=== PATIENT | male | born 1930 | race Caucasian/White ===

== ENCOUNTER 2017-01-23 16:15 | Inpatient (IN) | payer MEDICARE, BC ==
[~2017-01-23] VITALS: Ht 182.9 cm; Wt 77.6 kg
[~2017-01-23 16:15] MED LIST: ASPI81TA3 PO; CARV3.1260 PO; FINA5TAB4 PO; FURO40TA4 PO; LISI10TA2 PO; METF1000 PO; OXYB5TAB7 PO; POTA10TA37 PO; POTA20TA96 PO; SMV40T PO
[2017-01-23] MEDS ORDERED: SODIUM CHLORIDE 0.9% 1L BAG IV* STA (16:26)
[2017-01-23 17:03] LABS: ADD SCAN DIFF NO
[2017-01-23 17:06] LABS: BASOPHILS % 0.2 % (0.0-2.0); HEMATOCRIT 41.4 % (42.0-52.0); HEMOGLOBIN 12.9 g/dl (14.0-18.0); LYMPHOCYTES # 0.8 10^3/ul (0.8-2.9); LYMPHOCYTES % 15.3 % (15.0-51.0); MEAN CORPUSCULAR HEMOGLOBIN 28.8 pg (29.0-33.0); MEAN CORPUSCULAR HGB CONC 31.2 g/dl (32.0-37.0); MEAN CORPUSCULAR VOLUME 92.4 fl (82.0-101.0); MEAN PLATELET VOLUME 11.3 fl (7.4-10.4); MONOCYTE # 0.4 10^3/ul (0.3-0.9); MONOCYTES % 8.5 % (0.0-11.0); NEUTROPHIL # 3.8 10^3/ul (1.6-7.5); NEUTROPHILS % 75.6 % (39.0-77.0); PLATELET COUNT 138 10^3/UL (140-415); RED BLOOD COUNT 4.48 10^6/ul (4.70-6.10); RED CELL DISTRIBUTION WIDTH 14.6 % (11.5-14.5)
[2017-01-23 17:16] LABS: POTASSIUM 3.9 mmol/L (3.5-5.1)
[2017-01-23 17:18] LABS: ALBUMIN/GLOBULIN RATIO 0.9; BILIRUBIN,INDIRECT 0.3 mg/dl (0-1.1); BILIRUBIN,TOTAL 0.3 mg/dl (0.2-1.3); CREATININE 1.34 mg/dl (0.61-1.24); TOTAL PROTEIN 8.4 g/dl (6.1-8.1)
[2017-01-23 17:19] LABS: CALCIUM 9.1 mg/dl (8.4-10.2)
[2017-01-23 17:20] LABS: INR 1.12; PROTIME 14.4 Sec (12.2-14.2); PT RATIO 1.1
[2017-01-23 17:21] LABS: PARTIAL THROMBOPLASTIN TIME 32.2 Sec (25.0-35.0)
[2017-01-23 17:30] LABS: TROPONIN-I 0.109 ng/ml (0.00-0.12)
--- NOTE | 2017-01-23 17:32 | RADRPT ---
PROCEDURE: XR Chest. CLINICAL INDICATION: Shortness of breath. Sepsis. TECHNIQUE: Single frontal view. COMPARISON: 07/16/2016. FINDINGS: There is mild left basilar atelectasis. The lungs are otherwise clear. The heart is mildly enlarged. There is an automatic internal cardiac defibrillator. Calcification is present in the aorta consistent with atherosclerosis. There is no pleural effusion. There is no pneumothorax. IMPRESSION: 1. Mild left basilar atelectasis. 2. Mild cardiomegaly. 3. AICD. 4. Atherosclerosis. 5. Otherwise unremarkable chest radiograph. RPTAT: QQ .Epifanio Aragon MD, MD Date Time Electronically viewed and signed by .Epifanio Aragon MD, on 01/23/2017 17:32 .R/
--- NOTE | 2017-01-23 17:57 | RADRPT ---
PROCEDURE: CT Brain without. CLINICAL INDICATION: Altered mental status. TECHNIQUE: A CT of the brain was performed on multidetector high-resolution CT scanner utilizing a xial sections from the skull base through the vertex without contrast. The scan was reviewed in sof t tissue brain and high frequency resolution bone algorithm windows. Images were reviewed on a high -resolution PACS workstation. One or more the following does reduction techniques were utilized: Aut omated exposure control, adjustment of the mA/ or kV according to patient's size, or use of iterativ e reconstruction technique. The exam CTDI = 44.83 mGy and the DLP = the 720.23 mGy-cm. COMPARISON: Brain CT 07/14/2016. FINDINGS: The ventricles and sulci are mildly prominent indicative of volume loss. There is no intracranial he morrhage, mass effect or midline shift. No abnormal intra-axial or extra-axial fluid collections ar e seen. The mello/white matter differentiation is preserved. There are mild scattered foci of hypoattenuation in the white matter, which are nonspecific in etiol ogy but likely reflect chronic small vessel ischemic changes. There are mild intracranial vascular calcifications consistent with atherosclerosis. Chronic left nasal bone fracture deformity is noted. The visualized paranasal sinuses are essentially clear. IMPRESSION: 1. No acute intracranial hemorrhage, transcortical infarction or mass effect. 2. Mild intracranial atherosclerosis and chronic small vessel ischemic changes. 3. Mild generalized cerebral volume loss. RPTAT: HH .Maria T cShmidt MD, MD Date Time Electronically viewed and signed by .Maria T Schmidt MD, MD on 01/23/2017 17:56 .N/
[2017-01-23] MEDS ORDERED: DILTIAZEM 25 MG INJ IV ONE (18:00)
[2017-01-23 19:19] LABS: ADD UMIC YES; URINE BILIRUBIN (Dip) NEGATIVE (NEGATIVE); URINE BLOOD (Dip) 1+ (NEGATIVE); URINE COLOR LT. YELLOW (YELLOW); URINE GLUCOSE (Dip) NEGATIVE (NEGATIVE); URINE KETONES (Dip) 3+ (NEGATIVE); URINE LEUKOCYTE ESTERASE (Dip) NEGATIVE (NEGATIVE); URINE NITRITE (Dip) NEGATIVE (NEGATIVE); URINE TOTAL PROTEIN (Dip) 1+ (NEGATIVE); URINE UROBILINOGEN (Dip) 0.2 E.U./dL (0.1-1.0)
[2017-01-23 19:37] LABS: BACTERIA,URINE FEW
--- NOTE | 2017-01-23 19:54 | ERA ---
ER Documentation Chief Complaint Date/Time DATE: 01/23/17 TIME: 19:49 Chief Complaint BROUGHT IN VIA EMS DUE TO INCREASED ALOC FROM HOME HPI History is unobtainable from patient secondary to his cognitive deficits. This is an 86-year-old male who presents to the emergency room after being brought in by ambulance to a decrease in his cognitive status over the past 24 hours. This patient does have a baseline dementia however he has been more altered than normal since last night at 8 PM. This patient has not been able to ambulate from his chair like he normally does and has been more weak than normal according to EMS and family. ROS All systems reviewed and are negative except as per history of present illness. Medications Home Meds Reported Medications Lisinopril* (Lisinopril*) 10 Mg Tablet, 10 MG PO DAILY, #30 TAB 07/14/16 Furosemide* (Furosemide*) 40 Mg Tablet, 40 MG PO DAILY, TAB 07/14/16 Potassium Chloride* (K-Dur*) 10 Meq Tab.prt.sr, 10 MEQ PO MONWEDFRI, TAB 07/14/16 Potassium Chloride* (Potassium Chloride*) 20 Meq Tablet.er, 20 MEQ PO DAILY, TAB.SA 07/14/16 Oxybutynin Chloride* (Ditropan*) 5 Mg Tablet, 5 MG PO DAILY 04/03/13 Carvedilol* (Carvedilol*) 3.125 Mg Tablet, 3.125 MG PO DAILY 02/05/13 Finasteride* (Finasteride*) 5 Mg Tablet, 5 MG PO DAILY 01/15/13 Aspirin* (Aspirin* Chew) 81 Mg Tab.chew, 81 MG PO DAILY 01/15/13 Simvastatin (Simvastatin) 40 Mg Tablet, 40 MG PO QHS 12/20/12 Metformin Hcl* (Metformin Hcl*) 1,000 Mg Tablet, 1000 MG PO BID 12/20/12 Allergies Allergies: Coded Allergies: cefazolin sodium (Verified Allergy, Mild, RASH, 01/03/15) PMhx/Soc History of Surgery: Yes (CABG, B THR) Anesthesia Reaction: No Hx Neurological Disorder: Yes (dementia) Hx Respiratory Disorders: No Hx Cardiac Disorders: Yes (HTN, Pacemaker) Hx Psychiatric Problems: No Hx Miscellaneous Medical Probl: No Hx Alcohol Use: No Hx Substance Use: No Hx Tobacco Use: No Smoking Status: Never smoker Physical Exam Vitals Vital Signs Date Time Temp Pulse Resp B/P Pulse Ox O2 Delivery O2 Flow Rate FiO2 01/23/17 18:16 106 24 145/93 97 Nasal Cannula 2.0 01/23/17 17:09 Nasal Cannula 2 01/23/17 16:19 98.4 102 18 142/81 98 Physical Exam INITIAL VITAL SIGNS: Reviewed by me GENERAL: The patient is frail-appearing elderly gentleman, no acute distress HEENT: Dry mucous membranes pupils equal, round, and reactive to light. EOMI. There is no scleral icterus. NECK: C-spine is soft and supple, there is no meningismus. There is no cervical lymphadenopathy. LUNGS: Clear to auscultation bilaterally. There are no rales, wheezes or rhonchi. HEART: Irregularly irregular rhythm no murmurs, clicks, rubs or gallops. ABDOMEN: Soft, non-tender, non-distended. There are bowel sounds in all four quadrants. No rebound or guarding. EXTREMITIES: There is no peripheral cyanosis or edema. No focal swelling or erythema. NEUROLOGICAL: The patient moves all four extremities with 5/5 strength. Cranial nerves II - XII are intact. Normal gait. Alert and oriented SKIN: There is no apparent rash or petechiae. HEME/LYMPHATIC: There is no evidence of excessive bruising or lymphedema. PSYCHIATRIC: The patient does not appear anxious or depressed. Result Diagram: 01/23/17 1650 01/23/17 1650 Results 24 hrs Laboratory Tests Test 01/23/17 16:50 01/23/17 19:06 White Blood Count 5.010^3/ul Red Blood Count 4.4810^6/ul Hemoglobin 12.9g/dl Hematocrit 41.4% Mean Corpuscular Volume 92.4fl Mean Corpuscular Hemoglobin 28.8pg Mean Corpuscular Hemoglobin Concent 31.2g/dl Red Cell Distribution Width 14.6% Platelet Count 81913^3/UL Mean Platelet Volume 11.3fl Neutrophils % 75.6% Lymphocytes % 15.3% Monocytes % 8.5% Eosinophils % 0.0% Basophils % 0.2% Nucleated Red Blood Cells % 0.0/100WBC Neutrophils # 3.810^3/ul Lymphocytes # 0.810^3/ul Monocytes # 0.410^3/ul Eosinophils # 0.010^3/ul Basophils # 0.010^3/ul Nucleated Red Blood Cells # 0.010^3/ul Prothrombin Time 14.4Sec Prothrombin Time Ratio 1.1 INR International Normalized Ratio 1.12 Activated Partial Thromboplast Time 32.2Sec Sodium Level 143mmol/L Potassium Level 3.9mmol/L Chloride Level 100mmol/L Carbon Dioxide Level 25mmol/L Anion Gap 22 Blood Urea Nitrogen 30mg/dl Creatinine 1.34mg/dl Glucose Level 185mg/dl Lactic Acid Level 1.6mmol/L Calcium Level 9.1mg/dl Total Bilirubin 0.3mg/dl Direct Bilirubin 0.00mg/dl Indirect Bilirubin 0.3mg/dl Aspartate Amino Transf (AST/SGOT) 17IU/L Alanine Aminotransferase (ALT/SGPT) 22IU/L Alkaline Phosphatase 61IU/L Creatine Kinase 41IU/L Troponin I 0.109ng/ml Total Protein 8.4g/dl Albumin 4.0g/dl Globulin 4.40g/dl Albumin/Globulin Ratio 0.90 Urine Color LT. YELLOW Urine Clarity CLEAR Urine pH 5.0 Urine Specific [place] >=1.030 Urine Ketones 3+ Urine Nitrite NEGATIVE Urine Bilirubin NEGATIVE Urine Urobilinogen 0.2 E.U./dL Urine Leukocyte Esterase NEGATIVE Urine Microscopic RBC 10-25/HPF Urine Microscopic WBC 0-2/HPF Urine Epithelial Cells OCCASIONAL Urine Amorphous Urates FEW Urine Bacteria FEW Urine Granular Casts FEW Urine Hemoglobin 1+ Urine Glucose NEGATIVE% Urine Total Protein 1+ Current Medications Medications (Trade) Dose Ordered Sig/Do Route PRN Reason Start Time Stop Time Status Last Admin Dose Admin Sodium Chloride (NS) 2,250 ml BOLUS OVER 2 HOURS STAT IV* 01/23/17 16:26 01/23/17 16:28 DC 01/23/17 16:56 Diltiazem HCl (Cardizem Iv) 5 mg ONCE ONCE IV 01/23/17 18:00 01/23/17 18:05 DC 01/23/17 19:00 Procedures/MDM EKG: Rate/Rhythm: Atrial fibrillation with rapid ventricular response QRS, ST, T-waves: [No changes consistent w/ acute ischemia] Impression: Atrial fibrillation with rapid ventricular response Chest X-ray 1V Interpreted by me: Soft Tissue: AICD in place Bones: No acute abnormalities Mediastinum/Cardiac Silhouette/Lungs: [No acute abnormalities] CT brain without: 1. No acute intracranial hemorrhage, transcortical infarction or mass effect. 2. Mild intracranial atherosclerosis and chronic small vessel ischemic changes. 3. Mild generalized cerebral volume loss. This 86-year-old male presents to the emergency room for evaluation of generalized weakness and altered mental status more than his baseline. The patient was unable to give a detailed history secondary to his clinical condition. When I evaluated him he was in atrial fibrillation with rapid ventricular response. The patient had a heart rate of 114 bpm. Lab work was obtained including blood cultures and urine cultures. The patient was found to have 3+ ketones in his urine. He does appear to be dehydrated on my examination. Troponin is at the upper limit of normal, given his age and weakness this patient will be admitted on the telemetry floor for A. fib with RVR, dehydration, and altered mental status. No leukocytosis or fever to indicate acute infection at this time. CT of the brain is normal at this time. This patient is not a TPA candidate as she was last seen normal on January 22 at 8 PM. This patient will be admitted to Dr. Munson Cardiac Critical Care: Excluding all billable procedures Time: 33 minutes Treatments/Evaluations: Close monitoring for dangerous arrhythmia and cardiovascular collapse, while treating with advance cardiac medications and techniques. Departure Diagnosis: Primary Impression: Atrial fibrillation with RVR Additional Impressions: Acute prerenal azotemia Normocytic anemia Mild dehydration Condition: Stable DANETTE GARCÍA DO Jan 23, 2017 19:54
[2017-01-23] MEDS ORDERED: SOD CHLORIDE 0.9% 1,000 ML IV SCH (20:02)
[2017-01-23] MEDS ORDERED: ACETAMINOPHEN 325 MG TAB PO PRN (20:30)
[2017-01-23] MEDS ORDERED: ONDANSETRON 4 MG INJ IV PRN (20:30)
[2017-01-24] VITALS (39 sets, daily range): BP systolic 83–129; BP diastolic 54–110; PULSE 74–115; RESP 20–29; TEMP 98.4; Ht 182.9 cm; Wt 77.6 kg
[2017-01-24] MEDS ORDERED: ACETAMINOPHEN 325 MG TAB PO PRN (11:00)
[2017-01-24] MEDS ORDERED: HYDROCODONE/APAP (10/325) TAB PO PRN (11:00)
[2017-01-24] MEDS ORDERED: MAGNESIUM HYDROXIDE 30ML CUP PO PRN (11:00)
[2017-01-24] MEDS ORDERED: ZOLPIDEM 5 MG TAB PO PRN (11:00)
[2017-01-24] MEDS ORDERED: ALBUTEROL 0.083% (NEB) 2.5 MG/3 ML AMP HHN PRN (11:00)
[2017-01-24 11:33] LABS: AADO2 Arterial 176.6 mmHg (7.0-24.0); Allen Test ACCEPTAB; Arterial Base Excess -11.1 mmol/L (-3.0-3); Arterial COHb 0.3 % (0.0-3.0); Arterial Fraction of Oxyhgb 76.4 % (93.0-99.0); Arterial HCO3 16.8 mmol/L (22.0-26.0); Arterial MetHb 0.4 % (0.0-1.5); Arterial Total Hemglobin 14.5 g/dl (12.0-18.0); MODE NASAL CANNULA
[2017-01-24] MEDS ORDERED: GLUCOSE GEL 15 GRAM TUBE PO PRN ×4 (12:00→17:00)
[2017-01-24] MEDS ORDERED: GLUCOSE GEL 15 GRAM TUBE BUCCAL PRN ×2 (12:00→17:00)
[2017-01-24] MEDS ORDERED: INSULIN ASPART [NOVOLOG] 3 ML PEN SC SCH (12:00)
[2017-01-24] MEDS ORDERED: DEXTROSE 50% 50 ML SYRINGE IV PRN ×4 (12:00→17:00)
[2017-01-24] MEDS ORDERED: GLUCAGON 1 MG INJ IM PRN ×2 (12:00→17:00)
[2017-01-24] MEDS ORDERED: FUROSEMIDE 40 MG INJ IV ONE (12:00)
[2017-01-24] MEDS ORDERED: NORepinephrine 8MG/250 ML (PMX 250 ML ONE (12:45)
--- NOTE | 2017-01-24 12:45 | EN ---
Date/Time of Note Date/Time of Note DATE: 01/24/17 TIME: 12:43 ER Progress Note This is an 86-year-old male who was admitted for A. fib RVR with dehydration to telemetry. Apparently this morning he has had a decrease in mental status and his ABG looks ominous with pH of 7.1 PO2 of 55 with a metabolic acidosis. Patient was then transferred to the ICU and patient's primary care physician opted to intubate him due to his decreasing mental status and need for more respiratory support Endotracheal Intubation by me: Pre assessment performed. See preceding note for details. Pre-oxygenation performed with 100% oxygen RSI: Performed w/o complication or hypoxic events. Medications as ordered. Blade: Mac 4 ET Tube: 7.5 cm Depth: 24] cm at the lip Intubation confirmed by colorimetric CO2, equal breath sounds, quiet over the stomach. TAI RITTER DO Jan 24, 2017 12:45
[2017-01-24] MEDS: NORepinephrine 8MG/250 ML (PMX 250 ML IV SCH (12:55)
[2017-01-24] MEDS ORDERED: ALBUTEROL 0.083% (NEB) 2.5 MG/3 ML AMP HHN SCH (13:00)
--- NOTE | 2017-01-24 13:16 | RADRPT ---
PROCEDURE: XR Chest. CLINICAL INDICATION: Check endotracheal tube position. TECHNIQUE: Single frontal view. COMPARISON: 01/23/2017. 1705 hours. FINDINGS: The endotracheal tube has been inserted in satisfactory position with the tip below the level of the clavicle heads and 6 cm above the martin. There is air space disease in the right mid and lower lung zones and in the left lower lung zone con sistent with pulmonary edema or bilateral multifocal pneumonia. The heart size is normal. There is calcification in the aorta consistent with atherosclerosis. The re is an automatic internal cardiac defibrillator. There is no pleural effusion. There is no pneumothorax. There are severe degenerative changes of the right glenohumeral joint with joint space narrowing, osteophytes, subarticular sclerosis, and deformity. IMPRESSION: 1. Endotracheal tube in satisfactory position. 2. Worse appearance of the lungs. 3. No other change from 01/23/2017. RPTAT: QQ .Epifanio Aragon MD, MD Date Time Electronically viewed and signed by .Epifanio Aragon MD, MD on 01/24/2017 13:16 .R/
[2017-01-24 13:48] LABS: AADO2 Arterial 586.6 mmHg (7.0-24.0); Allen Test ACCEPTAB; Arterial Base Excess -6.2 mmol/L (-3.0-3); Arterial COHb 0.3 % (0.0-3.0); Arterial Fraction of Oxyhgb 96.2 % (93.0-99.0); Arterial HCO3 18.3 mmol/L (22.0-26.0); Arterial MetHb 0.4 % (0.0-1.5); Arterial Total Hemglobin 13.2 g/dl (12.0-18.0); MODE VENT - AC
[2017-01-24] MEDS: PROPOFOL 100 ML IV SCH ×2 (15:20→22:22)
[2017-01-24] MEDS ORDERED: FUROSEMIDE 20 MG INJ IV ONE (16:30)
[2017-01-24] MEDS: ALBUTEROL 18 GM INHALER INH SCH ×2 (17:07→20:48)
--- NOTE | 2017-01-24 17:09 | CONS ---
DATE OF ADMISSION: 01/23/2017 DATE OF CONSULTATION: 01/24/2017 TYPE OF CONSULTATION: Pulmonary. REASON FOR CONSULTATION: Shortness of breath. Thank you, Dr. Munson, for this consultation. HISTORY OF PRESENT ILLNESS: This is an 86-year-old gentleman admitted for increasing shortness of b reath, orthopnea, PND yesterday with altered mental status, transferred to telemetry floor this afte rnoon had increasing shortness of breath and respiratory distress requiring transfer to intensive ca re unit with emergent intubation and mechanical ventilation. Few further details are available. At this point, the patient is intubated on mechanical ventilation, appears comfortable at rest. Eyes are open, blood pressure has improved. PAST MEDICAL HISTORY: Hypertension, atrial fibrillation. MEDICATIONS: Per chart. ALLERGIES: CEFAZOLIN. SOCIAL HISTORY: Tobacco history and alcohol history unknown. FAMILY HISTORY: Noncontributory. SYSTEMS REVIEW: A 12-point review of systems unable to perform. PHYSICAL EXAMINATION: GENERAL: Elderly-appearing gentleman, appears comfortable at rest, intubated on mechanical ventilat ion, no acute distress. VITAL SIGNS: Currently afebrile, pulse is 100, blood pressure 129/80, O2 saturation 96%, FIO2 of 10 0%. NECK: Supple. No JVD or lymphadenopathy. CARDIAC: S1, S2, no added sounds or murmurs. CHEST: Diminished air entry bilaterally. ABDOMEN: Soft, nontender. No guarding, no rebound. EXTREMITIES: No cyanosis, clubbing, edema. NEUROLOGIC: Generalized weakness. DIAGNOSTIC DATA: Chest x-ray shows worsening bilateral interstitial edema. LABORATORY DATA: White count 5.0, hemoglobin 12.9, platelets of 138, BUN 30, creatinine 1.34. Init ial troponin was 0.19. Arterial blood gas pH 7.36, pCO2 of 33, PaO2 of 93 on mechanical ventilation . EKG shows no acute ischemic changes. IMPRESSION AND PLAN: Hypoxemic respiratory failure, likely secondary to combination of: 1. Possible aspiration pneumonia. 2. Pulmonary edema. 3. Possible underlying cardiac dysfunction. The patient will require: 1. Echocardiogram. 2. Broad-spectrum antibiotics. 3. Mechanical ventilation. 4. Consider cardiology consultation. 5. DVT and GI prophylaxis. Dictated By: DAVE VILLANUEVA/SHELLY Conf#: [id number] DID#: [id number]
[2017-01-24] MEDS: SOD CHLORIDE 0.45% 1,000 ML IV SCH (17:14)
[2017-01-24] MEDS: LEVOFLOXACIN 500MG/D5W (PMX) 100 ML IVPB SCH (17:15)
[2017-01-24] MEDS: ENOXAPARIN 40 MG/0.4 ML SYG SC SCH (17:24)
[2017-01-24] MEDS: INSULIN ASPART [NOVOLOG] 3 ML PEN SC SCH ×2 (17:27→21:02)
[2017-01-24] MEDS ORDERED: SOD CHLORIDE 0.9% 250 ML IV ONE ×2 (19:30→23:30)
[2017-01-24] MEDS: FENTAnyl (DRIP) 1000 mcg/100mL 100 ML IV SCH (22:55)
[2017-01-25] VITALS (78 sets, daily range): BP systolic 75–125; BP diastolic 49–98; PULSE 83–105; RESP 18–30
[2017-01-25] MEDS: ALBUTEROL 18 GM INHALER INH SCH ×5 (00:22→21:14)
[2017-01-25] MEDS: SOD CHLORIDE 0.45% 1,000 ML IV SCH ×3 (01:53→16:59)
[2017-01-25] MEDS: INSULIN ASPART [NOVOLOG] 3 ML PEN SC SCH ×6 (01:53→21:00)
[2017-01-25] MEDS: ACCU-CHEK XX SCH (01:57)
--- NOTE | 2017-01-25 04:26 | HP ---
DATE OF ADMISSION: 01/23/2017 CHIEF COMPLAINT: Increasing weakness, dyspnea, orthopnea, and increasing disorientation and dementi a. HISTORY OF PRESENT ILLNESS: This patient has been demented for some time. The patient's was h ospitalized about 1 week ago. The patient appeared to deteriorate after that. He became very weak. He could not walk. He stopped eating. He was brought to the hospital. His admitting blood press ure was 83/54, and the patient was not putting out urine. He was first transferred from the emergen cy room to a telemetry unit; however, because of his hypotension and increasing dyspnea and orthopne a, he was transferred to the intensive care unit of this hospital where he was given a bolus of sali ne. His blood pressure improved to 124/83, but he is still not putting out significant urine. For review of systems, etc., please see previous chart #[id number] dated 07/14/2016. FAMILY HISTORY: Noncontributory. MEDICATIONS: The patient takes the following medications 1. Finasteride 5 mg daily. 2. Carvedilol 3.125 mg daily. 3. Aspirin 81 mg daily. 4. Lasix 20 mg daily. 5. Metformin 1000 mg twice a day. 6. Zocor 40 mg daily. 7. Aricept 5 mg daily. 8. Potassium chloride 10 mEq daily. 9. Lisinopril 5 mg daily. 10. Oxybutynin 5 mg daily. ALLERGIES: HE HAS NO KNOWN DRUG ALLERGIES. PHYSICAL EXAMINATION: GENERAL: The patient is a well-developed white male who appears acutely and chronically ill. VITAL SIGNS: Blood pressure 124/83, pulse 115 per minute, respiratory rate 33 per minute. The meghan ent is intubated. SKIN: No evidence of dermatitis. BREASTS: No masses. NECK: Supple. Thyroid is not palpable. HEENT: Head is symmetrical with no evidence of injury or deformity. EYES: The patient keeps his eyes closed. He is intubated and is not responsive. He has been given fentanyl intravenously because of extreme agitation. HEART: PMI left fifth interspace, left midclavicular line. A median sternotomy scar is present fro m previous heart surgery. The patient has a grade I/ pulmonic systolic murmur heard just to the l eft of the sternum. A2 is greater than P2. No distention of jugular veins. There is 1+ pretibial edema, 1+ dorsal pedal edema. Hepatojugular reflux is not present. CHEST: There are rales present bilaterally, no wheezes. ABDOMEN: Liver, kidneys, and spleen are not palpable. Bowel sounds are normal. There are no intra abdominal bruits or masses. No hernias are evident. GENITOURINARY: Normal external male genitalia. RECTAL: Deferred because of the patient's unknown cardiac status. MUSCULOSKELETAL: No evidence of deformity or injury of the musculoskeletal system. Evidence of amira ateral total hip replacement. NEUROLOGIC: DTRs are normal and equal bilaterally; however, the patient is intubated and cannot res pond. Plantars are flexor. PERIPHERAL VASCULAR: No carotid or subclavian artery bruits. Femoral and dorsal pedal pulses are n ormal and equal bilaterally. 1+ pretibial and dorsal pedal edema bilaterally. IMPRESSION: 1. Arteriosclerotic cardiovascular disease. 2. Congestive heart failure. 3. Diabetes mellitus 4. Hypotension. 5. History of angina pectoris. 6. Arteriosclerotic cardiovascular disease. 7. History of diverticulitis. 8. History of diverticulosis. 9. Moderate aortic stenosis. 10. Hypertension. 11. Hyperlipidemia. 12. Osteoarthritis. 13. Bilateral total hip replacement. 14. Peripheral vascular disease. 15. Early dementia. 16. Rule out pulmonary embolism. 17. Rule out aspiration pneumonia. Dictated By: ONIEL BYNUM/SHELLY Conf#: [id number] DID#: [id number]
[2017-01-25] MEDS: PANTOPRAZOLE 40 MG INJ IV SCH (05:35)
[2017-01-25 05:55] LABS: ADD SCAN DIFF NO
[2017-01-25 06:03] LABS: ABNORMAL IP MESSAGE 1; BASOPHILS % 0.2 % (0.0-2.0); HEMATOCRIT 36.4 % (42.0-52.0); HEMOGLOBIN 11.6 g/dl (14.0-18.0); LYMPHOCYTES # 0.7 10^3/ul (0.8-2.9); LYMPHOCYTES % 7.3 % (15.0-51.0); MEAN CORPUSCULAR HEMOGLOBIN 29.2 pg (29.0-33.0); MEAN CORPUSCULAR HGB CONC 31.9 g/dl (32.0-37.0); MEAN CORPUSCULAR VOLUME 91.7 fl (82.0-101.0); MEAN PLATELET VOLUME 11.9 fl (7.4-10.4); MONOCYTE # 0.3 10^3/ul (0.3-0.9); MONOCYTES % 2.5 % (0.0-11.0); NEUTROPHIL # 8.8 10^3/ul (1.6-7.5); NEUTROPHILS % 89.2 % (39.0-77.0); PLATELET COUNT 145 10^3/UL (140-415); RED BLOOD COUNT 3.97 10^6/ul (4.70-6.10); RED CELL DISTRIBUTION WIDTH 14.4 % (11.5-14.5); WHITE BLOOD COUNT 9.9 10^3/ul (4.8-10.8)
--- NOTE | 2017-01-25 06:45 | PQ ---
Date/Time of Note Date/Time of Note DATE: 01/25/17 TIME: 06:26 Physician Query Documentation Clarification Dear Dr. Munson, A review of the medical record found a need for documentation clarification. admitting blood pressure was 83/54, and the patient was not putting out urine. He was first transferred from the emergency room to a telemetry unit; however, because of his hypotension and increasing dyspnea and orthopnea, he was transferred to the intensive care unit of this hospital where he was given a bolus of saline. His blood pressure improved to 124/83, but he is still not putting out significant urine. Tx: Norepinephrine IV / IVF Please clarify a diagnosis being treated. To facilitate accurate and complete coding, please ilya ( x ) the suspected diagnosis that apply: ( ) Shock [ ] Hypovolemic [ ] Cardiogenic Shock ( ) Hypotension without shock ( ) Unable to determine ( ) Others Please provide your response by clicking edit document, making your choice ( x ), click ok/save and finally click sign. You may also document your response on your progress notes. Thank you for your time. Brennan Odom RN, BSN, CCS, CCDS Clinical [employer] Health Information Management, [employer] and Coding Services [phone] Room # 1525 - [address]~ [id number] BRENNAN ODOM Jan 25, 2017 06:45
[2017-01-25 07:15] LABS: ALBUMIN 2.8 g/dl (3.3-4.9); ALBUMIN/GLOBULIN RATIO 0.77; BILIRUBIN,INDIRECT 0.2 mg/dl (0-1.1); BILIRUBIN,TOTAL 0.2 mg/dl (0.2-1.3); CALCIUM 7.6 mg/dl (8.4-10.2); CHOL/HDL RATIO 2.5 RATIO; CREATININE 2.47 mg/dl (0.61-1.24); POTASSIUM 4.5 mmol/L (3.5-5.1); TOTAL PROTEIN 6.4 g/dl (6.1-8.1)
[2017-01-25 07:45] LABS: THYROID STIMULATING HORMONE 0.717 MIU/L (0.465-4.680)
[2017-01-25] MEDS: NORepinephrine 8MG/250 ML (PMX 250 ML IV SCH ×2 (08:34→13:30)
--- NOTE | 2017-01-25 08:47 | RADRPT ---
PROCEDURE: XR Chest. CLINICAL INDICATION: Shortness of breath. TECHNIQUE: Single frontal view. COMPARISON: 01/24/2017. FINDINGS: The endotracheal tube remains in satisfactory position. Patchy bilateral pulmonary air space diseas e is unchanged. The heart size is normal. There is calcification in the aorta consistent with atherosclerosis. Ther e is an automatic internal cardiac defibrillator. There is no pleural effusion or pneumothorax. There are severe degenerative changes of the right glenohumeral joint. IMPRESSION: 1. No change from 01/24/2017. RPTAT: QQ .Epifanio Aragon MD, MD Date Time Electronically viewed and signed by .Epifanio Aragon MD, MD on 01/25/2017 08:47 .R/
[2017-01-25 09:04] LABS: AADO2 Arterial 160.4 mmHg (7.0-24.0); Allen Test ACCEPTAB; Arterial Base Excess -3.2 mmol/L (-3.0-3); Arterial COHb 0.3 % (0.0-3.0); Arterial Fraction of Oxyhgb 95.6 % (93.0-99.0); Arterial HCO3 21.3 mmol/L (22.0-26.0); Arterial MetHb 0.4 % (0.0-1.5); Arterial Total Hemglobin 11.7 g/dl (12.0-18.0); MODE VENT - AC
--- NOTE | 2017-01-25 09:05 | RADRPT ---
Vent Rate: 123 bpm RR Interval: 0 msec [place] Interval: 0 msec QRS Duration: 114 msec QT Interval: 352 msec QTC Interval: 503 msec P-R-T [place]: 0 - -75 - 86 degrees Accelerated Junctional rhythm Left anterior fascicular block Abnormal ECG Electronically Signed By: [place] [id number]
[2017-01-25] MEDS: ENOXAPARIN 40 MG/0.4 ML SYG SC SCH (09:45)
--- NOTE | 2017-01-25 10:21 | CONS ---
Date/Time of Note Date/Time of Note DATE: 01/25/17 TIME: 10:13 Assessment/Plan Assessment/Plan Additional Assessment/Plan Ventilator settings; AC of 20, tidal volume 500, PEEP of 5, 30% FiO2. Patient is on Levophed at 5 mics per minute. He is off propofol. Assessment recommendations; 1. Patient admitted with respiratory failure due to pneumonia 2. Altered mental status with interval improvement 3. Dehydration. 4. Be history of hypertension and paroxysmal atrial fibrillation. Continue to hold sedation. Add Azactam 1 g every 12 hours. Patient currently is not able to be weaned off ventilator due to tachypnea as he was tried on CPAP mode at bedside. We will give another trial in 24 hours. Consultation Date/Type/Reason Admit Date/Time Jan 23, 2017 at 20:03 Initial Consult Date Type of Consultation: Pulmonary/critical care 24 HR Interval Summary Free Text/Dictation Patient condition remains critical, still requiring full ventilator support. Patient has been taken off sedation short while ago he still under the sedation effect. Patient has remained hemodynamically stable. Exam; elderly male, orally intubated, currently sedated. No distress noted. Exam/Review of Systems Vital Signs Vitals Vital Signs Date Time Temp Pulse Resp B/P Pulse Ox O2 Delivery O2 Flow Rate FiO2 01/25/17 09:18 100 21 98 40 01/25/17 09:00 107/78 Mechanical Ventilator 01/25/17 08:00 97.4 01/24/17 07:45 4.0 Intake and Output 01/24/17 01/24/17 01/25/17 15:00 23:00 07:00 Intake Total 3 ml 294.291 ml 1187.6 ml Output Total 120 ml 25 ml Balance 3 ml 174.291 ml 1162.6 ml Exam HEENT exam is; neck, no JVD. No lymphadenopathy. Midline trachea. No thyromegaly. Orally intubated. Bilateral intraocular lens implants. Chest examination NC: Diminished but clear vessel. S1-S2 audible, no murmurs. Regular rhythm. Abdomen exam is; soft, non-distended. No organomegaly. Bowel sounds audible. Extremity exam is; no peripheral edema. 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 Results Result Diagram: 01/25/17 0530 01/25/17 0530 Results 24 hrs Laboratory Tests Test 01/24/17 10:31 01/24/17 11:43 01/24/17 13:08 01/24/17 17:25 Blood Gas Specimen Source Blood arterial Blood arterial Arterial Blood Date Drawn 01/24/2017 11:24:25 AM 01/24/2017 1:30:27 PM Arterial Blood pH (Temp corrected) 7.192 *L 7.360 Arterial Blood pCO2 (Temp correct) 44.7 33.1 L Arterial Blood pO2 (Temp corrected) 50.0 *L 93.3 H Arterial Blood HCO3 16.8 L 18.3 L Arterial Blood Base Excess -11.1 L -6.2 L Arterial Blood Oxygen Saturation 76.9 L 96.9 Zacarias Test ACCEPTAB ACCEPTAB Arterial Blood Gas Puncture Site Right Radial Right Radial Arterial Blood Carboxyhemoglobin 0.3 0.3 Arterial Blood Methemoglobin 0.4 0.4 Blood Gas A-a O2 Differential 176.6 H 586.6 H Oxyhemoglobin Percent 76.4 L 96.2 Total Hemoglobin 14.5 13.2 Blood Gas Temperature 37.0 37.0 Blood Gas Modality NASAL CANNULA VENT - AC FiO2 39.0 100.0 Blood Gas Critical Value Read Back Kristian ARMABULA Blood Gas Notified Whom Debby TORRES Blood Gas Notified Time 01/24/2017 11:33:22 AM 01/24/2017 1:48:29 PM Bedside Glucose 192 254 H Blood Gas Respiration Rate 20.0 Blood Gas Actual Respiration Rate 24 Blood Gas Tidal Volume 500.0 Blood Gas Low PEEP Setting 5.0 Test 01/24/17 20:48 01/25/17 01:42 01/25/17 05:30 01/25/17 05:36 Bedside Glucose 201 191 204 White Blood Count 9.9 # Red Blood Count 3.97 L Hemoglobin 11.6 L Hematocrit 36.4 L Mean Corpuscular Volume 91.7 Mean Corpuscular Hemoglobin 29.2 Mean Corpuscular Hemoglobin Concent 31.9 L Red Cell Distribution Width 14.4 Platelet Count 145 Mean Platelet Volume 11.9 H Neutrophils % 89.2 H Lymphocytes % 7.3 L Monocytes % 2.5 Eosinophils % 0.0 Basophils % 0.2 Nucleated Red Blood Cells % 0.0 Neutrophils # 8.8 H Lymphocytes # 0.7 L Monocytes # 0.3 Eosinophils # 0.0 Basophils # 0.0 Nucleated Red Blood Cells # 0.0 Sodium Level 140 Potassium Level 4.5 Chloride Level 109 Carbon Dioxide Level 22 Anion Gap 14 # Blood Urea Nitrogen 44 #H Creatinine 2.47 #H Glucose Level 197 Hemoglobin A1c 7.1 H Lactic Acid Level 2.1 Calcium Level 7.6 L Total Bilirubin 0.2 Direct Bilirubin 0.00 Indirect Bilirubin 0.2 Aspartate Amino Transf (AST/SGOT) 743 #H Alanine Aminotransferase (ALT/SGPT) 644 H Alkaline Phosphatase 58 Total Protein 6.4 # Albumin 2.8 #L Globulin 3.60 H Albumin/Globulin Ratio 0.77 Triglycerides Level 76 Cholesterol Level 90 L LDL Cholesterol, Calculated 40 HDL Cholesterol 35 Cholesterol/HDL Ratio 2.5 Thyroid Stimulating Hormone (TSH) 0.717 Test 01/25/17 07:00 01/25/17 09:44 Blood Gas Specimen Source Blood arterial Arterial Blood Date Drawn 01/25/2017 7:56:51 AM Arterial Blood pH (Temp corrected) 7.389 Arterial Blood pCO2 (Temp correct) 36.0 Arterial Blood pO2 (Temp corrected) 83.4 Arterial Blood HCO3 21.3 L Arterial Blood Base Excess -3.2 L Arterial Blood Oxygen Saturation 96.3 Zacarias Test ACCEPTAB Arterial Blood Gas Puncture Site Right Radial Arterial Blood Carboxyhemoglobin 0.3 Arterial Blood Methemoglobin 0.4 Blood Gas A-a O2 Differential 160.4 H Oxyhemoglobin Percent 95.6 Total Hemoglobin 11.7 L Blood Gas Temperature 37.0 Blood Gas Respiration Rate 20.0 Blood Gas Actual Respiration Rate 20 Blood Gas Modality VENT - AC FiO2 40.0 Blood Gas Tidal Volume 500.0 Blood Gas Low PEEP Setting 5.0 Blood Gas Notified Whom JLD Blood Gas Notified Time 01/25/2017 8:21:33 AM Bedside Glucose 129 Medications Medications Current Medications Acetaminophen (Tylenol Tab) 650 mg Q4H PRN PO PAIN AND OR ELEVATED TEMP; Start 01/24/17 at 11:00 Acetaminophen/ Hydrocodone Bitart ([place] (10/325)) 1 tab Q4H PRN PO PAIN; Start 01/24/17 at 11:00 Zolpidem Tartrate (Ambien) 10 mg HS PRN PO INSOMNIA; Start 01/24/17 at 11:00 Magnesium Hydroxide (Milk Of Mag) 30 ml DAILY PRN PO CONSTIPATION; Start at 11:00 Albuterol (Proventil 0.083% (Neb)) 1.25 mg Q4 PRN HHN SLEEP; Start 01/24/17 at 11:00 Diagnostic Test (Pha) (Accu-Chek) 1 ea 02 XX Last administered on 01/25/17 01: 57; Admin Dose 1 EA; Start 01/25/17 at 02:00 Miscellaneous Information 1 ea NOTE XX ; Start 01/24/17 at 12:00 Glucose (Glutose) 15 gm Q15M PRN PO DECREASED GLUCOSE; Start 01/24/17 at 12:00 Glucose (Glutose) 22.5 gm Q15M PRN PO DECREASED GLUCOSE; Start 01/24/17 at 12: 00 Dextrose (D50w Syringe) 25 ml Q15M PRN IV DECREASED GLUCOSE; Start 01/24/17 at 12:00 Dextrose (D50w Syringe) 50 ml Q15M PRN IV DECREASED GLUCOSE; Start 01/24/17 at 12:00 Glucagon (Glucagen) 1 mg Q15M PRN IM DECREASED GLUCOSE; Start 01/24/17 at 12:00 Glucose 15 gm 15 gm Q15M PRN BUCCAL DECREASED GLUCOSE; Start 01/24/17 at 12:00 Propofol 100 ml @ 2.328 mls/ hr Q12H IV Last administered on 01/24/17 22:22; Admin Dose 23.28 MLS/HR; Start 01/24/17 at 13:00 Norepinephrine 250 ml @ 1.875 mls/ hr TITRATE IV Last administered on 08:34; Admin Dose 9.369 MLS/HR; Start 01/24/17 at 13:00 Levofloxacin/ Dextrose (Levaquin 500mg/ D5W 100 ml (Pmx)) 100 ml @ 100 mls/hr Q24H IVPB Last administered on 01/24/17 17:15; Admin Dose 100 MLS/HR; Start at 16:30 Pantoprazole (Protonix Iv) 40 mg DAILY@06 IV Last administered on 01/25/17 05: 35; Admin Dose 40 MG; Start 01/25/17 at 06:00 Enoxaparin Sodium (Lovenox) 40 mg DAILY SC Last administered on 01/25/17 09:45 ; Admin Dose 40 MG; Start 01/24/17 at 16:30 Insulin Aspart NOVOLOG *MILD* ALGORI... Q4 SC Last administered on 01/25/17 05 :43; Admin Dose 2 UNIT; Start 01/24/17 at 17:00 Sodium Chloride (1/2 NS) 1,000 ml @ 125 mls/hr Q8H IV Last administered on 06:03; Admin Dose 125 MLS/HR; Start 01/24/17 at 16:30 Miscellaneous Information 1 ea NOTE XX ; Start 01/24/17 at 17:00 Glucose (Glutose) 15 gm Q15M PRN PO DECREASED GLUCOSE; Start 01/24/17 at 17:00 Glucose (Glutose) 22.5 gm Q15M PRN PO DECREASED GLUCOSE; Start 01/24/17 at 17: 00 Dextrose (D50w Syringe) 25 ml Q15M PRN IV DECREASED GLUCOSE; Start 01/24/17 at 17:00 Dextrose (D50w Syringe) 50 ml Q15M PRN IV DECREASED GLUCOSE; Start 01/24/17 at 17:00 Glucagon (Glucagen) 1 mg Q15M PRN IM DECREASED GLUCOSE; Start 01/24/17 at 17:00 Glucose 15 gm 15 gm Q15M PRN BUCCAL DECREASED GLUCOSE; Start 01/24/17 at 17:00 Fentanyl (Sublimaze) 100 ml @ 2.5 mls/hr TITRATE IV Last administered on 22:55; Admin Dose 1 MLS/HR; Start 01/24/17 at 23:00 Lorazepam (Ativan) 2 mg Q2 PRN IM ANXIETY; Start 01/24/17 at 23:00 ULISES MCKAY Jan 25, 2017 10:21
[2017-01-25] MEDS ORDERED: FUROSEMIDE 40 MG INJ IV SCH (10:30)
[2017-01-25] MEDS ORDERED: AZTREONAM 1 GM/NS (PMX) 50 ML IVPB SCH (11:30)
[2017-01-25] MEDS: FENTAnyl (DRIP) 1000 mcg/100mL 100 ML IV SCH (12:12)
--- NOTE | 2017-01-25 12:17 | RADRPT ---
Echocardiogram Report Patient Name: ALLYSSA JAUREGUI Gender: Male Date: 1930 Study Date: 25-Jan-2017 [employer] Prescription Clerk: Kristian Craft RDCS Location: 120 Ref. Physician: DAVE TO Quality: Good Procedures: Transthoracic echocardiogram with complete 2D, M-Mode, and doppler examination. Indications: Congestive Heart Failure. 2D/M Mode Doppler Measurement Value Normal Ranges Measurement Value Normal Ranges LVIDd 2D 5.5 3.5 - 5.6 cm FROILNA Vmax 1.1 cm2 LVIDs 2D 4.2 2.1 - 4.1 cm FROILAN VTI 1.0 cm2 FS 2D 22.6 % AV Mean Nolan 1.5 m/sec LVPWd 2D 0.9 0.6 - 1.1 cm AV Mean PG 11.0 mmHg IVSd 2D 0.9 0.6 - 1.1 cm AV Peak Nolan 2.4 m/sec IVS/LVPW 2D 1.0 AV Peak PG 22.0 mmHg AoR Diam 2D 3.0 2.0 - 3.7 cm AV VTI 40.0 cm LA/Ao 2D 1 0 - 1 LVOT Mean Nolan 0.5 m/sec LA Dimen 2D 4.4 2.3 - 4.0 cm LVOT Mean PG 1.0 mmHg LVOT Diam 2.2 cm LVOT Peak Nolan 0.7 m/sec LVOT Area 3.8 cm2 LVOT Peak PG 2.0 mmHg LVOT VTI 11.0 cm MV E Peak Nolan 0.8 m/sec MV A Peak Nolan 0.5 m/sec MV E/A 1.4 MV Decel Time 88 msec MV E/A 1.4 TR Peak Nolan 2.9 m/sec TR Peak PG 33.0 mmHg RVSP 48.0 mmHg Findings Left Ventricle: Normal left ventricular cavity size. Normal left ventricular wall thickness. Severe global left ventricular systolic dysfunction. Ejection fraction is visually estimated at 2025 %. Abnormal Diastolic Function. These segments of the LV are hypokinetic mid anterior segment, anterior apex segment, Lateral mid segment, Lateral apex, inferior base segment, inferior mid segment, inferior apex segment and mid septum segment. Right Ventricle: Normal right ventricular size. Normal right ventricular systolic function. Pacemaker right heart. Left Atrium: The left atrium is normal in size. Right Atrium: There is mild enlargement of right atrium. Mitral Valve: Mild mitral leaflet calcification. Moderate mitral annular calcification. Mild mitral valve regurgitation. Aortic Valve: Mild to moderate aortic stenosis. Aortic valve Max velocity 2.37 m/sec. Max PG 22.00 mmHg. Mean PG 11.00 mmHg. Aortic valve area 1.05 cm2. Aortic cusps appear severely calcified. Trileaflet aortic valve. Tricuspid Valve: Normal appearance of the tricuspid valve. Right ventricular systolic pressure is consistent with moderate pulmonary hypertension. Estimated peak PA systolic pressure 48 mmHg. There is moderate tricuspid regurgitation. Pulmonic Valve: Normal pulmonic valve appearance. There is mild pulmonic regurgitation. Pericardium: Normal pericardium with no significant pericardial effusion. Aorta: Normal aortic root. IVC: Dilated inferior vena cava without respiratory collapse, however, patient on ventilator. Conclusions Normal left ventricular cavity size. Normal left ventricular wall thickness. Severe global left ventricular systolic dysfunction. Ejection fraction is visually estimated at 20-25 %. Abnormal Diastolic Function. These segments of the LV are hypokinetic mid anterior segment, anterior apex segment, Lateral mid segment, Lateral apex, inferior base segment, inferior mid segment, inferior apex segment and mid septum segment. Normal right ventricular size. Normal right ventricular systolic function. Pacemaker right heart. Mild to moderate aortic stenosis. Aortic valve Max velocity 2.37 m/sec. Max PG 22.00 mmHg. Mean PG 11.00 mmHg. Aortic valve area 1.05 cm2. Aortic cusps appear severely calcified. Trileaflet aortic valve. Mild mitral leaflet calcification. Moderate mitral annular calcification. Mild mitral valve regurgitation. Normal appearance of the tricuspid valve. Right ventricular systolic pressure is consistent with moderate pulmonary hypertension. Estimated peak PA systolic pressure 48 mmHg. There is moderate tricuspid regurgitation. Normal pericardium with no significant pericardial effusion. Dilated inferior vena cava without respiratory collapse, however, patient on ventilator. Electronically Signed By: [place] 25-Jan-2017 12:15:56 -0700 Patient Name: ALLYSSA JAUREGUI Study Date: 25-Jan-2017 [id number]
[2017-01-25] MEDS: PROPOFOL 100 ML IV SCH (13:00)
[2017-01-25] MEDS ORDERED: SOD CHLORIDE 0.9% 500 ML IV ONE (13:30)
--- NOTE | 2017-01-25 13:54 | RADRPT ---
PROCEDURE: Retroperitoneal US. CLINICAL INDICATION: Acute renal failure TECHNIQUE: Multiple sonographic images of the retroperitoneum were obtained. The images were revi ewed on a PACS workstation. COMPARISON: Renal ultrasound from 04/27/2016 FINDINGS: The right kidney measures 13.1 cm. The left kidney measures 10.5 cm. The renal parenchymal echotexture is increased bilaterally. There is fullness of the right renal collecting system without nirmal hydronephrosis which is not sig nificantly changed compared to the prior ultrasound study from April 2016. There is no left hydronep hrosis. There is no focal renal mass or calcification seen. There is a 1.4 cm simple cyst in the lower pole of the left kidney. There is a 3.7 cm simple cyst in the midpole of the right kidney. There is a 5.5 cm simple cyst in the upper pole of the right kidney. The bladder is collapsed around a Langley catheter balloon which limits evaluation. IMPRESSION: Stable fullness of the right renal collecting system without nirmal hydronephrosis. There is no left hydronephrosis. Increased renal parenchymal echogenicity suggestive of medical renal disease. Simple bilateral renal cysts measuring up to 1.4 cm on the left and 5.5 cm on the right. RPTAT: EE Physician Lawrence Date Time Electronically viewed and signed by Physician Lawrence on 01/25/2017 13:54 SHAMIKA
--- NOTE | 2017-01-25 14:12 | CONS ---
DATE OF ADMISSION: 01/23/2017 DATE OF CONSULTATION: Thank you, Dr. Munson, for asking me to participate in medical management of this patient. REASON FOR CONSULTATION: Acute renal failure. HISTORY OF PRESENT ILLNESS: This 86-year-old man who has been seen by me previously was brought in to the hospital from home by paramedics. He went to the emergency room and was seen by the ER physician. The patient does have a history of dementia and was unable to give any history when brought in. Apparently, he had a decrease in cognitive status over the last 24 hours. Apparently, the patient's has been in the hospital and it is not clear who was caring for the patient. He is under the care of Dr. Cristopher Munson. The patient was thought to be dehydrated on admission. He was given a bolus of saline and his blood pressure increased from 83/54 to 124/83. His urine output has been low. The patient's serum creatinine went from admission 1.34 to 2.47 today with a low urine output. The patient is intubated on a ventilator. He does follow simple commands. CURRENT MEDICATIONS: As follows: 1. Finasteride 5 mg a day. 2. Carvedilol 3.125 mg a day. 3. Aspirin 81 mg a day. 4. Lasix 20 mg a day. 5. Metformin 1000 mg twice a day. 6. Zocor 40 mg a day. 7. Aricept 5 mg a day. 8. Potassium chloride 10 mEq daily. 9. Lisinopril 5 mg a day. 10. Oxybutynin 5 mg a day. ALLERGIES: THE PATIENT HAS NO KNOWN DRUG ALLERGIES. I did see the patient last in April of 2015 and at that time, I felt the patient had diabetic nephropathy with a significant amount of protein in his urine, 990 mg of protein per gram of creatinine. His serum creatinine at that time was 1. PAST MEDICAL HISTORY: Remarkable for hypertension, diabetes mellitus, dementia , atherosclerotic heart disease, chronic kidney disease. SURGICAL HISTORY: CABG x5 in 2006, right hip replacement x3, bilateral inguinal herniorrhaphy, fractured ankle, GI bleeding, diverticular disease. FAMILY HISTORY: Father of pneumonia. Mother of cancer. SOCIAL HISTORY: The patient does not smoke. He was a former smoker. PHYSICAL EXAMINATION: GENERAL: At this time reveals an ill-appearing man who is intubated on the ventilator. He does respond to verbal stimuli and follows simple commands. VITAL SIGNS: Pulse of 103, respirations 20, blood pressure 93/70, pulse oximeter 98%, FIO2 of 35. MEDICATION: The patient is on: 1. A pressor medication. 2. Fentanyl. 3. Lorazepam. 4. Insulin. 5. Albuterol. 6. Levofloxacin. 7. Enoxaparin IV of 125 an hour. 8. Propofol. 9. Norepinephrine for blood pressure support. NEUROLOGIC: The patient is awake, follows simple commands. He is intubated. HEAD: EYES: Extraocular muscles intact. Nose is normal. Mouth with an endotracheal tube. NECK: Supple, no neck vein distention. LUNGS: Clear to auscultation. HEART: Regular rhythm. No murmurs, gallops or rubs. ABDOMEN: Soft, nontender. EXTREMITIES: No peripheral edema. His chest x-ray does show a diffuse infiltrate on the right lung. His left lung looks virtually clear without evidence of pulmonary vascular congestion. LABORATORY DATA: Today sodium 140, potassium 4.5, chloride 109, CO2 22, BUN 44 , creatinine 2.47, calcium 7.6, elevated liver enzymes. Hemoglobin 11.6, hematocrit 36.4, white blood count 9900. Blood gas pH 7.389, pCO2 of 36, pO2 is 83.4, the O2 sat is 96.3%. IMPRESSION: This patient presents now with hypotension, rising serum creatinine and low urine output. Apparently, his went in the hospital and he may have been alone at home. It is not clear how much he was eating or drinking. I suspect that this patient is dehydrated. He was seen by me in the office 2 years ago . I diagnosed that he had diabetic nephropathy . His renal function was normal then but he had proteinuria . PLAN: I am going to give him a bolus of 500 mL of normal saline and see how his blood pressure responds. I will also check urine sodium, urine creatinine, a renal ultrasound. I will continue to follow the patient along with you. I will order labs for tomorrow. Dictated By: ANNA BUSTILLO MD, ND/SHELLY Conf#: [id number] DID#: [id number] MINDY
--- NOTE | 2017-01-25 14:36 | CONS ---
Date/Time of Note Date/Time of Note DATE: 01/25/17 TIME: 14:19 Assessment/Plan Assessment/Plan Chief Complaint/Hosp Course Impression: - advanced dementia with worsening mental status - ? related to infection - respiratory failure- requiring intubation, ? related to pneumonia. - severe ICM with LVEF 20-25%- possibly worse given on norepi vasopressor - multi vessel CAD- no e/o ischemia on ekg. chronic lv dysfunction on echo. - irregular rhythm- MAT vs AF. cont tele monitoring, rates stable. - NSVT s/p ICD placement nl fxn last checked 01/2017 - mild to moderate - h/o HTN - h/o DM2 - PANCHO Recommendations - trend troponin - check bnp - trend cr - cont hd support, wean pressors as tolerated - ok to use fluids to support bp, however would limit bolus rates and use judiciously to avoid fluid overload - holding bp meds given hypotension, restart when stable - ok to asa/statin when tolerating po Problems: Consultation Date/Type/Reason Admit Date/Time Jan 23, 2017 at 20:03 Date of Consultation: Jan 25, 2017 Type of Consultation: Cardiology Reason for Consultation Respiratory Failure Referring Provider: ONIEL MORROW MD Hx of Present Illness Mr. Winn is a 86 y.o. [place] man with known CAD s/p CABG, ICM with severe LV systolic dysfunction s/p ICD placement. Pt currently intubated/sedated, history obtained via chart, d/w nursing,other providers. Pt with h/o of dementia, presented with worsening mental status x 1 week. The patient was hypotensive with low UOP and worsening renal function, he was given IVF however developed respiratory failure requiring intubation. Pt on levophed low dose sharla-intubation now being weaned. he remains with sbp 90s, tele reviewed shows irregular rhythm, possibly MAT vs. AF with HR 90s-100s. Subjective hx not possible: pt non-verbal, pt critical status Past Medical History 1. CAD s/p CABG 2006 [facility]- LAD, SVG-OM-Diag, SVG-RCA-LCx 2. ICM with severe chronic systolic HF 3. s/p ICD placement. 4. Diabetes. 5 Hypertension. 6 Hyperlipidemia. 7. Peripheral vascular disease. 8 Aortic stenosis- moderate 9. Lower gastrointestinal bleed secondary to diverticulosis and diverticulitis. Past Surgical History CABG Family History Significant Family History: other (+ [place] brother 42 y.o.) Social History Alcohol Use: none Smoking Status: Former smoker Drug Use: none Exam/Review of Systems Vital Signs Vitals Vital Signs Date Time Temp Pulse Resp B/P Pulse Ox O2 Delivery O2 Flow Rate FiO2 01/25/17 13:00 105 24 98 35 01/25/17 11:15 93/70 Mechanical Ventilator 01/25/17 08:00 97.4 01/24/17 07:45 4.0 Intake and Output 01/24/17 01/24/17 01/25/17 15:00 23:00 07:00 Intake Total 3 ml 294.291 ml 1312.6 ml Output Total 120 ml 25 ml Balance 3 ml 174.291 ml 1287.6 ml Exam Constitutional: non-verbal, other (INTUBATED/SEDATED) Psych: other (UNABLE TO ASSESS) Head: atraumatic, normocephalic Eyes: nl conjunctiva, nl lids ENMT: mucosa pink and moist Neck: non-tender, supple, No jvd Respiratory: clear to auscultation (anterior perea) Cardiovascular: other (irregular, nl rate. nl s1s2, ii/vi systolic LLSB) Gastrointestinal: non-tender, soft Musculoskeletal: No swelling Extremities: normal pulses Neurological: other, unresponsive Skin: nl turgor Results Result Diagram: 01/25/17 0530 01/25/17 0530 Results 24 hrs Laboratory Tests Test 01/24/17 17:25 01/24/17 20:48 01/25/17 01:42 01/25/17 05:30 Bedside Glucose 254 H 201 191 White Blood Count 9.9 # Red Blood Count 3.97 L Hemoglobin 11.6 L Hematocrit 36.4 L Mean Corpuscular Volume 91.7 Mean Corpuscular Hemoglobin 29.2 Mean Corpuscular Hemoglobin Concent 31.9 L Red Cell Distribution Width 14.4 Platelet Count 145 Mean Platelet Volume 11.9 H Neutrophils % 89.2 H Lymphocytes % 7.3 L Monocytes % 2.5 Eosinophils % 0.0 Basophils % 0.2 Nucleated Red Blood Cells % 0.0 Neutrophils # 8.8 H Lymphocytes # 0.7 L Monocytes # 0.3 Eosinophils # 0.0 Basophils # 0.0 Nucleated Red Blood Cells # 0.0 Sodium Level 140 Potassium Level 4.5 Chloride Level 109 Carbon Dioxide Level 22 Anion Gap 14 # Blood Urea Nitrogen 44 #H Creatinine 2.47 #H Glucose Level 197 Hemoglobin A1c 7.1 H Lactic Acid Level 2.1 Calcium Level 7.6 L Total Bilirubin 0.2 Direct Bilirubin 0.00 Indirect Bilirubin 0.2 Aspartate Amino Transf (AST/SGOT) 743 #H Alanine Aminotransferase (ALT/SGPT) 644 H Alkaline Phosphatase 58 Total Protein 6.4 # Albumin 2.8 #L Globulin 3.60 H Albumin/Globulin Ratio 0.77 Triglycerides Level 76 Cholesterol Level 90 L LDL Cholesterol, Calculated 40 HDL Cholesterol 35 Cholesterol/HDL Ratio 2.5 Thyroid Stimulating Hormone (TSH) 0.717 Test 01/25/17 05:36 01/25/17 07:00 01/25/17 09:44 01/25/17 13:30 Bedside Glucose 204 129 135 Blood Gas Specimen Source Blood arterial Arterial Blood Date Drawn 01/25/2017 7:56:51 AM Arterial Blood pH (Temp corrected) 7.389 Arterial Blood pCO2 (Temp correct) 36.0 Arterial Blood pO2 (Temp corrected) 83.4 Arterial Blood HCO3 21.3 L Arterial Blood Base Excess -3.2 L Arterial Blood Oxygen Saturation 96.3 Zacarias Test ACCEPTAB Arterial Blood Gas Puncture Site Right Radial Arterial Blood Carboxyhemoglobin 0.3 Arterial Blood Methemoglobin 0.4 Blood Gas A-a O2 Differential 160.4 H Oxyhemoglobin Percent 95.6 Total Hemoglobin 11.7 L Blood Gas Temperature 37.0 Blood Gas Respiration Rate 20.0 Blood Gas Actual Respiration Rate 20 Blood Gas Modality VENT - AC FiO2 40.0 Blood Gas Tidal Volume 500.0 Blood Gas Low PEEP Setting 5.0 Blood Gas Notified Whom JLD Blood Gas Notified Time 01/25/2017 8:21:33 AM Medications Medications Current Medications Acetaminophen (Tylenol Tab) 650 mg Q4H PRN PO PAIN AND OR ELEVATED TEMP; Start 01/24/17 at 11:00 Acetaminophen/ Hydrocodone Bitart ([place] (10/325)) 1 tab Q4H PRN PO PAIN; Start 01/24/17 at 11:00 Zolpidem Tartrate (Ambien) 10 mg HS PRN PO INSOMNIA; Start 01/24/17 at 11:00 Magnesium Hydroxide (Milk Of Mag) 30 ml DAILY PRN PO CONSTIPATION; Start at 11:00 Albuterol (Proventil 0.083% (Neb)) 1.25 mg Q4 PRN HHN SLEEP; Start 01/24/17 at 11:00 Diagnostic Test (Pha) (Accu-Chek) 1 ea 02 XX Last administered on 01/25/17 01: 57; Admin Dose 1 EA; Start 01/25/17 at 02:00 Miscellaneous Information 1 ea NOTE XX ; Start 01/24/17 at 12:00 Glucose (Glutose) 15 gm Q15M PRN PO DECREASED GLUCOSE; Start 01/24/17 at 12:00 Glucose (Glutose) 22.5 gm Q15M PRN PO DECREASED GLUCOSE; Start 01/24/17 at 12: 00 Dextrose (D50w Syringe) 25 ml Q15M PRN IV DECREASED GLUCOSE; Start 01/24/17 at 12:00 Dextrose (D50w Syringe) 50 ml Q15M PRN IV DECREASED GLUCOSE; Start 01/24/17 at 12:00 Glucagon (Glucagen) 1 mg Q15M PRN IM DECREASED GLUCOSE; Start 01/24/17 at 12:00 Glucose 15 gm 15 gm Q15M PRN BUCCAL DECREASED GLUCOSE; Start 01/24/17 at 12:00 Propofol 100 ml @ 2.328 mls/ hr Q12H IV Last administered on 01/24/17 22:22; Admin Dose 23.28 MLS/HR; Start 01/24/17 at 13:00 Norepinephrine 250 ml @ 1.875 mls/ hr TITRATE IV Last administered on 13:30; Admin Dose 1.869 MLS/HR; Start 01/24/17 at 13:00 Levofloxacin/ Dextrose (Levaquin 500mg/ D5W 100 ml (Pmx)) 100 ml @ 100 mls/hr Q24H IVPB Last administered on 01/24/17 17:15; Admin Dose 100 MLS/HR; Start at 16:30 Pantoprazole (Protonix Iv) 40 mg DAILY@06 IV Last administered on 01/25/17 05: 35; Admin Dose 40 MG; Start 01/25/17 at 06:00 Enoxaparin Sodium (Lovenox) 40 mg DAILY SC Last administered on 01/25/17 09:45 ; Admin Dose 40 MG; Start 01/24/17 at 16:30 Insulin Aspart NOVOLOG *MILD* ALGORI... Q4 SC Last administered on 01/25/17 05 :43; Admin Dose 2 UNIT; Start 01/24/17 at 17:00 Sodium Chloride (1/2 NS) 1,000 ml @ 125 mls/hr Q8H IV Last administered on 06:03; Admin Dose 125 MLS/HR; Start 01/24/17 at 16:30 Miscellaneous Information 1 ea NOTE XX ; Start 01/24/17 at 17:00 Glucose (Glutose) 15 gm Q15M PRN PO DECREASED GLUCOSE; Start 01/24/17 at 17:00 Glucose (Glutose) 22.5 gm Q15M PRN PO DECREASED GLUCOSE; Start 01/24/17 at 17: 00 Dextrose (D50w Syringe) 25 ml Q15M PRN IV DECREASED GLUCOSE; Start 01/24/17 at 17:00 Dextrose (D50w Syringe) 50 ml Q15M PRN IV DECREASED GLUCOSE; Start 01/24/17 at 17:00 Glucagon (Glucagen) 1 mg Q15M PRN IM DECREASED GLUCOSE; Start 01/24/17 at 17:00 Glucose 15 gm 15 gm Q15M PRN BUCCAL DECREASED GLUCOSE; Start 01/24/17 at 17:00 Fentanyl (Sublimaze) 100 ml @ 2.5 mls/hr TITRATE IV Last administered on 12:12; Admin Dose 2.5 MLS/HR; Start 01/24/17 at 23:00 Lorazepam 2 mg 2 mg Q2 PRN IM ANXIETY; Start 01/24/17 at 23:00 Aztreonam (Azactam 1gm/NS (Pmx)) 50 ml @ 100 mls/hr Q12 IVPB Last administered on 01/25/17 13:20; Admin Dose 100 MLS/HR; Start 01/25/17 at 11:30 Furosemide 40 mg 40 mg DAILY IV ; Start 01/25/17 at 10:30 Sodium Chloride (NS) 500 ml @ 500 mls/hr Q1H ONCE IV Last administered on 01/25 13:20; Admin Dose 500 MLS/HR; Start 01/25/17 at 13:30; Stop 01/25/17 at 14 :29 Procedures Procedures CXR images reviewed: patchy infiltrates CT head report reviewed- no acute abnl JASPREET,LANE K. Jan 25, 2017 14:30
[2017-01-25 16:35] LABS: ADD UMIC YES; URINE BILIRUBIN (Dip) 1+ (NEGATIVE); URINE BLOOD (Dip) 3+ (NEGATIVE); URINE COLOR LT. YELLOW (YELLOW); URINE GLUCOSE (Dip) NEGATIVE (NEGATIVE); URINE KETONES (Dip) NEGATIVE (NEGATIVE); URINE LEUKOCYTE ESTERASE (Dip) NEGATIVE (NEGATIVE); URINE NITRITE (Dip) NEGATIVE (NEGATIVE); URINE TOTAL PROTEIN (Dip) 1+ (NEGATIVE); URINE UROBILINOGEN (Dip) 0.2 E.U./dL (0.1-1.0)
[2017-01-25 16:48] LABS: BACTERIA,URINE MANY; ICTOTEST NEGATIVE (NEGATIVE); SQUAMOUS EPITHELIAL CELL,UR RARE
[2017-01-25] MEDS: LEVOFLOXACIN 500MG/D5W (PMX) 100 ML IVPB SCH (16:55)
[2017-01-25 16:58] LABS: PROTEIN/CREAT RATIO 0.55 RATIO
[2017-01-25] MEDS ORDERED: HEPARIN 1000 UNITS/ML 10 ML INJ IV PRN (17:00)
[2017-01-25] MEDS ORDERED: HEPARIN 1000 UNITS/ML 10 ML INJ IV ONE (17:00)
[2017-01-25] MEDS: LORAZEPAM 2 MG INJ IM PRN (17:15)
[2017-01-25 17:28] LABS: INR 1.71; PROTIME 20.2 Sec (12.2-14.2); PT RATIO 1.6
[2017-01-25 17:29] LABS: PARTIAL THROMBOPLASTIN TIME 46.1 Sec (25.0-35.0)
[2017-01-25] MEDS: HEPARIN 25000 UNITS/250 ML 250 ML IV SCH (18:04)
--- NOTE | 2017-01-25 19:14 | RADRPT ---
PROCEDURE: Portable chest x-ray. CLINICAL INDICATION: Nasogastric tube placement. TECHNIQUE: Portable AP view of the chest. COMPARISON: 07/16/2016. FINDINGS: An endotracheal tube terminates approximately 3.5 cm above the martin. A nasogastric tube terminates in the stomach. There is mildly increased interstitial edema. There is minimal bibasilar atelectasi s. The patient is status post median sternotomy. The cardiac silhouette is not enlarged. There is a left chest cardiac AICD. No pleural effusion is seen. There is no pneumothorax. IMPRESSION: 1. Endotracheal tube tip approximately 3.5 cm above the martin. 2. Nasogastric tube tip in the stomach. 3. Mildly increased interstitial edema. 4. Aortic atherosclerosis. 5. Cardiac AICD. RPTAT: HTAR .Gerber Joseph MD, Date Time Electronically viewed and signed by .Gerber Joseph MD, on 01/25/2017 19:14 .R/
[2017-01-25 20:34] LABS: POTASSIUM 4.1 mmol/L (3.5-5.1)
[2017-01-25 20:37] LABS: CREATININE 2.77 mg/dl (0.61-1.24)
[2017-01-25 20:38] LABS: CALCIUM 7.5 mg/dl (8.4-10.2)
[2017-01-25] MEDS: ASPIRIN 325 MG TAB NGT SCH (21:52)
[2017-01-25] MEDS: AZTREONAM 0.5 GM in SOD CHLORIDE 0.9% 50 ML IV SCH (21:53)
[2017-01-25] MEDS ORDERED: SOD CHLORIDE 0.9% 250 ML IV ONE (23:30)
[2017-01-26] VITALS (76 sets, daily range): BP systolic 89–126; BP diastolic 59–92; PULSE 86–112; RESP 16–31
[2017-01-26] MEDS: SOD CHLORIDE 0.45% 1,000 ML IV SCH ×6 (00:10→23:23)
[2017-01-26] MEDS: PROPOFOL 100 ML IV SCH ×3 (01:00→23:42)
[2017-01-26] MEDS: INSULIN ASPART [NOVOLOG] 3 ML PEN SC SCH ×6 (01:00→21:00)
[2017-01-26] MEDS: ACCU-CHEK XX SCH (01:30)
[2017-01-26] MEDS: ALBUTEROL 18 GM INHALER INH SCH ×6 (02:14→21:38)
--- NOTE | 2017-01-26 03:03 | PN ---
DATE: 01/25/2017 SUBJECTIVE: The patient is intubated. He is on fentanyl. He is not responsive. His urinary output for the past several hours has been 370 mL. He was given another bolus of 250 mL of saline, and his IV rate has been increased to 200 per hour. OBJECTIVE: His temperature is 98. Blood pressure ranges from 81/64 to 125/98. Blood pressure main tained with Levophed. Pulse ranges between 83 at 106. LABORATORY DATA: Hemoglobin is 11.6, white blood cell count is 9.9 thousand, hematocrit is 36.4%, p latelet count is normal. ABGs today: pH 7.389, pCO2 36, pO2 83.4, FIO2 40. INR is 1.71. Electroly kali: Sodium 138, potassium 4.1, chloride 107, carbon dioxide 22, BUN 54, creatinine 2.77, glucose 1 25, calcium 7.5. MRSA screen is negative. Urine culture: No growth after 24 hours x2. Blood cult ure: No growth after 2 days x2. The patient was seen in nephrology consultation by Dr. Lindo and cardiology consultation by Dr. Pope. Dictated By: ONIEL BYNUM/SHELLY Conf#: [id number] DID#: [id number]
[2017-01-26] MEDS: PANTOPRAZOLE 40 MG INJ IV SCH (05:24)
[2017-01-26] MEDS: ASPIRIN 325 MG TAB NGT SCH (09:16)
[2017-01-26] MEDS: AZTREONAM 0.5 GM in SOD CHLORIDE 0.9% 50 ML IV SCH ×2 (09:21→21:06)
--- NOTE | 2017-01-26 09:38 | CONS ---
Date/Time of Note Date/Time of Note DATE: 01/26/17 TIME: 09:30 Assessment/Plan Assessment/Plan Chief Complaint/Hosp Course 1. This patient is in the ICU intubated on a ventilator. He is awake and responsive. 2. He has acute renal failure , which could be due to a combination of prerenal azotemia due to volume depletion and possibly some ATN. He is getting IV fluids. His urine output has improved today and his blood pressure is better. I am going to continue the IV fluids. Monitor his O2 sat. If his O2 sat decreases or he requires more oxygen than I may need to decrease his IV fluids and give him diuretics. He is no longer oliguric. I am awaiting labs for today. 3. Diabetes mellitus 4. Dementia 5. Respiratory failure on ventilator. 6. He has chronic kidney disease 7. He has hypertension. Problems: Consultation Date/Type/Reason Admit Date/Time Jan 23, 2017 at 20:03 Initial Consult Date 01/25/17 Type of Consultation: Cardiology Referring Provider: ONIEL MORROW MD 24 HR Interval Summary Free Text/Dictation He is awake and responds , intubated on a ventilator . Subjective hx not possible: pt non-verbal Exam/Review of Systems Vital Signs Vitals Vital Signs Date Time Temp Pulse Resp B/P Pulse Ox O2 Delivery O2 Flow Rate FiO2 01/26/17 09:00 90 23 97/72 99 Mechanical Ventilator 01/26/17 08:00 98.4 01/26/17 07:43 30 01/24/17 07:45 4.0 Intake and Output 01/25/17 01/25/17 01/26/17 15:00 23:00 07:00 Intake Total 721.056 ml 288.0 ml 1064.5 ml Output Total 165 ml 155 ml 280 ml Balance 556.056 ml 133.0 ml 784.5 ml Exam Constitutional: alert Respiratory: clear to auscultation, normal air movement Cardiovascular: regular rate and rhythm Gastrointestinal: non-tender, soft Extremities: edema Results Result Diagram: 01/25/1752901/25/172014 Results 24 hrs Laboratory Tests Test 01/25/17 09:44 01/25/17 13:30 01/25/17 14:40 01/25/17 15:10 Bedside Glucose 129 135 Urine Color LT. YELLOW Urine Clarity SLIGHTLY CLOUDY Urine pH 5.5 Urine Specific [place] 1.025 Urine Ketones NEGATIVE Urine Nitrite NEGATIVE Urine Bilirubin 1+ H Urine Ictotest NEGATIVE Urine Urobilinogen 0.2 E.U./dL Urine Leukocyte Esterase NEGATIVE Urine Microscopic RBC 2-5 Urine Microscopic WBC 0-2 Urine Squamous Epithelial Cells RARE Urine Bacteria MANY Urine Coarse Granular Casts RARE Urine Hemoglobin 3+ H Urine Random Creatinine 120.90 Urine Random Sodium 54 Urine Protein/Creatinine Ratio 0.55 Urine Glucose NEGATIVE Urine Total Protein 67.0 H Troponin I 10.700 *H Test 01/25/17 17:03 01/25/17 17:10 01/25/17 20:15 01/26/17 00:25 Bedside Glucose 100 Prothrombin Time 20.2 #H Prothrombin Time Ratio 1.6 INR International Normalized Ratio 1.71 Activated Partial Thromboplast Time 46.1 H 84.9 *H Sodium Level 138 Potassium Level 4.1 Chloride Level 107 Carbon Dioxide Level 22 Anion Gap 13 Blood Urea Nitrogen 54 H Creatinine 2.77 H Glucose Level 125 # Calcium Level 7.5 L Magnesium Level 1.7 Test 01/26/17 01:27 01/26/17 05:23 01/26/17 09:14 Bedside Glucose 123 118 115 Medications Medications Current Medications Acetaminophen (Tylenol Tab) 650 mg Q4H PRN PO PAIN AND OR ELEVATED TEMP; Start 01/24/17 at 11:00 Acetaminophen/ Hydrocodone Bitart ([place] (10/325)) 1 tab Q4H PRN PO PAIN; Start 01/24/17 at 11:00 Zolpidem Tartrate (Ambien) 10 mg HS PRN PO INSOMNIA; Start 01/24/17 at 11:00 Magnesium Hydroxide (Milk Of Mag) 30 ml DAILY PRN PO CONSTIPATION; Start at 11:00 Albuterol (Proventil 0.083% (Neb)) 1.25 mg Q4 PRN HHN SLEEP; Start 01/24/17 at 11:00 Diagnostic Test (Pha) (Accu-Chek) 1 ea 02 XX Last administered on 01/26/17t 01: 30; Admin Dose 1 EA; Start 01/25/17 at 02:00 Miscellaneous Information 1 ea NOTE XX ; Start 01/24/17 at 12:00 Glucose (Glutose) 15 gm Q15M PRN PO DECREASED GLUCOSE; Start 01/24/17 at 12:00 Glucose (Glutose) 22.5 gm Q15M PRN PO DECREASED GLUCOSE; Start 01/24/17 at 12: 00 Dextrose (D50w Syringe) 25 ml Q15M PRN IV DECREASED GLUCOSE; Start 01/24/17 at 12:00 Dextrose (D50w Syringe) 50 ml Q15M PRN IV DECREASED GLUCOSE; Start 01/24/17 at 12:00 Glucagon (Glucagen) 1 mg Q15M PRN IM DECREASED GLUCOSE; Start 01/24/17 at 12:00 Glucose 15 gm 15 gm Q15M PRN BUCCAL DECREASED GLUCOSE; Start 01/24/17 at 12:00 Propofol (Diprivan) 100 ml @ 2.328 mls/ hr Q12H IV Last administered on 22:22; Admin Dose 23.28 MLS/HR; Start 01/24/17 at 13:00 Pantoprazole (Protonix Iv) 40 mg DAILY@06 IV Last administered on 01/26/17 05: 24; Admin Dose 40 MG; Start 01/25/17 at 06:00 Insulin Aspart (Novolog Insulin Pen) NOVOLOG *MILD* ALGORI... Q4 SC Last administered on 01/25/17 05:43; Admin Dose 2 UNIT; Start 01/24/17 at 17:00 Miscellaneous Information 1 ea NOTE XX ; Start 01/24/17 at 17:00 Glucose (Glutose) 15 gm Q15M PRN PO DECREASED GLUCOSE; Start 01/24/17 at 17:00 Glucose (Glutose) 22.5 gm Q15M PRN PO DECREASED GLUCOSE; Start 01/24/17 at 17: 00 Dextrose (D50w Syringe) 25 ml Q15M PRN IV DECREASED GLUCOSE; Start 01/24/17 at 17:00 Dextrose (D50w Syringe) 50 ml Q15M PRN IV DECREASED GLUCOSE; Start 01/24/17 at 17:00 Glucagon (Glucagen) 1 mg Q15M PRN IM DECREASED GLUCOSE; Start 01/24/17 at 17:00 Glucose 15 gm 15 gm Q15M PRN BUCCAL DECREASED GLUCOSE; Start 01/24/17 at 17:00 Fentanyl (Sublimaze) 100 ml @ 2.5 mls/hr TITRATE IV Last administered on 12:12; Admin Dose 2.5 MLS/HR; Start 01/24/17 at 23:00 Lorazepam (Ativan) 2 mg Q2 PRN IM ANXIETY Last administered on 01/25/17 17:15 ; Admin Dose 2 MG; Start 01/24/17 at 23:00 Aspirin 325 mg 325 mg DAILY NGT Last administered on 01/25/17 21:52; Admin Dose 325 MG; Start 01/25/17 at 17:00 Norepinephrine 16 mg/Dextrose 500 ml @ 1.87 mls/hr TITRATE IV ; Start 01/25/17 at 17:30 Aztreonam 0.5 gm/ Sodium Chloride 50 ml @ 100 mls/hr Q12 IV Last administered on 01/25/17 21:53; Admin Dose 100 MLS/HR; Start 01/25/17 at 21:00 Levofloxacin/ Dextrose 50 ml @ 50 mls/hr Q24H IVPB ; Start 01/26/17 at 16:00 Sodium Chloride (1/2 NS) 1,000 ml @ 200 mls/hr Q5H IV Last administered on 05:25; Admin Dose 200 MLS/HR; Start 01/25/17 at 23:30 ANNA BUSTILLO MD Jan 26, 2017 09:38
--- NOTE | 2017-01-26 10:19 | CONS ---
Date/Time of Note Date/Time of Note DATE: 01/26/17 TIME: 10:15 Assessment/Plan Assessment/Plan Additional Assessment/Plan Ventilator settings; AC of 20, tidal volume 500, PEEP of 5, 30% FiO2. Patient is on fentanyl at 20 mics per hour no which is currently on hold as well as Levophed at 5 mics per per minute. Assessment recommendations; 1. Patient admitted with pneumonia involving the right lung. 2. Intravascular volume depletion with prerenal azotemia. 3. History of hypertension, atrial fibrillation. Continue current medications. For sedation. Once the patient is off sedation he will be evaluated for possible weaning from ventilator. Meanwhile continue IV hydration. Consultation Date/Type/Reason Admit Date/Time Jan 23, 2017 at 20:03 Type of Consultation: Pulmonary/critical care Referring Provider: ONIEL MORROW MD 24 HR Interval Summary Free Text/Dictation Patient condition is critical. Still requiring full ventilator support. Patient was given a sedation vacation yesterday however he became tachypneic and had to be re-sedated. Also requiring Levophed at low-dose for blood pressure maintenance. General exam; elderly male, orally intubated, sedated, currently in no distress. Exam/Review of Systems Vital Signs Vitals Vital Signs Date Time Temp Pulse Resp B/P Pulse Ox O2 Delivery O2 Flow Rate FiO2 01/26/17 09:25 95 24 99 30 01/26/17 09:00 97/72 Mechanical Ventilator 01/26/17 08:00 98.4 01/24/17 07:45 4.0 Intake and Output 01/25/17 01/25/17 01/26/17 15:00 23:00 07:00 Intake Total 721.056 ml 288.0 ml 1064.5 ml Output Total 165 ml 155 ml 280 ml Balance 556.056 ml 133.0 ml 784.5 ml Exam HEENT examination; supple neck, patient bilateral surgical pupils. Multiple carious teeth are present. Orally intubated. No neck masses. No thyromegaly. Chest examination; deferred clear vessel. S1-S2 audible, no murmurs. Irregular rhythm. Abdomen examination; soft, nondistended. No organomegaly. Bowel sounds audible. Extremity exam is; no peripheral edema. ATM TECHNICIAN examination; patient is sedated. Results Result Diagram: 01/25/1752901/25/172014 Results 24 hrs Laboratory Tests Test 01/25/17 13:30 01/25/17 14:40 01/25/17 15:10 01/25/17 17:03 Bedside Glucose 135 100 Urine Color LT. YELLOW Urine Clarity SLIGHTLY CLOUDY Urine pH 5.5 Urine Specific [place] 1.025 Urine Ketones NEGATIVE Urine Nitrite NEGATIVE Urine Bilirubin 1+ H Urine Ictotest NEGATIVE Urine Urobilinogen 0.2 E.U./dL Urine Leukocyte Esterase NEGATIVE Urine Microscopic RBC 2-5 Urine Microscopic WBC 0-2 Urine Squamous Epithelial Cells RARE Urine Bacteria MANY Urine Coarse Granular Casts RARE Urine Hemoglobin 3+ H Urine Random Creatinine 120.90 Urine Random Sodium 54 Urine Protein/Creatinine Ratio 0.55 Urine Glucose NEGATIVE Urine Total Protein 67.0 H Troponin I 10.700 *H Test 01/25/17 17:10 01/25/17 20:15 01/26/17 00:25 01/26/17 01:27 Prothrombin Time 20.2 #H Prothrombin Time Ratio 1.6 INR International Normalized Ratio 1.71 Activated Partial Thromboplast Time 46.1 H 84.9 *H Sodium Level 138 Potassium Level 4.1 Chloride Level 107 Carbon Dioxide Level 22 Anion Gap 13 Blood Urea Nitrogen 54 H Creatinine 2.77 H Glucose Level 125 # Calcium Level 7.5 L Magnesium Level 1.7 Bedside Glucose 123 Test 01/26/17 05:23 01/26/17 09:14 Bedside Glucose 118 115 Medications Medications Current Medications Acetaminophen (Tylenol Tab) 650 mg Q4H PRN PO PAIN AND OR ELEVATED TEMP; Start 01/24/17 at 11:00 Acetaminophen/ Hydrocodone Bitart ([place] (10/325)) 1 tab Q4H PRN PO PAIN; Start 01/24/17 at 11:00 Zolpidem Tartrate (Ambien) 10 mg HS PRN PO INSOMNIA; Start 01/24/17 at 11:00 Magnesium Hydroxide (Milk Of Mag) 30 ml DAILY PRN PO CONSTIPATION; Start at 11:00 Albuterol (Proventil 0.083% (Neb)) 1.25 mg Q4 PRN HHN SLEEP; Start 01/24/17 at 11:00 Diagnostic Test (Pha) (Accu-Chek) 1 ea 02 XX Last administered on 01/26/17t 01: 30; Admin Dose 1 EA; Start 01/25/17 at 02:00 Miscellaneous Information 1 ea NOTE XX ; Start 01/24/17 at 12:00 Glucose (Glutose) 15 gm Q15M PRN PO DECREASED GLUCOSE; Start 01/24/17 at 12:00 Glucose (Glutose) 22.5 gm Q15M PRN PO DECREASED GLUCOSE; Start 01/24/17 at 12: 00 Dextrose (D50w Syringe) 25 ml Q15M PRN IV DECREASED GLUCOSE; Start 01/24/17 at 12:00 Dextrose (D50w Syringe) 50 ml Q15M PRN IV DECREASED GLUCOSE; Start 01/24/17 at 12:00 Glucagon (Glucagen) 1 mg Q15M PRN IM DECREASED GLUCOSE; Start 01/24/17 at 12:00 Glucose 15 gm 15 gm Q15M PRN BUCCAL DECREASED GLUCOSE; Start 01/24/17 at 12:00 Propofol (Diprivan) 100 ml @ 2.328 mls/ hr Q12H IV Last administered on 22:22; Admin Dose 23.28 MLS/HR; Start 01/24/17 at 13:00 Pantoprazole (Protonix Iv) 40 mg DAILY@06 IV Last administered on 01/26/17 05: 24; Admin Dose 40 MG; Start 01/25/17 at 06:00 Insulin Aspart (Novolog Insulin Pen) NOVOLOG *MILD* ALGORI... Q4 SC Last administered on 01/25/17 05:43; Admin Dose 2 UNIT; Start 01/24/17 at 17:00 Miscellaneous Information 1 ea NOTE XX ; Start 01/24/17 at 17:00 Glucose (Glutose) 15 gm Q15M PRN PO DECREASED GLUCOSE; Start 01/24/17 at 17:00 Glucose (Glutose) 22.5 gm Q15M PRN PO DECREASED GLUCOSE; Start 01/24/17 at 17: 00 Dextrose (D50w Syringe) 25 ml Q15M PRN IV DECREASED GLUCOSE; Start 01/24/17 at 17:00 Dextrose (D50w Syringe) 50 ml Q15M PRN IV DECREASED GLUCOSE; Start 01/24/17 at 17:00 Glucagon (Glucagen) 1 mg Q15M PRN IM DECREASED GLUCOSE; Start 01/24/17 at 17:00 Glucose 15 gm 15 gm Q15M PRN BUCCAL DECREASED GLUCOSE; Start 01/24/17 at 17:00 Fentanyl (Sublimaze) 100 ml @ 2.5 mls/hr TITRATE IV Last administered on 12:12; Admin Dose 2.5 MLS/HR; Start 01/24/17 at 23:00 Lorazepam (Ativan) 2 mg Q2 PRN IM ANXIETY Last administered on 01/25/17 17:15 ; Admin Dose 2 MG; Start 01/24/17 at 23:00 Aspirin 325 mg 325 mg DAILY NGT Last administered on 01/26/17 09:16; Admin Dose 325 MG; Start 01/25/17 at 17:00 Norepinephrine 16 mg/Dextrose 500 ml @ 1.87 mls/hr TITRATE IV Last administered on 01/26/17 09:18; Admin Dose 9.37 MLS/HR; Start 01/25/17 at 17:30 Aztreonam 0.5 gm/ Sodium Chloride 50 ml @ 100 mls/hr Q12 IV Last administered on 01/26/17 09:21; Admin Dose 100 MLS/HR; Start 01/25/17 at 21:00 Levofloxacin/ Dextrose 50 ml @ 50 mls/hr Q24H IVPB ; Start 01/26/17 at 16:00 Sodium Chloride (1/2 NS) 1,000 ml @ 200 mls/hr Q5H IV Last administered on 05:25; Admin Dose 200 MLS/HR; Start 01/25/17 at 23:30 ULISES MCKAY Jan 26, 2017 10:18
[2017-01-26 11:11] LABS: ADD SCAN DIFF NO
[2017-01-26 11:31] LABS: ALBUMIN 2.5 g/dl (3.3-4.9)
[2017-01-26 11:32] LABS: POTASSIUM 4.2 mmol/L (3.5-5.1)
[2017-01-26 11:34] LABS: ALBUMIN/GLOBULIN RATIO 0.69; BILIRUBIN,INDIRECT 0.2 mg/dl (0-1.1); BILIRUBIN,TOTAL 0.2 mg/dl (0.2-1.3); CREATININE 2.83 mg/dl (0.61-1.24); TOTAL PROTEIN 6.1 g/dl (6.1-8.1)
[2017-01-26 11:35] LABS: CALCIUM 7.5 mg/dl (8.4-10.2); MAGNESIUM 1.7 mg/dl (1.7-2.5); PHOSPHORUS 4.4 mg/dl (2.5-4.9)
[2017-01-26] MEDS ORDERED: MAGNESIUM SULFATE 2 GM/50 ML 50 ML IVPB ONE (12:00)
--- NOTE | 2017-01-26 13:46 | CONS ---
Date/Time of Note Date/Time of Note DATE: 01/26/17 TIME: 13:42 Assessment/Plan Assessment/Plan Additional Assessment/Plan Complex 86 yom w/ multiple medical issues including dementia, CABG, ICM EF 20-25 %, s/p ICD, htn, DM and other issues who presented with respiratory failure and hypotension. Found to have right lung PNA. Also has + troponin, which clinically seems more consistent with demand ischemia (his CKD may cause the levels to be higher than they would be with normal renal function). Would continue tx of his PNA and sepsis, as you are. Wean pressors as tolerated. ( Pt is not a poor candidate for invasive cardiac therapies - high risk of complications.) Continue aspirin. Can continue heparin gtt for today, but troponins have peaked. Pt had brief NSVT. If has longer episodes, can consider amiodarone. Wean levophed as tolerate. Defer vent weaning to pulmonary. Consultation Date/Type/Reason Admit Date/Time Jan 23, 2017 at 20:03 Initial Consult Date 01/25/17 Type of Consultation: Cardiology Reason for Consultation afib, + trop Referring Provider: ONIEL MORROW MD 24 HR Interval Summary Free Text/Dictation Intubated and sedated. Still requiring levophed, but dose is being tapered. Telemetry - had 6 beat NSVT Exam/Review of Systems Vital Signs Vitals Vital Signs Date Time Temp Pulse Resp B/P Pulse Ox O2 Delivery O2 Flow Rate FiO2 01/26/17 13:04 92 25 98 30 01/26/17 12:45 110/75 01/26/17 12:00 99.1 Mechanical Ventilator 01/24/17 07:45 4.0 Intake and Output 01/25/17 01/25/17 01/26/17 15:00 23:00 07:00 Intake Total 721.056 ml 288.0 ml 1064.5 ml Output Total 165 ml 155 ml 280 ml Balance 556.056 ml 133.0 ml 784.5 ml Exam Constitutional: other (intubated and sedated) Head: atraumatic, normocephalic ENMT: intubated Neck: No jvd Respiratory: other (mostly clear anteriorly, decreased at bases) Cardiovascular: irregular rhythm, No systolic murmur Extremities: other (trace edema) Neurological: other (intubated and sedated) Results Result Diagram: 01/25/17 0530 01/26/17 1020 Results 24 hrs Laboratory Tests Test 01/25/17 14:40 01/25/17 15:10 01/25/17 17:03 01/25/17 17:10 Urine Color LT. YELLOW Urine Clarity SLIGHTLY CLOUDY Urine pH 5.5 Urine Specific [place] 1.025 Urine Ketones NEGATIVE Urine Nitrite NEGATIVE Urine Bilirubin 1+ H Urine Ictotest NEGATIVE Urine Urobilinogen 0.2 E.U./dL Urine Leukocyte Esterase NEGATIVE Urine Microscopic RBC 2-5 Urine Microscopic WBC 0-2 Urine Squamous Epithelial Cells RARE Urine Bacteria MANY Urine Coarse Granular Casts RARE Urine Hemoglobin 3+ H Urine Random Creatinine 120.90 Urine Random Sodium 54 Urine Protein/Creatinine Ratio 0.55 Urine Glucose NEGATIVE Urine Total Protein 67.0 H Troponin I 10.700 *H Bedside Glucose 100 Prothrombin Time 20.2 #H Prothrombin Time Ratio 1.6 INR International Normalized Ratio 1.71 Activated Partial Thromboplast Time 46.1 H Test 01/25/17 20:15 01/26/17 00:25 01/26/17 01:27 01/26/17 05:23 Sodium Level 138 Potassium Level 4.1 Chloride Level 107 Carbon Dioxide Level 22 Anion Gap 13 Blood Urea Nitrogen 54 H Creatinine 2.77 H Glucose Level 125 # Calcium Level 7.5 L Magnesium Level 1.7 Activated Partial Thromboplast Time 84.9 *H Bedside Glucose 123 118 Test 01/26/17 09:14 01/26/17 10:20 01/26/17 12:43 Bedside Glucose 115 119 Activated Partial Thromboplast Time 58.6 H Sodium Level 136 Potassium Level 4.2 Chloride Level 105 Carbon Dioxide Level 18 L Anion Gap 17 H Blood Urea Nitrogen 56 H Creatinine 2.83 H Glucose Level 122 Calcium Level 7.5 L Phosphorus Level 4.4 Magnesium Level 1.7 Total Bilirubin 0.2 Direct Bilirubin 0.00 Indirect Bilirubin 0.2 Aspartate Amino Transf (AST/SGOT) 344 #H Alanine Aminotransferase (ALT/SGPT) 573 H Alkaline Phosphatase 72 Troponin I 6.370 *H B-Type Natriuretic Peptide 55258 H Total Protein 6.1 Albumin 2.5 L Globulin 3.60 H Albumin/Globulin Ratio 0.69 Medications Medications Current Medications Acetaminophen (Tylenol Tab) 650 mg Q4H PRN PO PAIN AND OR ELEVATED TEMP; Start 01/24/17 at 11:00 Acetaminophen/ Hydrocodone Bitart ([place] ()) 1 tab Q4H PRN PO PAIN; Start 01/24/17 at 11:00 Zolpidem Tartrate (Ambien) 10 mg HS PRN PO INSOMNIA; Start 01/24/17 at 11:00 Magnesium Hydroxide (Milk Of Mag) 30 ml DAILY PRN PO CONSTIPATION; Start at 11:00 Albuterol (Proventil 0.083% (Neb)) 1.25 mg Q4 PRN HHN SLEEP; Start 01/24/17 at 11:00 Diagnostic Test (Pha) (Accu-Chek) 1 ea 02 XX Last administered on 01/26/17 01: 30; Admin Dose 1 EA; Start 01/25/17 at 02:00 Miscellaneous Information 1 ea NOTE XX ; Start 01/24/17 at 12:00 Glucose (Glutose) 15 gm Q15M PRN PO DECREASED GLUCOSE; Start 01/24/17 at 12:00 Glucose (Glutose) 22.5 gm Q15M PRN PO DECREASED GLUCOSE; Start 01/24/17 at 12: 00 Dextrose (D50w Syringe) 25 ml Q15M PRN IV DECREASED GLUCOSE; Start 01/24/17 at 12:00 Dextrose (D50w Syringe) 50 ml Q15M PRN IV DECREASED GLUCOSE; Start 01/24/17 at 12:00 Glucagon (Glucagen) 1 mg Q15M PRN IM DECREASED GLUCOSE; Start 01/24/17 at 12:00 Glucose 15 gm 15 gm Q15M PRN BUCCAL DECREASED GLUCOSE; Start 01/24/17 at 12:00 Propofol (Diprivan) 100 ml @ 2.328 mls/ hr Q12H IV Last administered on 22:22; Admin Dose 23.28 MLS/HR; Start 01/24/17 at 13:00 Pantoprazole (Protonix Iv) 40 mg DAILY@06 IV Last administered on 01/26/17 05: 24; Admin Dose 40 MG; Start 01/25/17 at 06:00 Insulin Aspart (Novolog Insulin Pen) NOVOLOG *MILD* ALGORI... Q4 SC Last administered on 01/25/17 05:43; Admin Dose 2 UNIT; Start 01/24/17 at 17:00 Miscellaneous Information 1 ea NOTE XX ; Start 01/24/17 at 17:00 Glucose (Glutose) 15 gm Q15M PRN PO DECREASED GLUCOSE; Start 01/24/17 at 17:00 Glucose (Glutose) 22.5 gm Q15M PRN PO DECREASED GLUCOSE; Start 01/24/17 at 17: 00 Dextrose (D50w Syringe) 25 ml Q15M PRN IV DECREASED GLUCOSE; Start 01/24/17 at 17:00 Dextrose (D50w Syringe) 50 ml Q15M PRN IV DECREASED GLUCOSE; Start 01/24/17 at 17:00 Glucagon (Glucagen) 1 mg Q15M PRN IM DECREASED GLUCOSE; Start 01/24/17 at 17:00 Glucose 15 gm 15 gm Q15M PRN BUCCAL DECREASED GLUCOSE; Start 01/24/17 at 17:00 Fentanyl (Sublimaze) 100 ml @ 2.5 mls/hr TITRATE IV Last administered on 12:12; Admin Dose 2.5 MLS/HR; Start 01/24/17 at 23:00 Lorazepam (Ativan) 2 mg Q2 PRN IM ANXIETY Last administered on 01/25/17 17:15 ; Admin Dose 2 MG; Start 01/24/17 at 23:00 Aspirin 325 mg 325 mg DAILY NGT Last administered on 01/26/17 09:16; Admin Dose 325 MG; Start 01/25/17 at 17:00 Norepinephrine 16 mg/Dextrose 500 ml @ 1.87 mls/hr TITRATE IV Last administered on 01/26/17 09:18; Admin Dose 9.37 MLS/HR; Start 01/25/17 at 17:30 Aztreonam 0.5 gm/ Sodium Chloride 50 ml @ 100 mls/hr Q12 IV Last administered on 01/26/17 09:21; Admin Dose 100 MLS/HR; Start 01/25/17 at 21:00 Levofloxacin/ Dextrose 50 ml @ 50 mls/hr Q24H IVPB ; Start 01/26/17 at 16:00 Sodium Chloride 1,000 ml @ 200 mls/hr Q5H IV Last administered on 01/26/17 11 :04; Admin Dose 200 MLS/HR; Start 01/25/17 at 23:30 Magnesium Sulfate (Magnesium Sulfate 2 Gm/50 ml) 50 ml @ 25 mls/hr ONCE ONCE IVPB Last administered on 01/26/17t 12:27; Admin Dose 25 MLS/HR; Start at 12:00; Stop 01/26/17 at 13:59 ACE MARIA Jan 26, 2017 13:46
[2017-01-26 14:06] LABS: HEMATOCRIT 37.7 % (42.0-52.0); HEMOGLOBIN 12.1 g/dl (14.0-18.0); MEAN CORPUSCULAR HGB CONC 32.1 g/dl (32.0-37.0); MEAN CORPUSCULAR VOLUME 90.4 fl (82.0-101.0); MEAN PLATELET VOLUME 12.3 fl (7.4-10.4); PLATELET COUNT 156 10^3/UL (140-440); RED BLOOD COUNT 4.17 10^6/ul (4.70-6.10); RED CELL DISTRIBUTION WIDTH 49.1 % (11.5-14.5); WHITE BLOOD COUNT 12.7 10^3/ul (4.8-10.8)
[2017-01-26 16:13] LABS: MONOCYTE # 0.3 10^3/ul (0.3-0.9); NEUTROPHIL # 9.9 10^3/ul (1.6-7.5)
[2017-01-26 16:15] LABS: PLATELET ESTIMATE PLT APPEAR ADEQUATE
[2017-01-26] MEDS: LEVOFLOXACIN 250MG/D5W (PMX) 50 ML IVPB SCH (16:21)
[2017-01-26 16:26] LABS: MICROALBUMIN 60.4 mg/dL
[2017-01-26] MEDS: FENTAnyl (DRIP) 1000 mcg/100mL 100 ML IV SCH (17:50)
[2017-01-26] MEDS: HEPARIN 25000 UNITS/250 ML 250 ML IV SCH (23:23)
[2017-01-27] VITALS (34 sets, daily range): BP systolic 91–123; BP diastolic 60–91; PULSE 86–102; RESP 20–26
[2017-01-27] MEDS: INSULIN ASPART [NOVOLOG] 3 ML PEN SC SCH ×6 (01:00→21:00)
[2017-01-27] MEDS: ALBUTEROL 18 GM INHALER INH SCH ×6 (01:06→21:21)
[2017-01-27] MEDS: ACCU-CHEK XX SCH (01:11)
--- NOTE | 2017-01-27 03:25 | PN ---
DATE: 01/26/2017 The patient is intubated but he is awake and follows simple commands. Blood pressure still being ma intained with 5 mcg per minute and is being sedated with fentanyl 20 mcg per hour. The patient had an episode of nonsustained ventricular tachycardia. If he develops ventricular tach ycardic, he may have to be put on amiodarone. The patient was seen by his paper reclaiming machine operator, Dr. Farhad torres, and it was decided to try to continue giving him fluids in order to produce urinary output. Hi s urinary output has improved; however, the danger of over hydrating this patient with heart disease must be appreciated. The patient was also seen by his psychological science professor, who felt that if he should hav e any more episodes of ventricular tachycardia, he might have to put on amiodarone. He is in atrial fibrillation and he is being treated with aspirin 81 mg daily. His wire preparation worker also saw him and he felt that he still must maintain intubation that he is not ready to be extubated yet. PHYSICAL EXAMINATION: HEART: Irregular irregularity. CHEST: Clear to A and P. ABDOMEN: Liver, kidneys, spleen are not palpable. Bowel sounds are normal. No intraabdominal mass es or bruits. EXTREMITIES: 1+ pretibial, dorsal pedal ankle edema. VITAL SIGNS: Temperature 99.1, blood pressure varies from 89/76 to 126/78, pulse varies from 87 to 102, respiratory rate is 29. LABORATORY DATA: White blood cell count is 12,700, hemoglobin is 12.1, hematocrit is 37.7%, platele t count is normal. PTT is 59.7, glucose is 119. Electrolytes: Sodium 136, potassium 4.2, chloride 105, carbon dioxide 18, BUN 56, creatinine 2.83, calcium 7.5, phosphorus 4.4, AST 344, ALT 573, alb umin 2.5, globulin 3.6. The possibility of multiple myeloma should be entertained and patient will have a serum protein electrophoresis. Urine total protein is high at 67. INTAKE AND OUTPUT: Intake is 2203, output is 570. Sputum culture reveals Staphylococcus aureus. Chest x-ray shows mildly increased interstitial edema and aortic atherosclerosis. Dictated By: ONIEL BYNUM/SHELLY Conf#: [id number] DID#: [id number]
[2017-01-27] MEDS: SOD CHLORIDE 0.45% 1,000 ML IV SCH (04:50)
[2017-01-27] MEDS: PANTOPRAZOLE 40 MG INJ IV SCH (05:53)
[2017-01-27 06:06] LABS: ADD SCAN DIFF NO
[2017-01-27 06:56] LABS: CALCIUM 7.6 mg/dl (8.4-10.2); CREATININE 2.59 mg/dl (0.61-1.24); POTASSIUM 4.4 mmol/L (3.5-5.1)
--- NOTE | 2017-01-27 08:58 | CONS ---
Date/Time of Note Date/Time of Note DATE: 01/27/17 TIME: 08:52 Assessment/Plan Assessment/Plan Chief Complaint/Hosp Course 1. This patient is in the ICU intubated on a ventilator. He is awake and responsive. 2. He has acute renal failure superimposed on CKD , due to diabetic nephropathy , which could be due to a combination of prerenal azotemia due to volume depletion and ATN. He is getting IV fluids. His urine output has improved today and his blood pressure is better. I am going to decrease the IV fluids. Monitor his O2 sat. I will check a CXR today and if congested will start diuretics . 3. Diabetes mellitus 4. Dementia 5. Respiratory failure on ventilator. 6. He has chronic kidney disease 7. He has hypertension. Problems: Consultation Date/Type/Reason Admit Date/Time Jan 23, 2017 at 20:03 Initial Consult Date 01/25/17 Type of Consultation: renal Referring Provider: ONIEL MORROW MD 24 HR Interval Summary Free Text/Dictation He is in the ICU , intubated on a ventilator .He is awake and responsive . Subjective hx not possible: pt non-verbal Exam/Review of Systems Vital Signs Vitals Vital Signs Date Time Temp Pulse Resp B/P Pulse Ox O2 Delivery O2 Flow Rate FiO2 01/27/17 08:16 91 24 99 30 01/27/17 06:00 106/66 Mechanical Ventilator 01/27/17 04:00 99.5 01/24/17 07:45 4.0 Intake and Output 01/26/17 01/26/17 01/27/17 15:00 23:00 07:00 Intake Total 1810.97 ml 1133.06 ml 1198.5 ml Output Total 365 ml 315 ml 505 ml Balance 1445.97 ml 818.06 ml 693.5 ml Exam Constitutional: alert, non-verbal Respiratory: crackles/rales, diminished breath sounds Cardiovascular: regular rate and rhythm Gastrointestinal: soft Extremities: edema Results Result Diagram: 01/26/17 1020 01/27/17 0520 Results 24 hrs Laboratory Tests Test 01/26/17 09:14 01/26/17 10:20 01/26/17 12:43 01/26/17 13:45 Bedside Glucose 115 119 White Blood Count 12.7 #H Red Blood Count 4.17 L Hemoglobin 12.1 L Hematocrit 37.7 L Mean Corpuscular Volume 90.4 Mean Corpuscular Hemoglobin 29.0 Mean Corpuscular Hemoglobin Concent 32.1 Red Cell Distribution Width 49.1 #H Platelet Count 156 # Mean Platelet Volume 12.3 H Neutrophils % 78.0 H Band Neutrophils % 11.0 H Lymphocytes % 8.0 L Monocytes % 2.0 Eosinophils % Basophils % Metamyelocytes % 1.0 H Nucleated Red Blood Cells % Neutrophils # 9.9 H Lymphocytes # 1.0 Monocytes # 0.3 Eosinophils # Basophils # Metamyelocytes # 0.1 Nucleated Red Blood Cells # Platelet Estimate PLT APPEAR ADEQUATE Large Platelets RARE Activated Partial Thromboplast Time 58.6 H 53.3 H Sodium Level 136 Potassium Level 4.2 Chloride Level 105 Carbon Dioxide Level 18 L Anion Gap 17 H Blood Urea Nitrogen 56 H Creatinine 2.83 H Glucose Level 122 Calcium Level 7.5 L Phosphorus Level 4.4 Magnesium Level 1.7 Total Bilirubin 0.2 Direct Bilirubin 0.00 Indirect Bilirubin 0.2 Aspartate Amino Transf (AST/SGOT) 344 #H Alanine Aminotransferase (ALT/SGPT) 573 H Alkaline Phosphatase 72 Troponin I 6.370 *H B-Type Natriuretic Peptide 51578 H Total Protein 6.1 Albumin 2.5 L Globulin 3.60 H Albumin/Globulin Ratio 0.69 Test 01/26/17 18:20 01/26/17 18:37 01/26/17 21:03 01/27/17 01:08 Activated Partial Thromboplast Time 59.7 H Bedside Glucose 116 121 99 Test 01/27/17 04:48 01/27/17 05:20 Bedside Glucose 99 Sodium Level 131 L Potassium Level 4.4 Chloride Level 106 Carbon Dioxide Level 19 L Anion Gap 10 # Blood Urea Nitrogen 58 H Creatinine 2.59 H Glucose Level 111 Calcium Level 7.6 L Magnesium Level 2.1 Medications Medications Current Medications Acetaminophen (Tylenol Tab) 650 mg Q4H PRN PO PAIN AND OR ELEVATED TEMP; Start 01/24/17 at 11:00 Acetaminophen/ Hydrocodone Bitart ([place] (10/325)) 1 tab Q4H PRN PO PAIN; Start 01/24/17 at 11:00 Zolpidem Tartrate (Ambien) 10 mg HS PRN PO INSOMNIA; Start 01/24/17 at 11:00 Magnesium Hydroxide (Milk Of Mag) 30 ml DAILY PRN PO CONSTIPATION; Start at 11:00 Albuterol (Proventil 0.083% (Neb)) 1.25 mg Q4 PRN HHN SLEEP; Start 01/24/17 at 11:00 Diagnostic Test (Pha) (Accu-Chek) 1 ea 02 XX Last administered on 01/26/17 01: 30; Admin Dose 1 EA; Start 01/25/17 at 02:00 Miscellaneous Information 1 ea NOTE XX ; Start 01/24/17 at 12:00 Glucose (Glutose) 15 gm Q15M PRN PO DECREASED GLUCOSE; Start 01/24/17 at 12:00 Glucose (Glutose) 22.5 gm Q15M PRN PO DECREASED GLUCOSE; Start 01/24/17 at 12: 00 Dextrose (D50w Syringe) 25 ml Q15M PRN IV DECREASED GLUCOSE; Start 01/24/17 at 12:00 Dextrose (D50w Syringe) 50 ml Q15M PRN IV DECREASED GLUCOSE; Start 01/24/17 at 12:00 Glucagon (Glucagen) 1 mg Q15M PRN IM DECREASED GLUCOSE; Start 01/24/17 at 12:00 Glucose 15 gm 15 gm Q15M PRN BUCCAL DECREASED GLUCOSE; Start 01/24/17 at 12:00 Propofol (Diprivan) 100 ml @ 2.328 mls/ hr Q12H IV Last administered on 22:22; Admin Dose 23.28 MLS/HR; Start 01/24/17 at 13:00 Pantoprazole (Protonix Iv) 40 mg DAILY@06 IV Last administered on 01/27/17 05: 53; Admin Dose 40 MG; Start 01/25/17 at 06:00 Insulin Aspart (Novolog Insulin Pen) NOVOLOG *MILD* ALGORI... Q4 SC Last administered on 01/25/17 05:43; Admin Dose 2 UNIT; Start 01/24/17 at 17:00 Miscellaneous Information 1 ea NOTE XX ; Start 01/24/17 at 17:00 Glucose (Glutose) 15 gm Q15M PRN PO DECREASED GLUCOSE; Start 01/24/17 at 17:00 Glucose (Glutose) 22.5 gm Q15M PRN PO DECREASED GLUCOSE; Start 01/24/17 at 17: 00 Dextrose (D50w Syringe) 25 ml Q15M PRN IV DECREASED GLUCOSE; Start 01/24/17 at 17:00 Dextrose (D50w Syringe) 50 ml Q15M PRN IV DECREASED GLUCOSE; Start 01/24/17 at 17:00 Glucagon (Glucagen) 1 mg Q15M PRN IM DECREASED GLUCOSE; Start 01/24/17 at 17:00 Glucose 15 gm 15 gm Q15M PRN BUCCAL DECREASED GLUCOSE; Start 01/24/17 at 17:00 Fentanyl (Sublimaze) 100 ml @ 2.5 mls/hr TITRATE IV Last administered on 17:50; Admin Dose 2.5 MLS/HR; Start 01/24/17 at 23:00 Lorazepam (Ativan) 2 mg Q2 PRN IM ANXIETY Last administered on 01/25/17 17:15 ; Admin Dose 2 MG; Start 01/24/17 at 23:00 Aspirin 325 mg 325 mg DAILY NGT Last administered on 01/26/17 09:16; Admin Dose 325 MG; Start 01/25/17 at 17:00 Norepinephrine 16 mg/Dextrose 500 ml @ 1.87 mls/hr TITRATE IV Last administered on 01/26/17 09:18; Admin Dose 9.37 MLS/HR; Start 01/25/17 at 17:30 Aztreonam 0.5 gm/ Sodium Chloride 50 ml @ 100 mls/hr Q12 IV Last administered on 01/26/17 21:06; Admin Dose 100 MLS/HR; Start 01/25/17 at 21:00 Levofloxacin/ Dextrose 50 ml @ 50 mls/hr Q24H IVPB Last administered on 16:21; Admin Dose 50 MLS/HR; Start 01/26/17 at 16:00 Dextrose/Sodium Chloride (D5-NS) 1,000 ml @ 50 mls/hr Q20H IV ; Start 01/27/17 at 09:00; Status ANNA ALCARAZ MD Jan 27, 2017 08:58
[2017-01-27] MEDS: DEXTROSE 5%-0.9% NACL 1,000 ML IV SCH (09:00)
--- NOTE | 2017-01-27 09:32 | RADRPT ---
Vent Rate: 98 bpm RR Interval: 0 msec CA Interval: 0 msec QRS Duration: 96 msec QT Interval: 346 msec QTC Interval: 441 msec P-R-T [place]: 0 - -57 - 73 degrees Atrial fibrillation Left axis deviation Septal infarct , age undetermined Abnormal ECG Electronically Signed By: [place] [id number]
[2017-01-27] MEDS: ASPIRIN 325 MG TAB NGT SCH (09:57)
[2017-01-27] MEDS: AZTREONAM 0.5 GM in SOD CHLORIDE 0.9% 50 ML IV SCH ×2 (09:57→20:52)
--- NOTE | 2017-01-27 10:16 | RADRPT ---
PROCEDURE: XR Chest. CLINICAL INDICATION: chf TECHNIQUE: Single frontal view of the chest was obtained. COMPARISON: Chest x-ray from 01/25/2017 FINDINGS: The tip of an endotracheal tube is again noted at the thoracic inlet. An enteric tube is unchanged in position. Sternotomy wires are again noted as well as a left-sided pacemaker / AICD. There are stable congestive changes. The aortic arch is calcified. There is obscuration of the left hemidiaphragm, possibly due to atelectasis, infiltrate, and / or a small effusion. IMPRESSION: Increased obscuration of the left hemidiaphragm due to atelectasis, infiltrate, and / or a small eff usion. Stable congestive changes. Endotracheal tube and enteric tube are unchanged in position. Left-sided pacemaker / AICD. Aortic atherosclerosis. RPTAT: EE Physician Lawrence Date Time Electronically viewed and signed by Physician Lawrence on 01/27/2017 10:16 /
--- NOTE | 2017-01-27 10:53 | CONS ---
Date/Time of Note Date/Time of Note DATE: 01/27/17 TIME: 10:50 Consult Date/Type/Reason Admit Date/Time Jan 23, 2017 at 20:03 Initial Consult Date 01/25/17 Type of Consultation: pulmonary ICU Ordering Provider: ONIEL MORROW MD Subjective Patient remains intubated on mechanical ventilation opens eyes off sedation Objective Vital Signs Date Time Temp Pulse Resp B/P Pulse Ox O2 Delivery O2 Flow Rate FiO2 01/27/17 10:14 90 97 30 01/27/17 08:16 24 01/27/17 06:00 106/66 Mechanical Ventilator 01/27/17 04:00 99.5 01/24/17 07:45 4.0 Intake and Output 01/26/17 01/26/17 01/27/17 15:00 23:00 07:00 Intake Total 1810.97 ml 1133.06 ml 1209.0 ml Output Total 365 ml 315 ml 505 ml Balance 1445.97 ml 818.06 ml 704.0 ml Exam PHYSICAL EXAMINATION: GENERAL: Elderly-appearing gentleman, appears comfortable at rest, intubated on mechanical ventilation, no acute distress. VITAL SIGNS: As above NECK: Supple. No JVD or lymphadenopathy. CARDIAC: S1, S2, no added sounds or murmurs. CHEST: Diminished air entry bilaterally. ABDOMEN: Soft, nontender. No guarding, no rebound. EXTREMITIES: No cyanosis, clubbing, edema. NEUROLOGIC: Generalized weakness. Results/Medications Result Diagram: 01/26/17 1020 01/27/17 0520 Results 24 hrs Chest x-ray Patchy bilateral infiltrates Laboratory Tests Test 01/26/17 12:43 01/26/17 13:45 01/26/17 18:20 01/26/17 18:37 Bedside Glucose 119 116 Activated Partial Thromboplast Time 53.3 H 59.7 H Test 01/26/17 21:03 01/27/17 01:08 01/27/17 04:48 01/27/17 05:20 Bedside Glucose 121 99 99 Sodium Level 131 L Potassium Level 4.4 Chloride Level 106 Carbon Dioxide Level 19 L Anion Gap 10 # Blood Urea Nitrogen 58 H Creatinine 2.59 H Glucose Level 111 Calcium Level 7.6 L Magnesium Level 2.1 Test 01/27/17 10:38 Bedside Glucose 109 Medications Current Medications Acetaminophen (Tylenol Tab) 650 mg Q4H PRN PO PAIN AND OR ELEVATED TEMP; Start 01/24/17 at 11:00 Acetaminophen/ Hydrocodone Bitart ([place] (10)) 1 tab Q4H PRN PO PAIN; Start 01/24/17 at 11:00 Zolpidem Tartrate (Ambien) 10 mg HS PRN PO INSOMNIA; Start 01/24/17 at 11:00 Magnesium Hydroxide (Milk Of Mag) 30 ml DAILY PRN PO CONSTIPATION; Start at 11:00 Albuterol (Proventil 0.083% (Neb)) 1.25 mg Q4 PRN HHN SLEEP; Start 01/24/17 at 11:00 Diagnostic Test (Pha) (Accu-Chek) 1 ea 02 XX Last administered on 01/26/17 01: 30; Admin Dose 1 EA; Start 01/25/17 at 02:00 Miscellaneous Information 1 ea NOTE XX ; Start 01/24/17 at 12:00 Glucose (Glutose) 15 gm Q15M PRN PO DECREASED GLUCOSE; Start 01/24/17 at 12:00 Glucose (Glutose) 22.5 gm Q15M PRN PO DECREASED GLUCOSE; Start 01/24/17 at 12: 00 Dextrose (D50w Syringe) 25 ml Q15M PRN IV DECREASED GLUCOSE; Start 01/24/17 at 12:00 Dextrose (D50w Syringe) 50 ml Q15M PRN IV DECREASED GLUCOSE; Start 01/24/17 at 12:00 Glucagon (Glucagen) 1 mg Q15M PRN IM DECREASED GLUCOSE; Start 01/24/17 at 12:00 Glucose 15 gm 15 gm Q15M PRN BUCCAL DECREASED GLUCOSE; Start 01/24/17 at 12:00 Propofol (Diprivan) 100 ml @ 2.328 mls/ hr Q12H IV Last administered on 22:22; Admin Dose 23.28 MLS/HR; Start 01/24/17 at 13:00 Pantoprazole (Protonix Iv) 40 mg DAILY@06 IV Last administered on 01/27/17 05: 53; Admin Dose 40 MG; Start 01/25/17 at 06:00 Insulin Aspart (Novolog Insulin Pen) NOVOLOG *MILD* ALGORI... Q4 SC Last administered on 01/25/17 05:43; Admin Dose 2 UNIT; Start 01/24/17 at 17:00 Miscellaneous Information 1 ea NOTE XX ; Start 01/24/17 at 17:00 Glucose (Glutose) 15 gm Q15M PRN PO DECREASED GLUCOSE; Start 01/24/17 at 17:00 Glucose (Glutose) 22.5 gm Q15M PRN PO DECREASED GLUCOSE; Start 01/24/17 at 17: 00 Dextrose (D50w Syringe) 25 ml Q15M PRN IV DECREASED GLUCOSE; Start 01/24/17 at 17:00 Dextrose (D50w Syringe) 50 ml Q15M PRN IV DECREASED GLUCOSE; Start 01/24/17 at 17:00 Glucagon (Glucagen) 1 mg Q15M PRN IM DECREASED GLUCOSE; Start 01/24/17 at 17:00 Glucose 15 gm 15 gm Q15M PRN BUCCAL DECREASED GLUCOSE; Start 01/24/17 at 17:00 Fentanyl (Sublimaze) 100 ml @ 2.5 mls/hr TITRATE IV Last administered on 17:50; Admin Dose 2.5 MLS/HR; Start 01/24/17 at 23:00 Lorazepam (Ativan) 2 mg Q2 PRN IM ANXIETY Last administered on 01/25/17 17:15 ; Admin Dose 2 MG; Start 01/24/17 at 23:00 Aspirin 325 mg 325 mg DAILY NGT Last administered on 01/27/17 09:57; Admin Dose 325 MG; Start 01/25/17 at 17:00 Norepinephrine 16 mg/Dextrose 500 ml @ 1.87 mls/hr TITRATE IV Last administered on 01/26/17 09:18; Admin Dose 9.37 MLS/HR; Start 01/25/17 at 17:30 Aztreonam 0.5 gm/ Sodium Chloride 50 ml @ 100 mls/hr Q12 IV Last administered on 01/27/17 09:57; Admin Dose 100 MLS/HR; Start 01/25/17 at 21:00 Levofloxacin/ Dextrose 50 ml @ 50 mls/hr Q24H IVPB Last administered on 16:21; Admin Dose 50 MLS/HR; Start 01/26/17 at 16:00 Dextrose/Sodium Chloride (D5-NS) 1,000 ml @ 50 mls/hr Q20H IV Last administered on 4/21/17at 09:00; Admin Dose 50 MLS/HR; Start 01/27/17 at 09:00 Assessment/Plan Chief Complaint/Hosp Course IMPRESSION AND PLAN: Hypoxemic respiratory failure, likely secondary to combination of: 1. Possible aspiration pneumonia. 2. Pulmonary edema. 3. 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 History of dementia 5. Renal insufficiency Recommendations 1. CPAP weaning trial 2. Aspiration precautions 3. Continue broad-spectrum antibiotics 4. Cardiac recommendations 5. Renal recommendations 6. DVT GI prophylaxis 7. Consider family conference to establish CODE STATUS Disposition Continue ICU care Problems: DAVE TO MD, [facility] Jan 27, 2017 10:53
[2017-01-27] MEDS: BUMETANIDE 1 MG INJ IV SCH ×2 (11:40→18:21)
[2017-01-27 12:49] LABS: AADO2 Arterial 98.1 mmHg (7.0-24.0); Arterial COHb 0.3 % (0.0-3.0); Arterial Fraction of Oxyhgb 94.8 % (93.0-99.0); Arterial MetHb 0.4 % (0.0-1.5); Arterial Total Hemglobin 15.3 g/dl (12.0-18.0); Blood Gas PS 10; MODE VENT - CPAP
[2017-01-27] MEDS: PROPOFOL 100 ML IV SCH ×2 (13:00→21:49)
[2017-01-27 13:06] LABS: HEMATOCRIT 36.1 % (42.0-52.0); HEMOGLOBIN 11.4 g/dl (14.0-18.0); MEAN CORPUSCULAR HEMOGLOBIN 28.8 pg (29.0-33.0); MEAN CORPUSCULAR HGB CONC 31.6 g/dl (32.0-37.0); MEAN CORPUSCULAR VOLUME 91.2 fl (82.0-101.0); MEAN PLATELET VOLUME 12.5 fl (7.4-10.4); PLATELET COUNT 118 10^3/UL (140-415); RED BLOOD COUNT 3.96 10^6/ul (4.70-6.10); RED CELL DISTRIBUTION WIDTH 14.8 % (11.5-14.5); WHITE BLOOD COUNT 9.5 10^3/ul (4.8-10.8)
--- NOTE | 2017-01-27 14:35 | CONS ---
Date/Time of Note Date/Time of Note DATE: 01/27/17 TIME: 14:20 Assessment/Plan Assessment/Plan Chief Complaint/Hosp Course Impression: - advanced dementia with worsening mental status - ? related to infection - respiratory failure- requiring intubation, ? related to pneumonia. - severe ICM with LVEF 20-25%- now with NSTEMI, likely demand event. pt poor candidate for invasive evaluation at this time - NSTEMI- trop peaked at 10.0, also with h/o of ATN, ALI c/w either hypotensive vs hypoxemic event - multi vessel CAD- now with NSTEMI, however given elevated cr, resp failure, severe ICM, and cognitive impairment risks of procedure outweigh benefits. in addition pt clinically improving with down trend in cr and no ventricular arrhythmia. will recommend await clinic improvement and reassess. - atrial fibrillation- rate controlled, - NSVT s/p ICD placement nl fxn last checked 01/2017 - mild to moderate - h/o HTN - h/o DM2 - PANCHO Recommendations - cont asa/statin - d/c heparin gtt given > 48hrs post HI and likely demand event - off vasopressors - hold off on bb/acei until bp stable for sig period of time and renal fxn improve - prn diuretics, limit ivf if off pressors and stable - consider adding low dose eliquis for stroke prophy given afib will follow Problems: Consultation Date/Type/Reason Admit Date/Time Jan 23, 2017 at 20:03 Initial Consult Date 01/25/17 Type of Consultation: cardiology Referring Provider: ONIEL MORROW MD 24 HR Interval Summary Free Text/Dictation no acute events. pt remains intubated, does open eyes to voice. no obvious distress tele reviewed: afib rate controlled Subjective hx not possible: pt non-verbal, pt critical status Exam/Review of Systems Vital Signs Vitals Vital Signs Date Time Temp Pulse Resp B/P Pulse Ox O2 Delivery O2 Flow Rate FiO2 01/27/17 13:10 94 23 98 30 01/27/17 13:00 119/78 Mechanical Ventilator 01/27/17 12:00 98.9 01/24/17 07:45 4.0 Intake and Output 01/26/17 01/26/17 01/27/17 15:00 23:00 07:00 Intake Total 1810.97 ml 1133.06 ml 1209.0 ml Output Total 365 ml 315 ml 505 ml Balance 1445.97 ml 818.06 ml 704.0 ml Exam Constitutional: non-verbal, other (INTUBATED Psych: other (UNABLE TO ASSESS) Head: atraumatic, normocephalic Eyes: nl conjunctiva, nl lids ENMT: mucosa pink and moist Neck: non-tender, supple, No jvd Respiratory: clear to auscultation (anterior perea) Cardiovascular: other (irregular, nl rate. nl s1s2, ii/vi systolic LLSB) Gastrointestinal: non-tender, soft Musculoskeletal: No swelling Extremities: normal pulses Neurological: other, unresponsive Skin: nl turgor Results Result Diagram: 01/27/17 0520 01/27/17 0520 Results 24 hrs Laboratory Tests Test 01/26/17 18:20 01/26/17 18:37 01/26/17 21:03 01/27/17 01:08 Activated Partial Thromboplast Time 59.7 H Bedside Glucose 116 121 99 Test 01/27/17 04:48 01/27/17 05:20 01/27/17 09:32 01/27/17 10:38 Bedside Glucose 99 109 White Blood Count 9.5 # Red Blood Count 3.96 L Hemoglobin 11.4 L Hematocrit 36.1 L Mean Corpuscular Volume 91.2 Mean Corpuscular Hemoglobin 28.8 L Mean Corpuscular Hemoglobin Concent 31.6 L Red Cell Distribution Width 14.8 #H Platelet Count 118 L Mean Platelet Volume 12.5 H Neutrophils % Eosinophils % Neutrophils # Eosinophils # Sodium Level 131 L Potassium Level 4.4 Chloride Level 106 Carbon Dioxide Level 19 L Anion Gap 10 # Blood Urea Nitrogen 58 H Creatinine 2.59 H Glucose Level 111 Calcium Level 7.6 L Magnesium Level 2.1 Activated Partial Thromboplast Time 57.9 H Test 01/27/17 12:00 Blood Gas Specimen Source Blood arterial Arterial Blood Date Drawn 01/27/2017 12:15:43 PM Arterial Blood pH (Temp corrected) 7.371 Arterial Blood pCO2 (Temp correct) 31.8 L Arterial Blood pO2 (Temp corrected) 78.4 L Arterial Blood HCO3 18.0 L Arterial Blood Base Excess -6.0 L Arterial Blood Oxygen Saturation 95.5 Zacarias Test N/A Arterial Blood Gas Puncture Site Right Brachial Arterial Blood Carboxyhemoglobin 0.3 Arterial Blood Methemoglobin 0.4 Blood Gas A-a O2 Differential 98.1 H Oxyhemoglobin Percent 94.8 Total Hemoglobin 15.3 Blood Gas Temperature 37.0 Blood Gas Actual Respiration Rate 30 Blood Gas Modality VENT - CPAP FiO2 30.0 Blood Gas Low PEEP Setting 5.0 Blood Gas Pressure Support 10 Blood Gas Notified Whom JLD Blood Gas Notified Time 01/27/2017 12:49:44 PM Medications Medications Current Medications Acetaminophen (Tylenol Tab) 650 mg Q4H PRN PO PAIN AND OR ELEVATED TEMP; Start 01/24/17 at 11:00 Acetaminophen/ Hydrocodone Bitart ([place] ()) 1 tab Q4H PRN PO PAIN; Start 01/24/17 at 11:00 Zolpidem Tartrate (Ambien) 10 mg HS PRN PO INSOMNIA; Start 01/24/17 at 11:00 Magnesium Hydroxide (Milk Of Mag) 30 ml DAILY PRN PO CONSTIPATION; Start at 11:00 Albuterol (Proventil 0.083% (Neb)) 1.25 mg Q4 PRN HHN SLEEP; Start 01/24/17 at 11:00 Diagnostic Test (Pha) (Accu-Chek) 1 ea 02 XX Last administered on 01/26/17 01: 30; Admin Dose 1 EA; Start 01/25/17 at 02:00 Miscellaneous Information 1 ea NOTE XX ; Start 01/24/17 at 12:00 Glucose (Glutose) 15 gm Q15M PRN PO DECREASED GLUCOSE; Start 01/24/17 at 12:00 Glucose (Glutose) 22.5 gm Q15M PRN PO DECREASED GLUCOSE; Start 01/24/17 at 12: 00 Dextrose (D50w Syringe) 25 ml Q15M PRN IV DECREASED GLUCOSE; Start 01/24/17 at 12:00 Dextrose (D50w Syringe) 50 ml Q15M PRN IV DECREASED GLUCOSE; Start 01/24/17 at 12:00 Glucagon (Glucagen) 1 mg Q15M PRN IM DECREASED GLUCOSE; Start 01/24/17 at 12:00 Glucose 15 gm 15 gm Q15M PRN BUCCAL DECREASED GLUCOSE; Start 01/24/17 at 12:00 Propofol (Diprivan) 100 ml @ 2.328 mls/ hr Q12H IV Last administered on 22:22; Admin Dose 23.28 MLS/HR; Start 01/24/17 at 13:00 Pantoprazole (Protonix Iv) 40 mg DAILY@06 IV Last administered on 01/27/17 05: 53; Admin Dose 40 MG; Start 01/25/17 at 06:00 Insulin Aspart (Novolog Insulin Pen) NOVOLOG *MILD* ALGORI... Q4 SC Last administered on 01/25/17 05:43; Admin Dose 2 UNIT; Start 01/24/17 at 17:00 Miscellaneous Information 1 ea NOTE XX ; Start 01/24/17 at 17:00 Glucose (Glutose) 15 gm Q15M PRN PO DECREASED GLUCOSE; Start 01/24/17 at 17:00 Glucose (Glutose) 22.5 gm Q15M PRN PO DECREASED GLUCOSE; Start 01/24/17 at 17: 00 Dextrose (D50w Syringe) 25 ml Q15M PRN IV DECREASED GLUCOSE; Start 01/24/17 at 17:00 Dextrose (D50w Syringe) 50 ml Q15M PRN IV DECREASED GLUCOSE; Start 01/24/17 at 17:00 Glucagon (Glucagen) 1 mg Q15M PRN IM DECREASED GLUCOSE; Start 01/24/17 at 17:00 Glucose 15 gm 15 gm Q15M PRN BUCCAL DECREASED GLUCOSE; Start 01/24/17 at 17:00 Fentanyl (Sublimaze) 100 ml @ 2.5 mls/hr TITRATE IV Last administered on 17:50; Admin Dose 2.5 MLS/HR; Start 01/24/17 at 23:00 Lorazepam (Ativan) 2 mg Q2 PRN IM ANXIETY Last administered on 01/25/17 17:15 ; Admin Dose 2 MG; Start 01/24/17 at 23:00 Aspirin 325 mg 325 mg DAILY NGT Last administered on 01/27/17 09:57; Admin Dose 325 MG; Start 01/25/17 at 17:00 Norepinephrine 16 mg/Dextrose 500 ml @ 1.87 mls/hr TITRATE IV Last administered on 01/26/17 09:18; Admin Dose 9.37 MLS/HR; Start 01/25/17 at 17:30 Aztreonam 0.5 gm/ Sodium Chloride 50 ml @ 100 mls/hr Q12 IV Last administered on 01/27/17 09:57; Admin Dose 100 MLS/HR; Start 01/25/17 at 21:00 Levofloxacin/ Dextrose 50 ml @ 50 mls/hr Q24H IVPB Last administered on 16:21; Admin Dose 50 MLS/HR; Start 01/26/17 at 16:00 Dextrose/Sodium Chloride (D5-NS) 1,000 ml @ 50 mls/hr Q20H IV Last administered on 01/27/17 09:00; Admin Dose 50 MLS/HR; Start 01/27/17 at 09:00 Procedures Procedures cxr images reviewed: mild pulm congestion LANE VOGEL Jan 27, 2017 14:35
[2017-01-27 14:49] LABS: LYMPHOCYTES # 0.8 10^3/ul (0.8-2.9); MONOCYTE # 0.8 10^3/ul (0.3-0.9); MYELOCYTES # 0.1; NEUTROPHIL # 7.5 10^3/ul (1.6-7.5)
[2017-01-27] MEDS: FENTAnyl (DRIP) 1000 mcg/100mL 100 ML IV SCH (15:00)
[2017-01-27] MEDS: LEVOFLOXACIN 250MG/D5W (PMX) 50 ML IVPB SCH (16:58)
[2017-01-28] VITALS (41 sets, daily range): BP systolic 77–126; BP diastolic 56–105; PULSE 81–129; RESP 20–24
[2017-01-28] MEDS: INSULIN ASPART [NOVOLOG] 3 ML PEN SC SCH ×6 (00:33→20:15)
[2017-01-28] MEDS: ALBUTEROL 18 GM INHALER INH SCH ×6 (01:23→21:21)
[2017-01-28] MEDS: ACCU-CHEK XX SCH (02:00)
[2017-01-28] MEDS: DEXTROSE 5%-0.9% NACL 1,000 ML IV SCH (04:40)
[2017-01-28 04:48] LABS: PROTEIN, TOTAL 5.4 g/dL (6.1-8.1)
[2017-01-28 05:19] LABS: ADD SCAN DIFF NO
--- NOTE | 2017-01-28 05:32 | PN ---
DATE: 01/27/2017 SUBJECTIVE: The patient awake, still intubated. The patient now maintains his blood pressure witho ut Levophed, however, he still requires fentanyl for sedation. The patient does follow simple comma nds such as blinking his eyes. OBJECTIVE: LUNGS: Clear to A and P. HEART: Slightly irregular irregularity. ABDOMEN: Liver, kidneys, spleen are not palpable. Bowel sounds are normal. There are no intraabdo madi masses or bruits. Abdomen is not distended. EXTREMITIES: Legs show 1+ pretibial and dorsal pedal pitting edema. Dr. Lindo, the bevel operator, has decided to cut the patient's IV rate from 200 to 50 mL per charleen r. The patient is not putting out urine well. Urine is clear, and Dr. Pope decided that at this time, it is too risky to give the patient a coronary cineangiogram because of his very precarious p hysical condition. . Temperature 99.6, blood pressure varies from 91/72 to 119/78 without Levophed. Pulse ranges from 87 to 102 with slight irregularity. INTAKE AND OUTPUT: Intake 4144 mL, output 1140 mL. His rate has now been cut from 200 mL an hour to 50 mL an hour and he is being fed by a nasogastric tube. White blood cell count 9,500, hemoglobin 11.4 g percent, hematocrit 36.1%, platelet count is low at 118,000, arterial blood gas revealed a pH of 7.371, pCO2 of 31.8, pO2 of 78.4, base excess -6, FIO2 30. PTT is 57.9. Sodium is 131, potassi um is 4.4, chloride is 106, carbon dioxide is 19, BUN is 58, creatinine 2.59, glucose 111, calcium 7 .6. Corrected calcium is 8.1, magnesium level was normal. Glucose is 109. IMAGING: Chest x-ray reveals increased obscuration of left hemidiaphragm due to atelectasis, infilt rate and/or small effusion. Stable congestive changes. Endotracheal tube and enteric tube are uncha nged in position. Left-sided pacemaker, aortic atherosclerosis. ASSESSMENT AND PLAN: The patient is still in critical condition, but is slowly improving. His urin cisco output has improved and he is now maintaining his blood pressure without the aid of Levophed. Dictated By: ONIEL BYNUM/SHELLY Conf#: [id number] DID#: [id number]
[2017-01-28 05:35] LABS: ABNORMAL IP MESSAGE 1; BASOPHILS % 0.3 % (0.0-2.0); EOSINOPHILS % 0.1 % (0.0-7.0); HEMATOCRIT 34.7 % (42.0-52.0); HEMOGLOBIN 11.1 g/dl (14.0-18.0); LYMPHOCYTES # 0.6 10^3/ul (0.8-2.9); LYMPHOCYTES % 5.3 % (15.0-51.0); MEAN CORPUSCULAR HEMOGLOBIN 28.6 pg (29.0-33.0); MEAN CORPUSCULAR VOLUME 89.4 fl (82.0-101.0); MEAN PLATELET VOLUME 12.7 fl (7.4-10.4); MONOCYTE # 0.7 10^3/ul (0.3-0.9); MONOCYTES % 6.9 % (0.0-11.0); NEUTROPHIL # 8.9 10^3/ul (1.6-7.5); NEUTROPHILS % 84.8 % (39.0-77.0); PLATELET COUNT 108 10^3/UL (140-415); RED BLOOD COUNT 3.88 10^6/ul (4.70-6.10); RED CELL DISTRIBUTION WIDTH 14.7 % (11.5-14.5); WHITE BLOOD COUNT 10.5 10^3/ul (4.8-10.8)
[2017-01-28 05:38] LABS: ALBUMIN 2.4 g/dl (3.3-4.9); POTASSIUM 4.6 mmol/L (3.5-5.1)
[2017-01-28 05:41] LABS: ALBUMIN/GLOBULIN RATIO 0.66; BILIRUBIN,INDIRECT 0.2 mg/dl (0-1.1); BILIRUBIN,TOTAL 0.2 mg/dl (0.2-1.3); CALCIUM 8.1 mg/dl (8.4-10.2); CREATININE 2.81 mg/dl (0.61-1.24)
[2017-01-28 05:42] LABS: MAGNESIUM 2.2 mg/dl (1.7-2.5)
[2017-01-28] MEDS: BUMETANIDE 1 MG INJ IV SCH ×2 (06:10→18:11)
[2017-01-28] MEDS: PANTOPRAZOLE 40 MG INJ IV SCH (06:10)
[2017-01-28] MEDS: ASPIRIN 325 MG TAB NGT SCH (08:19)
[2017-01-28] MEDS: AZTREONAM 0.5 GM in SOD CHLORIDE 0.9% 50 ML IV SCH ×2 (08:19→20:08)
[2017-01-28] MEDS: PROPOFOL 100 ML IV SCH (12:19)
[2017-01-28] MEDS: FENTAnyl (DRIP) 1000 mcg/100mL 100 ML IV SCH (13:44)
[2017-01-28] MEDS ORDERED: DIGOXIN 500 MCG INJ IV ONE (14:00)
--- NOTE | 2017-01-28 14:09 | CONS ---
Date/Time of Note Date/Time of Note DATE: 01/28/17 TIME: 14:06 Assessment/Plan Assessment/Plan Chief Complaint/Hosp Course 1. This patient is in the ICU intubated on a ventilator. 2. Acute on chronic renal failure, underlying diabetic nephropathy , which could be due to a combination of prerenal azotemia due to volume depletion and ATN. Renal function is stable, UOP improved with Bumex which will be continued. 3. Diabetes mellitus 4. Dementia 5. Respiratory failure 6. He has chronic kidney disease 7. He has hypertension with controlled BP Problems: Consultation Date/Type/Reason Admit Date/Time Jan 23, 2017 at 20:03 Initial Consult Date 01/25/17 Type of Consultation: Nephrology Referring Provider: ONIEL MORROW MD 24 HR Interval Summary Free Text/Dictation the patient is awake, intubated, on mechanical ventilation, not following commands. Exam/Review of Systems Vital Signs Vitals Vital Signs Date Time Temp Pulse Resp B/P Pulse Ox O2 Delivery O2 Flow Rate FiO2 01/28/17 12:00 110 01/28/17 11:00 20 90/63 98 Mechanical Ventilator 01/28/17 08:00 98.9 01/28/17 05:34 30 01/24/17 07:45 4.0 Intake and Output 01/27/17 01/27/17 01/28/17 15:00 23:00 07:00 Intake Total 425.5 ml 610.0 ml 569.75 ml Output Total 850 ml 1295 ml 720 ml Balance -424.5 ml -685.0 ml -150.25 ml Exam Constitutional: alert Head: atraumatic, normocephalic Neck: No jvd Respiratory: clear to auscultation Cardiovascular: regular rate and rhythm Extremities: No edema Results Result Diagram: 01/28/17 0420 01/28/17 0420 Results 24 hrs Laboratory Tests Test 01/27/17 18:07 01/27/17 20:54 01/28/17 00:31 01/28/17 04:20 Bedside Glucose 142 115 161 White Blood Count 10.5 Red Blood Count 3.88 L Hemoglobin 11.1 L Hematocrit 34.7 L Mean Corpuscular Volume 89.4 Mean Corpuscular Hemoglobin 28.6 L Mean Corpuscular Hemoglobin Concent 32.0 Red Cell Distribution Width 14.7 H Platelet Count 108 L Mean Platelet Volume 12.7 H Neutrophils % 84.8 H Lymphocytes % 5.3 L Monocytes % 6.9 Eosinophils % 0.1 Basophils % 0.3 Nucleated Red Blood Cells % 0.0 Neutrophils # 8.9 H Lymphocytes # 0.6 L Monocytes # 0.7 Eosinophils # 0.0 Basophils # 0.0 Nucleated Red Blood Cells # 0.0 Sodium Level 137 Potassium Level 4.6 Chloride Level 105 Carbon Dioxide Level 22 Anion Gap 15 Blood Urea Nitrogen 63 H Creatinine 2.81 H Glucose Level 181 Calcium Level 8.1 L Magnesium Level 2.2 Total Bilirubin 0.2 Direct Bilirubin 0.00 Indirect Bilirubin 0.2 Aspartate Amino Transf (AST/SGOT) 362 H Alanine Aminotransferase (ALT/SGPT) 845 H Alkaline Phosphatase 79 Total Protein 6.0 L Albumin 2.4 L Globulin 3.60 H Albumin/Globulin Ratio 0.66 Test 01/28/17 04:38 01/28/17 08:07 01/28/17 13:37 Bedside Glucose 172 173 203 Medications Medications Current Medications Acetaminophen (Tylenol Tab) 650 mg Q4H PRN PO PAIN AND OR ELEVATED TEMP; Start 01/24/17 at 11:00 Acetaminophen/ Hydrocodone Bitart ([place] (10)) 1 tab Q4H PRN PO PAIN; Start 01/24/17 at 11:00 Zolpidem Tartrate (Ambien) 10 mg HS PRN PO INSOMNIA; Start 01/24/17 at 11:00 Magnesium Hydroxide (Milk Of Mag) 30 ml DAILY PRN PO CONSTIPATION; Start at 11:00 Albuterol (Proventil 0.083% (Neb)) 1.25 mg Q4 PRN HHN SLEEP; Start 01/24/17 at 11:00 Diagnostic Test (Pha) (Accu-Chek) 1 ea 02 XX Last administered on 01/26/17t 01: 30; Admin Dose 1 EA; Start 01/25/17 at 02:00 Miscellaneous Information 1 ea NOTE XX ; Start 01/24/17 at 12:00 Glucose (Glutose) 15 gm Q15M PRN PO DECREASED GLUCOSE; Start 01/24/17 at 12:00 Glucose (Glutose) 22.5 gm Q15M PRN PO DECREASED GLUCOSE; Start 01/24/17 at 12: 00 Dextrose (D50w Syringe) 25 ml Q15M PRN IV DECREASED GLUCOSE; Start 01/24/17 at 12:00 Dextrose (D50w Syringe) 50 ml Q15M PRN IV DECREASED GLUCOSE; Start 01/24/17 at 12:00 Glucagon (Glucagen) 1 mg Q15M PRN IM DECREASED GLUCOSE; Start 01/24/17 at 12:00 Glucose 15 gm 15 gm Q15M PRN BUCCAL DECREASED GLUCOSE; Start 01/24/17 at 12:00 Propofol (Diprivan) 100 ml @ 2.328 mls/ hr Q12H IV Last administered on 22:22; Admin Dose 23.28 MLS/HR; Start 01/24/17 at 13:00 Pantoprazole (Protonix Iv) 40 mg DAILY@06 IV Last administered on 01/28/17 06: 10; Admin Dose 40 MG; Start 01/25/17 at 06:00 Insulin Aspart (Novolog Insulin Pen) NOVOLOG *MILD* ALGORI... Q4 SC Last administered on 01/28/17 13:40; Admin Dose 2 UNIT; Start 01/24/17 at 17:00 Miscellaneous Information 1 ea NOTE XX ; Start 01/24/17 at 17:00 Glucose (Glutose) 15 gm Q15M PRN PO DECREASED GLUCOSE; Start 01/24/17 at 17:00 Glucose (Glutose) 22.5 gm Q15M PRN PO DECREASED GLUCOSE; Start 01/24/17 at 17: 00 Dextrose (D50w Syringe) 25 ml Q15M PRN IV DECREASED GLUCOSE; Start 01/24/17 at 17:00 Dextrose (D50w Syringe) 50 ml Q15M PRN IV DECREASED GLUCOSE; Start 01/24/17 at 17:00 Glucagon (Glucagen) 1 mg Q15M PRN IM DECREASED GLUCOSE; Start 01/24/17 at 17:00 Glucose 15 gm 15 gm Q15M PRN BUCCAL DECREASED GLUCOSE; Start 01/24/17 at 17:00 Fentanyl (Sublimaze) 100 ml @ 2.5 mls/hr TITRATE IV Last administered on 13:44; Admin Dose 2.5 MLS/HR; Start 01/24/17 at 23:00 Lorazepam (Ativan) 2 mg Q2 PRN IM ANXIETY Last administered on 01/25/17 17:15 ; Admin Dose 2 MG; Start 01/24/17 at 23:00 Aspirin 325 mg 325 mg DAILY NGT Last administered on 01/28/17 08:19; Admin Dose 325 MG; Start 01/25/17 at 17:00 Norepinephrine 16 mg/Dextrose 500 ml @ 1.87 mls/hr TITRATE IV Last administered on 01/26/17 09:18; Admin Dose 9.37 MLS/HR; Start 01/25/17 at 17:30 Aztreonam 0.5 gm/ Sodium Chloride 50 ml @ 100 mls/hr Q12 IV Last administered on 01/28/17 08:19; Admin Dose 100 MLS/HR; Start 01/25/17 at 21:00 Levofloxacin/ Dextrose 50 ml @ 50 mls/hr Q24H IVPB Last administered on 16:58; Admin Dose 50 MLS/HR; Start 01/26/17 at 16:00 Dextrose/Sodium Chloride (D5-NS) 1,000 ml @ 50 mls/hr Q20H IV Last administered on 01/28/17 04:40; Admin Dose 50 MLS/HR; Start 01/27/17 at 09:00 Carvedilol (Coreg) 3.125 mg BID NGT ; Start 01/28/17 at 21:00 KOMAL GRANADOS MD Jan 28, 2017 14:09
--- NOTE | 2017-01-28 14:09 | PN ---
Date/Time of Note Date/Time of Note DATE: 01/28/17 TIME: 14:01 SUBJECTIVE: Patient intubated on fentanyl drip somewhat awake but not communicative. Chart , laboratory studies and medications reviewed. ROS Not obtainable patient sedated and intubated OBJECTIVE: The patient was intubated. Vital signs: as documented. Head exam: is unremarkable. No scleral icterus or corneal arcus noted. Neck: is without jugular venous distension, thyromegaly, or carotid bruits. Carotid upstrokes are brisk bilaterally. Lungs :are clear to auscultation and percussion from limited exam. Cardiac; exam reveals the PMI to be normally sized and situated. Rhythm is irregular. First and second heart sounds normal. 1/6sem, no rubs or gallops. Abdominal exam: reveals normal bowel sounds, no masses, no organomegaly and no aortic enlargement. Extremities :are nonedematous and both femoral and pedal pulses are normal. LABORATORY STUDIES; Hemoglobin 11.1, hematocrit 34.7, white count 10.5, platelets 108,000, electrolytes normal, BUN 63, creatinine 2.8, AST elevated 362, ALT increased and elevated 845, BNP over 10,000. Chest x-ray from yesterday revealed cardio megaly, AICD in place, interstitial edema, ET and NG tube in place. ASSESSMENT: 1. Ischemic cardiomyopathy ejection fraction 20-25% on recent echo. 2. 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 3. Type 2 diabetes. 4. History of hypertension. 5. Chronic renal insufficiency with acute renal failure. 6. Hyperlipidemia. 7. Mild to moderate aortic stenosis. 8. AICD in situ. 9. Dementia. 10. Peripheral vascular disease. 11. History of lower GI bleed in the past. 12. Mild normocytic anemia, thrombocytopenia. 13. Atrial fibrillation new onset rate somewhat increased. At this time the patient is progressing is off of pressors and is more awake. Will give 1 dose of digoxin for better rate control and start on low-dose carvedilol 3.125 twice a day. Would consider diuresis in patient per nephrology. PLAN: 1. Digoxin 0.25 mg IV 1. 2. Start carvedilol 3.125 twice daily low dose for better atrial fibrillation rate control. 3. We will hold off on anticoagulation for now until we see how patient normalizes. 4. Pulmonary weaning per pulmonology. RONNELL MALHOTRA MD Jan 28, 2017 14:09
--- NOTE | 2017-01-28 14:44 | CONS ---
Date/Time of Note Date/Time of Note DATE: 01/28/17 TIME: 14:39 Consult Date/Type/Reason Admit Date/Time Jan 23, 2017 at 20:03 Initial Consult Date 01/25/17 Type of Consultation: Pulm/CCM Ordering Provider: ONIEL MORROW MD Subjective Responsive on MV. No events. Objective Vital Signs Date Time Temp Pulse Resp B/P Pulse Ox O2 Delivery O2 Flow Rate FiO2 01/28/17 12:00 110 01/28/17 11:00 20 90/63 98 Mechanical Ventilator 01/28/17 08:00 98.9 01/28/17 05:34 30 01/24/17 07:45 4.0 Intake and Output 01/27/17 01/27/17 01/28/17 15:00 23:00 07:00 Intake Total 425.5 ml 610.0 ml 569.75 ml Output Total 850 ml 1295 ml 720 ml Balance -424.5 ml -685.0 ml -150.25 ml Exam HEENT: Neck supple; no JVD; no LAD CVS: irreg irreg, S1 and S2 CHEST: Clear ABD: Soft, NT, + BS EXT: No c/c; +edema Results/Medications Result Diagram: 01/28/17 0420 01/28/17 0420 Results 24 hrs Laboratory Tests Test 01/27/17 18:07 01/27/17 20:54 01/28/17 00:31 01/28/17 04:20 Bedside Glucose 142 115 161 White Blood Count 10.5 Red Blood Count 3.88 L Hemoglobin 11.1 L Hematocrit 34.7 L Mean Corpuscular Volume 89.4 Mean Corpuscular Hemoglobin 28.6 L Mean Corpuscular Hemoglobin Concent 32.0 Red Cell Distribution Width 14.7 H Platelet Count 108 L Mean Platelet Volume 12.7 H Neutrophils % 84.8 H Lymphocytes % 5.3 L Monocytes % 6.9 Eosinophils % 0.1 Basophils % 0.3 Nucleated Red Blood Cells % 0.0 Neutrophils # 8.9 H Lymphocytes # 0.6 L Monocytes # 0.7 Eosinophils # 0.0 Basophils # 0.0 Nucleated Red Blood Cells # 0.0 Sodium Level 137 Potassium Level 4.6 Chloride Level 105 Carbon Dioxide Level 22 Anion Gap 15 Blood Urea Nitrogen 63 H Creatinine 2.81 H Glucose Level 181 Calcium Level 8.1 L Magnesium Level 2.2 Total Bilirubin 0.2 Direct Bilirubin 0.00 Indirect Bilirubin 0.2 Aspartate Amino Transf (AST/SGOT) 362 H Alanine Aminotransferase (ALT/SGPT) 845 H Alkaline Phosphatase 79 Total Protein 6.0 L Albumin 2.4 L Globulin 3.60 H Albumin/Globulin Ratio 0.66 Test 01/28/17 04:38 01/28/17 08:07 01/28/17 13:37 Bedside Glucose 172 173 203 Medications Current Medications Acetaminophen (Tylenol Tab) 650 mg Q4H PRN PO PAIN AND OR ELEVATED TEMP; Start 01/24/17 at 11:00 Acetaminophen/ Hydrocodone Bitart ([place] ()) 1 tab Q4H PRN PO PAIN; Start 01/24/17 at 11:00 Zolpidem Tartrate (Ambien) 10 mg HS PRN PO INSOMNIA; Start 01/24/17 at 11:00 Magnesium Hydroxide (Milk Of Mag) 30 ml DAILY PRN PO CONSTIPATION; Start at 11:00 Albuterol (Proventil 0.083% (Neb)) 1.25 mg Q4 PRN HHN SLEEP; Start 01/24/17 at 11:00 Diagnostic Test (Pha) (Accu-Chek) 1 ea 02 XX Last administered on 01/26/17t 01: 30; Admin Dose 1 EA; Start 01/25/17 at 02:00 Miscellaneous Information 1 ea NOTE XX ; Start 01/24/17 at 12:00 Glucose (Glutose) 15 gm Q15M PRN PO DECREASED GLUCOSE; Start 01/24/17 at 12:00 Glucose (Glutose) 22.5 gm Q15M PRN PO DECREASED GLUCOSE; Start 01/24/17 at 12: 00 Dextrose (D50w Syringe) 25 ml Q15M PRN IV DECREASED GLUCOSE; Start 01/24/17 at 12:00 Dextrose (D50w Syringe) 50 ml Q15M PRN IV DECREASED GLUCOSE; Start 01/24/17 at 12:00 Glucagon (Glucagen) 1 mg Q15M PRN IM DECREASED GLUCOSE; Start 01/24/17 at 12:00 Glucose 15 gm 15 gm Q15M PRN BUCCAL DECREASED GLUCOSE; Start 01/24/17 at 12:00 Propofol (Diprivan) 100 ml @ 2.328 mls/ hr Q12H IV Last administered on 22:22; Admin Dose 23.28 MLS/HR; Start 01/24/17 at 13:00 Pantoprazole (Protonix Iv) 40 mg DAILY@06 IV Last administered on 01/28/17 06: 10; Admin Dose 40 MG; Start 01/25/17 at 06:00 Insulin Aspart (Novolog Insulin Pen) NOVOLOG *MILD* ALGORI... Q4 SC Last administered on 01/28/17 13:40; Admin Dose 2 UNIT; Start 01/24/17 at 17:00 Miscellaneous Information 1 ea NOTE XX ; Start 01/24/17 at 17:00 Glucose (Glutose) 15 gm Q15M PRN PO DECREASED GLUCOSE; Start 01/24/17 at 17:00 Glucose (Glutose) 22.5 gm Q15M PRN PO DECREASED GLUCOSE; Start 01/24/17 at 17: 00 Dextrose (D50w Syringe) 25 ml Q15M PRN IV DECREASED GLUCOSE; Start 01/24/17 at 17:00 Dextrose (D50w Syringe) 50 ml Q15M PRN IV DECREASED GLUCOSE; Start 01/24/17 at 17:00 Glucagon (Glucagen) 1 mg Q15M PRN IM DECREASED GLUCOSE; Start 01/24/17 at 17:00 Glucose 15 gm 15 gm Q15M PRN BUCCAL DECREASED GLUCOSE; Start 01/24/17 at 17:00 Fentanyl (Sublimaze) 100 ml @ 2.5 mls/hr TITRATE IV Last administered on 13:44; Admin Dose 2.5 MLS/HR; Start 01/24/17 at 23:00 Lorazepam (Ativan) 2 mg Q2 PRN IM ANXIETY Last administered on 01/25/17 17:15 ; Admin Dose 2 MG; Start 01/24/17 at 23:00 Aspirin 325 mg 325 mg DAILY NGT Last administered on 01/28/17 08:19; Admin Dose 325 MG; Start 01/25/17 at 17:00 Norepinephrine 16 mg/Dextrose 500 ml @ 1.87 mls/hr TITRATE IV Last administered on 01/26/17 09:18; Admin Dose 9.37 MLS/HR; Start 01/25/17 at 17:30 Aztreonam 0.5 gm/ Sodium Chloride 50 ml @ 100 mls/hr Q12 IV Last administered on 01/28/17 08:19; Admin Dose 100 MLS/HR; Start 01/25/17 at 21:00 Levofloxacin/ Dextrose 50 ml @ 50 mls/hr Q24H IVPB Last administered on 16:58; Admin Dose 50 MLS/HR; Start 01/26/17 at 16:00 Dextrose/Sodium Chloride (D5-NS) 1,000 ml @ 50 mls/hr Q20H IV Last administered on 01/28/17 04:40; Admin Dose 50 MLS/HR; Start 01/27/17 at 09:00 Carvedilol (Coreg) 3.125 mg BID NGT ; Start 01/28/17 at 21:00 Assessment/Plan Additional Assessment/Plan IMPRESSION: 1. Hypoxemic respiratory failure due to pulm edema +/- comp on aspiration 2. Ischemic CMY with pulm edema--improved. 3. Renal Failure 4. History of dementia 5. Anemia RECS: 1. CPAP/PS in am; if tolerates will extubate 2. Hold TFs at 5 am tomorrow 3. De-escalate abx 4. Appreciate Cards and Renal recommendations 5. DVT and GI prophylaxis 35 min cc time ROSENDO LEW MD Jan 28, 2017 14:44
[2017-01-28] MEDS: LEVOFLOXACIN 250MG/D5W (PMX) 50 ML IVPB SCH (15:59)
[2017-01-28 23:12] LABS: ABNORMAL PROTEIN BAND 1 0.1 g/dL (NONE DETECTED); ABNORMAL PROTEIN BAND 2 1.1 g/dL (NONE DETECTED); ALBUMIN 2.3 g/dL (3.8-4.8)
[2017-01-29] VITALS (47 sets, daily range): BP systolic 87–158; BP diastolic 50–139; PULSE 70–133; RESP 16–23
[2017-01-29] MEDS: ALBUTEROL 18 GM INHALER INH SCH ×6 (01:00→21:42)
[2017-01-29] MEDS: PROPOFOL 100 ML IV SCH ×2 (01:00→13:00)
[2017-01-29] MEDS: ACCU-CHEK XX SCH (02:00)
[2017-01-29] MEDS: DEXTROSE 5%-0.9% NACL 1,000 ML IV SCH ×2 (02:05→21:00)
[2017-01-29] MEDS: INSULIN ASPART [NOVOLOG] 3 ML PEN SC SCH ×6 (02:13→21:01)
--- NOTE | 2017-01-29 04:54 | PN ---
DATE: 01/28/2017 SUBJECTIVE: The patient is awake but unresponsive. He is still intubated. He no longer needs Levo phed for blood pressure elevation; however, the still is requiring fentanyl and still requires soft restraints in order not to pull out his tubes. The patient is putting out urine. He is improved no w. The patient was seen in consultation by cardiology, and he has been started on Bumex to increase his urinary output. The vocational rehabilitation administrator feels that he should not yet be put on anticoagulation despit e the fact that he is fibrillating because it is still too risky; however, the patient is getting A spirin 81 mg daily. The electrician wiring feels that they will make an attempt to extubate the patient tomorrow. Hopefully this will be successfully. They think that he certainly is in satisfactory con dition for trial of extubation. OBJECTIVE: CHEST: Appears clear to auscultation and percussion. HEART: Rhythm is irregular with an irregular irregularity due to atrial fibrillation. ABDOMEN: Soft. Liver, kidneys, and spleen are not palpable. Bowel sounds are normal. There are n o intraabdominal masses or bruits. EXTREMITIES: The patient has 1+ pretibial and dorsal pedal edema bilaterally. VITAL SIGNS: Temperature is 99.2, blood pressure varies between 93/71 and 126/105, pulse varies bet ween 94 and 129, respiratory rate is 20. LABORATORY DATA: White blood cell count is 10,500, hemoglobin is 11.1, hematocrit is 34.7%, platele t count is low at 108,000. Blood sugar is 174. Sodium is 137, potassium is 4.6, chloride is 105, c arbon dioxide is 22, BUN is 63, creatinine is 2.81. Calcium 8.12, uncorrected. Phosphorus is 22, m agnesium is 2.2. AST is 362, ALT is 845. Total protein is 6 with an albumin of 2.4 and globulin of 3.6. Serum protein electrophoresis has been ordered to investigate the possibility of multiple mye drew or some other light chain pathology. Urine total protein is 67. Sputum mycology culture is pe nding. Dictated By: ONIEL BYNUM/SHELLY Conf#: [id number] DID#: [id number]
[2017-01-29 04:58] LABS: ADD SCAN DIFF NO
[2017-01-29 05:33] LABS: ABNORMAL IP MESSAGE 1; BASOPHILS % 0.4 % (0.0-2.0); EOSINOPHILS % 0.2 % (0.0-7.0); HEMATOCRIT 36.7 % (42.0-52.0); HEMOGLOBIN 11.7 g/dl (14.0-18.0); LYMPHOCYTES # 0.5 10^3/ul (0.8-2.9); LYMPHOCYTES % 5.5 % (15.0-51.0); MEAN CORPUSCULAR HEMOGLOBIN 28.6 pg (29.0-33.0); MEAN CORPUSCULAR HGB CONC 31.9 g/dl (32.0-37.0); MEAN CORPUSCULAR VOLUME 89.7 fl (82.0-101.0); MEAN PLATELET VOLUME 12.9 fl (7.4-10.4); MONOCYTES % 10.3 % (0.0-11.0); NEUTROPHIL # 7.3 10^3/ul (1.6-7.5); PLATELET COUNT 107 10^3/UL (140-415); RED BLOOD COUNT 4.09 10^6/ul (4.70-6.10); RED CELL DISTRIBUTION WIDTH 14.9 % (11.5-14.5); WHITE BLOOD COUNT 9.6 10^3/ul (4.8-10.8)
[2017-01-29 05:45] LABS: ALBUMIN 2.4 g/dl (3.3-4.9); BILIRUBIN,INDIRECT 0.1 mg/dl (0-1.1); BILIRUBIN,TOTAL 0.1 mg/dl (0.2-1.3); TOTAL PROTEIN 5.8 g/dl (6.1-8.1)
[2017-01-29 05:49] LABS: CREATININE 2.29 mg/dl (0.61-1.24); POTASSIUM 4.1 mmol/L (3.5-5.1)
[2017-01-29 05:51] LABS: INR 1.27; PT RATIO 1.3
[2017-01-29] MEDS: PANTOPRAZOLE 40 MG INJ IV SCH (05:51)
[2017-01-29] MEDS: BUMETANIDE 1 MG INJ IV SCH ×2 (05:51→17:36)
[2017-01-29 05:57] LABS: TROPONIN-I 1.78 ng/ml (0.00-0.12)
[2017-01-29] MEDS: ASPIRIN 325 MG TAB NGT SCH (09:00)
[2017-01-29] MEDS: AZTREONAM 0.5 GM in SOD CHLORIDE 0.9% 50 ML IV SCH ×2 (10:22→20:58)
--- NOTE | 2017-01-29 10:37 | RADRPT ---
PROCEDURE: XR Chest. CLINICAL INDICATION: CHF. TECHNIQUE: PA and Lateral views of the chest were obtained. COMPARISON: Chest x-ray 07/16/2016 08:02 a.m. FINDINGS: The soft tissues are normal. There are degenerative osteophytes in the thoracic and upper lumbar sp ine. The heart is enlarged. A mediastinotomy was performed. The cardiomediastinal silhouette and hilar structures are otherwise normal. The pulmonary vasculature is equilibrated. There are vascular calcifications in the aortic arch. There are perihilar and basilar infiltrates. The left diaphragm is partially obscured. A single chamber cardiac pacemaker is noted over the upper left chest wall. There are degenerative changes in the glenohumeral joints. A left pleural effusion is suspected. The right costophrenic angle is normal. IMPRESSION: 1. Satisfactory positioning of the endotracheal tube and NG tube. 2. Single chamber cardiac pacemaker with evidence of prior median sternotomy. 3. Cardiomegaly with congestive heart failure and interstitial and alveolar pulmonary edema associa elena with a small left pleural effusion. 4. Atherosclerosis of the aortic arch. 5. 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 RPTAT:AAJJ Physician Renée Date Time Electronically viewed and signed by Physician Renée on 01/29/2017 10:37 JM/
[2017-01-29 11:10] LABS: AADO2 Arterial 96.4 mmHg (7.0-24.0); Allen Test ACCEPTAB; Arterial Base Excess -5.7 mmol/L (-3.0-3); Arterial COHb 0.3 % (0.0-3.0); Arterial Fraction of Oxyhgb 95.1 % (93.0-99.0); Arterial HCO3 18.3 mmol/L (22.0-26.0); Arterial MetHb 0.4 % (0.0-1.5); Arterial Total Hemglobin 12.6 g/dl (12.0-18.0); MODE VENT-CPAP/PS
--- NOTE | 2017-01-29 13:32 | PN ---
Date/Time of Note Date/Time of Note DATE: 01/29/17 TIME: 13:28 SUBJECTIVE: Patient intubated on fentanyl drip somewhat awake but not communicative. Chart , laboratory studies and medications reviewed. ROS Not obtainable patient sedated and intubated OBJECTIVE: The patient was intubated. Vital signs: as documented. Head exam: is unremarkable. No scleral icterus or corneal arcus noted. Neck: is without jugular venous distension, thyromegaly, or carotid bruits. Carotid upstrokes are brisk bilaterally. Lungs :are clear to auscultation and percussion from limited exam. Cardiac; exam reveals the PMI to be normally sized and situated. Rhythm is irregular. First and second heart sounds normal. 1/6sem, no rubs or gallops. Abdominal exam: reveals normal bowel sounds, no masses, no organomegaly and no aortic enlargement. Extremities :are nonedematous and both femoral and pedal pulses are normal. LABORATORY STUDIES; Hemoglobin 11.7, hematocrit 36.7, platelets 107,000, INR 1.27, electrolytes normal, bun 66, creatinine 2.29 improved, troponin decreased to 1.78, lactic acid level normal at 2, digoxin level less than 0.7. Chest x-ray revealed cardiomegaly, AICD in situ, ET tube in place, worsening heart failure. EKG atrial fibrillation 95, low voltage in limb leads, left axis deviation left anterior hemiblock, poor R-wave progression no acute change. Telemetry per RN revealed atrial fibrillation rates somewhat rapid 100-120 bpm. ASSESSMENT: 1. Ischemic cardiomyopathy ejection fraction 20-25% on recent echo. 2. 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 3. Type 2 diabetes. 4. History of hypertension. 5. Chronic renal insufficiency with acute renal failure-mildly improved. 6. Hyperlipidemia. 7. Mild to moderate aortic stenosis. 8. AICD in situ. 9. Dementia. 10. Peripheral vascular disease. 11. History of lower GI bleed in the past. 12. Mild normocytic anemia, thrombocytopenia-stable. 13. Atrial fibrillation new onset rate somewhat increased. At this time the patient is on weaning trials and may possibly be extubated today but x-ray looks like heart failure was worse and would recommend more aggressive diuresis per nephrology. Will try to give carvedilol since was not given this morning and will give another dose of digoxin 0.25 IV today. May need amiodarone to control heart rate. PLAN: 1. Digoxin 0.25 mg IV 1. 2. Give carvedilol 3.125 twice daily low dose for better atrial fibrillation rate control as ordered. 3. We will hold off on anticoagulation for now until we see how patient normalizes. 4. Pulmonary weaning per pulmonology, possible extubation today. RONNELL MALHOTRA MD Jan 29, 2017 13:32
[2017-01-29] MEDS ORDERED: DIGOXIN 500 MCG INJ IV ONE (14:00)
--- NOTE | 2017-01-29 14:16 | RADRPT ---
Vent Rate: 98 bpm RR Interval: 0 msec TX Interval: 0 msec QRS Duration: 110 msec QT Interval: 346 msec QTC Interval: 441 msec P-R-T Osteen: 0 - -44 - 112 degrees Atrial fibrillation Left axis deviation LAHB Poor R-wave progression possible AWMI AU Nonspecific T wave abnormality , probably digitalis effect Abnormal ECG No previous tracing available for comparison Electronically Signed By: Meet Campa [id number]
--- NOTE | 2017-01-29 14:50 | CONS ---
Date/Time of Note Date/Time of Note DATE: 01/29/17 TIME: 14:48 Consult Date/Type/Reason Admit Date/Time Jan 23, 2017 at 20:03 Initial Consult Date 01/25/17 Type of Consultation: Pulm/CCM Ordering Provider: ONIEL MORROW MD Subjective Failed CPAP trial today. Now back on AC Objective Vital Signs Date Time Temp Pulse Resp B/P Pulse Ox O2 Delivery O2 Flow Rate FiO2 01/29/17 13:37 121 22 100 30 01/29/17 09:00 91/64 Mechanical Ventilator 01/29/17 08:00 98.3 Intake and Output 01/28/17 01/28/17 01/29/17 15:00 23:00 07:00 Intake Total 587.5 ml 891.0 ml 720.0 ml Output Total 520 ml 400 ml 365 ml Balance 67.5 ml 491.0 ml 355.0 ml Exam HEENT: Neck supple; no JVD; no LAD; + ET tube in place CVS: irreg irreg, S1 and S2 CHEST: Clear ABD: Soft, NT, + BS EXT: No c/c; +edema Results/Medications Result Diagram: 01/29/17 0430 01/29/17 0430 Results 24 hrs Laboratory Tests Test 01/28/17 18:10 01/28/17 20:11 01/29/17 02:08 01/29/17 03:40 Bedside Glucose 210 174 209 223 H Test 01/29/17 04:30 01/29/17 05:20 01/29/17 10:00 01/29/17 10:21 White Blood Count 9.6 Red Blood Count 4.09 L Hemoglobin 11.7 L Hematocrit 36.7 L Mean Corpuscular Volume 89.7 Mean Corpuscular Hemoglobin 28.6 L Mean Corpuscular Hemoglobin Concent 31.9 L Red Cell Distribution Width 14.9 H Platelet Count 107 L Mean Platelet Volume 12.9 H Neutrophils % 76.0 Lymphocytes % 5.5 L Monocytes % 10.3 Eosinophils % 0.2 Basophils % 0.4 Nucleated Red Blood Cells % 0.0 Neutrophils # 7.3 Lymphocytes # 0.5 L Monocytes # 1.0 H Eosinophils # 0.0 Basophils # 0.0 Nucleated Red Blood Cells # 0.0 Prothrombin Time 16.0 #H Prothrombin Time Ratio 1.3 INR International Normalized Ratio 1.27 Sodium Level 136 Potassium Level 4.1 Chloride Level 107 Carbon Dioxide Level 22 Anion Gap 11 Blood Urea Nitrogen 66 H Creatinine 2.29 H Glucose Level 232 H Lactic Acid Level 2.0 Calcium Level 8.0 L Total Bilirubin 0.1 L Direct Bilirubin 0.00 Indirect Bilirubin 0.1 Aspartate Amino Transf (AST/SGOT) 161 #H Alanine Aminotransferase (ALT/SGPT) 661 H Alkaline Phosphatase 105 Troponin I 1.780 *H Total Protein 5.8 L Albumin 2.4 L Bedside Glucose 214 211 Blood Gas Specimen Source Blood arterial Arterial Blood Date Drawn 01/29/2017 11:00:55 AM Arterial Blood pH (Temp corrected) 7.384 Arterial Blood pCO2 (Temp correct) 31.3 L Arterial Blood pO2 (Temp corrected) 80.7 Arterial Blood HCO3 18.3 L Arterial Blood Base Excess -5.7 L Arterial Blood Oxygen Saturation 95.8 Zacarias Test ACCEPTAB Arterial Blood Gas Puncture Site Right Radial Arterial Blood Carboxyhemoglobin 0.3 Arterial Blood Methemoglobin 0.4 Blood Gas A-a O2 Differential 96.4 H Oxyhemoglobin Percent 95.1 Total Hemoglobin 12.6 Blood Gas Temperature 37.0 Blood Gas Actual Respiration Rate 25 Blood Gas Modality VENT-CPAP/PS FiO2 30.0 Blood Gas Low PEEP Setting 5.0 Blood Gas Notified Whom JMD Blood Gas Notified Time 01/29/2017 11:10:45 AM Test 01/29/17 13:15 Bedside Glucose 233 H Medications Current Medications Acetaminophen (Tylenol Tab) 650 mg Q4H PRN PO PAIN AND OR ELEVATED TEMP; Start 01/24/17 at 11:00 Acetaminophen/ Hydrocodone Bitart ([place] (10/325)) 1 tab Q4H PRN PO PAIN; Start 01/24/17 at 11:00 Zolpidem Tartrate (Ambien) 10 mg HS PRN PO INSOMNIA; Start 01/24/17 at 11:00 Magnesium Hydroxide (Milk Of Mag) 30 ml DAILY PRN PO CONSTIPATION; Start at 11:00 Albuterol (Proventil 0.083% (Neb)) 1.25 mg Q4 PRN HHN SLEEP; Start 01/24/17 at 11:00 Diagnostic Test (Pha) (Accu-Chek) 1 ea 02 XX Last administered on 01/29/17t 02: 00; Admin Dose 1 EA; Start 01/25/17 at 02:00 Miscellaneous Information 1 ea NOTE XX ; Start 01/24/17 at 12:00 Glucose (Glutose) 15 gm Q15M PRN PO DECREASED GLUCOSE; Start 01/24/17 at 12:00 Glucose (Glutose) 22.5 gm Q15M PRN PO DECREASED GLUCOSE; Start 01/24/17 at 12: 00 Dextrose (D50w Syringe) 25 ml Q15M PRN IV DECREASED GLUCOSE; Start 01/24/17 at 12:00 Dextrose (D50w Syringe) 50 ml Q15M PRN IV DECREASED GLUCOSE; Start 01/24/17 at 12:00 Glucagon (Glucagen) 1 mg Q15M PRN IM DECREASED GLUCOSE; Start 01/24/17 at 12:00 Glucose 15 gm 15 gm Q15M PRN BUCCAL DECREASED GLUCOSE; Start 01/24/17 at 12:00 Propofol (Diprivan) 100 ml @ 2.328 mls/ hr Q12H IV Last administered on 22:22; Admin Dose 23.28 MLS/HR; Start 01/24/17 at 13:00 Pantoprazole (Protonix Iv) 40 mg DAILY@06 IV Last administered on 01/29/17 05: 51; Admin Dose 40 MG; Start 01/25/17 at 06:00 Insulin Aspart (Novolog Insulin Pen) NOVOLOG *MILD* ALGORI... Q4 SC Last administered on 01/29/17 13:20; Admin Dose 3 UNIT; Start 01/24/17 at 17:00 Miscellaneous Information 1 ea NOTE XX ; Start 01/24/17 at 17:00 Glucose (Glutose) 15 gm Q15M PRN PO DECREASED GLUCOSE; Start 01/24/17 at 17:00 Glucose (Glutose) 22.5 gm Q15M PRN PO DECREASED GLUCOSE; Start 01/24/17 at 17: 00 Dextrose (D50w Syringe) 25 ml Q15M PRN IV DECREASED GLUCOSE; Start 01/24/17 at 17:00 Dextrose (D50w Syringe) 50 ml Q15M PRN IV DECREASED GLUCOSE; Start 01/24/17 at 17:00 Glucagon (Glucagen) 1 mg Q15M PRN IM DECREASED GLUCOSE; Start 01/24/17 at 17:00 Glucose 15 gm 15 gm Q15M PRN BUCCAL DECREASED GLUCOSE; Start 01/24/17 at 17:00 Fentanyl (Sublimaze) 100 ml @ 2.5 mls/hr TITRATE IV Last administered on 13:44; Admin Dose 2.5 MLS/HR; Start 01/24/17 at 23:00 Lorazepam (Ativan) 2 mg Q2 PRN IM ANXIETY Last administered on 01/25/17 17:15 ; Admin Dose 2 MG; Start 01/24/17 at 23:00 Aspirin 325 mg 325 mg DAILY NGT Last administered on 01/29/17 09:00; Admin Dose 325 MG; Start 01/25/17 at 17:00 Norepinephrine 16 mg/Dextrose 500 ml @ 1.87 mls/hr TITRATE IV Last administered on 01/26/17 09:18; Admin Dose 9.37 MLS/HR; Start 01/25/17 at 17:30 Aztreonam 0.5 gm/ Sodium Chloride 50 ml @ 100 mls/hr Q12 IV Last administered on 01/29/17 10:22; Admin Dose 100 MLS/HR; Start 01/25/17 at 21:00 Levofloxacin/ Dextrose 50 ml @ 50 mls/hr Q24H IVPB Last administered on 15:59; Admin Dose 50 MLS/HR; Start 01/26/17 at 16:00 Dextrose/Sodium Chloride (D5-NS) 1,000 ml @ 50 mls/hr Q20H IV Last administered on 01/29/17 02:05; Admin Dose 50 MLS/HR; Start 01/27/17 at 09:00 Carvedilol (Coreg) 3.125 mg BID NGT Last administered on 01/29/17 13:54; Admin Dose 3.125 MG; Start 01/28/17 at 21:00 Assessment/Plan Additional Assessment/Plan IMPRESSION: 1. Hypoxemic respiratory failure due to pulm edema +/- comp on aspiration 2. Ischemic CMY with pulm edema--improved. 3. Renal Failure 4. History of dementia 5. Anemia RECS: 1. Will retry CPAP again--for now would place back on AC 2. Resume TF's 3. De-escalate abx 4. Maintain off sedation 5. Am labs/CXR 35 min cc time ROSENDO LEW MD Jan 29, 2017 14:50
--- NOTE | 2017-01-29 15:06 | CONS ---
Date/Time of Note Date/Time of Note DATE: 01/29/17 TIME: 15:04 Assessment/Plan Assessment/Plan Chief Complaint/Hosp Course 1. This patient is in the ICU intubated on a ventilator. 2. Acute on chronic renal failure, underlying diabetic nephropathy , which could be due to a combination of prerenal azotemia due to volume depletion and ATN. Renal function is stable, UOP improved with Bumex which will be continued. 3. Diabetes mellitus 4. Dementia 5. Respiratory failure 6. He has chronic kidney disease 7. He has hypertension with controlled BP Problems: Consultation Date/Type/Reason Admit Date/Time Jan 23, 2017 at 20:03 Initial Consult Date 01/25/17 Type of Consultation: Nephrology Referring Provider: ONIEL MORROW MD Exam/Review of Systems Vital Signs Vitals Vital Signs Date Time Temp Pulse Resp B/P Pulse Ox O2 Delivery O2 Flow Rate FiO2 01/29/17 13:37 121 22 100 30 01/29/17 09:00 91/64 Mechanical Ventilator 01/29/17 08:00 98.3 Intake and Output 01/28/17 01/28/17 01/29/17 15:00 23:00 07:00 Intake Total 587.5 ml 891.0 ml 720.0 ml Output Total 520 ml 400 ml 365 ml Balance 67.5 ml 491.0 ml 355.0 ml Exam Constitutional: other (awake, not following commands) Head: normocephalic ENMT: intubated Neck: No jvd Respiratory: clear to auscultation Cardiovascular: regular rate and rhythm Gastrointestinal: soft Extremities: edema Results Result Diagram: 01/29/17 0430 01/29/17 0430 Results 24 hrs Laboratory Tests Test 01/28/17 18:10 01/28/17 20:11 01/29/17 02:08 01/29/17 03:40 Bedside Glucose 210 174 209 223 H Test 01/29/17 04:30 01/29/17 05:20 01/29/17 10:00 01/29/17 10:21 White Blood Count 9.6 Red Blood Count 4.09 L Hemoglobin 11.7 L Hematocrit 36.7 L Mean Corpuscular Volume 89.7 Mean Corpuscular Hemoglobin 28.6 L Mean Corpuscular Hemoglobin Concent 31.9 L Red Cell Distribution Width 14.9 H Platelet Count 107 L Mean Platelet Volume 12.9 H Neutrophils % 76.0 Lymphocytes % 5.5 L Monocytes % 10.3 Eosinophils % 0.2 Basophils % 0.4 Nucleated Red Blood Cells % 0.0 Neutrophils # 7.3 Lymphocytes # 0.5 L Monocytes # 1.0 H Eosinophils # 0.0 Basophils # 0.0 Nucleated Red Blood Cells # 0.0 Prothrombin Time 16.0 #H Prothrombin Time Ratio 1.3 INR International Normalized Ratio 1.27 Sodium Level 136 Potassium Level 4.1 Chloride Level 107 Carbon Dioxide Level 22 Anion Gap 11 Blood Urea Nitrogen 66 H Creatinine 2.29 H Glucose Level 232 H Lactic Acid Level 2.0 Calcium Level 8.0 L Total Bilirubin 0.1 L Direct Bilirubin 0.00 Indirect Bilirubin 0.1 Aspartate Amino Transf (AST/SGOT) 161 #H Alanine Aminotransferase (ALT/SGPT) 661 H Alkaline Phosphatase 105 Troponin I 1.780 *H Total Protein 5.8 L Albumin 2.4 L Bedside Glucose 214 211 Blood Gas Specimen Source Blood arterial Arterial Blood Date Drawn 01/29/2017 11:00:55 AM Arterial Blood pH (Temp corrected) 7.384 Arterial Blood pCO2 (Temp correct) 31.3 L Arterial Blood pO2 (Temp corrected) 80.7 Arterial Blood HCO3 18.3 L Arterial Blood Base Excess -5.7 L Arterial Blood Oxygen Saturation 95.8 Zacarias Test ACCEPTAB Arterial Blood Gas Puncture Site Right Radial Arterial Blood Carboxyhemoglobin 0.3 Arterial Blood Methemoglobin 0.4 Blood Gas A-a O2 Differential 96.4 H Oxyhemoglobin Percent 95.1 Total Hemoglobin 12.6 Blood Gas Temperature 37.0 Blood Gas Actual Respiration Rate 25 Blood Gas Modality VENT-CPAP/PS FiO2 30.0 Blood Gas Low PEEP Setting 5.0 Blood Gas Notified Whom Prabhakar Blood Gas Notified Time 01/29/2017 11:10:45 AM Test 01/29/17 13:15 Bedside Glucose 233 H Medications Medications Current Medications Acetaminophen (Tylenol Tab) 650 mg Q4H PRN PO PAIN AND OR ELEVATED TEMP; Start 01/24/17 at 11:00 Acetaminophen/ Hydrocodone Bitart ([place] (10/325)) 1 tab Q4H PRN PO PAIN; Start 01/24/17 at 11:00 Zolpidem Tartrate (Ambien) 10 mg HS PRN PO INSOMNIA; Start 01/24/17 at 11:00 Magnesium Hydroxide (Milk Of Mag) 30 ml DAILY PRN PO CONSTIPATION; Start at 11:00 Albuterol (Proventil 0.083% (Neb)) 1.25 mg Q4 PRN HHN SLEEP; Start 01/24/17 at 11:00 Diagnostic Test (Pha) (Accu-Chek) 1 ea 02 XX Last administered on 01/29/17 02: 00; Admin Dose 1 EA; Start 01/25/17 at 02:00 Miscellaneous Information 1 ea NOTE XX ; Start 01/24/17 at 12:00 Glucose (Glutose) 15 gm Q15M PRN PO DECREASED GLUCOSE; Start 01/24/17 at 12:00 Glucose (Glutose) 22.5 gm Q15M PRN PO DECREASED GLUCOSE; Start 01/24/17 at 12: 00 Dextrose (D50w Syringe) 25 ml Q15M PRN IV DECREASED GLUCOSE; Start 01/24/17 at 12:00 Dextrose (D50w Syringe) 50 ml Q15M PRN IV DECREASED GLUCOSE; Start 01/24/17 at 12:00 Glucagon (Glucagen) 1 mg Q15M PRN IM DECREASED GLUCOSE; Start 01/24/17 at 12:00 Glucose 15 gm 15 gm Q15M PRN BUCCAL DECREASED GLUCOSE; Start 01/24/17 at 12:00 Propofol (Diprivan) 100 ml @ 2.328 mls/ hr Q12H IV Last administered on 22:22; Admin Dose 23.28 MLS/HR; Start 01/24/17 at 13:00 Pantoprazole (Protonix Iv) 40 mg DAILY@06 IV Last administered on 01/29/17 05: 51; Admin Dose 40 MG; Start 01/25/17 at 06:00 Insulin Aspart (Novolog Insulin Pen) NOVOLOG *MILD* ALGORI... Q4 SC Last administered on 01/29/17 13:20; Admin Dose 3 UNIT; Start 01/24/17 at 17:00 Miscellaneous Information 1 ea NOTE XX ; Start 01/24/17 at 17:00 Glucose (Glutose) 15 gm Q15M PRN PO DECREASED GLUCOSE; Start 01/24/17 at 17:00 Glucose (Glutose) 22.5 gm Q15M PRN PO DECREASED GLUCOSE; Start 01/24/17 at 17: 00 Dextrose (D50w Syringe) 25 ml Q15M PRN IV DECREASED GLUCOSE; Start 01/24/17 at 17:00 Dextrose (D50w Syringe) 50 ml Q15M PRN IV DECREASED GLUCOSE; Start 01/24/17 at 17:00 Glucagon (Glucagen) 1 mg Q15M PRN IM DECREASED GLUCOSE; Start 01/24/17 at 17:00 Glucose 15 gm 15 gm Q15M PRN BUCCAL DECREASED GLUCOSE; Start 01/24/17 at 17:00 Fentanyl (Sublimaze) 100 ml @ 2.5 mls/hr TITRATE IV Last administered on 13:44; Admin Dose 2.5 MLS/HR; Start 01/24/17 at 23:00 Lorazepam (Ativan) 2 mg Q2 PRN IM ANXIETY Last administered on 01/25/17 17:15 ; Admin Dose 2 MG; Start 01/24/17 at 23:00 Aspirin 325 mg 325 mg DAILY NGT Last administered on 01/29/17 09:00; Admin Dose 325 MG; Start 01/25/17 at 17:00 Norepinephrine 16 mg/Dextrose 500 ml @ 1.87 mls/hr TITRATE IV Last administered on 01/26/17 09:18; Admin Dose 9.37 MLS/HR; Start 01/25/17 at 17:30 Aztreonam 0.5 gm/ Sodium Chloride 50 ml @ 100 mls/hr Q12 IV Last administered on 01/29/17 10:22; Admin Dose 100 MLS/HR; Start 01/25/17 at 21:00 Levofloxacin/ Dextrose 50 ml @ 50 mls/hr Q24H IVPB Last administered on 15:59; Admin Dose 50 MLS/HR; Start 01/26/17 at 16:00 Dextrose/Sodium Chloride (D5-NS) 1,000 ml @ 50 mls/hr Q20H IV Last administered on 01/29/17 02:05; Admin Dose 50 MLS/HR; Start 01/27/17 at 09:00 Carvedilol (Coreg) 3.125 mg BID NGT Last administered on 01/29/17 13:54; Admin Dose 3.125 MG; Start 01/28/17 at 21:00 KOMAL GRANADOS MD Jan 29, 2017 15:06
[2017-01-29 16:50] LABS: ADD SCAN DIFF NO
[2017-01-29 16:53] LABS: ABNORMAL IP MESSAGE 1; HEMOGLOBIN 11.4 g/dl (14.0-18.0); MEAN CORPUSCULAR HGB CONC 32.6 g/dl (32.0-37.0); MEAN CORPUSCULAR VOLUME 89.1 fl (82.0-101.0); PLATELET COUNT 103 10^3/UL (140-415); RED BLOOD COUNT 3.93 10^6/ul (4.70-6.10); RED CELL DISTRIBUTION WIDTH 14.8 % (11.5-14.5); WHITE BLOOD COUNT 9.4 10^3/ul (4.8-10.8)
[2017-01-29] MEDS: LEVOFLOXACIN 250MG/D5W (PMX) 50 ML IVPB SCH (17:36)
[2017-01-29 18:00] LABS: ANISOCYTOSIS 1+; LYMPHOCYTES # 0.3 10^3/ul (0.8-2.9); MONOCYTE # 1.2 10^3/ul (0.3-0.9); MYELOCYTES # 0.1; NEUTROPHIL # 7.4 10^3/ul (1.6-7.5)
[2017-01-29 18:01] LABS: BURR CELLS OCCASIONAL; POIKILOCYTOSIS 1+
[2017-01-29 18:03] LABS: OVALOCYTES OCCASIONAL
--- NOTE | 2017-01-29 21:23 | PN ---
DATE: 01/29/2017 SUBJECTIVE: The patient is awake but intubated. An attempt to extubate him today failed. OBJECTIVE: CHEST: Clear to A and P. HEART: Irregular irregularity. No murmurs. ABDOMEN: Liver, kidneys, spleen are not palpable. Bowel sounds are normal. There are no intra-abd ominal masses or bruits. EXTREMITIES: Trace dorsal pedal edema. No more ankle edema. GENITOURINARY: The patient is putting out urine. VITAL SIGNS: The patient is afebrile, blood pressure 133/[address] to 91/64, pulse va rying from 82 to 133, respiratory rate varying from 16 to 23. Pulse oximetry remains 98 at 100%. INTAKE AND OUTPUT: 2198.5 mL, output 1385 mL. LABORATORY DATA: White blood cell count 9400, hemoglobin 11.4, hematocrit 35%, platelet count 103,0 00. Arterial blood gas: pH 7.384, pCO2 31.3, pO2 80.7, FIO2 30. INR 1.27. Blood sugar 254. Elec trolytes: Sodium 136, potassium 4.1, chloride 107, CO2 22, BUN 65, creatinine 2.29. Troponin-I lev el remains elevated at 1.780. Calcium uncorrected is 8. Mycology culture is still negative but is still pending. IMAGING: Chest x-ray: Satisfactory position of the endotracheal tube and the NG tube; cardiomegaly with congestive heart failure and interstitial and alveolar pulmonary edema associated with small l eft pleural effusion; atherosclerosis of the aortic arch. Dictated By: ONIEL BYNUM/SHELLY Conf#: [id number] DID#: [id number]
[2017-01-29] MEDS ORDERED: SOD CHLORIDE 0.9% 1,000 ML IV SCH (22:00)
[2017-01-30] VITALS (47 sets, daily range): BP systolic 97–150; BP diastolic 51–97; PULSE 69–93; RESP 20–34
[2017-01-30] MEDS: INSULIN ASPART [NOVOLOG] 3 ML PEN SC SCH ×6 (01:12→21:17)
[2017-01-30] MEDS: ALBUTEROL 18 GM INHALER INH SCH ×6 (01:21→21:15)
[2017-01-30] MEDS: FENTAnyl (DRIP) 1000 mcg/100mL 100 ML IV SCH (01:35)
[2017-01-30] MEDS: ACCU-CHEK XX SCH (02:00)
[2017-01-30 05:00] LABS: AADO2 Arterial 113.1 mmHg (7.0-24.0); Allen Test ACCEPTAB; Arterial Base Excess -4.6 mmol/L (-3.0-3); Arterial COHb 0.4 % (0.0-3.0); Arterial Fraction of Oxyhgb 91.8 % (93.0-99.0); Arterial HCO3 19.2 mmol/L (22.0-26.0); Arterial MetHb 0.3 % (0.0-1.5); MODE VENT - AC
[2017-01-30] MEDS: PANTOPRAZOLE 40 MG INJ IV SCH (05:59)
[2017-01-30] MEDS: BUMETANIDE 1 MG INJ IV SCH ×2 (05:59→18:08)
[2017-01-30 06:30] LABS: ADD SCAN DIFF NO
[2017-01-30 06:34] LABS: ABNORMAL IP MESSAGE 1; BASOPHILS % 0.1 % (0.0-2.0); EOSINOPHILS # 0.1 10^3/ul (0.0-0.5); EOSINOPHILS % 0.5 % (0.0-7.0); HEMATOCRIT 36.1 % (42.0-52.0); HEMOGLOBIN 11.4 g/dl (14.0-18.0); LYMPHOCYTES # 0.5 10^3/ul (0.8-2.9); LYMPHOCYTES % 4.5 % (15.0-51.0); MEAN CORPUSCULAR HEMOGLOBIN 28.4 pg (29.0-33.0); MEAN CORPUSCULAR HGB CONC 31.6 g/dl (32.0-37.0); MEAN PLATELET VOLUME 13.3 fl (7.4-10.4); MONOCYTE # 1.1 10^3/ul (0.3-0.9); MONOCYTES % 9.6 % (0.0-11.0); NEUTROPHIL # 8.8 10^3/ul (1.6-7.5); NEUTROPHILS % 79.6 % (39.0-77.0); PLATELET COUNT 112 10^3/UL (140-415); RED BLOOD COUNT 4.01 10^6/ul (4.70-6.10); RED CELL DISTRIBUTION WIDTH 15.4 % (11.5-14.5); WHITE BLOOD COUNT 11.1 10^3/ul (4.8-10.8)
[2017-01-30 06:53] LABS: ALBUMIN 2.4 g/dl (3.3-4.9)
[2017-01-30 06:54] LABS: POTASSIUM 3.8 mmol/L (3.5-5.1)
[2017-01-30 06:56] LABS: BILIRUBIN,INDIRECT 0.2 mg/dl (0-1.1); BILIRUBIN,TOTAL 0.2 mg/dl (0.2-1.3); CREATININE 2.36 mg/dl (0.61-1.24)
[2017-01-30 06:57] LABS: ALBUMIN/GLOBULIN RATIO 0.61; CALCIUM 7.9 mg/dl (8.4-10.2); TOTAL PROTEIN 6.3 g/dl (6.1-8.1)
--- NOTE | 2017-01-30 08:09 | RADRPT ---
PROCEDURE: XR Chest. CLINICAL INDICATION: Congestive heart failure TECHNIQUE: Single frontal view of the chest was obtained. COMPARISON: Chest x-ray from 01/29/2017 FINDINGS: The endotracheal tube, enteric tube, sternotomy wires, and left-sided pacemaker / AICD are again not ed. Heart size is unchanged. The aortic arch is calcified. There are largely stable mild congestive changes. There is stable obscuration of the left hemidiaphragm due to atelectasis, infiltrate, and / or a sma ll effusion. IMPRESSION: No significant interval change. RPTAT: EE Physician Lawrence Date Time Electronically viewed and signed by Physician Lawrence on 01/30/2017 08:09 /
[2017-01-30] MEDS: AZTREONAM 0.5 GM in SOD CHLORIDE 0.9% 50 ML IV SCH ×2 (08:55→21:05)
[2017-01-30] MEDS: ASPIRIN 325 MG TAB NGT SCH (08:56)
--- NOTE | 2017-01-30 10:19 | CONS ---
Date/Time of Note Date/Time of Note DATE: 01/30/17 TIME: 10:16 Assessment/Plan Assessment/Plan Additional Assessment/Plan Ventilator settings; AC of 20, tidal volume 500, PEEP of 5, 30% FiO2. Patient is on fentanyl drip at 25 mics per hour. Chest x-ray was reviewed from today which is showing very minimal if any perihilar infiltrates. Endotracheal tube is at an adequate level. Sternal wires are again identified. Assessment recommendations; 1. Patient admitted for respiratory failure with pulmonary edema with significant radiological and clinical improvement. 2. Right upper lobe pneumonia with marked radiological improvement as well. 3. Worsening renal function. Patient however not oliguric. 4. Atrial fibrillation. 5. Prior history of coronary artery disease. With history of CABG. Next For sedation for now. Once the patient is off sedation he will be evaluated for weaning from ventilator. Meanwhile continue current supportive care. Continue antibiotics for another 24 hours. Consultation Date/Type/Reason Admit Date/Time Jan 23, 2017 at 20:03 Type of Consultation: Pulmonary/critical care Referring Provider: ONIEL MORROW MD 24 HR Interval Summary Free Text/Dictation Patient condition remains critical. Patient failed weaning trials from ventilator yesterday. Had to be reverted back to assist control mode. However this morning the patient is much more awake alert. General exam; elderly male, orally intubated, currently in no distress. Awake and alert. Exam/Review of Systems Vital Signs Vitals Vital Signs Date Time Temp Pulse Resp B/P Pulse Ox O2 Delivery O2 Flow Rate FiO2 01/30/17 08:00 91 01/30/17 06:00 21 123/95 100 Mechanical Ventilator 01/30/17 05:03 30 01/30/17 04:00 98.4 Intake and Output 01/29/17 01/29/17 01/30/17 15:00 23:00 07:00 Intake Total 545.0 ml 890.0 ml 897.5 ml Output Total 600 ml 380 ml 295 ml Balance -55.0 ml 510.0 ml 602.5 ml Exam HEENT examination; supple neck, no JVD. No lymphadenopathy. Midline trachea. No thyromegaly. Patient has bilateral surgical pupils. Has multiple carious teeth. Chest examination; diminished but clear breath sounds. No added sound. S1-S2 audible, no murmurs. Irregular rhythm. Abdomen examination; soft, nondistended, nontender. No organomegaly. Bowel sounds audible. Extremity examination; no peripheral edema. 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 Results Result Diagram: 01/30/17 0510 01/30/17 0510 Results 24 hrs Laboratory Tests Test 01/29/17 10:21 01/29/17 13:15 01/29/17 16:40 01/29/17 17:35 Bedside Glucose 211 233 H 254 H White Blood Count 9.4 Red Blood Count 3.93 L Hemoglobin 11.4 L Hematocrit 35.0 L Mean Corpuscular Volume 89.1 Mean Corpuscular Hemoglobin 29.0 Mean Corpuscular Hemoglobin Concent 32.6 Red Cell Distribution Width 14.8 H Platelet Count 103 L Mean Platelet Volume 13.0 H Neutrophils % 79.0 H Band Neutrophils % 4.0 Lymphocytes % 3.0 L Monocytes % 13.0 H Myelocytes % 1.0 H Neutrophils # 7.4 Lymphocytes # 0.3 L Monocytes # 1.2 H Myelocytes # 0.1 Large Platelets OCCASIONAL Giant Platelets OCCASIONAL Poikilocytosis 1+ Anisocytosis 1+ Ovalocytes OCCASIONAL Test 01/29/17 20:59 01/30/17 01:10 01/30/17 02:18 01/30/17 05:00 Bedside Glucose 253 H 228 H 262 H Blood Gas Specimen Source Blood arterial Arterial Blood Date Drawn 01/30/2017 4:53:50 AM Arterial Blood pH (Temp corrected) 7.390 Arterial Blood pCO2 (Temp correct) 32.5 L Arterial Blood pO2 (Temp corrected) 62.6 L Arterial Blood HCO3 19.2 L Arterial Blood Base Excess -4.6 L Arterial Blood Oxygen Saturation 92.4 L Zacarias Test ACCEPTAB Arterial Blood Gas Puncture Site Right Radial Arterial Blood Carboxyhemoglobin 0.4 Arterial Blood Methemoglobin 0.3 Blood Gas A-a O2 Differential 113.1 H Oxyhemoglobin Percent 91.8 L Total Hemoglobin 16.0 Blood Gas Temperature 37.0 Blood Gas Respiration Rate 20.0 Blood Gas Actual Respiration Rate 25 Blood Gas Modality VENT - AC FiO2 30.0 Blood Gas Tidal Volume 500.0 Blood Gas Notified Whom BR Blood Gas Notified Time 01/30/2017 5:00:39 AM Test 01/30/17 05:06 01/30/17 05:10 01/30/17 09:01 Bedside Glucose 223 H 263 H White Blood Count 11.1 H Red Blood Count 4.01 L Hemoglobin 11.4 L Hematocrit 36.1 L Mean Corpuscular Volume 90.0 Mean Corpuscular Hemoglobin 28.4 L Mean Corpuscular Hemoglobin Concent 31.6 L Red Cell Distribution Width 15.4 H Platelet Count 112 L Mean Platelet Volume 13.3 H Neutrophils % 79.6 H Lymphocytes % 4.5 L Monocytes % 9.6 Eosinophils % 0.5 Basophils % 0.1 Nucleated Red Blood Cells % 0.0 Neutrophils # 8.8 H Lymphocytes # 0.5 L Monocytes # 1.1 H Eosinophils # 0.1 Basophils # 0.0 Nucleated Red Blood Cells # 0.0 Sodium Level 138 Potassium Level 3.8 Chloride Level 106 Carbon Dioxide Level 21 Anion Gap 15 Blood Urea Nitrogen 69 H Creatinine 2.36 H Glucose Level 267 H Calcium Level 7.9 L Total Bilirubin 0.2 Direct Bilirubin 0.00 Indirect Bilirubin 0.2 Aspartate Amino Transf (AST/SGOT) 67 #H Alanine Aminotransferase (ALT/SGPT) 404 H Alkaline Phosphatase 115 B-Type Natriuretic Peptide 24662 H Total Protein 6.3 Albumin 2.4 L Globulin 3.90 H Albumin/Globulin Ratio 0.61 Digoxin Level 1.1 Medications Medications Current Medications Acetaminophen (Tylenol Tab) 650 mg Q4H PRN PO PAIN AND OR ELEVATED TEMP; Start 01/24/17 at 11:00 Acetaminophen/ Hydrocodone Bitart ([place] (10/325)) 1 tab Q4H PRN PO PAIN; Start 01/24/17 at 11:00 Zolpidem Tartrate (Ambien) 10 mg HS PRN PO INSOMNIA; Start 01/24/17 at 11:00 Magnesium Hydroxide (Milk Of Mag) 30 ml DAILY PRN PO CONSTIPATION; Start at 11:00 Albuterol (Proventil 0.083% (Neb)) 1.25 mg Q4 PRN HHN SLEEP; Start 01/24/17 at 11:00 Diagnostic Test (Pha) (Accu-Chek) 1 ea 02 XX Last administered on 01/30/17t 02: 00; Admin Dose 1 EA; Start 01/25/17 at 02:00 Miscellaneous Information 1 ea NOTE XX ; Start 01/24/17 at 12:00 Glucose (Glutose) 15 gm Q15M PRN PO DECREASED GLUCOSE; Start 01/24/17 at 12:00 Glucose (Glutose) 22.5 gm Q15M PRN PO DECREASED GLUCOSE; Start 01/24/17 at 12: 00 Dextrose (D50w Syringe) 25 ml Q15M PRN IV DECREASED GLUCOSE; Start 01/24/17 at 12:00 Dextrose (D50w Syringe) 50 ml Q15M PRN IV DECREASED GLUCOSE; Start 01/24/17 at 12:00 Glucagon (Glucagen) 1 mg Q15M PRN IM DECREASED GLUCOSE; Start 01/24/17 at 12:00 Glucose (Glutose) 15 gm Q15M PRN BUCCAL DECREASED GLUCOSE; Start 01/24/17 at 12 :00 Pantoprazole (Protonix Iv) 40 mg DAILY@06 IV Last administered on 01/30/17 05: 59; Admin Dose 40 MG; Start 01/25/17 at 06:00 Insulin Aspart (Novolog Insulin Pen) NOVOLOG *MILD* ALGORI... Q4 SC Last administered on 01/30/17 09:05; Admin Dose 4 UNIT; Start 01/24/17 at 17:00 Miscellaneous Information 1 ea NOTE XX ; Start 01/24/17 at 17:00 Glucose (Glutose) 15 gm Q15M PRN PO DECREASED GLUCOSE; Start 01/24/17 at 17:00 Glucose (Glutose) 22.5 gm Q15M PRN PO DECREASED GLUCOSE; Start 01/24/17 at 17: 00 Dextrose (D50w Syringe) 25 ml Q15M PRN IV DECREASED GLUCOSE; Start 01/24/17 at 17:00 Dextrose (D50w Syringe) 50 ml Q15M PRN IV DECREASED GLUCOSE; Start 01/24/17 at 17:00 Glucagon (Glucagen) 1 mg Q15M PRN IM DECREASED GLUCOSE; Start 01/24/17 at 17:00 Glucose 15 gm 15 gm Q15M PRN BUCCAL DECREASED GLUCOSE; Start 01/24/17 at 17:00 Fentanyl (Sublimaze) 100 ml @ 2.5 mls/hr TITRATE IV Last administered on 01:35; Admin Dose 2.5 MLS/HR; Start 01/24/17 at 23:00 Lorazepam (Ativan) 2 mg Q2 PRN IM ANXIETY Last administered on 01/25/17 17:15 ; Admin Dose 2 MG; Start 01/24/17 at 23:00 Aspirin 325 mg 325 mg DAILY NGT Last administered on 01/30/17 08:56; Admin Dose 325 MG; Start 01/25/17 at 17:00 Norepinephrine 16 mg/Dextrose 500 ml @ 1.87 mls/hr TITRATE IV Last administered on 01/26/17 09:18; Admin Dose 9.37 MLS/HR; Start 01/25/17 at 17:30 Aztreonam 0.5 gm/ Sodium Chloride 50 ml @ 100 mls/hr Q12 IV Last administered on 01/30/17 08:55; Admin Dose 100 MLS/HR; Start 01/25/17 at 21:00 Levofloxacin/ Dextrose (Levaquin 250 Mg/ D5W 50 ml (Pmx)) 50 ml @ 50 mls/hr Q24H IVPB Last administered on 01/29/17 17:36; Admin Dose 50 MLS/HR; Start at 16:00 Carvedilol 3.125 mg 3.125 mg BID NGT Last administered on 01/30/17 08:58; Admin Dose 3.125 MG; Start 01/28/17 at 21:00 Sodium Chloride (NS) 1,000 ml @ 50 mls/hr Q20H IV Last administered on 22:02; Admin Dose 50 MLS/HR; Start 01/29/17 at 22:00 ULISES MCKAY Jan 30, 2017 10:19
--- NOTE | 2017-01-30 11:56 | CONS ---
Date/Time of Note Date/Time of Note DATE: 01/30/17 TIME: 11:47 Assessment/Plan Assessment/Plan Chief Complaint/Hosp Course 1. This patient is in the ICU intubated on a ventilator. He is awake and responsive. 2. He has acute renal failure superimposed on CKD , due to diabetic nephropathy . His renal function is stable. He has good urine output. He is getting IV fluids. His urine output has improved today and his blood pressure is better. I am going to stop the IV fluids. He is on diuretics; although he has been in positive fluid balance the last 2 days. 3. Diabetes mellitus 4. Dementia 5. Respiratory failure on ventilator. 6. He has chronic kidney disease 7. He has hypertension 8. Will order bilateral lower extremity venous Dopplers to rule out DVTs. If negative will order SCDs for DVT PE prevention. Problems: Consultation Date/Type/Reason Admit Date/Time Jan 23, 2017 at 20:03 Initial Consult Date 01/25/17 Type of Consultation: Pulmonary/critical care Referring Provider: ONIEL MORROW MD 24 HR Interval Summary Free Text/Dictation He is in the ICU. He is intubated on a ventilator. He is awake. Subjective hx not possible: pt non-verbal Exam/Review of Systems Vital Signs Vitals Vital Signs Date Time Temp Pulse Resp B/P Pulse Ox O2 Delivery O2 Flow Rate FiO2 01/30/17 11:12 76 26 100 30 01/30/17 06:00 123/95 Mechanical Ventilator 01/30/17 04:00 98.4 Intake and Output 01/29/17 01/29/17 01/30/17 15:00 23:00 07:00 Intake Total 545.0 ml 890.0 ml 897.5 ml Output Total 600 ml 380 ml 295 ml Balance -55.0 ml 510.0 ml 602.5 ml Exam Constitutional: alert, non-verbal Respiratory: clear to auscultation Cardiovascular: regular rate and rhythm Gastrointestinal: soft Musculoskeletal: nl extremities to inspection Results Result Diagram: 01/30/17 0510 01/30/17 0510 Results 24 hrs Laboratory Tests Test 01/29/17 13:15 01/29/17 16:40 01/29/17 17:35 01/29/17 20:59 Bedside Glucose 233 H 254 H 253 H White Blood Count 9.4 Red Blood Count 3.93 L Hemoglobin 11.4 L Hematocrit 35.0 L Mean Corpuscular Volume 89.1 Mean Corpuscular Hemoglobin 29.0 Mean Corpuscular Hemoglobin Concent 32.6 Red Cell Distribution Width 14.8 H Platelet Count 103 L Mean Platelet Volume 13.0 H Neutrophils % 79.0 H Band Neutrophils % 4.0 Lymphocytes % 3.0 L Monocytes % 13.0 H Myelocytes % 1.0 H Neutrophils # 7.4 Lymphocytes # 0.3 L Monocytes # 1.2 H Myelocytes # 0.1 Large Platelets OCCASIONAL Giant Platelets OCCASIONAL Poikilocytosis 1+ Anisocytosis 1+ Ovalocytes OCCASIONAL Test 01/30/17 01:10 01/30/17 02:18 01/30/17 05:00 01/30/17 05:06 Bedside Glucose 228 H 262 H 223 H Blood Gas Specimen Source Blood arterial Arterial Blood Date Drawn 01/30/2017 4:53:50 AM Arterial Blood pH (Temp corrected) 7.390 Arterial Blood pCO2 (Temp correct) 32.5 L Arterial Blood pO2 (Temp corrected) 62.6 L Arterial Blood HCO3 19.2 L Arterial Blood Base Excess -4.6 L Arterial Blood Oxygen Saturation 92.4 L Zacarias Test ACCEPTAB Arterial Blood Gas Puncture Site Right Radial Arterial Blood Carboxyhemoglobin 0.4 Arterial Blood Methemoglobin 0.3 Blood Gas A-a O2 Differential 113.1 H Oxyhemoglobin Percent 91.8 L Total Hemoglobin 16.0 Blood Gas Temperature 37.0 Blood Gas Respiration Rate 20.0 Blood Gas Actual Respiration Rate 25 Blood Gas Modality VENT - AC FiO2 30.0 Blood Gas Tidal Volume 500.0 Blood Gas Notified Whom BR Blood Gas Notified Time 01/30/2017 5:00:39 AM Test 01/30/17 05:10 01/30/17 09:01 White Blood Count 11.1 H Red Blood Count 4.01 L Hemoglobin 11.4 L Hematocrit 36.1 L Mean Corpuscular Volume 90.0 Mean Corpuscular Hemoglobin 28.4 L Mean Corpuscular Hemoglobin Concent 31.6 L Red Cell Distribution Width 15.4 H Platelet Count 112 L Mean Platelet Volume 13.3 H Neutrophils % 79.6 H Lymphocytes % 4.5 L Monocytes % 9.6 Eosinophils % 0.5 Basophils % 0.1 Nucleated Red Blood Cells % 0.0 Neutrophils # 8.8 H Lymphocytes # 0.5 L Monocytes # 1.1 H Eosinophils # 0.1 Basophils # 0.0 Nucleated Red Blood Cells # 0.0 Sodium Level 138 Potassium Level 3.8 Chloride Level 106 Carbon Dioxide Level 21 Anion Gap 15 Blood Urea Nitrogen 69 H Creatinine 2.36 H Glucose Level 267 H Calcium Level 7.9 L Total Bilirubin 0.2 Direct Bilirubin 0.00 Indirect Bilirubin 0.2 Aspartate Amino Transf (AST/SGOT) 67 #H Alanine Aminotransferase (ALT/SGPT) 404 H Alkaline Phosphatase 115 B-Type Natriuretic Peptide 04929 H Total Protein 6.3 Albumin 2.4 L Globulin 3.90 H Albumin/Globulin Ratio 0.61 Digoxin Level 1.1 Bedside Glucose 263 H Medications Medications Current Medications Acetaminophen (Tylenol Tab) 650 mg Q4H PRN PO PAIN AND OR ELEVATED TEMP; Start 01/24/17 at 11:00 Acetaminophen/ Hydrocodone Bitart ([place] (10/325)) 1 tab Q4H PRN PO PAIN; Start 01/24/17 at 11:00 Zolpidem Tartrate (Ambien) 10 mg HS PRN PO INSOMNIA; Start 01/24/17 at 11:00 Magnesium Hydroxide (Milk Of Mag) 30 ml DAILY PRN PO CONSTIPATION; Start at 11:00 Albuterol (Proventil 0.083% (Neb)) 1.25 mg Q4 PRN HHN SLEEP; Start 01/24/17 at 11:00 Diagnostic Test (Pha) (Accu-Chek) 1 ea 02 XX Last administered on 01/30/17t 02: 00; Admin Dose 1 EA; Start 01/25/17 at 02:00 Miscellaneous Information 1 ea NOTE XX ; Start 01/24/17 at 12:00 Glucose (Glutose) 15 gm Q15M PRN PO DECREASED GLUCOSE; Start 01/24/17 at 12:00 Glucose (Glutose) 22.5 gm Q15M PRN PO DECREASED GLUCOSE; Start 01/24/17 at 12: 00 Dextrose (D50w Syringe) 25 ml Q15M PRN IV DECREASED GLUCOSE; Start 01/24/17 at 12:00 Dextrose (D50w Syringe) 50 ml Q15M PRN IV DECREASED GLUCOSE; Start 01/24/17 at 12:00 Glucagon (Glucagen) 1 mg Q15M PRN IM DECREASED GLUCOSE; Start 01/24/17 at 12:00 Glucose (Glutose) 15 gm Q15M PRN BUCCAL DECREASED GLUCOSE; Start 01/24/17 at 12 :00 Pantoprazole (Protonix Iv) 40 mg DAILY@06 IV Last administered on 01/30/17 05: 59; Admin Dose 40 MG; Start 01/25/17 at 06:00 Insulin Aspart (Novolog Insulin Pen) NOVOLOG *MILD* ALGORI... Q4 SC Last administered on 01/30/17 09:05; Admin Dose 4 UNIT; Start 01/24/17 at 17:00 Miscellaneous Information 1 ea NOTE XX ; Start 01/24/17 at 17:00 Glucose (Glutose) 15 gm Q15M PRN PO DECREASED GLUCOSE; Start 01/24/17 at 17:00 Glucose (Glutose) 22.5 gm Q15M PRN PO DECREASED GLUCOSE; Start 01/24/17 at 17: 00 Dextrose (D50w Syringe) 25 ml Q15M PRN IV DECREASED GLUCOSE; Start 01/24/17 at 17:00 Dextrose (D50w Syringe) 50 ml Q15M PRN IV DECREASED GLUCOSE; Start 01/24/17 at 17:00 Glucagon (Glucagen) 1 mg Q15M PRN IM DECREASED GLUCOSE; Start 01/24/17 at 17:00 Glucose 15 gm 15 gm Q15M PRN BUCCAL DECREASED GLUCOSE; Start 01/24/17 at 17:00 Fentanyl (Sublimaze) 100 ml @ 2.5 mls/hr TITRATE IV Last administered on 01:35; Admin Dose 2.5 MLS/HR; Start 01/24/17 at 23:00 Lorazepam (Ativan) 2 mg Q2 PRN IM ANXIETY Last administered on 01/25/17 17:15 ; Admin Dose 2 MG; Start 01/24/17 at 23:00 Aspirin 325 mg 325 mg DAILY NGT Last administered on 01/30/17 08:56; Admin Dose 325 MG; Start 01/25/17 at 17:00 Norepinephrine 16 mg/Dextrose 500 ml @ 1.87 mls/hr TITRATE IV Last administered on 01/26/17 09:18; Admin Dose 9.37 MLS/HR; Start 01/25/17 at 17:30 Aztreonam 0.5 gm/ Sodium Chloride 50 ml @ 100 mls/hr Q12 IV Last administered on 01/30/17 08:55; Admin Dose 100 MLS/HR; Start 01/25/17 at 21:00 Levofloxacin/ Dextrose (Levaquin 250 Mg/ D5W 50 ml (Pmx)) 50 ml @ 50 mls/hr Q24H IVPB Last administered on 01/29/17 17:36; Admin Dose 50 MLS/HR; Start at 16:00 Carvedilol 3.125 mg 3.125 mg BID NGT Last administered on 01/30/17 08:58; Admin Dose 3.125 MG; Start 01/28/17 at 21:00 Sodium Chloride (NS) 1,000 ml @ 50 mls/hr Q20H IV Last administered on 22:02; Admin Dose 50 MLS/HR; Start 01/29/17 at 22:00 ANNA BUSTILLO MD Jan 30, 2017 11:56
[2017-01-30 14:09] LABS: AADO2 Arterial 112.3 mmHg (7.0-24.0); Arterial COHb 0.3 % (0.0-3.0); Arterial Fraction of Oxyhgb 93.1 % (93.0-99.0); Arterial HCO3 19.5 mmol/L (22.0-26.0); Arterial MetHb 0.4 % (0.0-1.5); Arterial Total Hemglobin 12.4 g/dl (12.0-18.0); Blood Gas PS 10; MODE VENT - CPAP
--- NOTE | 2017-01-30 16:17 | RADRPT ---
PROCEDURE: US Lower extremity Venous. CLINICAL INDICATION: leg swelling TECHNIQUE: Multiple sonographic images of the bilateral lower extremity deep venous system was obt ained utilizing grayscale, color-flow, compressive sonography and doppler imaging with augmentation. The images were reviewed on a PACS workstation. COMPARISON: None. FINDINGS: Abnormal compressibility of the right peroneal vein is noted, possibly due to nonocclusive thrombus. There is normal compressibility and flow within the right common femoral, superficial femoral , post erior tibialand popliteal veins. There is normal compressibility and flow within the left common femoral, superficial femoral , poste rior tibial, peroneal and popliteal veins. IMPRESSION: Possible nonocclusive thrombus in the right peroneal vein. No DVT in the left lower extremity. These findings were discussed with the nursing care of the patient, Brittany Mcdermott, over the [facility] [place] on 01/30/2017 at 16:15 hours . RPTAT: EE Physician Lawrence Date Time Electronically viewed and signed by Physician Lawrence on 01/30/2017 16:17 /
[2017-01-30] MEDS: LEVOFLOXACIN 250MG/D5W (PMX) 50 ML IVPB SCH (16:30)
[2017-01-30] MEDS: HEPARIN 5,000 UNIT/0.5 ML VIAL SC SCH (22:01)
--- NOTE | 2017-01-30 22:43 | CONS ---
Date/Time of Note Date/Time of Note DATE: 01/30/17 TIME: 22:37 Assessment/Plan Assessment/Plan Chief Complaint/Hosp Course Impression: - advanced dementia with worsening mental status - respiratory failure- requiring intubation - severe ICM with LVEF 20-25%- now with NSTEMI, likely demand event. pt poor candidate for invasive evaluation at this time. no e/o of ongoing ischemia - NSTEMI- trop peaked at 10.0, also with h/o of ATN, ALI c/w either hypotensive vs hypoxemic event - multi vessel CAD- now with NSTEMI, however given elevated cr, resp failure, severe ICM, and cognitive impairment risks of procedure outweigh benefits. in addition pt clinically improving without evidence of ongoing ischemia. will recommend await clinic improvement and reassess. - atrial fibrillation- rate controlled, - NSVT s/p ICD placement nl fxn last checked 01/2017 - mild to moderate - h/o HTN - h/o DM2 - PANCHO i- cr stable/improving but progressive uremia Recommendations - cont asa/statin - low dose coreg, cont - hold off onacei until bp stable for sig period of time and renal fxn improve - on bumex to keep even. will follow Problems: Consultation Date/Type/Reason Admit Date/Time Jan 23, 2017 at 20:03 Initial Consult Date 01/25/17 Type of Consultation: cardiology Referring Provider: ONIEL MORROW MD 24 HR Interval Summary Free Text/Dictation pt seen early this am. alert, but not responsive to questions. pt hrs stable, remains in afib with rates 80s-100s on tele review. bp stable. Subjective hx not possible: pt non-verbal, pt critical status Exam/Review of Systems Vital Signs Vitals Vital Signs Date Time Temp Pulse Resp B/P Pulse Ox O2 Delivery O2 Flow Rate FiO2 01/30/17 21:16 91 31 100 30 01/30/17 20:00 129/77 Mechanical Ventilator 01/30/17 19:00 99.0 Intake and Output 01/29/17 01/29/17 01/30/17 15:00 23:00 07:00 Intake Total 545.0 ml 890.0 ml 947.5 ml Output Total 600 ml 380 ml 365 ml Balance -55.0 ml 510.0 ml 582.5 ml Exam The patient was intubated. Vital signs: as documented. Head exam: is unremarkable. No scleral icterus or corneal arcus noted. Neck: is without jugular venous distension, thyromegaly, or carotid bruits. Carotid upstrokes are brisk bilaterally. Lungs :are clear to auscultation and percussion from limited exam. Cardiac; exam reveals the PMI to be normally sized and situated. Rhythm is irregular. First and second heart sounds normal. 1/6sem, no rubs or gallops. Abdominal exam: reveals normal bowel sounds, no masses, no organomegaly and no aortic enlargement. Extremities :are nonedematous and both femoral and pedal pulses are normal. Results Result Diagram: 01/30/17 0510 01/30/17 0510 Results 24 hrs Laboratory Tests Test 01/30/17 01:10 01/30/17 02:18 01/30/17 05:00 01/30/17 05:06 Bedside Glucose 228 H 262 H 223 H Blood Gas Specimen Source Blood arterial Arterial Blood Date Drawn 01/30/2017 4:53:50 AM Arterial Blood pH (Temp corrected) 7.390 Arterial Blood pCO2 (Temp correct) 32.5 L Arterial Blood pO2 (Temp corrected) 62.6 L Arterial Blood HCO3 19.2 L Arterial Blood Base Excess -4.6 L Arterial Blood Oxygen Saturation 92.4 L Zacarias Test ACCEPTAB Arterial Blood Gas Puncture Site Right Radial Arterial Blood Carboxyhemoglobin 0.4 Arterial Blood Methemoglobin 0.3 Blood Gas A-a O2 Differential 113.1 H Oxyhemoglobin Percent 91.8 L Total Hemoglobin 16.0 Blood Gas Temperature 37.0 Blood Gas Respiration Rate 20.0 Blood Gas Actual Respiration Rate 25 Blood Gas Modality VENT - AC FiO2 30.0 Blood Gas Tidal Volume 500.0 Blood Gas Notified Whom BR Blood Gas Notified Time 01/30/2017 5:00:39 AM Test 01/30/17 05:10 01/30/17 09:01 01/30/17 13:06 01/30/17 13:45 White Blood Count 11.1 H Red Blood Count 4.01 L Hemoglobin 11.4 L Hematocrit 36.1 L Mean Corpuscular Volume 90.0 Mean Corpuscular Hemoglobin 28.4 L Mean Corpuscular Hemoglobin Concent 31.6 L Red Cell Distribution Width 15.4 H Platelet Count 112 L Mean Platelet Volume 13.3 H Neutrophils % 79.6 H Lymphocytes % 4.5 L Monocytes % 9.6 Eosinophils % 0.5 Basophils % 0.1 Nucleated Red Blood Cells % 0.0 Neutrophils # 8.8 H Lymphocytes # 0.5 L Monocytes # 1.1 H Eosinophils # 0.1 Basophils # 0.0 Nucleated Red Blood Cells # 0.0 Sodium Level 138 Potassium Level 3.8 Chloride Level 106 Carbon Dioxide Level 21 Anion Gap 15 Blood Urea Nitrogen 69 H Creatinine 2.36 H Glucose Level 267 H Calcium Level 7.9 L Total Bilirubin 0.2 Direct Bilirubin 0.00 Indirect Bilirubin 0.2 Aspartate Amino Transf (AST/SGOT) 67 #H Alanine Aminotransferase (ALT/SGPT) 404 H Alkaline Phosphatase 115 B-Type Natriuretic Peptide 44641 H Total Protein 6.3 Albumin 2.4 L Globulin 3.90 H Albumin/Globulin Ratio 0.61 Digoxin Level 1.1 Bedside Glucose 263 H 258 H Blood Gas Specimen Source Blood arterial Arterial Blood Date Drawn 01/30/2017 1:55:30 PM Arterial Blood pH (Temp corrected) 7.418 Arterial Blood pCO2 (Temp correct) 30.9 L Arterial Blood pO2 (Temp corrected) 65.3 L Arterial Blood HCO3 19.5 L Arterial Blood Base Excess -4.0 L Arterial Blood Oxygen Saturation 93.8 L Zacarias Test N/A Arterial Blood Gas Puncture Site Right Radial Arterial Blood Carboxyhemoglobin 0.3 Arterial Blood Methemoglobin 0.4 Blood Gas A-a O2 Differential 112.3 H Oxyhemoglobin Percent 93.1 Total Hemoglobin 12.4 Blood Gas Temperature 37.0 Blood Gas Actual Respiration Rate 30 Blood Gas Modality VENT - CPAP FiO2 30.0 Blood Gas Low PEEP Setting 5.0 Blood Gas Pressure Support 10 Blood Gas Notified Whom JLD Blood Gas Notified Time 01/30/2017 2:09:16 PM Test 01/30/17 17:10 01/30/17 21:06 Bedside Glucose 285 H 259 H Medications Medications Current Medications Acetaminophen (Tylenol Tab) 650 mg Q4H PRN PO PAIN AND OR ELEVATED TEMP; Start 01/24/17 at 11:00 Acetaminophen/ Hydrocodone Bitart ([place] ([address])) 1 tab Q4H PRN PO PAIN; Start 01/24/17 at 11:00 Zolpidem Tartrate (Ambien) 10 mg HS PRN PO INSOMNIA; Start 01/24/17 at 11:00 Magnesium Hydroxide (Milk Of Mag) 30 ml DAILY PRN PO CONSTIPATION; Start at 11:00 Albuterol (Proventil 0.083% (Neb)) 1.25 mg Q4 PRN HHN SLEEP; Start 01/24/17 at 11:00 Diagnostic Test (Pha) (Accu-Chek) 1 ea 02 XX Last administered on 01/30/17 02: 00; Admin Dose 1 EA; Start 01/25/17 at 02:00 Miscellaneous Information 1 ea NOTE XX ; Start 01/24/17 at 12:00 Glucose (Glutose) 15 gm Q15M PRN PO DECREASED GLUCOSE; Start 01/24/17 at 12:00 Glucose (Glutose) 22.5 gm Q15M PRN PO DECREASED GLUCOSE; Start 01/24/17 at 12: 00 Dextrose (D50w Syringe) 25 ml Q15M PRN IV DECREASED GLUCOSE; Start 01/24/17 at 12:00 Dextrose (D50w Syringe) 50 ml Q15M PRN IV DECREASED GLUCOSE; Start 01/24/17 at 12:00 Glucagon (Glucagen) 1 mg Q15M PRN IM DECREASED GLUCOSE; Start 01/24/17 at 12:00 Glucose (Glutose) 15 gm Q15M PRN BUCCAL DECREASED GLUCOSE; Start 01/24/17 at 12 :00 Pantoprazole (Protonix Iv) 40 mg DAILY@06 IV Last administered on 01/30/17 05: 59; Admin Dose 40 MG; Start 01/25/17 at 06:00 Insulin Aspart (Novolog Insulin Pen) NOVOLOG *MILD* ALGORI... Q4 SC Last administered on 01/30/17 21:17; Admin Dose 3 UNIT; Start 01/24/17 at 17:00 Miscellaneous Information 1 ea NOTE XX ; Start 01/24/17 at 17:00 Glucose (Glutose) 15 gm Q15M PRN PO DECREASED GLUCOSE; Start 01/24/17 at 17:00 Glucose (Glutose) 22.5 gm Q15M PRN PO DECREASED GLUCOSE; Start 01/24/17 at 17: 00 Dextrose (D50w Syringe) 25 ml Q15M PRN IV DECREASED GLUCOSE; Start 01/24/17 at 17:00 Dextrose (D50w Syringe) 50 ml Q15M PRN IV DECREASED GLUCOSE; Start 01/24/17 at 17:00 Glucagon (Glucagen) 1 mg Q15M PRN IM DECREASED GLUCOSE; Start 01/24/17 at 17:00 Glucose (Glutose) 15 gm Q15M PRN BUCCAL DECREASED GLUCOSE; Start 01/24/17 at 17 :00 Lorazepam (Ativan) 2 mg Q2 PRN IM ANXIETY Last administered on 01/25/17 17:15 ; Admin Dose 2 MG; Start 01/24/17 at 23:00 Aspirin 325 mg 325 mg DAILY NGT Last administered on 01/30/17 08:56; Admin Dose 325 MG; Start 01/25/17 at 17:00 Norepinephrine 16 mg/Dextrose 500 ml @ 1.87 mls/hr TITRATE IV Last administered on 01/26/17 09:18; Admin Dose 9.37 MLS/HR; Start 01/25/17 at 17:30 Aztreonam 0.5 gm/ Sodium Chloride 50 ml @ 100 mls/hr Q12 IV Last administered on 01/30/17 21:05; Admin Dose 100 MLS/HR; Start 01/25/17 at 21:00 Levofloxacin/ Dextrose (Levaquin 250 Mg/ D5W 50 ml (Pmx)) 50 ml @ 50 mls/hr Q24H IVPB Last administered on 01/30/17 16:30; Admin Dose 50 MLS/HR; Start at 16:00 Carvedilol (Coreg) 3.125 mg BID NGT Last administered on 01/30/17 21:05; Admin Dose 3.125 MG; Start 01/28/17 at 21:00 Heparin Sodium (Porcine) (Heparin (5000 Units/0.5 ml)) 5,000 unit Q8 SC Last administered on 01/30/17 22:01; Admin Dose 5,000 UNIT; Start 01/30/17 at 22:00 Procedures Procedures cxr images reviewed: mild congestion, ? r pleural effusion LANE VOGEL Jan 30, 2017 22:43
[2017-01-31] VITALS (35 sets, daily range): BP systolic 98–150; BP diastolic 59–88; PULSE 76–99; RESP 20–42
[2017-01-31] MEDS: INSULIN ASPART [NOVOLOG] 3 ML PEN SC SCH ×5 (01:05→20:41)
[2017-01-31] MEDS: ALBUTEROL 18 GM INHALER INH SCH ×6 (01:10→20:00)
[2017-01-31] MEDS: ACCU-CHEK XX SCH (02:29)
[2017-01-31] MEDS: LORAZEPAM 2 MG INJ IM PRN (04:32)
[2017-01-31] MEDS: BUMETANIDE 1 MG INJ IV SCH ×2 (05:43→17:55)
[2017-01-31] MEDS: PANTOPRAZOLE 40 MG INJ IV SCH (05:43)
[2017-01-31] MEDS: HEPARIN 5,000 UNIT/0.5 ML VIAL SC SCH ×3 (05:54→22:09)
[2017-01-31 06:25] LABS: ADD SCAN DIFF NO
[2017-01-31 06:32] LABS: ABNORMAL IP MESSAGE 1; BASOPHIL # 0.1 10^3/ul (0.0-0.1); BASOPHILS % 0.4 % (0.0-2.0); EOSINOPHILS % 0.2 % (0.0-7.0); HEMATOCRIT 33.6 % (42.0-52.0); LYMPHOCYTES # 0.6 10^3/ul (0.8-2.9); LYMPHOCYTES % 3.5 % (15.0-51.0); MEAN CORPUSCULAR HEMOGLOBIN 28.7 pg (29.0-33.0); MEAN CORPUSCULAR HGB CONC 32.7 g/dl (32.0-37.0); MEAN CORPUSCULAR VOLUME 87.7 fl (82.0-101.0); MEAN PLATELET VOLUME 12.7 fl (7.4-10.4); MONOCYTES % 6.6 % (0.0-11.0); NEUTROPHIL # 13.2 10^3/ul (1.6-7.5); NEUTROPHILS % 84.7 % (39.0-77.0); PLATELET COUNT 121 10^3/UL (140-415); RED BLOOD COUNT 3.83 10^6/ul (4.70-6.10); RED CELL DISTRIBUTION WIDTH 15.3 % (11.5-14.5); WHITE BLOOD COUNT 15.6 10^3/ul (4.8-10.8)
[2017-01-31 06:55] LABS: ALBUMIN 2.4 g/dl (3.3-4.9); POTASSIUM 4.2 mmol/L (3.5-5.1)
[2017-01-31 06:58] LABS: ALBUMIN/GLOBULIN RATIO 0.55; BILIRUBIN,INDIRECT 0.4 mg/dl (0-1.1); BILIRUBIN,TOTAL 0.4 mg/dl (0.2-1.3); CREATININE 2.12 mg/dl (0.61-1.24); TOTAL PROTEIN 6.7 g/dl (6.1-8.1)
[2017-01-31 06:59] LABS: CALCIUM 7.7 mg/dl (8.4-10.2)
--- NOTE | 2017-01-31 09:02 | CONS ---
Date/Time of Note Date/Time of Note DATE: 01/31/17 TIME: 08:52 Assessment/Plan Assessment/Plan Chief Complaint/Hosp Course 1. This patient is in the ICU intubated on a ventilator. He was awake earlier but was sedated . 2. He has acute renal failure superimposed on CKD , due to diabetic nephropathy . His renal function is stable , although his BUN is rising , possibly due to tube feeding . He has good urine output on diuretics . His I & O ' s were even yesterday . continue diuretics and decrease tube feeding rate . Dietary consult . 3. Diabetes mellitus , not controlled , will add Lantus insulin and go to moderate sliding scale 4. Dementia 5. Respiratory failure on ventilator. 6. He has chronic kidney disease 7. He has hypertension 8. lower extremity venous Dopplers done yesterday show possible nonocclusive thrombus in R peroneal vein , S C heparin started yesterday . Problems: Consultation Date/Type/Reason Admit Date/Time Jan 23, 2017 at 20:03 Initial Consult Date 01/25/17 Type of Consultation: cardiology Referring Provider: ONIEL MORROW MD 24 HR Interval Summary Free Text/Dictation He is in the ICU , sedated , intubated , on a ventilator , Subjective hx not possible: pt non-verbal Exam/Review of Systems Vital Signs Vitals Vital Signs Date Time Temp Pulse Resp B/P Pulse Ox O2 Delivery O2 Flow Rate FiO2 01/31/17 06:01 87 29 96 35 01/31/17 06:00 118/68 Mechanical Ventilator 01/31/17 04:00 98.8 Intake and Output 01/30/17 01/30/17 01/31/17 15:00 23:00 07:00 Intake Total 765.0 ml 580 ml 450 ml Output Total 595 ml 640 ml 420 ml Balance 170.0 ml -60 ml 30 ml Exam Constitutional: non-verbal Respiratory: clear to auscultation, diminished breath sounds Cardiovascular: regular rate and rhythm Gastrointestinal: soft Extremities: edema Results Result Diagram: 01/31/17 0520 01/31/17 0520 Results 24 hrs Laboratory Tests Test 01/30/17 09:01 01/30/17 13:06 01/30/17 13:45 01/30/17 17:10 Bedside Glucose 263 H 258 H 285 H Blood Gas Specimen Source Blood arterial Arterial Blood Date Drawn 01/30/2017 1:55:30 PM Arterial Blood pH (Temp corrected) 7.418 Arterial Blood pCO2 (Temp correct) 30.9 L Arterial Blood pO2 (Temp corrected) 65.3 L Arterial Blood HCO3 19.5 L Arterial Blood Base Excess -4.0 L Arterial Blood Oxygen Saturation 93.8 L Zacarias Test N/A Arterial Blood Gas Puncture Site Right Radial Arterial Blood Carboxyhemoglobin 0.3 Arterial Blood Methemoglobin 0.4 Blood Gas A-a O2 Differential 112.3 H Oxyhemoglobin Percent 93.1 Total Hemoglobin 12.4 Blood Gas Temperature 37.0 Blood Gas Actual Respiration Rate 30 Blood Gas Modality VENT - CPAP FiO2 30.0 Blood Gas Low PEEP Setting 5.0 Blood Gas Pressure Support 10 Blood Gas Notified Whom JLD Blood Gas Notified Time 01/30/2017 2:09:16 PM Test 01/30/17 21:06 01/31/17 01:02 01/31/17 02:27 01/31/17 05:08 Bedside Glucose 259 H 271 H 250 H 278 H Test 01/31/17 05:20 White Blood Count 15.6 #H Red Blood Count 3.83 L Hemoglobin 11.0 L Hematocrit 33.6 L Mean Corpuscular Volume 87.7 Mean Corpuscular Hemoglobin 28.7 L Mean Corpuscular Hemoglobin Concent 32.7 Red Cell Distribution Width 15.3 H Platelet Count 121 L Mean Platelet Volume 12.7 H Neutrophils % 84.7 H Lymphocytes % 3.5 L Monocytes % 6.6 Eosinophils % 0.2 Basophils % 0.4 Nucleated Red Blood Cells % 0.0 Neutrophils # 13.2 H Lymphocytes # 0.6 L Monocytes # 1.0 H Eosinophils # 0.0 Basophils # 0.1 Nucleated Red Blood Cells # 0.0 Sodium Level 136 Potassium Level 4.2 Chloride Level 104 Carbon Dioxide Level 19 L Anion Gap 17 H Blood Urea Nitrogen 76 H Creatinine 2.12 H Glucose Level 268 H Calcium Level 7.7 L Total Bilirubin 0.4 Direct Bilirubin 0.00 Indirect Bilirubin 0.4 Aspartate Amino Transf (AST/SGOT) 60 H Alanine Aminotransferase (ALT/SGPT) 249 H Alkaline Phosphatase 114 Total Protein 6.7 Albumin 2.4 L Globulin 4.30 H Albumin/Globulin Ratio 0.55 Medications Medications Current Medications Acetaminophen (Tylenol Tab) 650 mg Q4H PRN PO PAIN AND OR ELEVATED TEMP; Start 01/24/17 at 11:00 Acetaminophen/ Hydrocodone Bitart ([place] (10)) 1 tab Q4H PRN PO PAIN; Start 01/24/17 at 11:00 Zolpidem Tartrate (Ambien) 10 mg HS PRN PO INSOMNIA; Start 01/24/17 at 11:00 Magnesium Hydroxide (Milk Of Mag) 30 ml DAILY PRN PO CONSTIPATION; Start at 11:00 Albuterol (Proventil 0.083% (Neb)) 1.25 mg Q4 PRN HHN SLEEP; Start 01/24/17 at 11:00 Diagnostic Test (Pha) (Accu-Chek) 1 ea 02 XX Last administered on 01/31/17 02: 29; Admin Dose 1 EA; Start 01/25/17 at 02:00 Miscellaneous Information 1 ea NOTE XX ; Start 01/24/17 at 12:00 Glucose (Glutose) 15 gm Q15M PRN PO DECREASED GLUCOSE; Start 01/24/17 at 12:00 Glucose (Glutose) 22.5 gm Q15M PRN PO DECREASED GLUCOSE; Start 01/24/17 at 12: 00 Dextrose (D50w Syringe) 25 ml Q15M PRN IV DECREASED GLUCOSE; Start 01/24/17 at 12:00 Dextrose (D50w Syringe) 50 ml Q15M PRN IV DECREASED GLUCOSE; Start 01/24/17 at 12:00 Glucagon (Glucagen) 1 mg Q15M PRN IM DECREASED GLUCOSE; Start 01/24/17 at 12:00 Glucose (Glutose) 15 gm Q15M PRN BUCCAL DECREASED GLUCOSE; Start 01/24/17 at 12 :00 Pantoprazole (Protonix Iv) 40 mg DAILY@06 IV Last administered on 01/31/17 05: 43; Admin Dose 40 MG; Start 01/25/17 at 06:00 Insulin Aspart (Novolog Insulin Pen) NOVOLOG *MILD* ALGORI... Q4 SC Last administered on 01/31/17 05:13; Admin Dose 4 UNIT; Start 01/24/17 at 17:00 Miscellaneous Information 1 ea NOTE XX ; Start 01/24/17 at 17:00 Glucose (Glutose) 15 gm Q15M PRN PO DECREASED GLUCOSE; Start 01/24/17 at 17:00 Glucose (Glutose) 22.5 gm Q15M PRN PO DECREASED GLUCOSE; Start 01/24/17 at 17: 00 Dextrose (D50w Syringe) 25 ml Q15M PRN IV DECREASED GLUCOSE; Start 01/24/17 at 17:00 Dextrose (D50w Syringe) 50 ml Q15M PRN IV DECREASED GLUCOSE; Start 01/24/17 at 17:00 Glucagon (Glucagen) 1 mg Q15M PRN IM DECREASED GLUCOSE; Start 01/24/17 at 17:00 Glucose (Glutose) 15 gm Q15M PRN BUCCAL DECREASED GLUCOSE; Start 01/24/17 at 17 :00 Lorazepam (Ativan) 2 mg Q2 PRN IM ANXIETY Last administered on 01/31/17 04:32 ; Admin Dose 2 MG; Start 01/24/17 at 23:00 Aspirin 325 mg 325 mg DAILY NGT Last administered on 01/30/17 08:56; Admin Dose 325 MG; Start 01/25/17 at 17:00 Norepinephrine 16 mg/Dextrose 500 ml @ 1.87 mls/hr TITRATE IV Last administered on 01/26/17 09:18; Admin Dose 9.37 MLS/HR; Start 01/25/17 at 17:30 Aztreonam 0.5 gm/ Sodium Chloride 50 ml @ 100 mls/hr Q12 IV Last administered on 01/30/17 21:05; Admin Dose 100 MLS/HR; Start 01/25/17 at 21:00 Levofloxacin/ Dextrose (Levaquin 250 Mg/ D5W 50 ml (Pmx)) 50 ml @ 50 mls/hr Q24H IVPB Last administered on 01/30/17 16:30; Admin Dose 50 MLS/HR; Start at 16:00 Carvedilol (Coreg) 3.125 mg BID NGT Last administered on 01/30/17 21:05; Admin Dose 3.125 MG; Start 01/28/17 at 21:00 Heparin Sodium (Porcine) (Heparin (5000 Units/0.5 ml)) 5,000 unit Q8 SC Last administered on 01/31/17 05:54; Admin Dose 5,000 UNIT; Start 01/30/17 at 22:00 Diagnostic Test (Pha) (Accu-Chek) 1 ea 02 XX ; Start 4/26/17 at 02:00; Status UNV Insulin Glargine (Lantus) 15 unit DAILY@08 SC ; Start 02/01/17 at 08:00; Status UNV ANNA BUSTILLO MD Jan 31, 2017 09:02
[2017-01-31] MEDS: ASPIRIN 325 MG TAB NGT SCH (09:42)
[2017-01-31] MEDS: AZTREONAM 0.5 GM in SOD CHLORIDE 0.9% 50 ML IV SCH ×2 (09:49→20:39)
--- NOTE | 2017-01-31 10:15 | CONS ---
Date/Time of Note Date/Time of Note DATE: 01/31/17 TIME: 10:12 Assessment/Plan Assessment/Plan Additional Assessment/Plan Ventilator settings; AC of 20, tidal volume 500, PEEP of 5, 35% FiO2. Assessment recommendations; 1. Patient admitted for pulmonary edema and bilateral pneumonia with significant radiological improvement. 2. Prior history of coronary artery disease, status post bypass surgery in the past. 3. History of cardiac arrhythmia status post pacemaker implantation in the past as well. 4. Failure to be weaned off from ventilator due to ensuing tachypnea, patient currently not in a position to be extubated. 5. Worsening leukocytosis. Patient currently on broad-spectrum antibiotic coverage. 6. Atrial fibrillation. 7. Improving serum creatinine. Continue current treatment for now. Obtain a chest x-ray. Add vancomycin. About 35 minutes of critical care time was spent evaluating the patient. Consultation Date/Type/Reason Admit Date/Time Jan 23, 2017 at 20:03 Type of Consultation: Pulmonary/critical care Referring Provider: ONIEL MORROW MD 24 HR Interval Summary Free Text/Dictation Patient condition remains critical. Patient has failed weaning trial from ventilator yesterday. Patient also was assessed this morning at bedside and again failed weaning trials due to ensuing tachypnea. General exam; elderly male, awake, currently in no distress. Exam/Review of Systems Vital Signs Vitals Vital Signs Date Time Temp Pulse Resp B/P Pulse Ox O2 Delivery O2 Flow Rate FiO2 01/31/17 08:00 82 25 109/76 100 Mechanical Ventilator 01/31/17 06:01 35 01/31/17 04:00 98.8 Intake and Output 01/30/17 01/30/17 01/31/17 15:00 23:00 07:00 Intake Total 765.0 ml 580 ml 450 ml Output Total 595 ml 640 ml 420 ml Balance 170.0 ml -60 ml 30 ml Exam HEENT exam is; supple neck, positive JVD. No lymphadenopathy. Midline trachea. Patient has bilateral surgical pupils. Dentition is fair. Orally intubated. No thyromegaly. No neck bruits. Chest examination [place]: Diminished but clear breath sounds. S1-S2 audible, irregular rhythm. No murmurs. Abdomen examination; soft, no organomegaly. Bowel sounds audible. Extremity examination; no peripheral edema. [employer] examination; patient is awake and follows simple commands. Results Result Diagram: 01/31/17 0520 01/31/17 0520 Results 24 hrs Laboratory Tests Test 01/30/17 13:06 01/30/17 13:45 01/30/17 17:10 01/30/17 21:06 Bedside Glucose 258 H 285 H 259 H Blood Gas Specimen Source Blood arterial Arterial Blood Date Drawn 01/30/2017 1:55:30 PM Arterial Blood pH (Temp corrected) 7.418 Arterial Blood pCO2 (Temp correct) 30.9 L Arterial Blood pO2 (Temp corrected) 65.3 L Arterial Blood HCO3 19.5 L Arterial Blood Base Excess -4.0 L Arterial Blood Oxygen Saturation 93.8 L Zacarias Test N/A Arterial Blood Gas Puncture Site Right Radial Arterial Blood Carboxyhemoglobin 0.3 Arterial Blood Methemoglobin 0.4 Blood Gas A-a O2 Differential 112.3 H Oxyhemoglobin Percent 93.1 Total Hemoglobin 12.4 Blood Gas Temperature 37.0 Blood Gas Actual Respiration Rate 30 Blood Gas Modality VENT - CPAP FiO2 30.0 Blood Gas Low PEEP Setting 5.0 Blood Gas Pressure Support 10 Blood Gas Notified Whom JLD Blood Gas Notified Time 01/30/2017 2:09:16 PM Test 01/31/17 01:02 01/31/17 02:27 01/31/17 05:08 01/31/17 05:20 Bedside Glucose 271 H 250 H 278 H White Blood Count 15.6 #H Red Blood Count 3.83 L Hemoglobin 11.0 L Hematocrit 33.6 L Mean Corpuscular Volume 87.7 Mean Corpuscular Hemoglobin 28.7 L Mean Corpuscular Hemoglobin Concent 32.7 Red Cell Distribution Width 15.3 H Platelet Count 121 L Mean Platelet Volume 12.7 H Neutrophils % 84.7 H Lymphocytes % 3.5 L Monocytes % 6.6 Eosinophils % 0.2 Basophils % 0.4 Nucleated Red Blood Cells % 0.0 Neutrophils # 13.2 H Lymphocytes # 0.6 L Monocytes # 1.0 H Eosinophils # 0.0 Basophils # 0.1 Nucleated Red Blood Cells # 0.0 Sodium Level 136 Potassium Level 4.2 Chloride Level 104 Carbon Dioxide Level 19 L Anion Gap 17 H Blood Urea Nitrogen 76 H Creatinine 2.12 H Glucose Level 268 H Calcium Level 7.7 L Total Bilirubin 0.4 Direct Bilirubin 0.00 Indirect Bilirubin 0.4 Aspartate Amino Transf (AST/SGOT) 60 H Alanine Aminotransferase (ALT/SGPT) 249 H Alkaline Phosphatase 114 Total Protein 6.7 Albumin 2.4 L Globulin 4.30 H Albumin/Globulin Ratio 0.55 Medications Medications Current Medications Acetaminophen (Tylenol Tab) 650 mg Q4H PRN PO PAIN AND OR ELEVATED TEMP; Start 01/24/17 at 11:00 Acetaminophen/ Hydrocodone Bitart ([place] (10/325)) 1 tab Q4H PRN PO PAIN; Start 01/24/17 at 11:00 Zolpidem Tartrate (Ambien) 10 mg HS PRN PO INSOMNIA; Start 01/24/17 at 11:00 Magnesium Hydroxide (Milk Of Mag) 30 ml DAILY PRN PO CONSTIPATION; Start at 11:00 Albuterol (Proventil 0.083% (Neb)) 1.25 mg Q4 PRN HHN SLEEP; Start 01/24/17 at 11:00 Diagnostic Test (Pha) (Accu-Chek) 1 ea 02 XX Last administered on 01/31/17 02: 29; Admin Dose 1 EA; Start 01/25/17 at 02:00 Miscellaneous Information 1 ea NOTE XX ; Start 01/24/17 at 12:00 Glucose (Glutose) 15 gm Q15M PRN PO DECREASED GLUCOSE; Start 01/24/17 at 12:00 Glucose (Glutose) 22.5 gm Q15M PRN PO DECREASED GLUCOSE; Start 01/24/17 at 12: 00 Dextrose (D50w Syringe) 25 ml Q15M PRN IV DECREASED GLUCOSE; Start 01/24/17 at 12:00 Dextrose (D50w Syringe) 50 ml Q15M PRN IV DECREASED GLUCOSE; Start 01/24/17 at 12:00 Glucagon (Glucagen) 1 mg Q15M PRN IM DECREASED GLUCOSE; Start 01/24/17 at 12:00 Glucose (Glutose) 15 gm Q15M PRN BUCCAL DECREASED GLUCOSE; Start 01/24/17 at 12 :00 Pantoprazole (Protonix Iv) 40 mg DAILY@06 IV Last administered on 01/31/17 05: 43; Admin Dose 40 MG; Start 01/25/17 at 06:00 Miscellaneous Information 1 ea NOTE XX ; Start 01/24/17 at 17:00 Glucose (Glutose) 15 gm Q15M PRN PO DECREASED GLUCOSE; Start 01/24/17 at 17:00 Glucose (Glutose) 22.5 gm Q15M PRN PO DECREASED GLUCOSE; Start 01/24/17 at 17: 00 Dextrose (D50w Syringe) 25 ml Q15M PRN IV DECREASED GLUCOSE; Start 01/24/17 at 17:00 Dextrose (D50w Syringe) 50 ml Q15M PRN IV DECREASED GLUCOSE; Start 01/24/17 at 17:00 Glucagon (Glucagen) 1 mg Q15M PRN IM DECREASED GLUCOSE; Start 01/24/17 at 17:00 Glucose (Glutose) 15 gm Q15M PRN BUCCAL DECREASED GLUCOSE; Start 01/24/17 at 17 :00 Lorazepam (Ativan) 2 mg Q2 PRN IM ANXIETY Last administered on 01/31/17 04:32 ; Admin Dose 2 MG; Start 01/24/17 at 23:00 Aspirin 325 mg 325 mg DAILY NGT Last administered on 01/31/17 09:42; Admin Dose 325 MG; Start 01/25/17 at 17:00 Norepinephrine 16 mg/Dextrose 500 ml @ 1.87 mls/hr TITRATE IV Last administered on 01/26/17 09:18; Admin Dose 9.37 MLS/HR; Start 01/25/17 at 17:30 Aztreonam 0.5 gm/ Sodium Chloride 50 ml @ 100 mls/hr Q12 IV Last administered on 01/31/17 09:49; Admin Dose 100 MLS/HR; Start 01/25/17 at 21:00 Levofloxacin/ Dextrose (Levaquin 250 Mg/ D5W 50 ml (Pmx)) 50 ml @ 50 mls/hr Q24H IVPB Last administered on 01/30/17 16:30; Admin Dose 50 MLS/HR; Start at 16:00 Carvedilol (Coreg) 3.125 mg BID NGT Last administered on 01/31/17 09:44; Admin Dose 3.125 MG; Start 01/28/17 at 21:00 Heparin Sodium (Porcine) (Heparin (5000 Units/0.5 ml)) 5,000 unit Q8 SC Last administered on 01/31/17 05:54; Admin Dose 5,000 UNIT; Start 01/30/17 at 22:00 Diagnostic Test (Pha) (Accu-Chek) 1 ea 02 XX ; Start 02/01/17 at 02:00 Insulin Glargine (Lantus) 15 unit DAILY@08 SC ; Start 02/01/17 at 08:00 ULISES MCKAY Jan 31, 2017 10:15
[2017-01-31] MEDS ORDERED: VANCOMYCIN IV PER PHARMACY XX SCH (10:30)
[2017-01-31] MEDS ORDERED: VANCOMYCIN 1.5 GM in SOD CHLORIDE 0.9% 250 ML IVPB ONE (11:30)
--- NOTE | 2017-01-31 11:57 | CONS ---
Date/Time of Note Date/Time of Note DATE: 01/31/17 TIME: 11:55 Assessment/Plan Assessment/Plan Chief Complaint/Hosp Course Impression: - advanced dementia with worsening mental status - respiratory failure- requiring intubation - severe ICM with LVEF 20-25%- now with NSTEMI, likely demand event. pt poor candidate for invasive evaluation at this time. no e/o of ongoing ischemia - NSTEMI- trop peaked at 10.0, also with h/o of ATN, ALI c/w either hypotensive vs hypoxemic event - multi vessel CAD- now with NSTEMI, however given elevated cr, resp failure, severe ICM, and cognitive impairment risks of procedure outweigh benefits. in addition pt clinically improving without evidence of ongoing ischemia. will recommend await clinic improvement and reassess. - atrial fibrillation- rate controlled, - NSVT s/p ICD placement nl fxn last checked 01/2017 - mild to moderate - h/o HTN - h/o DM2 - PANCHO i- cr stable/improving but progressive uremia Recommendations - cont asa/statin - low dose coreg, cont - hold off on acei until bp stable for sig period of time and renal fxn improve - on bumex to keep even to negative will follow Problems: Consultation Date/Type/Reason Admit Date/Time Jan 23, 2017 at 20:03 Initial Consult Date 01/25/17 Type of Consultation: cardiology Referring Provider: ONIEL MORROW MD 24 HR Interval Summary Free Text/Dictation no acute events. remains intubated, does not open eyes to voice this am. bp stable. tele reviewed- afib, hrs 80s-90s Subjective hx not possible: pt non-verbal, pt critical status Exam/Review of Systems Vital Signs Vitals Vital Signs Date Time Temp Pulse Resp B/P Pulse Ox O2 Delivery O2 Flow Rate FiO2 01/31/17 11:00 76 27 98/74 100 Mechanical Ventilator 01/31/17 08:00 30 01/31/17 04:00 98.8 Intake and Output 01/30/17 01/30/17 01/31/17 15:00 23:00 07:00 Intake Total 765.0 ml 580 ml 500 ml Output Total 595 ml 640 ml 480 ml Balance 170.0 ml -60 ml 20 ml Exam The patient was intubated. Vital signs: as documented. Head exam: is unremarkable. No scleral icterus or corneal arcus noted. Neck: is without jugular venous distension, thyromegaly, or carotid bruits. Carotid upstrokes are brisk bilaterally. Lungs :are clear to auscultation and percussion from limited exam. Cardiac; exam reveals the PMI to be normally sized and situated. Rhythm is irregular. First and second heart sounds normal. 1/6sem, no rubs or gallops. Abdominal exam: reveals normal bowel sounds, no masses, no organomegaly and no aortic enlargement. Extremities :are nonedematous and both femoral and pedal pulses are normal. Results Result Diagram: 01/31/17 0520 01/31/17 0520 Results 24 hrs Laboratory Tests Test 01/30/17 13:06 01/30/17 13:45 01/30/17 17:10 01/30/17 21:06 Bedside Glucose 258 H 285 H 259 H Blood Gas Specimen Source Blood arterial Arterial Blood Date Drawn 01/30/2017 1:55:30 PM Arterial Blood pH (Temp corrected) 7.418 Arterial Blood pCO2 (Temp correct) 30.9 L Arterial Blood pO2 (Temp corrected) 65.3 L Arterial Blood HCO3 19.5 L Arterial Blood Base Excess -4.0 L Arterial Blood Oxygen Saturation 93.8 L Zacarias Test N/A Arterial Blood Gas Puncture Site Right Radial Arterial Blood Carboxyhemoglobin 0.3 Arterial Blood Methemoglobin 0.4 Blood Gas A-a O2 Differential 112.3 H Oxyhemoglobin Percent 93.1 Total Hemoglobin 12.4 Blood Gas Temperature 37.0 Blood Gas Actual Respiration Rate 30 Blood Gas Modality VENT - CPAP FiO2 30.0 Blood Gas Low PEEP Setting 5.0 Blood Gas Pressure Support 10 Blood Gas Notified Whom JLD Blood Gas Notified Time 01/30/2017 2:09:16 PM Test 01/31/17 01:02 01/31/17 02:27 01/31/17 05:08 01/31/17 05:20 Bedside Glucose 271 H 250 H 278 H White Blood Count 15.6 #H Red Blood Count 3.83 L Hemoglobin 11.0 L Hematocrit 33.6 L Mean Corpuscular Volume 87.7 Mean Corpuscular Hemoglobin 28.7 L Mean Corpuscular Hemoglobin Concent 32.7 Red Cell Distribution Width 15.3 H Platelet Count 121 L Mean Platelet Volume 12.7 H Neutrophils % 84.7 H Lymphocytes % 3.5 L Monocytes % 6.6 Eosinophils % 0.2 Basophils % 0.4 Nucleated Red Blood Cells % 0.0 Neutrophils # 13.2 H Lymphocytes # 0.6 L Monocytes # 1.0 H Eosinophils # 0.0 Basophils # 0.1 Nucleated Red Blood Cells # 0.0 Sodium Level 136 Potassium Level 4.2 Chloride Level 104 Carbon Dioxide Level 19 L Anion Gap 17 H Blood Urea Nitrogen 76 H Creatinine 2.12 H Glucose Level 268 H Calcium Level 7.7 L Total Bilirubin 0.4 Direct Bilirubin 0.00 Indirect Bilirubin 0.4 Aspartate Amino Transf (AST/SGOT) 60 H Alanine Aminotransferase (ALT/SGPT) 249 H Alkaline Phosphatase 114 Total Protein 6.7 Albumin 2.4 L Globulin 4.30 H Albumin/Globulin Ratio 0.55 Test 01/31/17 11:51 Bedside Glucose 324 H Medications Medications Current Medications Acetaminophen (Tylenol Tab) 650 mg Q4H PRN PO PAIN AND OR ELEVATED TEMP; Start 01/24/17 at 11:00 Acetaminophen/ Hydrocodone Bitart ([place] (10/325)) 1 tab Q4H PRN PO PAIN; Start 01/24/17 at 11:00 Zolpidem Tartrate (Ambien) 10 mg HS PRN PO INSOMNIA; Start 01/24/17 at 11:00 Magnesium Hydroxide (Milk Of Mag) 30 ml DAILY PRN PO CONSTIPATION; Start at 11:00 Albuterol (Proventil 0.083% (Neb)) 1.25 mg Q4 PRN HHN SLEEP; Start 01/24/17 at 11:00 Diagnostic Test (Pha) (Accu-Chek) 1 ea 02 XX Last administered on 01/31/17t 02: 29; Admin Dose 1 EA; Start 01/25/17 at 02:00 Miscellaneous Information 1 ea NOTE XX ; Start 01/24/17 at 12:00 Glucose (Glutose) 15 gm Q15M PRN PO DECREASED GLUCOSE; Start 01/24/17 at 12:00 Glucose (Glutose) 22.5 gm Q15M PRN PO DECREASED GLUCOSE; Start 01/24/17 at 12: 00 Dextrose (D50w Syringe) 25 ml Q15M PRN IV DECREASED GLUCOSE; Start 01/24/17 at 12:00 Dextrose (D50w Syringe) 50 ml Q15M PRN IV DECREASED GLUCOSE; Start 01/24/17 at 12:00 Glucagon (Glucagen) 1 mg Q15M PRN IM DECREASED GLUCOSE; Start 01/24/17 at 12:00 Glucose (Glutose) 15 gm Q15M PRN BUCCAL DECREASED GLUCOSE; Start 01/24/17 at 12 :00 Pantoprazole (Protonix Iv) 40 mg DAILY@06 IV Last administered on 01/31/17 05: 43; Admin Dose 40 MG; Start 01/25/17 at 06:00 Miscellaneous Information 1 ea NOTE XX ; Start 01/24/17 at 17:00 Glucose (Glutose) 15 gm Q15M PRN PO DECREASED GLUCOSE; Start 01/24/17 at 17:00 Glucose (Glutose) 22.5 gm Q15M PRN PO DECREASED GLUCOSE; Start 01/24/17 at 17: 00 Dextrose (D50w Syringe) 25 ml Q15M PRN IV DECREASED GLUCOSE; Start 01/24/17 at 17:00 Dextrose (D50w Syringe) 50 ml Q15M PRN IV DECREASED GLUCOSE; Start 01/24/17 at 17:00 Glucagon (Glucagen) 1 mg Q15M PRN IM DECREASED GLUCOSE; Start 01/24/17 at 17:00 Glucose (Glutose) 15 gm Q15M PRN BUCCAL DECREASED GLUCOSE; Start 01/24/17 at 17 :00 Lorazepam (Ativan) 2 mg Q2 PRN IM ANXIETY Last administered on 01/31/17 04:32 ; Admin Dose 2 MG; Start 01/24/17 at 23:00 Aspirin 325 mg 325 mg DAILY NGT Last administered on 01/31/17 09:42; Admin Dose 325 MG; Start 01/25/17 at 17:00 Norepinephrine 16 mg/Dextrose 500 ml @ 1.87 mls/hr TITRATE IV Last administered on 01/26/17 09:18; Admin Dose 9.37 MLS/HR; Start 01/25/17 at 17:30 Aztreonam 0.5 gm/ Sodium Chloride 50 ml @ 100 mls/hr Q12 IV Last administered on 01/31/17 09:49; Admin Dose 100 MLS/HR; Start 01/25/17 at 21:00 Levofloxacin/ Dextrose (Levaquin 250 Mg/ D5W 50 ml (Pmx)) 50 ml @ 50 mls/hr Q24H IVPB Last administered on 01/30/17 16:30; Admin Dose 50 MLS/HR; Start at 16:00 Carvedilol (Coreg) 3.125 mg BID NGT Last administered on 01/31/17 09:44; Admin Dose 3.125 MG; Start 01/28/17 at 21:00 Heparin Sodium (Porcine) (Heparin (5000 Units/0.5 ml)) 5,000 unit Q8 SC Last administered on 01/31/17 05:54; Admin Dose 5,000 UNIT; Start 01/30/17 at 22:00 Diagnostic Test (Pha) (Accu-Chek) 1 ea 02 XX ; Start 02/01/17 at 02:00 Insulin Glargine (Lantus) 15 unit DAILY@08 SC ; Start 02/01/17 at 08:00 Procedures Procedures venous u/s image reviewed. no dvt LANE VOGEL Jan 31, 2017 11:57
[2017-01-31] MEDS: INSULIN GLARGINE [LANtus] 3 ML PEN SC SCH (13:52)
[2017-01-31] MEDS: LEVOFLOXACIN 250MG/D5W (PMX) 50 ML IVPB SCH (16:47)
[2017-01-31 19:27] LABS: ADD UMIC YES; URINE BILIRUBIN (Dip) NEGATIVE (NEGATIVE); URINE BLOOD (Dip) 3+ (NEGATIVE); URINE COLOR LT. YELLOW (YELLOW); URINE GLUCOSE (Dip) NEGATIVE (NEGATIVE); URINE KETONES (Dip) NEGATIVE (NEGATIVE); URINE LEUKOCYTE ESTERASE (Dip) NEGATIVE (NEGATIVE); URINE NITRITE (Dip) NEGATIVE (NEGATIVE); URINE TOTAL PROTEIN (Dip) TRACE (NEGATIVE); URINE UROBILINOGEN (Dip) 0.2 E.U./dL (0.1-1.0)
[2017-01-31 19:52] LABS: SQUAMOUS EPITHELIAL CELL,UR RARE; URINE RBCS >50 /HPF (0)
[2017-01-31 19:53] LABS: BACTERIA,URINE FEW
--- NOTE | 2017-01-31 22:02 | RADRPT ---
Vent Rate: 82 bpm RR Interval: 0 msec ID Interval: 0 msec QRS Duration: 102 msec QT Interval: 348 msec QTC Interval: 406 msec P-R-T [place]: 0 - -42 - 71 degrees Atrial fibrillation Left axis deviation Nonspecific T wave abnormality , probably digitalis effect Abnormal ECG Electronically Signed By: Yang Nguyễn [id number]
[2017-01-31] MEDS ORDERED: ALPRAZOLAM 0.5 MG TAB NGT PRN (23:30)
[2017-02-01] VITALS (36 sets, daily range): BP systolic 85–156; BP diastolic 53–123; PULSE 75–120; RESP 18–40
[2017-02-01] MEDS: ALBUTEROL 18 GM INHALER INH SCH ×4 (01:30→19:47)
[2017-02-01] MEDS ORDERED: ACCU-CHEK XX SCH (02:00)
[2017-02-01] MEDS: ACCU-CHEK XX SCH (02:42)
--- NOTE | 2017-02-01 03:59 | PN ---
DATE: SUBJECTIVE: The patient is asleep. He is still on the ventilator. He failed another trial to extu maren today. OBJECTIVE: HEART: Irregular irregularity, grade I/ aortic systolic murmur. CHEST: Clear to A and P. ABDOMEN: Liver, kidneys, and spleen are not palpable. Bowel sounds are normal. EXTREMITIES: There is 1+ dorsal pedal and pretibial edema. VITAL SIGNS: The patient is afebrile, blood pressure varies from 98/74 to 150/73, pulse varies from 62 to 97, respiratory rate varies from 20 to 38, pulse ox is 100%. LABORATORY DATA: White blood cell count 15,600, hemoglobin 11, hematocrit 33.6, platelet count 121, 000. Blood glucose is 337 with an oxygen level 1.1. IMAGING: Chest x-ray: No significant interval change. Extremity venous study: Possible nonocclus ananth thrombus in the right peroneal vein. No DVT in the left lower extremity. Dictated By: ONIEL BYNUM/SHELLY Conf#: [id number] DID#: [id number]
[2017-02-01 05:43] LABS: ADD SCAN DIFF NO
[2017-02-01] MEDS: PANTOPRAZOLE 40 MG INJ IV SCH (05:46)
[2017-02-01] MEDS: BUMETANIDE 1 MG INJ IV SCH (05:47)
[2017-02-01 05:53] LABS: ABNORMAL IP MESSAGE 1; BASOPHILS % 0.2 % (0.0-2.0); EOSINOPHILS % 0.2 % (0.0-7.0); HEMATOCRIT 33.5 % (42.0-52.0); LYMPHOCYTES # 0.7 10^3/ul (0.8-2.9); LYMPHOCYTES % 3.2 % (15.0-51.0); MEAN CORPUSCULAR HGB CONC 32.8 g/dl (32.0-37.0); MEAN CORPUSCULAR VOLUME 88.4 fl (82.0-101.0); MEAN PLATELET VOLUME 13.1 fl (7.4-10.4); MONOCYTE # 0.9 10^3/ul (0.3-0.9); MONOCYTES % 4.4 % (0.0-11.0); NEUTROPHIL # 18.3 10^3/ul (1.6-7.5); NEUTROPHILS % 88.6 % (39.0-77.0); PLATELET COUNT 162 10^3/UL (140-415); RED BLOOD COUNT 3.79 10^6/ul (4.70-6.10); RED CELL DISTRIBUTION WIDTH 15.7 % (11.5-14.5); WHITE BLOOD COUNT 20.7 10^3/ul (4.8-10.8)
[2017-02-01 06:21] LABS: ALBUMIN 2.4 g/dl (3.3-4.9)
[2017-02-01] MEDS: HEPARIN 5,000 UNIT/0.5 ML VIAL SC SCH ×3 (06:21→22:00)
[2017-02-01 06:22] LABS: POTASSIUM 3.7 mmol/L (3.5-5.1)
[2017-02-01 06:24] LABS: ALBUMIN/GLOBULIN RATIO 0.6; BILIRUBIN,INDIRECT 0.3 mg/dl (0-1.1); BILIRUBIN,TOTAL 0.3 mg/dl (0.2-1.3); CREATININE 2.38 mg/dl (0.61-1.24); PHOSPHORUS 3.9 mg/dl (2.5-4.9); TOTAL PROTEIN 6.4 g/dl (6.1-8.1)
[2017-02-01 06:25] LABS: CALCIUM 8.2 mg/dl (8.4-10.2); MAGNESIUM 2.1 mg/dl (1.7-2.5)
[2017-02-01] MEDS: INSULIN ASPART [NOVOLOG] 3 ML PEN SC SCH ×4 (08:04→21:00)
[2017-02-01] MEDS: INSULIN GLARGINE [LANtus] 3 ML PEN SC SCH (08:13)
--- NOTE | 2017-02-01 08:15 | RADRPT ---
PROCEDURE: XR Chest. CLINICAL INDICATION: chf TECHNIQUE: Single frontal view of the chest was obtained. COMPARISON: Chest x-ray from 01/30/2017 FINDINGS: The endotracheal tube, enteric tube, sternotomy wires, and left-sided pacemaker / AICD are again not ed. Heart size is unchanged. The aortic arch is calcified. There are increased perihilar and bibasilar opacities due to worsening edema and / or infiltrates. There is stable obscuration of the left hemidiaphragm due to atelectasis, infiltrate, and / or effus ion. IMPRESSION: Increased perihilar and bibasilar opacities due to worsening edema and / or infiltrates. Stable obscuration of the left hemidiaphragm due to atelectasis, infiltrate, and / or effusion. RPTAT: EE Physician Lawrence Date Time Electronically viewed and signed by Physician Lawrence on 02/01/2017 08:15 /
[2017-02-01] MEDS: ASPIRIN 325 MG TAB NGT SCH (08:16)
[2017-02-01] MEDS: AZTREONAM 0.5 GM in SOD CHLORIDE 0.9% 50 ML IV SCH ×2 (08:16→22:44)
--- NOTE | 2017-02-01 09:03 | CONS ---
Date/Time of Note Date/Time of Note DATE: 02/01/17 TIME: 08:56 Assessment/Plan Assessment/Plan Chief Complaint/Hosp Course Impression: - advanced dementia with worsening mental status on presentation, now intubated , unable to assess. more alert this am - respiratory failure- requiring intubation and difficulty weaning. pulmonary managing. - severe ICM with LVEF 20-25%- now with NSTEMI, likely demand event. pt poor candidate for invasive evaluation at this time. no e/o of ongoing ischemia - NSTEMI- trop peaked at 10.0, also with h/o of ATN, ALI c/w either hypotensive vs hypoxemic event - multi vessel CAD- now with NSTEMI, will recommend await clinic improvement and reassess. - atrial fibrillation- rate controlled, rates uptrending - NSVT s/p ICD placement nl fxn last checked 01/2017 - mild to moderate - h/o HTN - h/o DM2 - PANCHO i- cr stable/improving but progressive uremia despite only mild diuresis Recommendations - cont asa/statin - inc coreg to 6.25mg po bid given stable bp and elevated hr - hold off on acei until bp stable for sig period of time and renal fxn improve - on bumex to keep even to negative - watch uremia, renal consulting will follow Problems: Consultation Date/Type/Reason Admit Date/Time Jan 23, 2017 at 20:03 Initial Consult Date 01/25/17 Type of Consultation: cardiology Referring Provider: ONIEL MORROW MD 24 HR Interval Summary Free Text/Dictation no acute events. remains intubated/sedated. pt more alert, moving, does not respond to questions. tele reviewed, afib hrs uptrending, 90s-100s now 100s-120s Subjective hx not possible: pt non-verbal, pt critical status Exam/Review of Systems Vital Signs Vitals Vital Signs Date Time Temp Pulse Resp B/P Pulse Ox O2 Delivery O2 Flow Rate FiO2 02/01/17 07:16 103 25 100 35 02/01/17 07:00 98.9 111/68 Mechanical Ventilator Intake and Output 01/31/17 01/31/17 02/01/17 15:00 23:00 07:00 Intake Total 570 ml 650 ml 380 ml Output Total 580 ml 430 ml 360 ml Balance -10 ml 220 ml 20 ml Exam Constitutional: alert, No oriented Psych: other (unabel to assess) Head: atraumatic, normocephalic Eyes: nl sclera ENMT: mucosa pink and moist Neck: non-tender, supple, No jvd Respiratory: clear to auscultation, normal air movement Cardiovascular: irregular rhythm, nl pulses, other (distant hs), No S3, No S4 Gastrointestinal: non-tender, soft Musculoskeletal: nl extremities to inspection Extremities: normal pulses Results Result Diagram: 02/01/17 0520 02/01/17 0520 Results 24 hrs Laboratory Tests Test 01/31/17 11:51 01/31/17 13:48 01/31/17 16:51 01/31/17 18:00 Bedside Glucose 324 H 337 H 285 H Urine Color LT. YELLOW Urine Clarity SLIGHTLY CLOUDY Urine pH 5.0 Urine Specific [place] 1.015 Urine Ketones NEGATIVE Urine Nitrite NEGATIVE Urine Bilirubin NEGATIVE Urine Urobilinogen 0.2 E.U./dL Urine Leukocyte Esterase NEGATIVE Urine Microscopic RBC >50 Urine Microscopic WBC 0-2 Urine Squamous Epithelial Cells RARE Urine Bacteria FEW Urine Hemoglobin 3+ H Urine Glucose NEGATIVE Urine Total Protein TRACE Test 01/31/17 20:38 02/01/17 02:38 02/01/17 05:20 02/01/17 08:01 Bedside Glucose 224 H 178 194 White Blood Count 20.7 #H Red Blood Count 3.79 L Hemoglobin 11.0 L Hematocrit 33.5 L Mean Corpuscular Volume 88.4 Mean Corpuscular Hemoglobin 29.0 Mean Corpuscular Hemoglobin Concent 32.8 Red Cell Distribution Width 15.7 H Platelet Count 162 # Mean Platelet Volume 13.1 H Neutrophils % 88.6 H Lymphocytes % 3.2 L Monocytes % 4.4 Eosinophils % 0.2 Basophils % 0.2 Nucleated Red Blood Cells % 0.0 Neutrophils # 18.3 H Lymphocytes # 0.7 L Monocytes # 0.9 Eosinophils # 0.0 Basophils # 0.0 Nucleated Red Blood Cells # 0.0 Sodium Level 141 Potassium Level 3.7 Chloride Level 106 Carbon Dioxide Level 25 Anion Gap 14 Blood Urea Nitrogen 84 H Creatinine 2.38 H Glucose Level 205 Calcium Level 8.2 L Phosphorus Level 3.9 Magnesium Level 2.1 Total Bilirubin 0.3 Direct Bilirubin 0.00 Indirect Bilirubin 0.3 Aspartate Amino Transf (AST/SGOT) 38 Alanine Aminotransferase (ALT/SGPT) 182 H Alkaline Phosphatase 128 H Total Protein 6.4 Albumin 2.4 L Globulin 4.00 H Albumin/Globulin Ratio 0.60 Medications Medications Current Medications Acetaminophen (Tylenol Tab) 650 mg Q4H PRN PO PAIN AND OR ELEVATED TEMP; Start 01/24/17 at 11:00 Acetaminophen/ Hydrocodone Bitart ([place] (10/325)) 1 tab Q4H PRN PO PAIN; Start 01/24/17 at 11:00 Zolpidem Tartrate (Ambien) 10 mg HS PRN PO INSOMNIA; Start 01/24/17 at 11:00 Magnesium Hydroxide (Milk Of Mag) 30 ml DAILY PRN PO CONSTIPATION; Start at 11:00 Albuterol (Proventil 0.083% (Neb)) 1.25 mg Q4 PRN HHN SLEEP; Start 01/24/17 at 11:00 Diagnostic Test (Pha) (Accu-Chek) 1 ea 02 XX Last administered on 02/01/17 02: 42; Admin Dose 1 EA; Start 01/25/17 at 02:00 Miscellaneous Information 1 ea NOTE XX ; Start 01/24/17 at 12:00 Glucose (Glutose) 15 gm Q15M PRN PO DECREASED GLUCOSE; Start 01/24/17 at 12:00 Glucose (Glutose) 22.5 gm Q15M PRN PO DECREASED GLUCOSE; Start 01/24/17 at 12: 00 Dextrose (D50w Syringe) 25 ml Q15M PRN IV DECREASED GLUCOSE; Start 01/24/17 at 12:00 Dextrose (D50w Syringe) 50 ml Q15M PRN IV DECREASED GLUCOSE; Start 01/24/17 at 12:00 Glucagon (Glucagen) 1 mg Q15M PRN IM DECREASED GLUCOSE; Start 01/24/17 at 12:00 Glucose (Glutose) 15 gm Q15M PRN BUCCAL DECREASED GLUCOSE; Start 01/24/17 at 12 :00 Pantoprazole (Protonix Iv) 40 mg DAILY@06 IV Last administered on 02/01/17 05: 46; Admin Dose 40 MG; Start 01/25/17 at 06:00 Miscellaneous Information 1 ea NOTE XX ; Start 01/24/17 at 17:00 Glucose (Glutose) 15 gm Q15M PRN PO DECREASED GLUCOSE; Start 01/24/17 at 17:00 Glucose (Glutose) 22.5 gm Q15M PRN PO DECREASED GLUCOSE; Start 01/24/17 at 17: 00 Dextrose (D50w Syringe) 25 ml Q15M PRN IV DECREASED GLUCOSE; Start 01/24/17 at 17:00 Dextrose (D50w Syringe) 50 ml Q15M PRN IV DECREASED GLUCOSE; Start 01/24/17 at 17:00 Glucagon (Glucagen) 1 mg Q15M PRN IM DECREASED GLUCOSE; Start 01/24/17 at 17:00 Glucose (Glutose) 15 gm Q15M PRN BUCCAL DECREASED GLUCOSE; Start 01/24/17 at 17 :00 Aspirin 325 mg 325 mg DAILY NGT Last administered on 02/01/17 08:16; Admin Dose 325 MG; Start 01/25/17 at 17:00 Norepinephrine 16 mg/Dextrose 500 ml @ 1.87 mls/hr TITRATE IV Last administered on 01/26/17 09:18; Admin Dose 9.37 MLS/HR; Start 01/25/17 at 17:30 Aztreonam 0.5 gm/ Sodium Chloride 50 ml @ 100 mls/hr Q12 IV Last administered on 02/01/17 08:16; Admin Dose 100 MLS/HR; Start 01/25/17 at 21:00 Levofloxacin/ Dextrose (Levaquin 250 Mg/ D5W 50 ml (Pmx)) 50 ml @ 50 mls/hr Q24H IVPB Last administered on 01/31/17 16:47; Admin Dose 50 MLS/HR; Start at 16:00 Carvedilol (Coreg) 3.125 mg BID NGT Last administered on 02/01/17 08:16; Admin Dose 3.125 MG; Start 01/28/17 at 21:00 Heparin Sodium (Porcine) (Heparin (5000 Units/0.5 ml)) 5,000 unit Q8 SC Last administered on 02/01/17 06:21; Admin Dose 5,000 UNIT; Start 01/30/17 at 22:00 Insulin Glargine 15 unit 15 unit DAILY@08 SC Last administered on 02/01/17 08: 13; Admin Dose 15 UNIT; Start 01/31/17 at 12:45 Vancomycin HCl (Vancocin) 250 ml @ 125 mls/hr Q36H IVPB ; Start 02/02/17 at 00: 00 Alprazolam (Xanax) 1 mg Q4H PRN NGT ANXIETY; Start 01/31/17 at 23:30 Procedures Procedures cxr reviewed Increased perihilar and bibasilar opacities due to worsening edema and / or infiltrates. Stable obscuration of the left hemidiaphragm due to atelectasis, infiltrate, and / or effusion. LANE VOGEL Feb 01, 2017 09:03
--- NOTE | 2017-02-01 11:41 | CONS ---
Date/Time of Note Date/Time of Note DATE: 02/01/17 TIME: 11:38 Assessment/Plan Assessment/Plan Additional Assessment/Plan X-ray was reviewed from today which is essentially unremarkable. Again identified are an endotracheal tube at an adequate level. Sternal wires are present as well as a pacemaker in the left chest wall. Ventilator settings; AC of 20, tidal volume 500, PEEP of 5, 35% FiO2. Assessment recommendations; 1. Patient admitted for bilateral pneumonia as well as pulmonary edema with marked radiological improvement. 2. History of cardiac arrhythmia. 3. History of coronary artery disease, status post CABG surgery in the past. 4. Renal insufficiency. 5. Patient is exhibiting adequate weaning parameters today. Patient has been switched over to CPAP mode. I would recommend observing him for the next 30-40 minutes, if the patient does well to extubate him. We will continue current treatment. Vancomycin added yesterday for leukocytosis. 36 minutes of critical care time was spent evaluating the patient. Consultation Date/Type/Reason Admit Date/Time Jan 23, 2017 at 20:03 Type of Consultation: Pulmonary/critical care Referring Provider: ONIEL MORROW MD 24 HR Interval Summary Free Text/Dictation Patient condition remains critical. Was given a weaning trial from ventilator yesterday patient however could not do well and had to be put back on assist control mode. General exam; elderly male, awake alert currently in no distress. Exam/Review of Systems Vital Signs Vitals Vital Signs Date Time Temp Pulse Resp B/P Pulse Ox O2 Delivery O2 Flow Rate FiO2 02/01/17 11:14 89 27 100 35 02/01/17 09:00 139/123 Mechanical Ventilator 02/01/17 07:00 98.9 Intake and Output 01/31/17 01/31/17 02/01/17 15:00 23:00 07:00 Intake Total 570 ml 650 ml 420 ml Output Total 580 ml 430 ml 410 ml Balance -10 ml 220 ml 10 ml Exam HEENT exam is; supple neck, positive JVD. No lymphadenopathy. Midline trachea. No thyromegaly. Orally intubated. Patient does have multiple carious teeth. Has bilateral surgical pupils. Chest exam is; diminished but clear breath sounds. S1-S2 audible, no murmurs. Regular rhythm. Abdomen examination; soft, nondistended. No organomegaly. Bowel sounds audible. Extremity exam is; no peripheral edema. Next [employer] examination; patient is awake and alert follows commands and moves all 4 extremities. Results Result Diagram: 02/01/17 0520 02/01/17 0520 Results 24 hrs Laboratory Tests Test 01/31/17 11:51 01/31/17 13:48 01/31/17 16:51 01/31/17 18:00 Bedside Glucose 324 H 337 H 285 H Urine Color LT. YELLOW Urine Clarity SLIGHTLY CLOUDY Urine pH 5.0 Urine Specific [place] 1.015 Urine Ketones NEGATIVE Urine Nitrite NEGATIVE Urine Bilirubin NEGATIVE Urine Urobilinogen 0.2 E.U./dL Urine Leukocyte Esterase NEGATIVE Urine Microscopic RBC >50 Urine Microscopic WBC 0-2 Urine Squamous Epithelial Cells RARE Urine Bacteria FEW Urine Hemoglobin 3+ H Urine Glucose NEGATIVE Urine Total Protein TRACE Test 01/31/17 20:38 02/01/17 02:38 02/01/17 05:20 02/01/17 08:01 Bedside Glucose 224 H 178 194 White Blood Count 20.7 #H Red Blood Count 3.79 L Hemoglobin 11.0 L Hematocrit 33.5 L Mean Corpuscular Volume 88.4 Mean Corpuscular Hemoglobin 29.0 Mean Corpuscular Hemoglobin Concent 32.8 Red Cell Distribution Width 15.7 H Platelet Count 162 # Mean Platelet Volume 13.1 H Neutrophils % 88.6 H Lymphocytes % 3.2 L Monocytes % 4.4 Eosinophils % 0.2 Basophils % 0.2 Nucleated Red Blood Cells % 0.0 Neutrophils # 18.3 H Lymphocytes # 0.7 L Monocytes # 0.9 Eosinophils # 0.0 Basophils # 0.0 Nucleated Red Blood Cells # 0.0 Sodium Level 141 Potassium Level 3.7 Chloride Level 106 Carbon Dioxide Level 25 Anion Gap 14 Blood Urea Nitrogen 84 H Creatinine 2.38 H Glucose Level 205 Calcium Level 8.2 L Phosphorus Level 3.9 Magnesium Level 2.1 Total Bilirubin 0.3 Direct Bilirubin 0.00 Indirect Bilirubin 0.3 Aspartate Amino Transf (AST/SGOT) 38 Alanine Aminotransferase (ALT/SGPT) 182 H Alkaline Phosphatase 128 H Total Protein 6.4 Albumin 2.4 L Globulin 4.00 H Albumin/Globulin Ratio 0.60 Medications Medications Current Medications Acetaminophen (Tylenol Tab) 650 mg Q4H PRN PO PAIN AND OR ELEVATED TEMP; Start 01/24/17 at 11:00 Acetaminophen/ Hydrocodone Bitart ([place] (10325)) 1 tab Q4H PRN PO PAIN; Start 01/24/17 at 11:00 Zolpidem Tartrate (Ambien) 10 mg HS PRN PO INSOMNIA; Start 01/24/17 at 11:00 Magnesium Hydroxide (Milk Of Mag) 30 ml DAILY PRN PO CONSTIPATION; Start at 11:00 Albuterol (Proventil 0.083% (Neb)) 1.25 mg Q4 PRN HHN SLEEP; Start 01/24/17 at 11:00 Diagnostic Test (Pha) (Accu-Chek) 1 ea 02 XX Last administered on 02/01/17 02: 42; Admin Dose 1 EA; Start 01/25/17 at 02:00 Miscellaneous Information 1 ea NOTE XX ; Start 01/24/17 at 12:00 Glucose (Glutose) 15 gm Q15M PRN PO DECREASED GLUCOSE; Start 01/24/17 at 12:00 Glucose (Glutose) 22.5 gm Q15M PRN PO DECREASED GLUCOSE; Start 01/24/17 at 12: 00 Dextrose (D50w Syringe) 25 ml Q15M PRN IV DECREASED GLUCOSE; Start 01/24/17 at 12:00 Dextrose (D50w Syringe) 50 ml Q15M PRN IV DECREASED GLUCOSE; Start 01/24/17 at 12:00 Glucagon (Glucagen) 1 mg Q15M PRN IM DECREASED GLUCOSE; Start 01/24/17 at 12:00 Glucose (Glutose) 15 gm Q15M PRN BUCCAL DECREASED GLUCOSE; Start 01/24/17 at 12 :00 Pantoprazole (Protonix Iv) 40 mg DAILY@06 IV Last administered on 02/01/17 05: 46; Admin Dose 40 MG; Start 01/25/17 at 06:00 Miscellaneous Information 1 ea NOTE XX ; Start 01/24/17 at 17:00 Glucose (Glutose) 15 gm Q15M PRN PO DECREASED GLUCOSE; Start 01/24/17 at 17:00 Glucose (Glutose) 22.5 gm Q15M PRN PO DECREASED GLUCOSE; Start 01/24/17 at 17: 00 Dextrose (D50w Syringe) 25 ml Q15M PRN IV DECREASED GLUCOSE; Start 01/24/17 at 17:00 Dextrose (D50w Syringe) 50 ml Q15M PRN IV DECREASED GLUCOSE; Start 01/24/17 at 17:00 Glucagon (Glucagen) 1 mg Q15M PRN IM DECREASED GLUCOSE; Start 01/24/17 at 17:00 Glucose (Glutose) 15 gm Q15M PRN BUCCAL DECREASED GLUCOSE; Start 01/24/17 at 17 :00 Aspirin 325 mg 325 mg DAILY NGT Last administered on 02/01/17 08:16; Admin Dose 325 MG; Start 01/25/17 at 17:00 Norepinephrine 16 mg/Dextrose 500 ml @ 1.87 mls/hr TITRATE IV Last administered on 01/26/17 09:18; Admin Dose 9.37 MLS/HR; Start 01/25/17 at 17:30 Aztreonam 0.5 gm/ Sodium Chloride 50 ml @ 100 mls/hr Q12 IV Last administered on 02/01/17 08:16; Admin Dose 100 MLS/HR; Start 01/25/17 at 21:00 Levofloxacin/ Dextrose (Levaquin 250 Mg/ D5W 50 ml (Pmx)) 50 ml @ 50 mls/hr Q24H IVPB Last administered on 01/31/17 16:47; Admin Dose 50 MLS/HR; Start at 16:00 Heparin Sodium (Porcine) (Heparin (5000 Units/0.5 ml)) 5,000 unit Q8 SC Last administered on 02/01/17 06:21; Admin Dose 5,000 UNIT; Start 01/30/17 at 22:00 Insulin Glargine 15 unit 15 unit DAILY@08 SC Last administered on 02/01/17 08: 13; Admin Dose 15 UNIT; Start 01/31/17 at 12:45 Vancomycin HCl (Vancocin) 250 ml @ 125 mls/hr Q36H IVPB ; Start 02/02/17 at 00: 00 Alprazolam (Xanax) 1 mg Q4H PRN NGT ANXIETY; Start 01/31/17 at 23:30 Carvedilol (Coreg) 6.25 mg BID PO Last administered on 02/01/17 11:07; Admin Dose 6.25 MG; Start 02/01/17 at 10:00 ULISES MCKAY Feb 01, 2017 11:41
--- NOTE | 2017-02-01 14:00 | CONS ---
Date/Time of Note Date/Time of Note DATE: 02/01/17 TIME: 13:54 Assessment/Plan Assessment/Plan Chief Complaint/Hosp Course 1. This patient is in the ICU intubated on a ventilator. He does open eyes to verbal stimuli . 2. He has acute renal failure superimposed on CKD , due to diabetic nephropathy . His BUN and serum creatinine are rising . I will stop diuretics . 3. Diabetes mellitus , not controlled , will add Lantus insulin and go to moderate sliding scale 4. Dementia 5. Respiratory failure on ventilator. 6. chronic kidney disease 7. hypertension 8. lower extremity venous Dopplers done shows possible nonocclusive thrombus in R peroneal vein , S C heparin started . Problems: Consultation Date/Type/Reason Admit Date/Time Jan 23, 2017 at 20:03 Initial Consult Date 01/25/17 Type of Consultation: renal Referring Provider: ONIEL MORROW MD 24 HR Interval Summary Free Text/Dictation He is in the ICU intubated on a ventilator .He opens eyes to verbal stimuli . Subjective hx not possible: pt non-verbal Exam/Review of Systems Vital Signs Vitals Vital Signs Date Time Temp Pulse Resp B/P Pulse Ox O2 Delivery O2 Flow Rate FiO2 02/01/17 12:33 104 30 100 35 02/01/17 12:00 98.8 93/66 Mechanical Ventilator Intake and Output 01/31/17 01/31/17 02/01/17 15:00 23:00 07:00 Intake Total 570 ml 650 ml 420 ml Output Total 580 ml 430 ml 410 ml Balance -10 ml 220 ml 10 ml Exam Constitutional: non-verbal Respiratory: clear to auscultation Cardiovascular: irregular rhythm Gastrointestinal: soft Musculoskeletal: nl extremities to inspection Results Result Diagram: 02/01/17 0520 02/01/17 0520 Results 24 hrs Laboratory Tests Test 01/31/17 16:51 01/31/17 18:00 01/31/17 20:38 02/01/17 02:38 Bedside Glucose 285 H 224 H 178 Urine Color LT. YELLOW Urine Clarity SLIGHTLY CLOUDY Urine pH 5.0 Urine Specific [place] 1.015 Urine Ketones NEGATIVE Urine Nitrite NEGATIVE Urine Bilirubin NEGATIVE Urine Urobilinogen 0.2 E.U./dL Urine Leukocyte Esterase NEGATIVE Urine Microscopic RBC >50 Urine Microscopic WBC 0-2 Urine Squamous Epithelial Cells RARE Urine Bacteria FEW Urine Hemoglobin 3+ H Urine Glucose NEGATIVE Urine Total Protein TRACE Test 02/01/17 05:20 02/01/17 08:01 02/01/17 11:09 White Blood Count 20.7 #H Red Blood Count 3.79 L Hemoglobin 11.0 L Hematocrit 33.5 L Mean Corpuscular Volume 88.4 Mean Corpuscular Hemoglobin 29.0 Mean Corpuscular Hemoglobin Concent 32.8 Red Cell Distribution Width 15.7 H Platelet Count 162 # Mean Platelet Volume 13.1 H Neutrophils % 88.6 H Lymphocytes % 3.2 L Monocytes % 4.4 Eosinophils % 0.2 Basophils % 0.2 Nucleated Red Blood Cells % 0.0 Neutrophils # 18.3 H Lymphocytes # 0.7 L Monocytes # 0.9 Eosinophils # 0.0 Basophils # 0.0 Nucleated Red Blood Cells # 0.0 Sodium Level 141 Potassium Level 3.7 Chloride Level 106 Carbon Dioxide Level 25 Anion Gap 14 Blood Urea Nitrogen 84 H Creatinine 2.38 H Glucose Level 205 Calcium Level 8.2 L Phosphorus Level 3.9 Magnesium Level 2.1 Total Bilirubin 0.3 Direct Bilirubin 0.00 Indirect Bilirubin 0.3 Aspartate Amino Transf (AST/SGOT) 38 Alanine Aminotransferase (ALT/SGPT) 182 H Alkaline Phosphatase 128 H Total Protein 6.4 Albumin 2.4 L Globulin 4.00 H Albumin/Globulin Ratio 0.60 Bedside Glucose 194 177 Medications Medications Current Medications Acetaminophen (Tylenol Tab) 650 mg Q4H PRN PO PAIN AND OR ELEVATED TEMP; Start 01/24/17 at 11:00 Acetaminophen/ Hydrocodone Bitart ([place] (10/325)) 1 tab Q4H PRN PO PAIN; Start 01/24/17 at 11:00 Zolpidem Tartrate (Ambien) 10 mg HS PRN PO INSOMNIA; Start 01/24/17 at 11:00 Magnesium Hydroxide (Milk Of Mag) 30 ml DAILY PRN PO CONSTIPATION; Start at 11:00 Albuterol (Proventil 0.083% (Neb)) 1.25 mg Q4 PRN HHN SLEEP; Start 01/24/17 at 11:00 Diagnostic Test (Pha) (Accu-Chek) 1 ea 02 XX Last administered on 02/01/17t 02: 42; Admin Dose 1 EA; Start 01/25/17 at 02:00 Miscellaneous Information 1 ea NOTE XX ; Start 01/24/17 at 12:00 Glucose (Glutose) 15 gm Q15M PRN PO DECREASED GLUCOSE; Start 01/24/17 at 12:00 Glucose (Glutose) 22.5 gm Q15M PRN PO DECREASED GLUCOSE; Start 01/24/17 at 12: 00 Dextrose (D50w Syringe) 25 ml Q15M PRN IV DECREASED GLUCOSE; Start 01/24/17 at 12:00 Dextrose (D50w Syringe) 50 ml Q15M PRN IV DECREASED GLUCOSE; Start 01/24/17 at 12:00 Glucagon (Glucagen) 1 mg Q15M PRN IM DECREASED GLUCOSE; Start 01/24/17 at 12:00 Glucose (Glutose) 15 gm Q15M PRN BUCCAL DECREASED GLUCOSE; Start 01/24/17 at 12 :00 Pantoprazole (Protonix Iv) 40 mg DAILY@06 IV Last administered on 02/01/17 05: 46; Admin Dose 40 MG; Start 01/25/17 at 06:00 Miscellaneous Information 1 ea NOTE XX ; Start 01/24/17 at 17:00 Glucose (Glutose) 15 gm Q15M PRN PO DECREASED GLUCOSE; Start 01/24/17 at 17:00 Glucose (Glutose) 22.5 gm Q15M PRN PO DECREASED GLUCOSE; Start 01/24/17 at 17: 00 Dextrose (D50w Syringe) 25 ml Q15M PRN IV DECREASED GLUCOSE; Start 01/24/17 at 17:00 Dextrose (D50w Syringe) 50 ml Q15M PRN IV DECREASED GLUCOSE; Start 01/24/17 at 17:00 Glucagon (Glucagen) 1 mg Q15M PRN IM DECREASED GLUCOSE; Start 01/24/17 at 17:00 Glucose (Glutose) 15 gm Q15M PRN BUCCAL DECREASED GLUCOSE; Start 01/24/17 at 17 :00 Aspirin 325 mg 325 mg DAILY NGT Last administered on 02/01/17 08:16; Admin Dose 325 MG; Start 01/25/17 at 17:00 Norepinephrine 16 mg/Dextrose 500 ml @ 1.87 mls/hr TITRATE IV Last administered on 01/26/17 09:18; Admin Dose 9.37 MLS/HR; Start 01/25/17 at 17:30 Aztreonam 0.5 gm/ Sodium Chloride 50 ml @ 100 mls/hr Q12 IV Last administered on 02/01/17 08:16; Admin Dose 100 MLS/HR; Start 01/25/17 at 21:00 Levofloxacin/ Dextrose (Levaquin 250 Mg/ D5W 50 ml (Pmx)) 50 ml @ 50 mls/hr Q24H IVPB Last administered on 01/31/17 16:47; Admin Dose 50 MLS/HR; Start at 16:00 Heparin Sodium (Porcine) (Heparin (5000 Units/0.5 ml)) 5,000 unit Q8 SC Last administered on 02/01/17 13:26; Admin Dose 5,000 UNIT; Start 01/30/17 at 22:00 Insulin Glargine 15 unit 15 unit DAILY@08 SC Last administered on 02/01/17 08: 13; Admin Dose 15 UNIT; Start 01/31/17 at 12:45 Vancomycin HCl (Vancocin) 250 ml @ 125 mls/hr Q36H IVPB ; Start 02/02/17 at 00: 00 Alprazolam (Xanax) 1 mg Q4H PRN NGT ANXIETY; Start 01/31/17 at 23:30 Carvedilol (Coreg) 6.25 mg BID PO Last administered on 02/01/17 11:07; Admin Dose 6.25 MG; Start 02/01/17 at 10:00 ANNA BUSTILLO MD Feb 01, 2017 14:00
[2017-02-01] MEDS ORDERED: PENDING SANTYL ORDER FOR WOUND CARE XX PRN (16:00)
[2017-02-01] MEDS: LEVOFLOXACIN 250MG/D5W (PMX) 50 ML IVPB SCH (16:19)
[2017-02-02] VITALS (36 sets, daily range): BP systolic 93–136; BP diastolic 54–103; PULSE 70–100; RESP 20–33
[2017-02-02] MEDS ORDERED: VANCOMYCIN 1 GM in NS 250 ML IVPB SCH
[2017-02-02] MEDS: ALBUTEROL 18 GM INHALER INH SCH ×4 (01:20→21:11)
[2017-02-02] MEDS: ACCU-CHEK XX SCH (02:00)
--- NOTE | 2017-02-02 03:28 | PN ---
DATE: 02/01/2017 SUBJECTIVE: The patient is intubated. He is not responsive to verbal stimuli. His BUN and creatin ine are rising. He is in renal failure, probably due to diabetic nephropathy. An attempt to wean h im once again from the respirator failed; however, he is putting out urine. OBJECTIVE: VITAL SIGNS: Temperature is 99.1, blood pressure varies from 93/61 to 139/123, pulse varies from 75 to 120, respiratory rate varies from 20 to 36. Intake and output 1650/1430. LABORATORY DATA: White blood cell count 20,700, hemoglobin 11, hematocrit 33.5, platelet count 162, 000. Electrolytes: Sodium 141, potassium 3.7, chloride 108, carbon dioxide 25, BUN 84, creatinine 2.38, glucose 205, calcium 8.2, uncorrected, ALT 182, alkaline phosphatase 128, albumin 2.4, globuli n 4.0. Albumin globulin ratio 0.6. Digoxin level 1.1. IMAGING: Chest x-ray: Increased perihilar and bibasilar opacities due to worsening edema and/or inf iltrates, stable obscuration of left hemidiaphragm due to atelectasis, infiltrate, and/or effusion. Condition remains critical. Prognosis remains extremely guarded. Dictated By: ONIEL BYNUM/SHELLY Conf#: [id number] DID#: [id number]
[2017-02-02] MEDS: HEPARIN 5,000 UNIT/0.5 ML VIAL SC SCH ×3 (05:57→21:48)
[2017-02-02] MEDS: PANTOPRAZOLE 40 MG INJ IV SCH (05:58)
[2017-02-02 06:07] LABS: ADD SCAN DIFF NO
[2017-02-02 06:33] LABS: ABNORMAL IP MESSAGE 1; BASOPHILS % 0.2 % (0.0-2.0); EOSINOPHILS # 0.1 10^3/ul (0.0-0.5); EOSINOPHILS % 0.3 % (0.0-7.0); HEMATOCRIT 33.6 % (42.0-52.0); HEMOGLOBIN 10.6 g/dl (14.0-18.0); LYMPHOCYTES # 0.8 10^3/ul (0.8-2.9); LYMPHOCYTES % 3.6 % (15.0-51.0); MEAN CORPUSCULAR HEMOGLOBIN 28.4 pg (29.0-33.0); MEAN CORPUSCULAR HGB CONC 31.5 g/dl (32.0-37.0); MEAN CORPUSCULAR VOLUME 90.1 fl (82.0-101.0); MONOCYTES % 4.2 % (0.0-11.0); NEUTROPHIL # 20.6 10^3/ul (1.6-7.5); NEUTROPHILS % 88.9 % (39.0-77.0); PLATELET COUNT 183 10^3/UL (140-415); RED BLOOD COUNT 3.73 10^6/ul (4.70-6.10); RED CELL DISTRIBUTION WIDTH 15.9 % (11.5-14.5); WHITE BLOOD COUNT 23.2 10^3/ul (4.8-10.8)
[2017-02-02 06:44] LABS: CALCIUM 8.3 mg/dl (8.4-10.2); CREATININE 2.27 mg/dl (0.61-1.24); POTASSIUM 3.7 mmol/L (3.5-5.1)
[2017-02-02] MEDS: INSULIN ASPART [NOVOLOG] 3 ML PEN SC SCH ×4 (07:35→21:46)
[2017-02-02] MEDS: INSULIN GLARGINE [LANtus] 3 ML PEN SC SCH (07:38)
[2017-02-02] MEDS: AZTREONAM 0.5 GM in SOD CHLORIDE 0.9% 50 ML IV SCH ×2 (08:39→21:34)
[2017-02-02] MEDS: COLLAGENASE 30 GM TUBE TOP SCH (08:40)
[2017-02-02] MEDS: ASPIRIN 325 MG TAB NGT SCH (08:48)
--- NOTE | 2017-02-02 09:20 | CONS ---
Date/Time of Note Date/Time of Note DATE: 02/02/17 TIME: 09:18 Assessment/Plan Assessment/Plan Additional Assessment/Plan 1. Acute renal failure with stable renal fx, diuretics stopped yesterday and no need to resume today 2. Ventilator dependence 3. Hx dementia 4. DM Consultation Date/Type/Reason Admit Date/Time Jan 23, 2017 at 20:03 Initial Consult Date 01/25/17 Type of Consultation: renal Referring Provider: ONIEL MORROW MD 24 HR Interval Summary Subjective hx not possible: other (on vent) Exam/Review of Systems Vital Signs Vitals Vital Signs Date Time Temp Pulse Resp B/P Pulse Ox O2 Delivery O2 Flow Rate FiO2 02/02/17 08:24 86 26 97 30 02/02/17 07:00 122/67 02/02/17 04:00 Mechanical Ventilator 02/02/17 00:00 98.1 Intake and Output 02/01/17 02/01/17 02/02/17 15:00 23:00 07:00 Intake Total 420 ml 320 ml 580 ml Output Total 510 ml 455 ml 275 ml Balance -90 ml -135 ml 305 ml Exam Neck: No jvd Respiratory: clear to auscultation Cardiovascular: regular rate and rhythm Gastrointestinal: soft Extremities: No edema Results Result Diagram: 02/02/17 0520 02/02/17 0520 Results 24 hrs Laboratory Tests Test 02/01/17 11:09 02/01/17 17:04 02/01/17 22:07 02/02/17 02:32 Bedside Glucose 177 178 151 155 Test 02/02/17 05:20 02/02/17 07:32 White Blood Count 23.2 H Red Blood Count 3.73 L Hemoglobin 10.6 L Hematocrit 33.6 L Mean Corpuscular Volume 90.1 Mean Corpuscular Hemoglobin 28.4 L Mean Corpuscular Hemoglobin Concent 31.5 L Red Cell Distribution Width 15.9 H Platelet Count 183 Mean Platelet Volume 13.0 H Neutrophils % 88.9 H Lymphocytes % 3.6 L Monocytes % 4.2 Eosinophils % 0.3 Basophils % 0.2 Nucleated Red Blood Cells % 0.0 Neutrophils # 20.6 H Lymphocytes # 0.8 Monocytes # 1.0 H Eosinophils # 0.1 Basophils # 0.0 Nucleated Red Blood Cells # 0.0 Sodium Level 140 Potassium Level 3.7 Chloride Level 110 Carbon Dioxide Level 24 Anion Gap 10 Blood Urea Nitrogen 87 H Creatinine 2.27 H Glucose Level 195 Calcium Level 8.3 L Bedside Glucose 234 H Medications Medications Current Medications Acetaminophen (Tylenol Tab) 650 mg Q4H PRN PO PAIN AND OR ELEVATED TEMP; Start 01/24/17 at 11:00 Acetaminophen/ Hydrocodone Bitart ([place] (10/325)) 1 tab Q4H PRN PO PAIN; Start 01/24/17 at 11:00 Zolpidem Tartrate (Ambien) 10 mg HS PRN PO INSOMNIA; Start 01/24/17 at 11:00 Magnesium Hydroxide (Milk Of Mag) 30 ml DAILY PRN PO CONSTIPATION; Start at 11:00 Albuterol (Proventil 0.083% (Neb)) 1.25 mg Q4 PRN HHN SLEEP; Start 01/24/17 at 11:00 Diagnostic Test (Pha) (Accu-Chek) 1 ea 02 XX Last administered on 02/01/17 02: 42; Admin Dose 1 EA; Start 01/25/17 at 02:00 Miscellaneous Information 1 ea NOTE XX ; Start 01/24/17 at 12:00 Glucose (Glutose) 15 gm Q15M PRN PO DECREASED GLUCOSE; Start 01/24/17 at 12:00 Glucose (Glutose) 22.5 gm Q15M PRN PO DECREASED GLUCOSE; Start 01/24/17 at 12: 00 Dextrose (D50w Syringe) 25 ml Q15M PRN IV DECREASED GLUCOSE; Start 01/24/17 at 12:00 Dextrose (D50w Syringe) 50 ml Q15M PRN IV DECREASED GLUCOSE; Start 01/24/17 at 12:00 Glucagon (Glucagen) 1 mg Q15M PRN IM DECREASED GLUCOSE; Start 01/24/17 at 12:00 Glucose (Glutose) 15 gm Q15M PRN BUCCAL DECREASED GLUCOSE; Start 01/24/17 at 12 :00 Pantoprazole (Protonix Iv) 40 mg DAILY@06 IV Last administered on 02/02/17 05: 58; Admin Dose 40 MG; Start 01/25/17 at 06:00 Miscellaneous Information 1 ea NOTE XX ; Start 01/24/17 at 17:00 Glucose (Glutose) 15 gm Q15M PRN PO DECREASED GLUCOSE; Start 01/24/17 at 17:00 Glucose (Glutose) 22.5 gm Q15M PRN PO DECREASED GLUCOSE; Start 01/24/17 at 17: 00 Dextrose (D50w Syringe) 25 ml Q15M PRN IV DECREASED GLUCOSE; Start 01/24/17 at 17:00 Dextrose (D50w Syringe) 50 ml Q15M PRN IV DECREASED GLUCOSE; Start 01/24/17 at 17:00 Glucagon (Glucagen) 1 mg Q15M PRN IM DECREASED GLUCOSE; Start 01/24/17 at 17:00 Glucose (Glutose) 15 gm Q15M PRN BUCCAL DECREASED GLUCOSE; Start 01/24/17 at 17 :00 Aspirin 325 mg 325 mg DAILY NGT Last administered on 02/02/17 08:48; Admin Dose 325 MG; Start 01/25/17 at 17:00 Norepinephrine 16 mg/Dextrose 500 ml @ 1.87 mls/hr TITRATE IV Last administered on 01/26/17 09:18; Admin Dose 9.37 MLS/HR; Start 01/25/17 at 17:30 Aztreonam 0.5 gm/ Sodium Chloride 50 ml @ 100 mls/hr Q12 IV Last administered on 02/02/17 08:39; Admin Dose 100 MLS/HR; Start 01/25/17 at 21:00 Levofloxacin/ Dextrose (Levaquin 250 Mg/ D5W 50 ml (Pmx)) 50 ml @ 50 mls/hr Q24H IVPB Last administered on 02/01/17 16:19; Admin Dose 50 MLS/HR; Start at 16:00 Heparin Sodium (Porcine) (Heparin (5000 Units/0.5 ml)) 5,000 unit Q8 SC Last administered on 02/02/17 05:57; Admin Dose 5,000 UNIT; Start 01/30/17 at 22:00 Insulin Glargine 15 unit 15 unit DAILY@08 SC Last administered on 02/02/17 07: 38; Admin Dose 15 UNIT; Start 01/31/17 at 12:45 Vancomycin HCl (Vancocin) 250 ml @ 125 mls/hr Q36H IVPB Last administered on 01:22; Admin Dose 125 MLS/HR; Start 02/02/17 at 00:00 Alprazolam (Xanax) 1 mg Q4H PRN NGT ANXIETY; Start 01/31/17 at 23:30 Carvedilol (Coreg) 6.25 mg BID PO Last administered on 02/02/17 08:40; Admin Dose 6.25 MG; Start 02/01/17 at 10:00 Miscellaneous Information (Pending Santyl Order For Wound Care) This patient bowens... PRN PRN XX WOUND CARE; Start 02/01/17 at 16:00 Collagenase (Santyl) 1 applic DAILY TOP Last administered on 02/02/17 08:40; Admin Dose 1 APPLIC; Start 02/02/17 at 09:00 ENRIQUE GARNER MD Feb 02, 2017 09:20
--- NOTE | 2017-02-02 09:32 | CONS ---
Date/Time of Note Date/Time of Note DATE: 02/02/17 TIME: 09:30 Assessment/Plan Assessment/Plan Additional Assessment/Plan Ventilator settings; AC of 20, tidal volume 500, PEEP of 5, 35% FiO2. Assessment recommendations; 1. Patient admitted for respiratory failure due to pulmonary edema and bilateral pneumonia. There has been substantial radiological improvement. 2. Persistent leukocytosis, patient on broad-spectrum antibiotic coverage. 3. Chronic renal insufficiency. 4. Improved mental status. 5. Failure to be weaned off ventilator despite numerous attempts. Continue current supportive care. Obtain a chest x-ray. Another weaning trial will be attempted in 24 hours. The patient may need to have a tracheostomy performed. Consultation Date/Type/Reason Admit Date/Time Jan 23, 2017 at 20:03 Type of Consultation: Pulmonary/critical care Referring Provider: ONIEL MORROW MD 24 HR Interval Summary Free Text/Dictation Patient condition remains unchanged. Patient has been unable to be weaned off ventilator despite numerous stents. On CPAP mode patient becomes extremely tachypneic with respiratory rate going in the high 40s. With low spontaneous tidal volumes. General exam; elderly male, awake currently in no distress. Exam/Review of Systems Vital Signs Vitals Vital Signs Date Time Temp Pulse Resp B/P Pulse Ox O2 Delivery O2 Flow Rate FiO2 02/02/17 08:24 86 26 97 30 02/02/17 07:00 122/67 02/02/17 04:00 Mechanical Ventilator 02/02/17 00:00 98.1 Intake and Output 02/01/17 02/01/17 02/02/17 15:00 23:00 07:00 Intake Total 420 ml 320 ml 580 ml Output Total 510 ml 455 ml 275 ml Balance -90 ml -135 ml 305 ml Exam HEENT exam is; supple neck, no JVD. No lymphadenopathy. Midline trachea. Orally intubated. No neck masses. Next Chest examined; diminished but clear breath sounds. S1-S2 audible, no murmurs. Regular rhythm. Abdomen examination; soft, nondistended. No organomegaly. Bowel sounds audible. Extremity exam is; no peripheral edema. Pulses 1+ bilaterally. Patient has a multiple ecchymosis involving all 4 extremities. 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 Results Result Diagram: 02/02/1751902/02/17519 Results 24 hrs Laboratory Tests Test 02/01/17 11:09 02/01/17 17:04 02/01/17 22:07 02/02/17 02:32 Bedside Glucose 177 178 151 155 Test 02/02/17 05:20 02/02/17 07:32 White Blood Count 23.2 H Red Blood Count 3.73 L Hemoglobin 10.6 L Hematocrit 33.6 L Mean Corpuscular Volume 90.1 Mean Corpuscular Hemoglobin 28.4 L Mean Corpuscular Hemoglobin Concent 31.5 L Red Cell Distribution Width 15.9 H Platelet Count 183 Mean Platelet Volume 13.0 H Neutrophils % 88.9 H Lymphocytes % 3.6 L Monocytes % 4.2 Eosinophils % 0.3 Basophils % 0.2 Nucleated Red Blood Cells % 0.0 Neutrophils # 20.6 H Lymphocytes # 0.8 Monocytes # 1.0 H Eosinophils # 0.1 Basophils # 0.0 Nucleated Red Blood Cells # 0.0 Sodium Level 140 Potassium Level 3.7 Chloride Level 110 Carbon Dioxide Level 24 Anion Gap 10 Blood Urea Nitrogen 87 H Creatinine 2.27 H Glucose Level 195 Calcium Level 8.3 L Bedside Glucose 234 H Medications Medications Current Medications Acetaminophen (Tylenol Tab) 650 mg Q4H PRN PO PAIN AND OR ELEVATED TEMP; Start 01/24/17 at 11:00 Acetaminophen/ Hydrocodone Bitart ([place] (10/325)) 1 tab Q4H PRN PO PAIN; Start 01/24/17 at 11:00 Zolpidem Tartrate (Ambien) 10 mg HS PRN PO INSOMNIA; Start 01/24/17 at 11:00 Magnesium Hydroxide (Milk Of Mag) 30 ml DAILY PRN PO CONSTIPATION; Start at 11:00 Albuterol (Proventil 0.083% (Neb)) 1.25 mg Q4 PRN HHN SLEEP; Start 01/24/17 at 11:00 Diagnostic Test (Pha) (Accu-Chek) 1 ea 02 XX Last administered on 02/01/17t 02: 42; Admin Dose 1 EA; Start 01/25/17 at 02:00 Miscellaneous Information 1 ea NOTE XX ; Start 01/24/17 at 12:00 Glucose (Glutose) 15 gm Q15M PRN PO DECREASED GLUCOSE; Start 01/24/17 at 12:00 Glucose (Glutose) 22.5 gm Q15M PRN PO DECREASED GLUCOSE; Start 01/24/17 at 12: 00 Dextrose (D50w Syringe) 25 ml Q15M PRN IV DECREASED GLUCOSE; Start 01/24/17 at 12:00 Dextrose (D50w Syringe) 50 ml Q15M PRN IV DECREASED GLUCOSE; Start 01/24/17 at 12:00 Glucagon (Glucagen) 1 mg Q15M PRN IM DECREASED GLUCOSE; Start 01/24/17 at 12:00 Glucose (Glutose) 15 gm Q15M PRN BUCCAL DECREASED GLUCOSE; Start 01/24/17 at 12 :00 Pantoprazole (Protonix Iv) 40 mg DAILY@06 IV Last administered on 02/02/17 05: 58; Admin Dose 40 MG; Start 01/25/17 at 06:00 Miscellaneous Information 1 ea NOTE XX ; Start 01/24/17 at 17:00 Glucose (Glutose) 15 gm Q15M PRN PO DECREASED GLUCOSE; Start 01/24/17 at 17:00 Glucose (Glutose) 22.5 gm Q15M PRN PO DECREASED GLUCOSE; Start 01/24/17 at 17: 00 Dextrose (D50w Syringe) 25 ml Q15M PRN IV DECREASED GLUCOSE; Start 01/24/17 at 17:00 Dextrose (D50w Syringe) 50 ml Q15M PRN IV DECREASED GLUCOSE; Start 01/24/17 at 17:00 Glucagon (Glucagen) 1 mg Q15M PRN IM DECREASED GLUCOSE; Start 01/24/17 at 17:00 Glucose (Glutose) 15 gm Q15M PRN BUCCAL DECREASED GLUCOSE; Start 01/24/17 at 17 :00 Aspirin 325 mg 325 mg DAILY NGT Last administered on 02/02/17 08:48; Admin Dose 325 MG; Start 01/25/17 at 17:00 Norepinephrine 16 mg/Dextrose 500 ml @ 1.87 mls/hr TITRATE IV Last administered on 01/26/17 09:18; Admin Dose 9.37 MLS/HR; Start 01/25/17 at 17:30 Aztreonam 0.5 gm/ Sodium Chloride 50 ml @ 100 mls/hr Q12 IV Last administered on 02/02/17 08:39; Admin Dose 100 MLS/HR; Start 01/25/17 at 21:00 Levofloxacin/ Dextrose (Levaquin 250 Mg/ D5W 50 ml (Pmx)) 50 ml @ 50 mls/hr Q24H IVPB Last administered on 02/01/17 16:19; Admin Dose 50 MLS/HR; Start at 16:00 Heparin Sodium (Porcine) (Heparin (5000 Units/0.5 ml)) 5,000 unit Q8 SC Last administered on 02/02/17 05:57; Admin Dose 5,000 UNIT; Start 01/30/17 at 22:00 Insulin Glargine 15 unit 15 unit DAILY@08 SC Last administered on 02/02/17 07: 38; Admin Dose 15 UNIT; Start 01/31/17 at 12:45 Vancomycin HCl (Vancocin) 250 ml @ 125 mls/hr Q36H IVPB Last administered on 01:22; Admin Dose 125 MLS/HR; Start 02/02/17 at 00:00 Alprazolam (Xanax) 1 mg Q4H PRN NGT ANXIETY; Start 01/31/17 at 23:30 Carvedilol (Coreg) 6.25 mg BID PO Last administered on 02/02/17 08:40; Admin Dose 6.25 MG; Start 02/01/17 at 10:00 Miscellaneous Information (Pending Santyl Order For Wound Care) This patient bowens... PRN PRN XX WOUND CARE; Start 02/01/17 at 16:00 Collagenase (Santyl) 1 applic DAILY TOP Last administered on 02/02/17 08:40; Admin Dose 1 APPLIC; Start 02/02/17 at 09:00 ULISES MCKAY Feb 02, 2017 09:32
[2017-02-02] MEDS: LEVOFLOXACIN 250MG/D5W (PMX) 50 ML IVPB SCH (15:33)
--- NOTE | 2017-02-02 17:14 | RADRPT ---
Vent Rate: 90 bpm RR Interval: 0 msec MN Interval: 0 msec QRS Duration: 96 msec QT Interval: 328 msec QTC Interval: 401 msec P-R-T [place]: 0 - -33 - 78 degrees Atrial fibrillation Left axis deviation Low voltage QRS Nonspecific T wave abnormality , probably digitalis effect Abnormal ECG Electronically Signed By: Yang Nguyễn [id number]
[2017-02-03] VITALS (40 sets, daily range): BP systolic 85–136; BP diastolic 52–101; PULSE 69–115; RESP 19–47
--- NOTE | 2017-02-03 01:04 | PN ---
DATE: 02/02/2017 SUBJECTIVE: The patient is still intubated. Numerous attempts at extubation have failed; when the patient is withdrawn from artificial respiration, his respiratory rate goes up as high as 40 with lo w tidal volumes. The patient also is in chronic acute versus acute superimposed on chronic renal fa ilure. The diuretics have been discontinued at this time because it was felt they were no longer ne cessary. Despite the renal failure, the patient was not oliguric. OBJECTIVE: HEART: Irregular irregularity. CHEST: Clear to A and P. ABDOMEN: Liver, kidneys, spleen are not palpable. Bowel sounds are normal. There are no intraabdo madi masses or bruits. EXTREMITIES: There is 1+ dorsal pedal and pretibial edema bilaterally. NEUROLOGIC: Patient is not responsive to verbal command, such as "blink an eye or open an eye," and is still intubated. VITAL SIGNS: Blood pressure varies from 94/68-125/73, pulse varies from 72-100, respiratory rate va tonia from 20-33, pulse ox is 97% with PO2 of 30. I's and O's: Intake 1020 mL, output 1240 mL. DIAGNOSTICS: WBC 23,200, hemoglobin 10.6, hematocrit 33.6%, platelet count is normal at 183,000. E lectrolytes: Sodium 140, potassium 3.7, chloride 110, carbon dioxide 24, BUN 87, creatinine 2.27, g lucose 195, calcium 8.3 uncorrected. Urine culture preliminary: Revealed Enterococcus species. est x-ray performed yesterday, 02/01/2017: Revealed increased perihilar and bibasilar opacities due to worsening edema and/or infiltrates, stable obscuration of the left hemidiaphragm due to atelecta sis, infiltrate, and/or effusion. The patient's condition remains critical. His prognosis remains extremely guarded. Dictated By: ONIEL BYNUM/SHELLY Conf#: [id number] DID#: [id number]
[2017-02-03] MEDS: ALBUTEROL 18 GM INHALER INH SCH ×2 (01:09→08:03)
[2017-02-03] MEDS: ACCU-CHEK XX SCH (02:30)
[2017-02-03] MEDS: HEPARIN 5,000 UNIT/0.5 ML VIAL SC SCH ×3 (05:37→21:12)
[2017-02-03] MEDS: INSULIN ASPART [NOVOLOG] 3 ML PEN SC SCH ×4 (05:43→21:00)
[2017-02-03] MEDS: PANTOPRAZOLE 40 MG INJ IV SCH (05:44)
[2017-02-03 06:07] LABS: ADD SCAN DIFF NO
[2017-02-03 06:26] LABS: ABNORMAL IP MESSAGE 1; BASOPHILS % 0.2 % (0.0-2.0); EOSINOPHILS # 0.1 10^3/ul (0.0-0.5); EOSINOPHILS % 0.6 % (0.0-7.0); HEMATOCRIT 33.2 % (42.0-52.0); HEMOGLOBIN 10.5 g/dl (14.0-18.0); LYMPHOCYTES # 0.7 10^3/ul (0.8-2.9); LYMPHOCYTES % 3.9 % (15.0-51.0); MEAN CORPUSCULAR HEMOGLOBIN 28.1 pg (29.0-33.0); MEAN CORPUSCULAR HGB CONC 31.6 g/dl (32.0-37.0); MEAN CORPUSCULAR VOLUME 88.8 fl (82.0-101.0); MEAN PLATELET VOLUME 13.5 fl (7.4-10.4); MONOCYTE # 0.8 10^3/ul (0.3-0.9); NEUTROPHIL # 16.9 10^3/ul (1.6-7.5); NEUTROPHILS % 89.3 % (39.0-77.0); PLATELET COUNT 176 10^3/UL (140-415); RED BLOOD COUNT 3.74 10^6/ul (4.70-6.10); RED CELL DISTRIBUTION WIDTH 16.2 % (11.5-14.5); WHITE BLOOD COUNT 18.9 10^3/ul (4.8-10.8)
[2017-02-03 06:36] LABS: POTASSIUM 3.6 mmol/L (3.5-5.1)
[2017-02-03 06:38] LABS: CREATININE 2.27 mg/dl (0.61-1.24)
[2017-02-03 06:39] LABS: CALCIUM 8.3 mg/dl (8.4-10.2); MAGNESIUM 2.5 mg/dl (1.7-2.5); PHOSPHORUS 4.8 mg/dl (2.5-4.9)
[2017-02-03] MEDS: ASPIRIN 325 MG TAB NGT SCH (08:16)
[2017-02-03] MEDS: AZTREONAM 0.5 GM in SOD CHLORIDE 0.9% 50 ML IV SCH ×2 (08:17→21:05)
[2017-02-03] MEDS: INSULIN GLARGINE [LANtus] 3 ML PEN SC SCH (08:20)
--- NOTE | 2017-02-03 08:56 | RADRPT ---
PROCEDURE: XR Chest. CLINICAL INDICATION: Respiratory failure TECHNIQUE: Single frontal chest x-ray. COMPARISON: 02/01/2017 FINDINGS: ET tube and NG tube remain in satisfactory position. Left subclavian single lead AICD device is in place. Symmetric perihilar and bibasilar patchy opacities are again noted. There is small left ple ural effusion. The heart is not enlarged. There is aortic atherosclerosis. There is no pneumothor ax. The osseous structures are intact. IMPRESSION: 1. No change in bibasilar/symmetric perihilar opacities. 2. Small left pleural effusion. 3. Tubes and lines and supporting devices are stable. RPTAT: BB .Charmaine Segura MD, MD Date Time Electronically viewed and signed by .Charmaine Segura MD, on 02/03/2017 08:56 .O/
--- NOTE | 2017-02-03 09:17 | CONS ---
Date/Time of Note Date/Time of Note DATE: 02/03/17 TIME: 09:16 Assessment/Plan Assessment/Plan Additional Assessment/Plan 1. Acute renal failure with stable renal fx 3. Hx dementia 4. DM Consultation Date/Type/Reason Admit Date/Time Jan 23, 2017 at 20:03 Initial Consult Date 01/25/17 Type of Consultation: Pulmonary/critical care Referring Provider: ONIEL MORROW MD 24 HR Interval Summary Subjective hx not possible: other (no purposeful response to commands) Exam/Review of Systems Vital Signs Vitals Vital Signs Date Time Temp Pulse Resp B/P Pulse Ox O2 Delivery O2 Flow Rate FiO2 02/03/17 08:04 88 26 95 30 02/03/17 07:30 97.8 02/03/17 07:00 110/72 02/02/17 20:00 Mechanical Ventilator Intake and Output 02/02/17 02/02/17 02/03/17 15:00 23:00 07:00 Intake Total 370 ml 370 ml 520 ml Output Total 335 ml 405 ml 385 ml Balance 35 ml -35 ml 135 ml Exam Neck: No jvd Respiratory: clear to auscultation Cardiovascular: regular rate and rhythm Gastrointestinal: soft Extremities: No edema (of lower extrem) Results Result Diagram: 02/03/17 0520 02/03/17 0520 Results 24 hrs Laboratory Tests Test 02/02/17 11:54 02/02/17 17:13 02/02/17 21:40 02/03/17 05:20 Bedside Glucose 188 178 179 White Blood Count 18.9 H Red Blood Count 3.74 L Hemoglobin 10.5 L Hematocrit 33.2 L Mean Corpuscular Volume 88.8 Mean Corpuscular Hemoglobin 28.1 L Mean Corpuscular Hemoglobin Concent 31.6 L Red Cell Distribution Width 16.2 H Platelet Count 176 Mean Platelet Volume 13.5 H Neutrophils % 89.3 H Lymphocytes % 3.9 L Monocytes % 4.0 Eosinophils % 0.6 Basophils % 0.2 Nucleated Red Blood Cells % 0.0 Neutrophils # 16.9 H Lymphocytes # 0.7 L Monocytes # 0.8 Eosinophils # 0.1 Basophils # 0.0 Nucleated Red Blood Cells # 0.0 Sodium Level 144 Potassium Level 3.6 Chloride Level 108 Carbon Dioxide Level 25 Anion Gap 15 Blood Urea Nitrogen 95 H Creatinine 2.27 H Glucose Level 209 Calcium Level 8.3 L Phosphorus Level 4.8 Magnesium Level 2.5 Test 02/03/17 05:30 Bedside Glucose 205 Medications Medications Current Medications Acetaminophen (Tylenol Tab) 650 mg Q4H PRN PO PAIN AND OR ELEVATED TEMP; Start 01/24/17 at 11:00 Acetaminophen/ Hydrocodone Bitart ([place] (10/325)) 1 tab Q4H PRN PO PAIN; Start 01/24/17 at 11:00 Zolpidem Tartrate (Ambien) 10 mg HS PRN PO INSOMNIA; Start 01/24/17 at 11:00 Magnesium Hydroxide (Milk Of Mag) 30 ml DAILY PRN PO CONSTIPATION; Start at 11:00 Albuterol (Proventil 0.083% (Neb)) 1.25 mg Q4 PRN HHN SLEEP; Start 01/24/17 at 11:00 Diagnostic Test (Pha) (Accu-Chek) 1 ea 02 XX Last administered on 02/03/17 02: 30; Admin Dose 1 EA; Start 01/25/17 at 02:00 Miscellaneous Information 1 ea NOTE XX ; Start 01/24/17 at 12:00 Glucose (Glutose) 15 gm Q15M PRN PO DECREASED GLUCOSE; Start 01/24/17 at 12:00 Glucose (Glutose) 22.5 gm Q15M PRN PO DECREASED GLUCOSE; Start 01/24/17 at 12: 00 Dextrose (D50w Syringe) 25 ml Q15M PRN IV DECREASED GLUCOSE; Start 01/24/17 at 12:00 Dextrose (D50w Syringe) 50 ml Q15M PRN IV DECREASED GLUCOSE; Start 01/24/17 at 12:00 Glucagon (Glucagen) 1 mg Q15M PRN IM DECREASED GLUCOSE; Start 01/24/17 at 12:00 Glucose (Glutose) 15 gm Q15M PRN BUCCAL DECREASED GLUCOSE; Start 01/24/17 at 12 :00 Pantoprazole (Protonix Iv) 40 mg DAILY@06 IV Last administered on 02/03/17 05: 44; Admin Dose 40 MG; Start 01/25/17 at 06:00 Miscellaneous Information 1 ea NOTE XX ; Start 01/24/17 at 17:00 Glucose (Glutose) 15 gm Q15M PRN PO DECREASED GLUCOSE; Start 01/24/17 at 17:00 Glucose (Glutose) 22.5 gm Q15M PRN PO DECREASED GLUCOSE; Start 01/24/17 at 17: 00 Dextrose (D50w Syringe) 25 ml Q15M PRN IV DECREASED GLUCOSE; Start 01/24/17 at 17:00 Dextrose (D50w Syringe) 50 ml Q15M PRN IV DECREASED GLUCOSE; Start 01/24/17 at 17:00 Glucagon (Glucagen) 1 mg Q15M PRN IM DECREASED GLUCOSE; Start 01/24/17 at 17:00 Glucose (Glutose) 15 gm Q15M PRN BUCCAL DECREASED GLUCOSE; Start 01/24/17 at 17 :00 Aspirin 325 mg 325 mg DAILY NGT Last administered on 02/03/17 08:16; Admin Dose 325 MG; Start 01/25/17 at 17:00 Norepinephrine 16 mg/Dextrose 500 ml @ 1.87 mls/hr TITRATE IV Last administered on 01/26/17 09:18; Admin Dose 9.37 MLS/HR; Start 01/25/17 at 17:30 Aztreonam 0.5 gm/ Sodium Chloride 50 ml @ 100 mls/hr Q12 IV Last administered on 02/03/17 08:17; Admin Dose 100 MLS/HR; Start 01/25/17 at 21:00 Levofloxacin/ Dextrose (Levaquin 250 Mg/ D5W 50 ml (Pmx)) 50 ml @ 50 mls/hr Q24H IVPB Last administered on 02/02/17 15:33; Admin Dose 50 MLS/HR; Start at 16:00 Heparin Sodium (Porcine) 5000 unit 5,000 unit Q8 SC Last administered on 05:37; Admin Dose 5,000 UNIT; Start 01/30/17 at 22:00 Vancomycin HCl (Vancocin) 250 ml @ 125 mls/hr Q36H IVPB Last administered on 01:22; Admin Dose 125 MLS/HR; Start 02/02/17 at 00:00 Alprazolam (Xanax) 1 mg Q4H PRN NGT ANXIETY; Start 01/31/17 at 23:30 Carvedilol (Coreg) 6.25 mg BID PO Last administered on 02/03/17 08:17; Admin Dose 6.25 MG; Start 02/01/17 at 10:00 Miscellaneous Information (Pending Santyl Order For Wound Care) This patient bowens... PRN PRN XX WOUND CARE; Start 02/01/17 at 16:00 Collagenase (Santyl) 1 applic DAILY TOP Last administered on 02/02/17 08:40; Admin Dose 1 APPLIC; Start 02/02/17 at 09:00 Insulin Glargine (Lantus) 19 unit DAILY@08 SC Last administered on 02/03/17 08 :20; Admin Dose 19 UNIT; Start 02/03/17 at 08:00 Miscellaneous Information (*Rx Drug Level Order Reminder*) VANCO TR LEVEL PRIOR... ONCE ONCE XX ; Start 02/03/17 at 11:00; Stop 02/03/17 at 11:01 ENRIQUE GARNER MD Feb 03, 2017 09:17
--- NOTE | 2017-02-03 09:59 | CONS ---
Date/Time of Note Date/Time of Note DATE: 02/03/17 TIME: 09:50 Assessment/Plan Assessment/Plan Additional Assessment/Plan Chest x-ray was reviewed from today which is essentially clear. Endotracheal tube is at an adequate level. There is a pacemaker in the left chest wall. Ventilator settings; AC of 20, tidal volume 500, PEEP of 5, 30% FiO2. Assessment recommendations; 1. Patient admitted for pneumonia and pulmonary edema with marked radiological improvement. 2. Prior history of coronary artery disease, status post bypass surgery in the past. 3. History of cardiac arrhythmia, status post pacemaker implantation in the past. 4. Patient likely has significant anxiety once on CPAP mode currently has no obvious reason to remain on ventilator. Patient does become tachypneic after a while on CPAP mode likely from anxiety as well as endotracheal tube irritation. Patient would warrant an extubation trial. Because of underlying anxiety as well as possibility of endotracheal tube irritation it is difficult to assess him on CPAP mode. Next Meanwhile continue current supportive care. 35 minutes of critical care time was spent evaluating the patient. Consultation Date/Type/Reason Admit Date/Time Jan 23, 2017 at 20:03 Type of Consultation: Pulmonary/critical care Referring Provider: ONIEL MORROW MD 24 HR Interval Summary Free Text/Dictation Patient condition remains critical but the patient has remained hemodynamically stable. Remains completely awake alert. General exam; elderly male, on ventilator, orally intubated. Awake and alert follows commands. He denies any shortness of breath. Exam/Review of Systems Vital Signs Vitals Vital Signs Date Time Temp Pulse Resp B/P Pulse Ox O2 Delivery O2 Flow Rate FiO2 02/03/17 08:04 88 26 95 30 02/03/17 07:30 97.8 02/03/17 07:00 110/72 02/02/17 20:00 Mechanical Ventilator Intake and Output 02/02/17 02/02/17 02/03/17 15:00 23:00 07:00 Intake Total 370 ml 370 ml 520 ml Output Total 335 ml 405 ml 385 ml Balance 35 ml -35 ml 135 ml Exam HEENT exam is; supple neck, no JVD. No lymphadenopathy. Midline trachea. No thyromegaly. Patient has bilateral surgical pupils. Has few remaining teeth which all appear quite carious. Orally intubated. Chest examination; clear to auscultation. S1-S2 audible, no murmurs. Regular rhythm. There is a well-healed sternal scar. Abdomen examination; soft, no organomegaly. Nontender. No distention. Bowel sounds audible. Extremity exam is; trace edema involving upper extremities bilaterally. There are ecchymosis involving all 4 extremities. [employer]ESPERSON [employer]SE[employer]OLD [employer]PLIANCES examination; patient is awake, alert, follows commands, moves all 4 extremities. Results Result Diagram: 02/03/17 0520 02/03/17 0520 Results 24 hrs Laboratory Tests Test 02/02/17 11:54 02/02/17 17:13 02/02/17 21:40 02/03/17 05:20 Bedside Glucose 188 178 179 White Blood Count 18.9 H Red Blood Count 3.74 L Hemoglobin 10.5 L Hematocrit 33.2 L Mean Corpuscular Volume 88.8 Mean Corpuscular Hemoglobin 28.1 L Mean Corpuscular Hemoglobin Concent 31.6 L Red Cell Distribution Width 16.2 H Platelet Count 176 Mean Platelet Volume 13.5 H Neutrophils % 89.3 H Lymphocytes % 3.9 L Monocytes % 4.0 Eosinophils % 0.6 Basophils % 0.2 Nucleated Red Blood Cells % 0.0 Neutrophils # 16.9 H Lymphocytes # 0.7 L Monocytes # 0.8 Eosinophils # 0.1 Basophils # 0.0 Nucleated Red Blood Cells # 0.0 Sodium Level 144 Potassium Level 3.6 Chloride Level 108 Carbon Dioxide Level 25 Anion Gap 15 Blood Urea Nitrogen 95 H Creatinine 2.27 H Glucose Level 209 Calcium Level 8.3 L Phosphorus Level 4.8 Magnesium Level 2.5 Test 02/03/17 05:30 Bedside Glucose 205 Medications Medications Current Medications Acetaminophen (Tylenol Tab) 650 mg Q4H PRN PO PAIN AND OR ELEVATED TEMP; Start 01/24/17 at 11:00 Acetaminophen/ Hydrocodone Bitart ([place] (10/325)) 1 tab Q4H PRN PO PAIN; Start 01/24/17 at 11:00 Zolpidem Tartrate (Ambien) 10 mg HS PRN PO INSOMNIA; Start 01/24/17 at 11:00 Magnesium Hydroxide (Milk Of Mag) 30 ml DAILY PRN PO CONSTIPATION; Start at 11:00 Albuterol (Proventil 0.083% (Neb)) 1.25 mg Q4 PRN HHN SLEEP; Start 01/24/17 at 11:00 Diagnostic Test (Pha) (Accu-Chek) 1 ea 02 XX Last administered on 02/03/17 02: 30; Admin Dose 1 EA; Start 01/25/17 at 02:00 Miscellaneous Information 1 ea NOTE XX ; Start 01/24/17 at 12:00 Glucose (Glutose) 15 gm Q15M PRN PO DECREASED GLUCOSE; Start 01/24/17 at 12:00 Glucose (Glutose) 22.5 gm Q15M PRN PO DECREASED GLUCOSE; Start 01/24/17 at 12: 00 Dextrose (D50w Syringe) 25 ml Q15M PRN IV DECREASED GLUCOSE; Start 01/24/17 at 12:00 Dextrose (D50w Syringe) 50 ml Q15M PRN IV DECREASED GLUCOSE; Start 01/24/17 at 12:00 Glucagon (Glucagen) 1 mg Q15M PRN IM DECREASED GLUCOSE; Start 01/24/17 at 12:00 Glucose (Glutose) 15 gm Q15M PRN BUCCAL DECREASED GLUCOSE; Start 01/24/17 at 12 :00 Pantoprazole (Protonix Iv) 40 mg DAILY@06 IV Last administered on 02/03/17 05: 44; Admin Dose 40 MG; Start 01/25/17 at 06:00 Miscellaneous Information 1 ea NOTE XX ; Start 01/24/17 at 17:00 Glucose (Glutose) 15 gm Q15M PRN PO DECREASED GLUCOSE; Start 01/24/17 at 17:00 Glucose (Glutose) 22.5 gm Q15M PRN PO DECREASED GLUCOSE; Start 01/24/17 at 17: 00 Dextrose (D50w Syringe) 25 ml Q15M PRN IV DECREASED GLUCOSE; Start 01/24/17 at 17:00 Dextrose (D50w Syringe) 50 ml Q15M PRN IV DECREASED GLUCOSE; Start 01/24/17 at 17:00 Glucagon (Glucagen) 1 mg Q15M PRN IM DECREASED GLUCOSE; Start 01/24/17 at 17:00 Glucose (Glutose) 15 gm Q15M PRN BUCCAL DECREASED GLUCOSE; Start 01/24/17 at 17 :00 Aspirin 325 mg 325 mg DAILY NGT Last administered on 02/03/17 08:16; Admin Dose 325 MG; Start 01/25/17 at 17:00 Norepinephrine 16 mg/Dextrose 500 ml @ 1.87 mls/hr TITRATE IV Last administered on 01/26/17 09:18; Admin Dose 9.37 MLS/HR; Start 01/25/17 at 17:30 Aztreonam 0.5 gm/ Sodium Chloride 50 ml @ 100 mls/hr Q12 IV Last administered on 02/03/17 08:17; Admin Dose 100 MLS/HR; Start 01/25/17 at 21:00 Levofloxacin/ Dextrose (Levaquin 250 Mg/ D5W 50 ml (Pmx)) 50 ml @ 50 mls/hr Q24H IVPB Last administered on 02/02/17 15:33; Admin Dose 50 MLS/HR; Start at 16:00 Heparin Sodium (Porcine) 5000 unit 5,000 unit Q8 SC Last administered on 05:37; Admin Dose 5,000 UNIT; Start 01/30/17 at 22:00 Vancomycin HCl (Vancocin) 250 ml @ 125 mls/hr Q36H IVPB Last administered on 01:22; Admin Dose 125 MLS/HR; Start 02/02/17 at 00:00 Alprazolam (Xanax) 1 mg Q4H PRN NGT ANXIETY; Start 01/31/17 at 23:30 Carvedilol (Coreg) 6.25 mg BID PO Last administered on 02/03/17 08:17; Admin Dose 6.25 MG; Start 02/01/17 at 10:00 Miscellaneous Information (Pending Santyl Order For Wound Care) This patient bowens... PRN PRN XX WOUND CARE; Start 02/01/17 at 16:00 Collagenase (Santyl) 1 applic DAILY TOP Last administered on 02/02/17 08:40; Admin Dose 1 APPLIC; Start 02/02/17 at 09:00 Insulin Glargine (Lantus) 19 unit DAILY@08 SC Last administered on 02/03/17 08 :20; Admin Dose 19 UNIT; Start 02/03/17 at 08:00 Miscellaneous Information (*Rx Drug Level Order Reminder*) VANCO TR LEVEL PRIOR... ONCE ONCE XX ; Start 02/03/17 at 11:00; Stop 02/03/17 at 11:01 ULISES MCKAY Feb 03, 2017 09:59
[2017-02-03 10:56] LABS: AADO2 Arterial 330.2 mmHg (7.0-24.0); Allen Test ACCEPTAB; Arterial Base Excess -0.2 mmol/L (-3.0-3); Arterial COHb 0.3 % (0.0-3.0); Arterial Fraction of Oxyhgb 91.5 % (93.0-99.0); Arterial HCO3 23.9 mmol/L (22.0-26.0); Arterial MetHb 0.4 % (0.0-1.5); Arterial Total Hemglobin 11.8 g/dl (12.0-18.0); MODE MASK - SIMPLE
--- NOTE | 2017-02-03 12:02 | CONS ---
DATE OF ADMISSION: 01/23/2017 DATE OF CONSULTATION: 02/03/2017 REFERRING PHYSICIAN: Dr. Zhen Castellanos. HISTORY OF PRESENT ILLNESS: This is an 86-year-old gentleman who is in the intensive care unit at [facility] in respiratory failure. He is intubated at this time. He has a history of aspiration pneumonitis, pulmonary edema, underlying baseline dementia according to medical recor ds. The patient is unable to give any story he is on a ventilator and there are no family members a vailable at this time. My understanding is that the patient's is on the rehabilitation wells at this hospital. I will try and make contact with her. Patient was seen on 01/23/2017. He has mult iple comorbid major medical problems including peripheral vascular disease, type 2 diabetes, history of angina, trans____ circulatory vascular disease, moderate , hypertension and very significantly dementia, unknown type. He remains in ICU and has not had any major improvement in his overall cli nical conditions from what I can ascertain from his chart. He has been seen by multiple different c onsultants. He is a FULL CODE. Reason for consultation is to speak to patient's concerning nabeel oing level of care and the patient's code status. Reviewing the latest notes from Dr. Cristopher Barrientos son is that patient has failed numerous trials of extubation and remains in this moribund clinical c ondition. Reading notes from consultants over the last two days prior to this note still being treated for a b ilateral pneumonitis and pulmonary edema, and, once again has failed trials of extubation. It is my understanding the patient's has been here to see him within the last 24 hours. PLAN: Plan at this point, is to speak to his . I will try to visit her today in rehabilitation if the director of the rehabilitation wells is in agreement with that and speak to her about ongoing level of care. Next, ____ will be patients' and I will speak to her about any other family mem bers that she would like to have been present. Issues also our current understanding of his underlying critical medical condition and what is accep table quality of life for her as patient from looking over medical records, is now approaching a wilman e where physicians will speak to her about PEG and trach. Her fears, her strength, culturing issues will be addressed making sure that she received all of the communication that she needs from the [facility] providers. PHYSICAL EXAMINATION: GENERAL: Shows an ill-appearing, elderly gentleman who is not responding to any simple commands on my part. He does track me. VITAL SIGNS: Blood pressure 110/72, pulse of 96 and regular, respirations of 24, and 30% FIO2 on 10 liters, intubated. ASSESSMENT: Goals of care will be discussed with patient's . Estimated prognosis is to be dete rmined, but appears to be extremely poor. I reviewed the patient's chart insofar, as his pain contr ol, if there are any issues. He is receiving as needed doses of Percocet, presumably through his NG tube to be determined in more detail. I will address ethical issues. Most importantly, I will dres s the code status with the patient's at this time. Dictated By: SAIDA LUCIO MD, LP/SHELLY Conf#: [id number] DID#: [id number]
[2017-02-03] MEDS: ALBUTEROL 0.083% (NEB) 2.5 MG/3 ML AMP HHN SCH ×3 (12:25→20:07)
[2017-02-03] MEDS: COLLAGENASE 30 GM TUBE TOP SCH (15:30)
[2017-02-03] MEDS: LEVOFLOXACIN 250MG/D5W (PMX) 50 ML IVPB SCH (15:54)
[2017-02-03] MEDS: VANCOMYCIN 1.25 GM in SOD CHLORIDE 0.9% 250 ML IVPB SCH (15:56)
--- NOTE | 2017-02-03 23:37 | CONS ---
Date/Time of Note Date/Time of Note DATE: 02/03/17 TIME: 23:30 Assessment/Plan Assessment/Plan Chief Complaint/Hosp Course Impression: - respiratory failure- requiring intubation and difficulty weaning. pulmonary managing. 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 pt poor candidate for invasive evaluation. no e/o of ongoing ischemia. - presented with dementia with worsening mental status, now intubated. pt alert but unable to wean off vent. - NSTEMI- trop peaked at 10.0, also with h/o of ATN, ALI at time of event. c/w either hypotensive vs hypoxemic event. now resolved. may need risk stratification depending on clinical course. - multi vessel CAD- now with NSTEMI, will recommend await clinic improvement and reassess. - atrial fibrillation- rate controlled - NSVT s/p ICD placement nl fxn last checked 01/2017. no sustained VT thi admit - mild to moderate - h/o HTN - h/o DM2 - PANCHO- cr stable/improving but significant uremia Recommendations - cont asa/statin - cont coreg to 6.25mg po bid - hold off on acei until bp stable for sig period of time and renal fxn improve - on bumex to keep even to negative - watch uremia, renal consulting will follow Problems: Consultation Date/Type/Reason Admit Date/Time Jan 23, 2017 at 20:03 Initial Consult Date 01/25/17 Type of Consultation: cardiology Referring Provider: ONIEL MORROW MD 24 HR Interval Summary Free Text/Dictation no acute events. pt seen early this am. remains awake, alert, but not following commands. remains intubated, failed weaning trials. tele reviewed: afib hrs 80s-100s. had 11 beat nsvt his am. no recurrence Subjective hx not possible: pt non-verbal, pt critical status Exam/Review of Systems Vital Signs Vitals Vital Signs Date Time Temp Pulse Resp B/P Pulse Ox O2 Delivery O2 Flow Rate FiO2 02/03/17 23:13 97.7 100 28 105/89 97 02/03/17 20:07 10.0 02/03/17 20:07 Simple Mask 02/03/17 08:04 30 Intake and Output 02/02/17 02/02/17 02/03/17 15:00 23:00 07:00 Intake Total 370 ml 370 ml 520 ml Output Total 335 ml 405 ml 385 ml Balance 35 ml -35 ml 135 ml Exam Constitutional: alert, No oriented Psych: other (unabel to assess) Head: atraumatic, normocephalic Eyes: nl sclera ENMT: mucosa pink and moist Neck: non-tender, supple, No jvd Respiratory: clear to auscultation, normal air movement Cardiovascular: irregular rhythm, nl pulses, other (distant hs), No S3, No S4 Gastrointestinal: non-tender, soft Musculoskeletal: nl extremities to inspection Extremities: normal pulses Results Result Diagram: 02/03/1751902/03/17 0520 Results 24 hrs Laboratory Tests Test 02/03/17 05:20 02/03/17 05:30 02/03/17 10:35 02/03/17 11:25 White Blood Count 18.9 H Red Blood Count 3.74 L Hemoglobin 10.5 L Hematocrit 33.2 L Mean Corpuscular Volume 88.8 Mean Corpuscular Hemoglobin 28.1 L Mean Corpuscular Hemoglobin Concent 31.6 L Red Cell Distribution Width 16.2 H Platelet Count 176 Mean Platelet Volume 13.5 H Neutrophils % 89.3 H Lymphocytes % 3.9 L Monocytes % 4.0 Eosinophils % 0.6 Basophils % 0.2 Nucleated Red Blood Cells % 0.0 Neutrophils # 16.9 H Lymphocytes # 0.7 L Monocytes # 0.8 Eosinophils # 0.1 Basophils # 0.0 Nucleated Red Blood Cells # 0.0 Sodium Level 144 Potassium Level 3.6 Chloride Level 108 Carbon Dioxide Level 25 Anion Gap 15 Blood Urea Nitrogen 95 H Creatinine 2.27 H Glucose Level 209 Calcium Level 8.3 L Phosphorus Level 4.8 Magnesium Level 2.5 Bedside Glucose 205 Blood Gas Specimen Source Blood arterial Arterial Blood Date Drawn 02/03/2017 10:40:13 AM Arterial Blood pH (Temp corrected) 7.428 Arterial Blood pCO2 (Temp correct) 37.0 Arterial Blood pO2 (Temp corrected) 64.1 L Arterial Blood HCO3 23.9 Arterial Blood Base Excess -0.2 Arterial Blood Oxygen Saturation 92.1 L Zacarias Test ACCEPTAB Arterial Blood Gas Puncture Site Right Radial Arterial Blood Carboxyhemoglobin 0.3 Arterial Blood Methemoglobin 0.4 Blood Gas A-a O2 Differential 330.2 H Oxyhemoglobin Percent 91.5 L Total Hemoglobin 11.8 L Blood Gas Temperature 37.0 Blood Gas Modality MASK - SIMPLE FiO2 61.0 Blood Gas Notified Whom JLD Blood Gas Notified Time 02/03/2017 10:55:53 AM Vancomycin Level Trough 10.0 Test 02/03/17 13:02 02/03/17 17:03 02/03/17 20:59 Bedside Glucose 172 107 92 Medications Medications Current Medications Acetaminophen (Tylenol Tab) 650 mg Q4H PRN PO PAIN AND OR ELEVATED TEMP; Start 01/24/17 at 11:00 Acetaminophen/ Hydrocodone Bitart ([place] (10325)) 1 tab Q4H PRN PO PAIN; Start 01/24/17 at 11:00 Zolpidem Tartrate (Ambien) 10 mg HS PRN PO INSOMNIA; Start 01/24/17 at 11:00 Magnesium Hydroxide (Milk Of Mag) 30 ml DAILY PRN PO CONSTIPATION; Start at 11:00 Albuterol (Proventil 0.083% (Neb)) 1.25 mg Q4 PRN HHN SLEEP Last administered on 02/03/17 10:07; Admin Dose 1.25 MG; Start 01/24/17 at 11:00 Diagnostic Test (Pha) (Accu-Chek) 1 ea 02 XX Last administered on 02/03/17 02: 30; Admin Dose 1 EA; Start 01/25/17 at 02:00 Miscellaneous Information 1 ea NOTE XX ; Start 01/24/17 at 12:00 Glucose (Glutose) 15 gm Q15M PRN PO DECREASED GLUCOSE; Start 01/24/17 at 12:00 Glucose (Glutose) 22.5 gm Q15M PRN PO DECREASED GLUCOSE; Start 01/24/17 at 12: 00 Dextrose (D50w Syringe) 25 ml Q15M PRN IV DECREASED GLUCOSE; Start 01/24/17 at 12:00 Dextrose (D50w Syringe) 50 ml Q15M PRN IV DECREASED GLUCOSE; Start 01/24/17 at 12:00 Glucagon (Glucagen) 1 mg Q15M PRN IM DECREASED GLUCOSE; Start 01/24/17 at 12:00 Glucose (Glutose) 15 gm Q15M PRN BUCCAL DECREASED GLUCOSE; Start 01/24/17 at 12 :00 Pantoprazole (Protonix Iv) 40 mg DAILY@06 IV Last administered on 02/03/17 05: 44; Admin Dose 40 MG; Start 01/25/17 at 06:00 Miscellaneous Information 1 ea NOTE XX ; Start 01/24/17 at 17:00 Glucose (Glutose) 15 gm Q15M PRN PO DECREASED GLUCOSE; Start 01/24/17 at 17:00 Glucose (Glutose) 22.5 gm Q15M PRN PO DECREASED GLUCOSE; Start 01/24/17 at 17: 00 Dextrose (D50w Syringe) 25 ml Q15M PRN IV DECREASED GLUCOSE; Start 01/24/17 at 17:00 Dextrose (D50w Syringe) 50 ml Q15M PRN IV DECREASED GLUCOSE; Start 01/24/17 at 17:00 Glucagon (Glucagen) 1 mg Q15M PRN IM DECREASED GLUCOSE; Start 01/24/17 at 17:00 Glucose (Glutose) 15 gm Q15M PRN BUCCAL DECREASED GLUCOSE; Start 01/24/17 at 17 :00 Aspirin 325 mg 325 mg DAILY NGT Last administered on 02/03/17 08:16; Admin Dose 325 MG; Start 01/25/17 at 17:00 Norepinephrine 16 mg/Dextrose 500 ml @ 1.87 mls/hr TITRATE IV Last administered on 01/26/17 09:18; Admin Dose 9.37 MLS/HR; Start 01/25/17 at 17:30 Aztreonam 0.5 gm/ Sodium Chloride 50 ml @ 100 mls/hr Q12 IV Last administered on 02/03/17 21:05; Admin Dose 100 MLS/HR; Start 01/25/17 at 21:00 Levofloxacin/ Dextrose (Levaquin 250 Mg/ D5W 50 ml (Pmx)) 50 ml @ 50 mls/hr Q24H IVPB Last administered on 02/03/17 15:54; Admin Dose 50 MLS/HR; Start at 16:00 Heparin Sodium (Porcine) (Heparin (5000 Units/0.5 ml)) 5,000 unit Q8 SC Last administered on 02/03/17 21:12; Admin Dose 5,000 UNIT; Start 01/30/17 at 22:00 Alprazolam (Xanax) 1 mg Q4H PRN NGT ANXIETY; Start 01/31/17 at 23:30 Carvedilol (Coreg) 6.25 mg BID PO Last administered on 02/03/17 21:02; Admin Dose 6.25 MG; Start 02/01/17 at 10:00 Miscellaneous Information (Pending Santyl Order For Wound Care) This patient bowens... PRN PRN XX WOUND CARE; Start 02/01/17 at 16:00 Collagenase (Santyl) 1 applic DAILY TOP Last administered on 02/03/17 15:30; Admin Dose 1 APPLIC; Start 02/02/17 at 09:00 Insulin Glargine 19 unit 19 unit DAILY@08 SC Last administered on 02/03/17 08: 20; Admin Dose 19 UNIT; Start 02/03/17 at 08:00 Vancomycin HCl/ Sodium Chloride (Vancocin/NS) 250 ml @ 83.333 mls/ hr Q36H IVPB Last administered on 02/03/17 15:56; Admin Dose 83.333 MLS/HR; Start at 16:00 Procedures Procedures cxr images reviewed: small bilateral effusion LNAE VOGEL Feb 03, 2017 23:37
[2017-02-04] VITALS (37 sets, daily range): BP systolic 80–181; BP diastolic 52–101; PULSE 67–115; RESP 14–42
[2017-02-04] MEDS: ATORVASTATIN 40 MG TAB NGT SCH ×2 (00:41→23:04)
[2017-02-04] MEDS: ALBUTEROL 0.083% (NEB) 2.5 MG/3 ML AMP HHN SCH ×5 (01:18→17:42)
[2017-02-04] MEDS ORDERED: SOD CHLORIDE 0.9% 200 ML IV ONE (01:30)
[2017-02-04] MEDS: ACCU-CHEK XX SCH (02:22)
[2017-02-04 04:52] LABS: ADD SCAN DIFF NO
[2017-02-04 05:05] LABS: ABNORMAL IP MESSAGE 1; BASOPHILS % 0.2 % (0.0-2.0); EOSINOPHILS # 0.1 10^3/ul (0.0-0.5); EOSINOPHILS % 0.8 % (0.0-7.0); HEMATOCRIT 32.6 % (42.0-52.0); HEMOGLOBIN 10.4 g/dl (14.0-18.0); LYMPHOCYTES # 0.7 10^3/ul (0.8-2.9); LYMPHOCYTES % 4.1 % (15.0-51.0); MEAN CORPUSCULAR HEMOGLOBIN 28.7 pg (29.0-33.0); MEAN CORPUSCULAR HGB CONC 31.9 g/dl (32.0-37.0); MEAN CORPUSCULAR VOLUME 89.8 fl (82.0-101.0); MEAN PLATELET VOLUME 13.4 fl (7.4-10.4); MONOCYTE # 0.7 10^3/ul (0.3-0.9); MONOCYTES % 4.4 % (0.0-11.0); NEUTROPHIL # 14.4 10^3/ul (1.6-7.5); NEUTROPHILS % 87.6 % (39.0-77.0); PLATELET COUNT 190 10^3/UL (140-415); RED BLOOD COUNT 3.63 10^6/ul (4.70-6.10); RED CELL DISTRIBUTION WIDTH 16.1 % (11.5-14.5); WHITE BLOOD COUNT 16.4 10^3/ul (4.8-10.8)
[2017-02-04] MEDS: PANTOPRAZOLE 40 MG INJ IV SCH (05:14)
[2017-02-04 05:21] LABS: CALCIUM 8.3 mg/dl (8.4-10.2); CREATININE 2.05 mg/dl (0.61-1.24); MAGNESIUM 2.6 mg/dl (1.7-2.5); PHOSPHORUS 5.2 mg/dl (2.5-4.9); POTASSIUM 3.8 mmol/L (3.5-5.1)
[2017-02-04] MEDS: HEPARIN 5,000 UNIT/0.5 ML VIAL SC SCH ×3 (05:41→22:11)
--- NOTE | 2017-02-04 06:37 | PN ---
DATE: 02/03/2017 SUBJECTIVE: The patient has been extubated. He was extubated approximately 11 a.m. today on Monday , 02/03/2017. The patient is breathing on his own. He follows simple commands, such as closing his eyes, but he does not do it every time. PHYSICAL EXAMINATION: LUNGS: Clear to A and P. HEART: Irregular irregularity with occasional extrasystoles. ABDOMEN: Liver, kidneys, and spleen are not palpable. Bowel sounds are normal. There are no intra abdominal masses or bruits. EXTREMITIES: There is no edema of the left foot or ankle. There is 1+ dorsal pedal edema on the ri ght. There is trace right pretibial edema. VITAL SIGNS: He is afebrile. Blood pressure varies from 85/57 to 136/101. Pulse varies from 74 to 115. Respiratory rate varies from 19 to 47. Pulse ox varies from 85 to 100%. LABORATORY DATA: White blood cell count is 18,900, hemoglobin is 10.5, hematocrit is 32.2%, platele t count is 176,000. Arterial blood gases, pH is 7.428, pCO2 is 37.0, pO2 is 64.1, baseline excess is -0.2, FIO2 is 61. Electrolytes: Sodium 144, potassium 3.6, chloride 108, carbon dioxide 25, BUN 95, creatinine 2.27, glucose 209, calcium 8.3, phosphorus 4.8, magnesium 2.5. Urine is negative. is 11.1. Vancomycin trough is 10. Urine culture shows Enterococcus species. Fungal culture shows Karli albicans. IMAGING: Chest x-ray today shows no change in bibasilar symmetric perihilar capacities. There is a small left pleural effusion. Tubes and lines and supporting devices are stable. Condition remains poor and prognosis remains extremely guarded. Dictated By: ONIEL BYNUM/SHELLY Conf#: [id number] DID#: [id number]
[2017-02-04] MEDS: INSULIN ASPART [NOVOLOG] 3 ML PEN SC SCH ×4 (08:33→21:00)
[2017-02-04] MEDS: INSULIN GLARGINE [LANtus] 3 ML PEN SC SCH (08:34)
[2017-02-04] MEDS ORDERED: ASPIRIN 325 MG TAB NGT SCH (09:00)
--- NOTE | 2017-02-04 09:10 | CONS ---
Date/Time of Note Date/Time of Note DATE: 02/04/17 TIME: 09:08 Assessment/Plan Assessment/Plan Additional Assessment/Plan Assessment recommendations; 1. Patient admitted for respiratory failure due to pneumonia. 2. History of cardiac arrhythmia. Status post pacemaker. 3. 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 4. Renal insufficiency. 5. Copious secretions requiring frequent deep pharyngeal suctioning. Continue current treatment. Patient responding well to current treatment regimen. Consultation Date/Type/Reason Admit Date/Time Jan 23, 2017 at 20:03 Type of Consultation: Pulmonary/critical care Referring Provider: ONIEL MORROW MD 24 HR Interval Summary Free Text/Dictation Patient condition stable. Was successfully extubated yesterday afternoon. Patient however required frequent suctioning due to copious secretions. General exam; elderly male, awake currently in no distress. Exam/Review of Systems Vital Signs Vitals Vital Signs Date Time Temp Pulse Resp B/P Pulse Ox O2 Delivery O2 Flow Rate FiO2 02/04/17 08:15 92 27 02/04/17 08:00 97.9 110/58 97 Mask 10.0 02/03/17 08:04 30 Intake and Output 02/03/17 02/03/17 02/04/17 15:00 23:00 07:00 Intake Total 220 ml 750.666 ml 520 ml Output Total 530 ml 490 ml 315 ml Balance -310 ml 260.666 ml 205 ml Exam HEENT examined; supple neck, no JVD. No lymphadenopathy. Midline trachea. No thyromegaly. Patient has bilateral surgical pupils. Chest examination; clear to auscultation. S1-S2 audible,. There is a well- healed sternal scar. Irregular rhythm. There is a pacemaker in the left chest wall. Abdomen examination; soft, non-distended. No organomegaly. Bowel sounds audible. Nontender. Extremity examination; no peripheral edema. D[employer] SAL[employer] ASSIST[employer] examination; patient is awake, alert follows simple commands and moves all 4 extremities. Results Result Diagram: 02/04/17 0415 02/04/17 0415 Results 24 hrs Laboratory Tests Test 02/03/17 10:35 02/03/17 11:25 02/03/17 13:02 02/03/17 17:03 Blood Gas Specimen Source Blood arterial Arterial Blood Date Drawn 02/03/2017 10:40:13 AM Arterial Blood pH (Temp corrected) 7.428 Arterial Blood pCO2 (Temp correct) 37.0 Arterial Blood pO2 (Temp corrected) 64.1 L Arterial Blood HCO3 23.9 Arterial Blood Base Excess -0.2 Arterial Blood Oxygen Saturation 92.1 L Zacarias Test ACCEPTAB Arterial Blood Gas Puncture Site Right Radial Arterial Blood Carboxyhemoglobin 0.3 Arterial Blood Methemoglobin 0.4 Blood Gas A-a O2 Differential 330.2 H Oxyhemoglobin Percent 91.5 L Total Hemoglobin 11.8 L Blood Gas Temperature 37.0 Blood Gas Modality MASK - SIMPLE FiO2 61.0 Blood Gas Notified Whom JLD Blood Gas Notified Time 02/03/2017 10:55:53 AM Vancomycin Level Trough 10.0 Bedside Glucose 172 107 Test 02/03/17 20:59 02/04/17 01:36 02/04/17 04:15 02/04/17 05:13 Bedside Glucose 92 94 150 White Blood Count 16.4 H Red Blood Count 3.63 L Hemoglobin 10.4 L Hematocrit 32.6 L Mean Corpuscular Volume 89.8 Mean Corpuscular Hemoglobin 28.7 L Mean Corpuscular Hemoglobin Concent 31.9 L Red Cell Distribution Width 16.1 H Platelet Count 190 Mean Platelet Volume 13.4 H Neutrophils % 87.6 H Lymphocytes % 4.1 L Monocytes % 4.4 Eosinophils % 0.8 Basophils % 0.2 Nucleated Red Blood Cells % 0.0 Neutrophils # 14.4 H Lymphocytes # 0.7 L Monocytes # 0.7 Eosinophils # 0.1 Basophils # 0.0 Nucleated Red Blood Cells # 0.0 Sodium Level 143 Potassium Level 3.8 Chloride Level 113 H Carbon Dioxide Level 26 Anion Gap 8 Blood Urea Nitrogen 92 H Creatinine 2.05 H Glucose Level 152 Calcium Level 8.3 L Phosphorus Level 5.2 H Magnesium Level 2.6 H Test 02/04/17 08:31 Bedside Glucose 178 Medications Medications Current Medications Acetaminophen (Tylenol Tab) 650 mg Q4H PRN PO PAIN AND OR ELEVATED TEMP; Start 01/24/17 at 11:00 Acetaminophen/ Hydrocodone Bitart ([place] (10/325)) 1 tab Q4H PRN PO PAIN; Start 01/24/17 at 11:00 Zolpidem Tartrate (Ambien) 10 mg HS PRN PO INSOMNIA; Start 01/24/17 at 11:00 Magnesium Hydroxide (Milk Of Mag) 30 ml DAILY PRN PO CONSTIPATION; Start at 11:00 Albuterol (Proventil 0.083% (Neb)) 1.25 mg Q4 PRN HHN SLEEP Last administered on 02/03/17 10:07; Admin Dose 1.25 MG; Start 01/24/17 at 11:00 Diagnostic Test (Pha) (Accu-Chek) 1 ea 02 XX Last administered on 02/04/17 02: 22; Admin Dose 1 EA; Start 01/25/17 at 02:00 Miscellaneous Information 1 ea NOTE XX ; Start 01/24/17 at 12:00 Glucose (Glutose) 15 gm Q15M PRN PO DECREASED GLUCOSE; Start 01/24/17 at 12:00 Glucose (Glutose) 22.5 gm Q15M PRN PO DECREASED GLUCOSE; Start 01/24/17 at 12: 00 Dextrose (D50w Syringe) 25 ml Q15M PRN IV DECREASED GLUCOSE; Start 01/24/17 at 12:00 Dextrose (D50w Syringe) 50 ml Q15M PRN IV DECREASED GLUCOSE; Start 01/24/17 at 12:00 Glucagon (Glucagen) 1 mg Q15M PRN IM DECREASED GLUCOSE; Start 01/24/17 at 12:00 Glucose (Glutose) 15 gm Q15M PRN BUCCAL DECREASED GLUCOSE; Start 01/24/17 at 12 :00 Pantoprazole (Protonix Iv) 40 mg DAILY@06 IV Last administered on 02/04/17 05: 14; Admin Dose 40 MG; Start 01/25/17 at 06:00 Miscellaneous Information 1 ea NOTE XX ; Start 01/24/17 at 17:00 Glucose (Glutose) 15 gm Q15M PRN PO DECREASED GLUCOSE; Start 01/24/17 at 17:00 Glucose (Glutose) 22.5 gm Q15M PRN PO DECREASED GLUCOSE; Start 01/24/17 at 17: 00 Dextrose (D50w Syringe) 25 ml Q15M PRN IV DECREASED GLUCOSE; Start 01/24/17 at 17:00 Dextrose (D50w Syringe) 50 ml Q15M PRN IV DECREASED GLUCOSE; Start 01/24/17 at 17:00 Glucagon (Glucagen) 1 mg Q15M PRN IM DECREASED GLUCOSE; Start 01/24/17 at 17:00 Glucose 15 gm 15 gm Q15M PRN BUCCAL DECREASED GLUCOSE; Start 01/24/17 at 17:00 Norepinephrine 16 mg/Dextrose 500 ml @ 1.87 mls/hr TITRATE IV Last administered on 01/26/17 09:18; Admin Dose 9.37 MLS/HR; Start 01/25/17 at 17:30 Aztreonam 0.5 gm/ Sodium Chloride 50 ml @ 100 mls/hr Q12 IV Last administered on 02/03/17 21:05; Admin Dose 100 MLS/HR; Start 01/25/17 at 21:00 Levofloxacin/ Dextrose (Levaquin 250 Mg/ D5W 50 ml (Pmx)) 50 ml @ 50 mls/hr Q24H IVPB Last administered on 02/03/17 15:54; Admin Dose 50 MLS/HR; Start at 16:00 Heparin Sodium (Porcine) (Heparin (5000 Units/0.5 ml)) 5,000 unit Q8 SC Last administered on 02/04/17 05:41; Admin Dose 5,000 UNIT; Start 01/30/17 at 22:00 Alprazolam (Xanax) 1 mg Q4H PRN NGT ANXIETY; Start 01/31/17 at 23:30 Carvedilol (Coreg) 6.25 mg BID PO Last administered on 02/03/17 21:02; Admin Dose 6.25 MG; Start 02/01/17 at 10:00 Miscellaneous Information (Pending Santyl Order For Wound Care) This patient bowens... PRN PRN XX WOUND CARE; Start 02/01/17 at 16:00 Collagenase (Santyl) 1 applic DAILY TOP Last administered on 02/03/17 15:30; Admin Dose 1 APPLIC; Start 02/02/17 at 09:00 Insulin Glargine 19 unit 19 unit DAILY@08 SC Last administered on 02/04/17 08: 34; Admin Dose 19 UNIT; Start 02/03/17 at 08:00 Vancomycin HCl/ Sodium Chloride (Vancocin/NS) 250 ml @ 83.333 mls/ hr Q36H IVPB Last administered on 02/03/17 15:56; Admin Dose 83.333 MLS/HR; Start at 16:00 Aspirin (Aspirin) 81 mg DAILY PO ; Start 02/04/17 at 09:00 Atorvastatin Calcium (Lipitor) 40 mg HS NGT Last administered on 02/04/17t 00: 41; Admin Dose 40 MG; Start 02/03/17 at 23:45 ULISES MCKAY Feb 04, 2017 09:10
[2017-02-04] MEDS: ASPIRIN 81 MG TAB PO SCH (09:15)
[2017-02-04] MEDS: AZTREONAM 0.5 GM in SOD CHLORIDE 0.9% 50 ML IV SCH ×2 (09:15→22:11)
[2017-02-04] MEDS: COLLAGENASE 30 GM TUBE TOP SCH (09:16)
--- NOTE | 2017-02-04 12:54 | HP ---
DATE OF ADMISSION: 01/23/2017 SUBJECTIVE: The patient is what was recently extubated on 02/03/2017, currently on 10 liters facema sk at 100% pulse ox. The patient is demented, which is chronic, in a guarded condition. PHYSICAL EXAMINATION: VITAL SIGNS: Temperature 97.9 axillary, pulse is 70, respirations 20 to 40, blood pressure is 96/7 6, pulse ox is currently 96 on 10 liters facemask. PULMONARY: No rales, no rhonchi. CARDIOVASCULAR: Regular rate and rhythm. EXTREMITIES: Diffuse bilateral upper and lower extremity pitting edema. ASSESSMENT: 1. Status post pneumonia, was intubated on the ventilator, was recently extubated on a facemask. A t this time, respiration does range between 20 to 40. Patient does have labored breathing, was on L evaquin and aztreonam, changed now to vancomycin. WBC has been going down. Currently, the WBC is n ow at 16, mildly improving. 2. Renal failure has also been improving. Creatinine has come down now from a 2.2 yesterday to 2.0 . 3. Congestive heart failure, coronary artery disease and history of ejection fraction of 20% to 25% in a guarded condition. 4. Hypotension, unable to do much for this; cannot give fluids. Cardiology is following, as is stan tolliver. Dictated By: KOMAL GREEN/SHELLY Conf#: [id number] DID#: [id number]
--- NOTE | 2017-02-04 13:54 | CONS ---
Date/Time of Note Date/Time of Note DATE: 02/04/17 TIME: 13:50 Assessment/Plan Assessment/Plan Additional Assessment/Plan * Status post pneumonia: abx and vent managment per pulm . extubation planned * arf: slowly improving. good uo. cont to monitor. off diuretics * Congestive heart failure, coronary artery disease and history of ejection fraction of 20% to 25% in a guarded condition: currently off diuretics . cont to monitor * Hypotension: stable. not requiring pressors. cont to monitor * ams: sedtaed, h/o dementia Consultation Date/Type/Reason Admit Date/Time Jan 23, 2017 at 20:03 Initial Consult Date 01/25/17 Type of Consultation: Pulmonary/critical care Referring Provider: ONIEL MORROW MD 24 HR Interval Summary Free Text/Dictation sedated on vent. hopefully to be extubated today. good uo / not on pressors Exam/Review of Systems Vital Signs Vitals Vital Signs Date Time Temp Pulse Resp B/P Pulse Ox O2 Delivery O2 Flow Rate FiO2 02/04/17 12:00 69 02/04/17 11:00 42 96/76 96 Mask 10.0 02/04/17 08:00 97.9 02/03/17 08:04 30 Intake and Output 02/03/17 02/03/17 02/04/17 15:00 23:00 07:00 Intake Total 220 ml 750.666 ml 520 ml Output Total 530 ml 490 ml 315 ml Balance -310 ml 260.666 ml 205 ml Exam Constitutional: non-verbal, other (orally intubated) Head: normocephalic Neck: non-tender, supple Respiratory: diminished breath sounds Cardiovascular: edema, regular rate and rhythm Gastrointestinal: non-tender, soft Results Result Diagram: 02/04/17 0415 02/04/17 0415 Results 24 hrs Laboratory Tests Test 02/03/17 17:03 02/03/17 20:59 02/04/17 01:36 02/04/17 04:15 Bedside Glucose 107 92 94 White Blood Count 16.4 H Red Blood Count 3.63 L Hemoglobin 10.4 L Hematocrit 32.6 L Mean Corpuscular Volume 89.8 Mean Corpuscular Hemoglobin 28.7 L Mean Corpuscular Hemoglobin Concent 31.9 L Red Cell Distribution Width 16.1 H Platelet Count 190 Mean Platelet Volume 13.4 H Neutrophils % 87.6 H Lymphocytes % 4.1 L Monocytes % 4.4 Eosinophils % 0.8 Basophils % 0.2 Nucleated Red Blood Cells % 0.0 Neutrophils # 14.4 H Lymphocytes # 0.7 L Monocytes # 0.7 Eosinophils # 0.1 Basophils # 0.0 Nucleated Red Blood Cells # 0.0 Sodium Level 143 Potassium Level 3.8 Chloride Level 113 H Carbon Dioxide Level 26 Anion Gap 8 Blood Urea Nitrogen 92 H Creatinine 2.05 H Glucose Level 152 Calcium Level 8.3 L Phosphorus Level 5.2 H Magnesium Level 2.6 H Test 02/04/17 05:13 02/04/17 08:31 Bedside Glucose 150 178 Medications Medications Current Medications Acetaminophen (Tylenol Tab) 650 mg Q4H PRN PO PAIN AND OR ELEVATED TEMP; Start 01/24/17 at 11:00 Acetaminophen/ Hydrocodone Bitart ([place] (10/325)) 1 tab Q4H PRN PO PAIN; Start 01/24/17 at 11:00 Zolpidem Tartrate (Ambien) 10 mg HS PRN PO INSOMNIA; Start 01/24/17 at 11:00 Magnesium Hydroxide (Milk Of Mag) 30 ml DAILY PRN PO CONSTIPATION; Start at 11:00 Albuterol (Proventil 0.083% (Neb)) 1.25 mg Q4 PRN HHN SLEEP Last administered on 02/03/17 10:07; Admin Dose 1.25 MG; Start 01/24/17 at 11:00 Diagnostic Test (Pha) (Accu-Chek) 1 ea 02 XX Last administered on 02/04/17 02: 22; Admin Dose 1 EA; Start 01/25/17 at 02:00 Miscellaneous Information 1 ea NOTE XX ; Start 01/24/17 at 12:00 Glucose (Glutose) 15 gm Q15M PRN PO DECREASED GLUCOSE; Start 01/24/17 at 12:00 Glucose (Glutose) 22.5 gm Q15M PRN PO DECREASED GLUCOSE; Start 01/24/17 at 12: 00 Dextrose (D50w Syringe) 25 ml Q15M PRN IV DECREASED GLUCOSE; Start 01/24/17 at 12:00 Dextrose (D50w Syringe) 50 ml Q15M PRN IV DECREASED GLUCOSE; Start 01/24/17 at 12:00 Glucagon (Glucagen) 1 mg Q15M PRN IM DECREASED GLUCOSE; Start 01/24/17 at 12:00 Glucose (Glutose) 15 gm Q15M PRN BUCCAL DECREASED GLUCOSE; Start 01/24/17 at 12 :00 Pantoprazole (Protonix Iv) 40 mg DAILY@06 IV Last administered on 02/04/17 05: 14; Admin Dose 40 MG; Start 01/25/17 at 06:00 Miscellaneous Information 1 ea NOTE XX ; Start 01/24/17 at 17:00 Glucose (Glutose) 15 gm Q15M PRN PO DECREASED GLUCOSE; Start 01/24/17 at 17:00 Glucose (Glutose) 22.5 gm Q15M PRN PO DECREASED GLUCOSE; Start 01/24/17 at 17: 00 Dextrose (D50w Syringe) 25 ml Q15M PRN IV DECREASED GLUCOSE; Start 01/24/17 at 17:00 Dextrose (D50w Syringe) 50 ml Q15M PRN IV DECREASED GLUCOSE; Start 01/24/17 at 17:00 Glucagon (Glucagen) 1 mg Q15M PRN IM DECREASED GLUCOSE; Start 01/24/17 at 17:00 Glucose 15 gm 15 gm Q15M PRN BUCCAL DECREASED GLUCOSE; Start 01/24/17 at 17:00 Norepinephrine 16 mg/Dextrose 500 ml @ 1.87 mls/hr TITRATE IV Last administered on 01/26/17 09:18; Admin Dose 9.37 MLS/HR; Start 01/25/17 at 17:30 Aztreonam 0.5 gm/ Sodium Chloride 50 ml @ 100 mls/hr Q12 IV Last administered on 02/04/17 09:15; Admin Dose 100 MLS/HR; Start 01/25/17 at 21:00 Levofloxacin/ Dextrose (Levaquin 250 Mg/ D5W 50 ml (Pmx)) 50 ml @ 50 mls/hr Q24H IVPB Last administered on 02/03/17 15:54; Admin Dose 50 MLS/HR; Start at 16:00 Heparin Sodium (Porcine) (Heparin (5000 Units/0.5 ml)) 5,000 unit Q8 SC Last administered on 02/04/17 05:41; Admin Dose 5,000 UNIT; Start 01/30/17 at 22:00 Alprazolam (Xanax) 1 mg Q4H PRN NGT ANXIETY; Start 01/31/17 at 23:30 Carvedilol (Coreg) 6.25 mg BID PO Last administered on 02/04/17 09:15; Admin Dose 6.25 MG; Start 02/01/17 at 10:00 Miscellaneous Information (Pending Santyl Order For Wound Care) This patient bowens... PRN PRN XX WOUND CARE; Start 02/01/17 at 16:00 Collagenase (Santyl) 1 applic DAILY TOP Last administered on 02/04/17 09:16; Admin Dose 1 APPLIC; Start 02/02/17 at 09:00 Insulin Glargine 19 unit 19 unit DAILY@08 SC Last administered on 02/04/17 08: 34; Admin Dose 19 UNIT; Start 02/03/17 at 08:00 Vancomycin HCl/ Sodium Chloride (Vancocin/NS) 250 ml @ 83.333 mls/ hr Q36H IVPB Last administered on 02/03/17 15:56; Admin Dose 83.333 MLS/HR; Start at 16:00 Aspirin (Aspirin) 81 mg DAILY PO Last administered on 02/04/17 09:15; Admin Dose 81 MG; Start 02/04/17 at 09:00 Atorvastatin Calcium (Lipitor) 40 mg HS NGT Last administered on 02/04/17 00: 41; Admin Dose 40 MG; Start 02/03/17 at 23:45 ASHISH BRUSH MD Feb 04, 2017 13:54
--- NOTE | 2017-02-04 15:42 | CONS ---
Date/Time of Note Date/Time of Note DATE: 02/04/17 TIME: 15:37 Assessment/Plan Assessment/Plan Additional Assessment/Plan Impression: - respiratory failure- s/p extubation. pulmonary managing. 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 pt poor candidate for invasive evaluation. no e/o of ongoing ischemia. - presented with dementia with worsening mental status - NSTEMI- trop peaked at 10.0, also with h/o of ATN, ALI at time of event. c/w either hypotensive vs hypoxemic event. now resolved. Would avoid invasive treatment options given underlying condition - multi vessel CAD- now with NSTEMI - atrial fibrillation- rate controlled - NSVT s/p ICD placement nl fxn last checked 01/2017. no sustained VT thi admit - mild to moderate - h/o HTN - h/o DM2 - PANCHO- cr stable/improving but significant uremia Recommendations - cont asa/statin - cont coreg to 6.25mg po bid - hold off on acei until bp stable for sig period of time and renal fxn improves - on bumex to keep even to negative - Keep K >4 and Mg > 2 Consultation Date/Type/Reason Admit Date/Time Jan 23, 2017 at 20:03 Initial Consult Date 01/25/17 Type of Consultation: Cardiology consultation Referring Provider: ONIEL MORROW MD 24 HR Interval Summary Free Text/Dictation Pt extubated yday. Exam/Review of Systems Vital Signs Vitals Vital Signs Date Time Temp Pulse Resp B/P Pulse Ox O2 Delivery O2 Flow Rate FiO2 02/04/17 15:00 90 30 96 02/04/17 14:00 104/79 Mask 10.0 02/04/17 08:00 97.9 02/03/17 08:04 30 Intake and Output 02/03/17 02/03/17 02/04/17 15:00 23:00 07:00 Intake Total 220 ml 750.666 ml 520 ml Output Total 530 ml 490 ml 315 ml Balance -310 ml 260.666 ml 205 ml Exam Constitutional: frail, non-verbal Psych: no complaints Head: normocephalic Eyes: nl conjunctiva ENMT: nl external ears & nose Neck: jvd, supple Respiratory: diminished breath sounds Cardiovascular: irregular rhythm, No S3 Gastrointestinal: non-tender, soft Musculoskeletal: nl extremities to inspection Results Result Diagram: 02/04/17 0415 02/04/17 0415 Results 24 hrs Laboratory Tests Test 02/03/17 17:03 02/03/17 20:59 02/04/17 01:36 02/04/17 04:15 Bedside Glucose 107 92 94 White Blood Count 16.4 H Red Blood Count 3.63 L Hemoglobin 10.4 L Hematocrit 32.6 L Mean Corpuscular Volume 89.8 Mean Corpuscular Hemoglobin 28.7 L Mean Corpuscular Hemoglobin Concent 31.9 L Red Cell Distribution Width 16.1 H Platelet Count 190 Mean Platelet Volume 13.4 H Neutrophils % 87.6 H Lymphocytes % 4.1 L Monocytes % 4.4 Eosinophils % 0.8 Basophils % 0.2 Nucleated Red Blood Cells % 0.0 Neutrophils # 14.4 H Lymphocytes # 0.7 L Monocytes # 0.7 Eosinophils # 0.1 Basophils # 0.0 Nucleated Red Blood Cells # 0.0 Sodium Level 143 Potassium Level 3.8 Chloride Level 113 H Carbon Dioxide Level 26 Anion Gap 8 Blood Urea Nitrogen 92 H Creatinine 2.05 H Glucose Level 152 Calcium Level 8.3 L Phosphorus Level 5.2 H Magnesium Level 2.6 H Test 02/04/17 05:13 02/04/17 08:31 02/04/17 14:09 Bedside Glucose 150 178 212 Medications Medications Current Medications Acetaminophen (Tylenol Tab) 650 mg Q4H PRN PO PAIN AND OR ELEVATED TEMP; Start 01/24/17 at 11:00 Acetaminophen/ Hydrocodone Bitart ([place] (10/325)) 1 tab Q4H PRN PO PAIN; Start 01/24/17 at 11:00 Zolpidem Tartrate (Ambien) 10 mg HS PRN PO INSOMNIA; Start 01/24/17 at 11:00 Magnesium Hydroxide (Milk Of Mag) 30 ml DAILY PRN PO CONSTIPATION; Start at 11:00 Albuterol (Proventil 0.083% (Neb)) 1.25 mg Q4 PRN HHN SLEEP Last administered on 02/03/17 10:07; Admin Dose 1.25 MG; Start 01/24/17 at 11:00 Diagnostic Test (Pha) (Accu-Chek) 1 ea 02 XX Last administered on 02/04/17 02: 22; Admin Dose 1 EA; Start 01/25/17 at 02:00 Miscellaneous Information 1 ea NOTE XX ; Start 01/24/17 at 12:00 Glucose (Glutose) 15 gm Q15M PRN PO DECREASED GLUCOSE; Start 01/24/17 at 12:00 Glucose (Glutose) 22.5 gm Q15M PRN PO DECREASED GLUCOSE; Start 01/24/17 at 12: 00 Dextrose (D50w Syringe) 25 ml Q15M PRN IV DECREASED GLUCOSE; Start 01/24/17 at 12:00 Dextrose (D50w Syringe) 50 ml Q15M PRN IV DECREASED GLUCOSE; Start 01/24/17 at 12:00 Glucagon (Glucagen) 1 mg Q15M PRN IM DECREASED GLUCOSE; Start 01/24/17 at 12:00 Glucose (Glutose) 15 gm Q15M PRN BUCCAL DECREASED GLUCOSE; Start 01/24/17 at 12 :00 Pantoprazole (Protonix Iv) 40 mg DAILY@06 IV Last administered on 02/04/17 05: 14; Admin Dose 40 MG; Start 01/25/17 at 06:00 Miscellaneous Information 1 ea NOTE XX ; Start 01/24/17 at 17:00 Glucose (Glutose) 15 gm Q15M PRN PO DECREASED GLUCOSE; Start 01/24/17 at 17:00 Glucose (Glutose) 22.5 gm Q15M PRN PO DECREASED GLUCOSE; Start 01/24/17 at 17: 00 Dextrose (D50w Syringe) 25 ml Q15M PRN IV DECREASED GLUCOSE; Start 01/24/17 at 17:00 Dextrose (D50w Syringe) 50 ml Q15M PRN IV DECREASED GLUCOSE; Start 01/24/17 at 17:00 Glucagon (Glucagen) 1 mg Q15M PRN IM DECREASED GLUCOSE; Start 01/24/17 at 17:00 Glucose 15 gm 15 gm Q15M PRN BUCCAL DECREASED GLUCOSE; Start 01/24/17 at 17:00 Norepinephrine 16 mg/Dextrose 500 ml @ 1.87 mls/hr TITRATE IV Last administered on 01/26/17 09:18; Admin Dose 9.37 MLS/HR; Start 01/25/17 at 17:30 Aztreonam 0.5 gm/ Sodium Chloride 50 ml @ 100 mls/hr Q12 IV Last administered on 02/04/17 09:15; Admin Dose 100 MLS/HR; Start 01/25/17 at 21:00 Levofloxacin/ Dextrose (Levaquin 250 Mg/ D5W 50 ml (Pmx)) 50 ml @ 50 mls/hr Q24H IVPB Last administered on 02/03/17 15:54; Admin Dose 50 MLS/HR; Start at 16:00 Heparin Sodium (Porcine) (Heparin (5000 Units/0.5 ml)) 5,000 unit Q8 SC Last administered on 02/04/17 15:03; Admin Dose 5,000 UNIT; Start 01/30/17 at 22:00 Alprazolam (Xanax) 1 mg Q4H PRN NGT ANXIETY; Start 01/31/17 at 23:30 Carvedilol (Coreg) 6.25 mg BID PO Last administered on 02/04/17 09:15; Admin Dose 6.25 MG; Start 02/01/17 at 10:00 Miscellaneous Information (Pending Santyl Order For Wound Care) This patient bowens... PRN PRN XX WOUND CARE; Start 02/01/17 at 16:00 Collagenase (Santyl) 1 applic DAILY TOP Last administered on 02/04/17 09:16; Admin Dose 1 APPLIC; Start 02/02/17 at 09:00 Insulin Glargine 19 unit 19 unit DAILY@08 SC Last administered on 02/04/17 08: 34; Admin Dose 19 UNIT; Start 02/03/17 at 08:00 Vancomycin HCl/ Sodium Chloride (Vancocin/NS) 250 ml @ 83.333 mls/ hr Q36H IVPB Last administered on 02/03/17 15:56; Admin Dose 83.333 MLS/HR; Start at 16:00 Aspirin (Aspirin) 81 mg DAILY PO Last administered on 02/04/17 09:15; Admin Dose 81 MG; Start 02/04/17 at 09:00 Atorvastatin Calcium (Lipitor) 40 mg HS NGT Last administered on 02/04/17 00: 41; Admin Dose 40 MG; Start 02/03/17 at 23:45 TANIKA MENENDEZ MD Feb 04, 2017 15:42
[2017-02-04] MEDS ORDERED: POTASSIUM CHLORIDE 20 MEQ POWDER FOR ORAL SOLN NGT ONE (16:00)
[2017-02-04] MEDS: LEVOFLOXACIN 250MG/D5W (PMX) 50 ML IVPB SCH (16:06)
[2017-02-04] MEDS ORDERED: hydrALAzine 20 MG INJ IV PRN (16:30)
[2017-02-04 20:51] LABS: AADO2 Arterial 622.2 mmHg (7.0-24.0); Allen Test ACCEPTAB; Arterial Base Excess 1.4 mmol/L (-3.0-3); Arterial COHb 0.3 % (0.0-3.0); Arterial Fraction of Oxyhgb 81.2 % (93.0-99.0); Arterial HCO3 26.7 mmol/L (22.0-26.0); Arterial MetHb 0.4 % (0.0-1.5); Arterial Total Hemglobin 12.5 g/dl (12.0-18.0); MODE MASK - NRB
[2017-02-04] MEDS ORDERED: PROPOFOL 100 ML ONE (21:13)
--- NOTE | 2017-02-04 21:20 | QN ---
Documentation Comment Called to ICU room 120 for emergent intubation. When into the room the patient was saturating 87% on a nonrebreather mask and had altered mental status. ET intubation note: Patient was preoxygenated with bag mask ventilation to displace nitrogen. RSI was used for maximum success and patient comfort. 20 of etomidate and 100 rocuronium were used to induce. Size 8 ET tube was easily introduced through visualized vocal cords using a MAC 4 blade. Patient tolerated the procedure well there were no complications. Oxygen saturation was 100% of the procedure. I recommended vent settings of 550, 16, 100%, PEEP of 5. VALERY ZULETA DO Feb 04, 2017 21:20
[2017-02-04] MEDS: PROPOFOL 100 ML IV SCH (21:24)
[2017-02-04 22:34] LABS: AADO2 Arterial 538.6 mmHg (7.0-24.0); Allen Test ACCEPTAB; Arterial Base Excess -1.6 mmol/L (-3.0-3); Arterial COHb 0.3 % (0.0-3.0); Arterial Fraction of Oxyhgb 97.3 % (93.0-99.0); Arterial HCO3 24.5 mmol/L (22.0-26.0); Arterial MetHb 0.4 % (0.0-1.5); Arterial Total Hemglobin 12.2 g/dl (12.0-18.0); MODE VENT - AC
--- NOTE | 2017-02-04 22:41 | RADRPT ---
PROCEDURE: XR Chest. CLINICAL INDICATION: Check endotracheal tube position. TECHNIQUE: Single frontal view. COMPARISON: 02/03/2017. FINDINGS: There is new dense consolidation throughout most of the right lung and a moderate right pleural effu ariadne. There is a small left pleural effusion and left basilar atelectasis. The endotracheal tube has been inserted in satisfactory position with the tip 3.5 cm above the carmen a. The nasogastric tube tip is in the stomach. The heart is enlarged. There is calcification in the aorta consistent with atherosclerosis. There are sternal wires. There is a left-sided automatic internal cardiac defibrillator. There is no pneumothorax. There are degenerative changes of the right glenohumeral joint. IMPRESSION: 1. New dense consolidation throughout most of the right lung and moderate right pleural effusion. 2. Small left pleural effusion and left basilar atelectasis, similar to the prior study. 3. Endotracheal tube and nasogastric tube in satisfactory position. 4. Cardiomegaly and atherosclerosis. 5. Previous median sternotomy. 6. Left-sided automatic internal cardiac defibrillator. 7. Degenerative changes of the right glenohumeral joint. RPTAT: QQ .Epifanio Aragon MD, MD Date Time Electronically viewed and signed by .Epifanio Aragon MD, on 02/04/2017 22:40 .R/
[2017-02-05] VITALS (70 sets, daily range): BP systolic 76–131; BP diastolic 51–82; PULSE 51–112; RESP 4–39
[2017-02-05] MEDS: ALBUTEROL 18 GM INHALER INH SCH ×6 (01:12→21:16)
[2017-02-05] MEDS: ACCU-CHEK XX SCH (02:00)
[2017-02-05 04:48] LABS: ADD SCAN DIFF NO
[2017-02-05 04:59] LABS: ABNORMAL IP MESSAGE 1; BASOPHILS % 0.2 % (0.0-2.0); EOSINOPHILS # 0.1 10^3/ul (0.0-0.5); EOSINOPHILS % 0.6 % (0.0-7.0); HEMATOCRIT 33.6 % (42.0-52.0); HEMOGLOBIN 10.2 g/dl (14.0-18.0); LYMPHOCYTES # 0.6 10^3/ul (0.8-2.9); LYMPHOCYTES % 4.9 % (15.0-51.0); MEAN CORPUSCULAR HEMOGLOBIN 27.7 pg (29.0-33.0); MEAN CORPUSCULAR HGB CONC 30.4 g/dl (32.0-37.0); MEAN CORPUSCULAR VOLUME 91.3 fl (82.0-101.0); MEAN PLATELET VOLUME 13.2 fl (7.4-10.4); MONOCYTE # 0.6 10^3/ul (0.3-0.9); MONOCYTES % 4.9 % (0.0-11.0); NEUTROPHIL # 10.9 10^3/ul (1.6-7.5); NEUTROPHILS % 86.9 % (39.0-77.0); PLATELET COUNT 192 10^3/UL (140-415); RED BLOOD COUNT 3.68 10^6/ul (4.70-6.10); RED CELL DISTRIBUTION WIDTH 16.3 % (11.5-14.5); WHITE BLOOD COUNT 12.6 10^3/ul (4.8-10.8)
[2017-02-05] MEDS: VANCOMYCIN 1.25 GM in SOD CHLORIDE 0.9% 250 ML IVPB SCH (04:59)
[2017-02-05] MEDS: PANTOPRAZOLE 40 MG INJ IV SCH (04:59)
[2017-02-05 05:19] LABS: ALBUMIN 2.2 g/dl (3.3-4.9)
[2017-02-05 05:21] LABS: BILIRUBIN,INDIRECT 0.4 mg/dl (0-1.1); BILIRUBIN,TOTAL 0.4 mg/dl (0.2-1.3); CREATININE 1.95 mg/dl (0.61-1.24)
[2017-02-05 05:22] LABS: ALBUMIN/GLOBULIN RATIO 0.53; PHOSPHORUS 5.2 mg/dl (2.5-4.9); TOTAL PROTEIN 6.3 g/dl (6.1-8.1)
[2017-02-05 05:23] LABS: CALCIUM 8.3 mg/dl (8.4-10.2); MAGNESIUM 2.6 mg/dl (1.7-2.5)
[2017-02-05] MEDS: HEPARIN 5,000 UNIT/0.5 ML VIAL SC SCH ×3 (05:44→21:42)
[2017-02-05] MEDS ORDERED: INSULIN ASPART [NOVOLOG] 3 ML PEN SC SCH (08:00)
[2017-02-05] MEDS: INSULIN GLARGINE [LANtus] 3 ML PEN SC SCH (08:40)
[2017-02-05] MEDS: INSULIN ASPART [NOVOLOG] 3 ML PEN SC SCH ×4 (08:42→20:56)
[2017-02-05] MEDS: AZTREONAM 0.5 GM in SOD CHLORIDE 0.9% 50 ML IV SCH ×2 (09:22→20:58)
[2017-02-05] MEDS: ASPIRIN 81 MG TAB PO SCH (09:22)
[2017-02-05] MEDS: COLLAGENASE 30 GM TUBE TOP SCH (09:30)
--- NOTE | 2017-02-05 11:11 | PN ---
DATE: 02/05/2017 SUBJECTIVE: The patient, during the night on 02/04/2017, at 2120, was reintubated. The patient was recently extubated on 02/03/2017, was not doing well on 10 liters face mask at 100% pulse ox during the night and had to be reintubated. Current chest x-ray shows a new consolidation of the right charly ng with moderate effusions. OBJECTIVE: VITAL SIGNS: Blood pressure is 111/54, pulse is 76, respirations at ____4, FIO2 is at 80, temperature is 98.3 axillary. GENERAL: The patient is sedated. CARDIOVASCULAR: Regular rate and rhythm. LUNGS: No wheezes. LOWER EXTREMITIES: Diffuse pitting edema. LABORATORY DATA: Demonstrate WBC 12.6, which is lower, hemoglobin 10.2, platelets 192. Chemistry: The creatinine is 1.95, which is still continuing to decrease from previous. ASSESSMENT AND PLAN: 1. Pulmonary. The patient was reintubated on 02/04/2017, has a new consolidation of the right lung . Pulmonary critical care is already following on the case. Possibility of a plug. The patient is having temperatures at a 98.3 axillary. We will get blood cultures, urine cultures. White count h as continued to drop. Pulmonary to continue to follow. 2. Renal. Creatinine still continues to improve. Renal following. 3. Congestive heart failure, in guarded condition. Hypotension has improved. Currently, blood pre ssure is better. Dictated By: KOMAL GREEN/SHELLY Conf#: [id number] DID#: [id number]
--- NOTE | 2017-02-05 11:55 | CONS ---
Date/Time of Note Date/Time of Note DATE: 02/05/17 TIME: 11:52 Assessment/Plan Assessment/Plan Additional Assessment/Plan * Status post pneumonia: abx and vent managment per pulm . extubated then reintubated and now with complete white out with thick mucus/ suspect mucus plug nd may require bronch * arf: slowly improving. good uo. clically more overloaded today and will give 1 dose of lasix. high bun due to catabolic state * Congestive heart failure, coronary artery disease and history of ejection fraction of 20% to 25% in a guarded condition: s/p recent NSTEMI. not a candidate for intervention * Hypotension: stable. not requiring pressors. cont to monitor * ams: sedtaed, h/o dementia Consultation Date/Type/Reason Admit Date/Time Jan 23, 2017 at 20:03 Initial Consult Date 01/25/17 Type of Consultation: Cardiology consultation Referring Provider: ONIEL MORROW MD 24 HR Interval Summary Free Text/Dictation events noted, extubated then reintubated. unresponsive Exam/Review of Systems Vital Signs Vitals Vital Signs Date Time Temp Pulse Resp B/P Pulse Ox O2 Delivery O2 Flow Rate FiO2 02/05/17 11:30 60 23 98/68 100 02/05/17 11:00 Mechanical Ventilator 02/05/17 09:48 80 02/05/17 08:00 98.4 02/04/17 20:15 15.0 Intake and Output 02/04/17 02/04/17 02/05/17 15:00 23:00 07:00 Intake Total 410 ml 314.656 ml 405.212 ml Output Total 450 ml 455 ml 330 ml Balance -40 ml -140.344 ml 75.212 ml Exam Constitutional: non-verbal (orally intubated) Head: normocephalic Neck: non-tender, supple Respiratory: diminished breath sounds Cardiovascular: edema (!+), regular rate and rhythm Gastrointestinal: non-tender, soft Results Result Diagram: 02/05/17 0422 02/05/17 0422 Results 24 hrs Laboratory Tests Test 02/04/17 14:09 02/04/17 17:27 02/04/17 20:37 02/04/17 22:00 Bedside Glucose 212 194 Blood Gas Specimen Source Blood arterial Blood arterial Arterial Blood Date Drawn 02/04/2017 8:35:43 PM 02/04/2017 10:23:47 PM Arterial Blood pH (Temp corrected) 7.391 7.336 L Arterial Blood pCO2 (Temp correct) 45.0 46.9 H Arterial Blood pO2 (Temp corrected) 45.8 *L 127.5 H Arterial Blood HCO3 26.7 H 24.5 Arterial Blood Base Excess 1.4 -1.6 Arterial Blood Oxygen Saturation 81.8 L 98.0 [place]acarias Test ACCEPTAB ACCEPTAB Arterial Blood Gas Puncture Site Left Radial Left Radial Arterial Blood Carboxyhemoglobin 0.3 0.3 Arterial Blood Methemoglobin 0.4 0.4 Blood Gas A-a O2 Differential 622.2 H 538.6 H Oxyhemoglobin Percent 81.2 L 97.3 Total Hemoglobin 12.5 12.2 Blood Gas Temperature 37.0 37.0 Blood Gas Modality MASK - NRB VENT - AC FiO2 100.0 100.0 Blood Gas Critical Value Read Back M MIRANDA RN Blood Gas Notified Whom UP Prabhakar NOEL RT Blood Gas Notified Time 02/04/2017 8:51:28 PM 02/04/2017 10:34:31 PM Blood Gas Respiration Rate 14.0 Blood Gas Actual Respiration Rate 14 Blood Gas Tidal Volume 500.0 Blood Gas Low PEEP Setting 5.0 Test 02/04/17 22:07 02/05/17 04:22 02/05/17 08:38 Bedside Glucose 169 149 White Blood Count 12.6 #H Red Blood Count 3.68 L Hemoglobin 10.2 L Hematocrit 33.6 L Mean Corpuscular Volume 91.3 Mean Corpuscular Hemoglobin 27.7 L Mean Corpuscular Hemoglobin Concent 30.4 L Red Cell Distribution Width 16.3 H Platelet Count 192 Mean Platelet Volume 13.2 H Neutrophils % 86.9 H Lymphocytes % 4.9 L Monocytes % 4.9 Eosinophils % 0.6 Basophils % 0.2 Nucleated Red Blood Cells % 0.0 Neutrophils # 10.9 H Lymphocytes # 0.6 L Monocytes # 0.6 Eosinophils # 0.1 Basophils # 0.0 Nucleated Red Blood Cells # 0.0 Sodium Level 147 H Potassium Level 4.0 Chloride Level 112 H Carbon Dioxide Level 26 Anion Gap 13 Blood Urea Nitrogen 94 H Creatinine 1.95 H Glucose Level 138 Calcium Level 8.3 L Phosphorus Level 5.2 H Magnesium Level 2.6 H Total Bilirubin 0.4 Direct Bilirubin 0.00 Indirect Bilirubin 0.4 Aspartate Amino Transf (AST/SGOT) 21 Alanine Aminotransferase (ALT/SGPT) 71 H Alkaline Phosphatase 74 Total Protein 6.3 Albumin 2.2 L Globulin 4.10 H Albumin/Globulin Ratio 0.53 Medications Medications Current Medications Acetaminophen (Tylenol Tab) 650 mg Q4H PRN PO PAIN AND OR ELEVATED TEMP; Start 01/24/17 at 11:00 Acetaminophen/ Hydrocodone Bitart ([place] (10/325)) 1 tab Q4H PRN PO PAIN; Start 01/24/17 at 11:00 Zolpidem Tartrate (Ambien) 10 mg HS PRN PO INSOMNIA; Start 01/24/17 at 11:00 Magnesium Hydroxide (Milk Of Mag) 30 ml DAILY PRN PO CONSTIPATION; Start at 11:00 Albuterol (Proventil 0.083% (Neb)) 1.25 mg Q4 PRN HHN SLEEP Last administered on 02/03/17 10:07; Admin Dose 1.25 MG; Start 01/24/17 at 11:00 Diagnostic Test (Pha) (Accu-Chek) 1 ea 02 XX Last administered on 02/04/17 02: 22; Admin Dose 1 EA; Start 01/25/17 at 02:00 Pantoprazole (Protonix Iv) 40 mg DAILY@06 IV Last administered on 02/05/17 04: 59; Admin Dose 40 MG; Start 01/25/17 at 06:00 Miscellaneous Information 1 ea NOTE XX ; Start 01/24/17 at 17:00 Glucose (Glutose) 15 gm Q15M PRN PO DECREASED GLUCOSE; Start 01/24/17 at 17:00 Glucose (Glutose) 22.5 gm Q15M PRN PO DECREASED GLUCOSE; Start 01/24/17 at 17: 00 Dextrose (D50w Syringe) 25 ml Q15M PRN IV DECREASED GLUCOSE; Start 01/24/17 at 17:00 Dextrose (D50w Syringe) 50 ml Q15M PRN IV DECREASED GLUCOSE; Start 01/24/17 at 17:00 Glucagon (Glucagen) 1 mg Q15M PRN IM DECREASED GLUCOSE; Start 01/24/17 at 17:00 Glucose 15 gm 15 gm Q15M PRN BUCCAL DECREASED GLUCOSE; Start 01/24/17 at 17:00 Norepinephrine 16 mg/Dextrose 500 ml @ 1.87 mls/hr TITRATE IV Last administered on 01/26/17 09:18; Admin Dose 9.37 MLS/HR; Start 01/25/17 at 17:30 Aztreonam 0.5 gm/ Sodium Chloride 50 ml @ 100 mls/hr Q12 IV Last administered on 02/05/17 09:22; Admin Dose 100 MLS/HR; Start 01/25/17 at 21:00 Levofloxacin/ Dextrose (Levaquin 250 Mg/ D5W 50 ml (Pmx)) 50 ml @ 50 mls/hr Q24H IVPB Last administered on 02/04/17 16:06; Admin Dose 50 MLS/HR; Start at 16:00 Heparin Sodium (Porcine) (Heparin (5000 Units/0.5 ml)) 5,000 unit Q8 SC Last administered on 02/05/17 05:44; Admin Dose 5,000 UNIT; Start 01/30/17 at 22:00 Alprazolam (Xanax) 1 mg Q4H PRN NGT ANXIETY; Start 01/31/17 at 23:30 Miscellaneous Information (Pending Santyl Order For Wound Care) This patient bowens... PRN PRN XX WOUND CARE; Start 02/01/17 at 16:00 Collagenase (Santyl) 1 applic DAILY TOP Last administered on 02/05/17 09:30; Admin Dose 1 APPLIC; Start 02/02/17 at 09:00 Insulin Glargine 19 unit 19 unit DAILY@08 SC Last administered on 02/05/17 08: 40; Admin Dose 19 UNIT; Start 02/03/17 at 08:00 Vancomycin HCl/ Sodium Chloride (Vancocin/NS) 250 ml @ 83.333 mls/ hr Q36H IVPB Last administered on 02/05/17 04:59; Admin Dose 83.333 MLS/HR; Start at 16:00 Aspirin (Aspirin) 81 mg DAILY PO Last administered on 02/05/17 09:22; Admin Dose 81 MG; Start 02/04/17 at 09:00 Atorvastatin Calcium (Lipitor) 40 mg HS NGT Last administered on 02/04/17 23: 04; Admin Dose 40 MG; Start 02/03/17 at 23:45 Carvedilol (Coreg) 9.375 mg BID PO Last administered on 02/05/17 09:23; Admin Dose 9.375 MG; Start 02/04/17 at 21:00 Hydralazine HCl 10 mg 10 mg Q3H PRN IV SBP GREATER THAN 160; Start 02/04/17 at 16:30 Propofol (Diprivan) 100 ml @ 2.328 mls/ hr Q12H IV Last administered on 21:24; Admin Dose 2.328 MLS/HR; Start 02/04/17 at 21:00 Insulin Aspart (Novolog Insulin Pen) NOVOLOG *MODERATE* ALGORITHM Q4 SC Last administered on 02/05/17 08:42; Admin Dose 2 UNIT; Start 02/05/17 at 09:00 ASHISH BRUSH MD Feb 05, 2017 11:55
[2017-02-05] MEDS ORDERED: FUROSEMIDE 40 MG INJ IV ONE (12:00)
--- NOTE | 2017-02-05 12:06 | CONS ---
Date/Time of Note Date/Time of Note DATE: 02/05/17 TIME: 12:02 Assessment/Plan Assessment/Plan Additional Assessment/Plan Ventilator settings; AC of 14, tidal volume 500, PEEP of 5, 80% FiO2. Patient currently on propofol at 11 mics per kilo per minute. Assessment recommendations; 1. Patient admitted with respiratory failure due to hypoventilation. 2. Had to be reintubated last night because of hypoxemia which is a result of very poor cough reflex with accommodation of secretions causing significant atelectasis of the right lung. 3. Prior history of coronary artery disease. 4. Pneumonia. Continue current treatment. Obtain follow-up chest x-ray. Patient may need to have a bronchoscopy performed if he has persistent atelectasis of the right lung. Meanwhile obtain a blood gas. Consultation Date/Type/Reason Admit Date/Time Jan 23, 2017 at 20:03 Type of Consultation: Pulmonary/critical care Referring Provider: ONIEL MORROW MD 24 HR Interval Summary Free Text/Dictation Patient condition remains critical. He had to be reintubated last night because of hypoxemia and tachypnea. Patient currently sedated. General exam; elderly male, orally intubated, currently in no distress. Exam/Review of Systems Vital Signs Vitals Vital Signs Date Time Temp Pulse Resp B/P Pulse Ox O2 Delivery O2 Flow Rate FiO2 02/05/17 11:30 60 23 98/68 100 02/05/17 11:00 Mechanical Ventilator 02/05/17 09:48 80 02/05/17 08:00 98.4 02/04/17 20:15 15.0 Intake and Output 02/04/17 02/04/17 02/05/17 15:00 23:00 07:00 Intake Total 410 ml 314.656 ml 405.212 ml Output Total 450 ml 455 ml 330 ml Balance -40 ml -140.344 ml 75.212 ml Exam HEENT exam; supple neck, no JVD. No lymphadenopathy. Midline trachea. Orally intubated. Patient has a multiple carious teeth. Bilateral surgical pupils are present. Chest examination; diminished breath sounds bilaterally. No added sound. S1- S2 audible, no murmurs. There is a well-healed sternal scar. Abdomen examination; soft, non-distended. No organomegaly. Bowel sounds audible. Next Extremity exam; no peripheral edema. Patient has a multiple ecchymosis involving all 4 extremities. MED SURG RN examination; patient is sedated. Results Result Diagram: 02/05/17 0422 02/05/17 0422 Results 24 hrs Laboratory Tests Test 02/04/17 14:09 02/04/17 17:27 02/04/17 20:37 02/04/17 22:00 Bedside Glucose 212 194 Blood Gas Specimen Source Blood arterial Blood arterial Arterial Blood Date Drawn 02/04/2017 8:35:43 PM 02/04/2017 10:23:47 PM Arterial Blood pH (Temp corrected) 7.391 7.336 L Arterial Blood pCO2 (Temp correct) 45.0 46.9 H Arterial Blood pO2 (Temp corrected) 45.8 *L 127.5 H Arterial Blood HCO3 26.7 H 24.5 Arterial Blood Base Excess 1.4 -1.6 Arterial Blood Oxygen Saturation 81.8 L 98.0 Zacarias Test ACCEPTAB ACCEPTAB Arterial Blood Gas Puncture Site Left Radial Left Radial Arterial Blood Carboxyhemoglobin 0.3 0.3 Arterial Blood Methemoglobin 0.4 0.4 Blood Gas A-a O2 Differential 622.2 H 538.6 H Oxyhemoglobin Percent 81.2 L 97.3 Total Hemoglobin 12.5 12.2 Blood Gas Temperature 37.0 37.0 Blood Gas Modality MASK - NRB VENT - AC FiO2 100.0 100.0 Blood Gas Critical Value Read Back M DTMAC RN Blood Gas Notified Whom UP Prabhakar NOEL RT Blood Gas Notified Time 02/04/2017 8:51:28 PM 02/04/2017 10:34:31 PM Blood Gas Respiration Rate 14.0 Blood Gas Actual Respiration Rate 14 Blood Gas Tidal Volume 500.0 Blood Gas Low PEEP Setting 5.0 Test 02/04/17 22:07 02/05/17 04:22 02/05/17 08:38 Bedside Glucose 169 149 White Blood Count 12.6 #H Red Blood Count 3.68 L Hemoglobin 10.2 L Hematocrit 33.6 L Mean Corpuscular Volume 91.3 Mean Corpuscular Hemoglobin 27.7 L Mean Corpuscular Hemoglobin Concent 30.4 L Red Cell Distribution Width 16.3 H Platelet Count 192 Mean Platelet Volume 13.2 H Neutrophils % 86.9 H Lymphocytes % 4.9 L Monocytes % 4.9 Eosinophils % 0.6 Basophils % 0.2 Nucleated Red Blood Cells % 0.0 Neutrophils # 10.9 H Lymphocytes # 0.6 L Monocytes # 0.6 Eosinophils # 0.1 Basophils # 0.0 Nucleated Red Blood Cells # 0.0 Sodium Level 147 H Potassium Level 4.0 Chloride Level 112 H Carbon Dioxide Level 26 Anion Gap 13 Blood Urea Nitrogen 94 H Creatinine 1.95 H Glucose Level 138 Calcium Level 8.3 L Phosphorus Level 5.2 H Magnesium Level 2.6 H Total Bilirubin 0.4 Direct Bilirubin 0.00 Indirect Bilirubin 0.4 Aspartate Amino Transf (AST/SGOT) 21 Alanine Aminotransferase (ALT/SGPT) 71 H Alkaline Phosphatase 74 Total Protein 6.3 Albumin 2.2 L Globulin 4.10 H Albumin/Globulin Ratio 0.53 Medications Medications Current Medications Acetaminophen (Tylenol Tab) 650 mg Q4H PRN PO PAIN AND OR ELEVATED TEMP; Start 01/24/17 at 11:00 Acetaminophen/ Hydrocodone Bitart ([place] (10/325)) 1 tab Q4H PRN PO PAIN; Start 01/24/17 at 11:00 Zolpidem Tartrate (Ambien) 10 mg HS PRN PO INSOMNIA; Start 01/24/17 at 11:00 Magnesium Hydroxide (Milk Of Mag) 30 ml DAILY PRN PO CONSTIPATION; Start at 11:00 Albuterol (Proventil 0.083% (Neb)) 1.25 mg Q4 PRN HHN SLEEP Last administered on 02/03/17 10:07; Admin Dose 1.25 MG; Start 01/24/17 at 11:00 Diagnostic Test (Pha) (Accu-Chek) 1 ea 02 XX Last administered on 02/04/17 02: 22; Admin Dose 1 EA; Start 01/25/17 at 02:00 Pantoprazole (Protonix Iv) 40 mg DAILY@06 IV Last administered on 02/05/17 04: 59; Admin Dose 40 MG; Start 01/25/17 at 06:00 Miscellaneous Information 1 ea NOTE XX ; Start 01/24/17 at 17:00 Glucose (Glutose) 15 gm Q15M PRN PO DECREASED GLUCOSE; Start 01/24/17 at 17:00 Glucose (Glutose) 22.5 gm Q15M PRN PO DECREASED GLUCOSE; Start 01/24/17 at 17: 00 Dextrose (D50w Syringe) 25 ml Q15M PRN IV DECREASED GLUCOSE; Start 01/24/17 at 17:00 Dextrose (D50w Syringe) 50 ml Q15M PRN IV DECREASED GLUCOSE; Start 01/24/17 at 17:00 Glucagon (Glucagen) 1 mg Q15M PRN IM DECREASED GLUCOSE; Start 01/24/17 at 17:00 Glucose 15 gm 15 gm Q15M PRN BUCCAL DECREASED GLUCOSE; Start 01/24/17 at 17:00 Norepinephrine 16 mg/Dextrose 500 ml @ 1.87 mls/hr TITRATE IV Last administered on 01/26/17 09:18; Admin Dose 9.37 MLS/HR; Start 01/25/17 at 17:30 Aztreonam 0.5 gm/ Sodium Chloride 50 ml @ 100 mls/hr Q12 IV Last administered on 02/05/17 09:22; Admin Dose 100 MLS/HR; Start 01/25/17 at 21:00 Levofloxacin/ Dextrose (Levaquin 250 Mg/ D5W 50 ml (Pmx)) 50 ml @ 50 mls/hr Q24H IVPB Last administered on 02/04/17 16:06; Admin Dose 50 MLS/HR; Start at 16:00 Heparin Sodium (Porcine) (Heparin (5000 Units/0.5 ml)) 5,000 unit Q8 SC Last administered on 02/05/17 05:44; Admin Dose 5,000 UNIT; Start 01/30/17 at 22:00 Alprazolam (Xanax) 1 mg Q4H PRN NGT ANXIETY; Start 01/31/17 at 23:30 Miscellaneous Information (Pending Santyl Order For Wound Care) This patient bowens... PRN PRN XX WOUND CARE; Start 02/01/17 at 16:00 Collagenase (Santyl) 1 applic DAILY TOP Last administered on 02/05/17 09:30; Admin Dose 1 APPLIC; Start 02/02/17 at 09:00 Insulin Glargine 19 unit 19 unit DAILY@08 SC Last administered on 02/05/17 08: 40; Admin Dose 19 UNIT; Start 02/03/17 at 08:00 Vancomycin HCl/ Sodium Chloride (Vancocin/NS) 250 ml @ 83.333 mls/ hr Q36H IVPB Last administered on 02/05/17 04:59; Admin Dose 83.333 MLS/HR; Start at 16:00 Aspirin (Aspirin) 81 mg DAILY PO Last administered on 02/05/17 09:22; Admin Dose 81 MG; Start 02/04/17 at 09:00 Atorvastatin Calcium (Lipitor) 40 mg HS NGT Last administered on 02/04/17 23: 04; Admin Dose 40 MG; Start 02/03/17 at 23:45 Carvedilol (Coreg) 9.375 mg BID PO Last administered on 02/05/17 09:23; Admin Dose 9.375 MG; Start 02/04/17 at 21:00 Hydralazine HCl 10 mg 10 mg Q3H PRN IV SBP GREATER THAN 160; Start 02/04/17 at 16:30 Propofol (Diprivan) 100 ml @ 2.328 mls/ hr Q12H IV Last administered on 21:24; Admin Dose 2.328 MLS/HR; Start 02/04/17 at 21:00 Insulin Aspart (Novolog Insulin Pen) NOVOLOG *MODERATE* ALGORITHM Q4 SC Last administered on 02/05/17 08:42; Admin Dose 2 UNIT; Start 02/05/17 at 09:00 ULISES MCKAY Feb 05, 2017 12:06
--- NOTE | 2017-02-05 14:57 | CONS ---
Date/Time of Note Date/Time of Note DATE: 02/05/17 TIME: 14:54 Assessment/Plan Assessment/Plan Additional Assessment/Plan Impression: - respiratory failure- reintubated after recent extubation. pulmonary managing. 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 pt poor candidate for invasive evaluation. no e/o of ongoing ischemia. - presented with dementia with worsening mental status - NSTEMI- trop peaked at 10.0, also with h/o of ATN, ALI at time of event. c/w either hypotensive vs hypoxemic event. now resolved. Would avoid invasive treatment options given underlying condition - multi vessel CAD- now with NSTEMI - atrial fibrillation- rate controlled - NSVT s/p ICD placement nl fxn last checked 01/2017. no sustained VT thi admit - mild to moderate - h/o HTN - h/o DM2 - PANCHO- cr stable/improving but significant uremia Recommendations - cont asa/statin - Titrated coreg to 9.375 mg po bid - hold off on acei until bp stable for sig period of time and renal fxn improves - Continue with diuresis - Keep K >4 and Mg > 2 - would address goals and code status with family given poor prognosis and advanced age. Consultation Date/Type/Reason Admit Date/Time Jan 23, 2017 at 20:03 Initial Consult Date 01/25/17 Type of Consultation: Cardiology Referring Provider: ONIEL MORROW MD 24 HR Interval Summary Free Text/Dictation Pt was reintubated last night. No issues this am. Exam/Review of Systems Vital Signs Vitals Vital Signs Date Time Temp Pulse Resp B/P Pulse Ox O2 Delivery O2 Flow Rate FiO2 02/05/17 13:53 67 20 100 80 02/05/17 11:30 98/68 02/05/17 11:00 Mechanical Ventilator 02/05/17 08:00 98.4 02/04/17 20:15 15.0 Intake and Output 02/04/17 02/04/17 02/05/17 14:59 22:59 06:59 Intake Total 410 ml 302.328 ml 457.540 ml Output Total 400 ml 430 ml 405 ml Balance 10 ml -127.672 ml 52.540 ml Exam Constitutional: non-verbal Head: atraumatic Eyes: nl conjunctiva ENMT: nl external ears & nose Neck: jvd, supple Respiratory: diminished breath sounds Cardiovascular: edema, irregular rhythm, No S3 Gastrointestinal: non-tender, soft Results Result Diagram: 02/05/17 0422 02/05/17 0422 Results 24 hrs Laboratory Tests Test 02/04/17 17:27 02/04/17 20:37 02/04/17 22:00 02/04/17 22:07 Bedside Glucose 194 169 Blood Gas Specimen Source Blood arterial Blood arterial Arterial Blood Date Drawn 02/04/2017 8:35:43 PM 02/04/2017 10:23:47 PM Arterial Blood pH (Temp corrected) 7.391 7.336 L Arterial Blood pCO2 (Temp correct) 45.0 46.9 H Arterial Blood pO2 (Temp corrected) 45.8 *L 127.5 H Arterial Blood HCO3 26.7 H 24.5 Arterial Blood Base Excess 1.4 -1.6 Arterial Blood Oxygen Saturation 81.8 L 98.0 Zacarias Test ACCEPTAB ACCEPTAB Arterial Blood Gas Puncture Site Left Radial Left Radial Arterial Blood Carboxyhemoglobin 0.3 0.3 Arterial Blood Methemoglobin 0.4 0.4 Blood Gas A-a O2 Differential 622.2 H 538.6 H Oxyhemoglobin Percent 81.2 L 97.3 Total Hemoglobin 12.5 12.2 Blood Gas Temperature 37.0 37.0 Blood Gas Modality MASK - NRB VENT - AC FiO2 100.0 100.0 Blood Gas Critical Value Read Back M MIRANDA RN Blood Gas Notified Whom UP Prabhakar NOEL RT Blood Gas Notified Time 02/04/2017 8:51:28 PM 02/04/2017 10:34:31 PM Blood Gas Respiration Rate 14.0 Blood Gas Actual Respiration Rate 14 Blood Gas Tidal Volume 500.0 Blood Gas Low PEEP Setting 5.0 Test 02/05/17 04:22 02/05/17 08:38 02/05/17 13:25 White Blood Count 12.6 #H Red Blood Count 3.68 L Hemoglobin 10.2 L Hematocrit 33.6 L Mean Corpuscular Volume 91.3 Mean Corpuscular Hemoglobin 27.7 L Mean Corpuscular Hemoglobin Concent 30.4 L Red Cell Distribution Width 16.3 H Platelet Count 192 Mean Platelet Volume 13.2 H Neutrophils % 86.9 H Lymphocytes % 4.9 L Monocytes % 4.9 Eosinophils % 0.6 Basophils % 0.2 Nucleated Red Blood Cells % 0.0 Neutrophils # 10.9 H Lymphocytes # 0.6 L Monocytes # 0.6 Eosinophils # 0.1 Basophils # 0.0 Nucleated Red Blood Cells # 0.0 Sodium Level 147 H Potassium Level 4.0 Chloride Level 112 H Carbon Dioxide Level 26 Anion Gap 13 Blood Urea Nitrogen 94 H Creatinine 1.95 H Glucose Level 138 Calcium Level 8.3 L Phosphorus Level 5.2 H Magnesium Level 2.6 H Total Bilirubin 0.4 Direct Bilirubin 0.00 Indirect Bilirubin 0.4 Aspartate Amino Transf (AST/SGOT) 21 Alanine Aminotransferase (ALT/SGPT) 71 H Alkaline Phosphatase 74 Total Protein 6.3 Albumin 2.2 L Globulin 4.10 H Albumin/Globulin Ratio 0.53 Bedside Glucose 149 172 Medications Medications Current Medications Acetaminophen (Tylenol Tab) 650 mg Q4H PRN PO PAIN AND OR ELEVATED TEMP; Start 01/24/17 at 11:00 Acetaminophen/ Hydrocodone Bitart ([place] (10/325)) 1 tab Q4H PRN PO PAIN; Start 01/24/17 at 11:00 Zolpidem Tartrate (Ambien) 10 mg HS PRN PO INSOMNIA; Start 01/24/17 at 11:00 Magnesium Hydroxide (Milk Of Mag) 30 ml DAILY PRN PO CONSTIPATION; Start at 11:00 Albuterol (Proventil 0.083% (Neb)) 1.25 mg Q4 PRN HHN SLEEP Last administered on 02/03/17 10:07; Admin Dose 1.25 MG; Start 01/24/17 at 11:00 Diagnostic Test (Pha) (Accu-Chek) 1 ea 02 XX Last administered on 02/04/17 02: 22; Admin Dose 1 EA; Start 01/25/17 at 02:00 Pantoprazole (Protonix Iv) 40 mg DAILY@06 IV Last administered on 02/05/17 04: 59; Admin Dose 40 MG; Start 01/25/17 at 06:00 Miscellaneous Information 1 ea NOTE XX ; Start 01/24/17 at 17:00 Glucose (Glutose) 15 gm Q15M PRN PO DECREASED GLUCOSE; Start 01/24/17 at 17:00 Glucose (Glutose) 22.5 gm Q15M PRN PO DECREASED GLUCOSE; Start 01/24/17 at 17: 00 Dextrose (D50w Syringe) 25 ml Q15M PRN IV DECREASED GLUCOSE; Start 01/24/17 at 17:00 Dextrose (D50w Syringe) 50 ml Q15M PRN IV DECREASED GLUCOSE; Start 01/24/17 at 17:00 Glucagon (Glucagen) 1 mg Q15M PRN IM DECREASED GLUCOSE; Start 01/24/17 at 17:00 Glucose 15 gm 15 gm Q15M PRN BUCCAL DECREASED GLUCOSE; Start 01/24/17 at 17:00 Norepinephrine 16 mg/Dextrose 500 ml @ 1.87 mls/hr TITRATE IV Last administered on 01/26/17 09:18; Admin Dose 9.37 MLS/HR; Start 01/25/17 at 17:30 Aztreonam 0.5 gm/ Sodium Chloride 50 ml @ 100 mls/hr Q12 IV Last administered on 02/05/17 09:22; Admin Dose 100 MLS/HR; Start 01/25/17 at 21:00 Levofloxacin/ Dextrose (Levaquin 250 Mg/ D5W 50 ml (Pmx)) 50 ml @ 50 mls/hr Q24H IVPB Last administered on 02/04/17 16:06; Admin Dose 50 MLS/HR; Start at 16:00 Heparin Sodium (Porcine) (Heparin (5000 Units/0.5 ml)) 5,000 unit Q8 SC Last administered on 02/05/17 05:44; Admin Dose 5,000 UNIT; Start 01/30/17 at 22:00 Alprazolam (Xanax) 1 mg Q4H PRN NGT ANXIETY; Start 01/31/17 at 23:30 Miscellaneous Information (Pending Santyl Order For Wound Care) This patient bowens... PRN PRN XX WOUND CARE; Start 02/01/17 at 16:00 Collagenase (Santyl) 1 applic DAILY TOP Last administered on 02/05/17 09:30; Admin Dose 1 APPLIC; Start 02/02/17 at 09:00 Insulin Glargine 19 unit 19 unit DAILY@08 SC Last administered on 02/05/17 08: 40; Admin Dose 19 UNIT; Start 02/03/17 at 08:00 Vancomycin HCl/ Sodium Chloride (Vancocin/NS) 250 ml @ 83.333 mls/ hr Q36H IVPB Last administered on 02/05/17 04:59; Admin Dose 83.333 MLS/HR; Start at 16:00 Aspirin (Aspirin) 81 mg DAILY PO Last administered on 02/05/17 09:22; Admin Dose 81 MG; Start 02/04/17 at 09:00 Atorvastatin Calcium (Lipitor) 40 mg HS NGT Last administered on 02/04/17 23: 04; Admin Dose 40 MG; Start 02/03/17 at 23:45 Carvedilol (Coreg) 9.375 mg BID PO Last administered on 02/05/17 09:23; Admin Dose 9.375 MG; Start 02/04/17 at 21:00 Hydralazine HCl 10 mg 10 mg Q3H PRN IV SBP GREATER THAN 160; Start 02/04/17 at 16:30 Propofol (Diprivan) 100 ml @ 2.328 mls/ hr Q12H IV Last administered on 21:24; Admin Dose 2.328 MLS/HR; Start 02/04/17 at 21:00 Insulin Aspart (Novolog Insulin Pen) NOVOLOG *MODERATE* ALGORITHM Q4 SC Last administered on 02/05/17 13:26; Admin Dose 2 UNIT; Start 02/05/17 at 09:00 TANIKA MENENDEZ MD Feb 05, 2017 14:57
[2017-02-05] MEDS: LEVOFLOXACIN 250MG/D5W (PMX) 50 ML IVPB SCH (15:44)
[2017-02-05] MEDS: PROPOFOL 100 ML IV SCH ×2 (17:46→21:00)
[2017-02-05] MEDS: ATORVASTATIN 40 MG TAB NGT SCH (20:57)
[2017-02-06] VITALS (57 sets, daily range): BP systolic 76–132; BP diastolic 51–79; PULSE 58–75; RESP 14–23
[2017-02-06] MEDS: INSULIN ASPART [NOVOLOG] 3 ML PEN SC SCH ×6 (00:59→20:48)
[2017-02-06] MEDS: ALBUTEROL 18 GM INHALER INH SCH ×6 (01:30→20:25)
[2017-02-06] MEDS: ACCU-CHEK XX SCH ×2 (02:00→23:42)
[2017-02-06] MEDS ORDERED: ACCU-CHEK XX SCH (02:00)
[2017-02-06] MEDS: PROPOFOL 100 ML IV SCH ×2 (04:10→20:48)
[2017-02-06] MEDS: PANTOPRAZOLE 40 MG INJ IV SCH (05:49)
[2017-02-06] MEDS: HEPARIN 5,000 UNIT/0.5 ML VIAL SC SCH ×3 (05:50→21:38)
[2017-02-06 05:54] LABS: ADD SCAN DIFF NO
[2017-02-06 06:02] LABS: ABNORMAL IP MESSAGE 1; BASOPHILS % 0.2 % (0.0-2.0); EOSINOPHILS # 0.1 10^3/ul (0.0-0.5); EOSINOPHILS % 0.9 % (0.0-7.0); HEMATOCRIT 29.9 % (42.0-52.0); HEMOGLOBIN 9.2 g/dl (14.0-18.0); LYMPHOCYTES # 0.5 10^3/ul (0.8-2.9); LYMPHOCYTES % 4.5 % (15.0-51.0); MEAN CORPUSCULAR HEMOGLOBIN 28.5 pg (29.0-33.0); MEAN CORPUSCULAR HGB CONC 30.8 g/dl (32.0-37.0); MEAN CORPUSCULAR VOLUME 92.6 fl (82.0-101.0); MEAN PLATELET VOLUME 13.5 fl (7.4-10.4); MONOCYTE # 0.7 10^3/ul (0.3-0.9); MONOCYTES % 5.8 % (0.0-11.0); NEUTROPHIL # 10.4 10^3/ul (1.6-7.5); NEUTROPHILS % 86.6 % (39.0-77.0); PLATELET COUNT 148 10^3/UL (140-415); RED BLOOD COUNT 3.23 10^6/ul (4.70-6.10); RED CELL DISTRIBUTION WIDTH 16.7 % (11.5-14.5)
[2017-02-06 06:29] LABS: ALBUMIN 2.1 g/dl (3.3-4.9); POTASSIUM 3.9 mmol/L (3.5-5.1)
[2017-02-06 06:31] LABS: BILIRUBIN,INDIRECT 0.3 mg/dl (0-1.1); BILIRUBIN,TOTAL 0.3 mg/dl (0.2-1.3); CREATININE 2.1 mg/dl (0.61-1.24)
[2017-02-06 06:32] LABS: ALBUMIN/GLOBULIN RATIO 0.56; CALCIUM 8.2 mg/dl (8.4-10.2); TOTAL PROTEIN 5.8 g/dl (6.1-8.1)
[2017-02-06 07:50] LABS: Allen Test ACCEPTAB; Arterial Base Excess 3.8 mmol/L (-3.0-3); Arterial COHb 0.2 % (0.0-3.0); Arterial Fraction of Oxyhgb 97.7 % (93.0-99.0); Arterial HCO3 27.9 mmol/L (22.0-26.0); Arterial MetHb 0.4 % (0.0-1.5); Arterial Total Hemglobin 10.5 g/dl (12.0-18.0); MODE VENT - AC
[2017-02-06] MEDS: INSULIN GLARGINE [LANtus] 3 ML PEN SC SCH (08:30)
--- NOTE | 2017-02-06 09:38 | RADRPT ---
PROCEDURE: Chest Radiograph. CLINICAL INDICATION: Pneumonia TECHNIQUE: Single frontal chest radiograph. COMPARISON: Chest radiograph 02/04/2017 FINDINGS: An endotracheal tube, nasogastric tube, and left chest wall single lead implantable pacer/defibrilla tor remain in place. The patient is status post sternotomy. Heart size is within normal limits. A therosclerotic calcifications are present . There is marked improved aeration of the right lung and moderate improved aeration of the left lung. There is persistent left basilar infiltrate and possi ble small effusion. . There is patchy edema or infiltrates throughout the right lung, significan tly improved.. IMPRESSION: 1. Marked improved aeration of the bilateral lungs, particular on the right. 2. Persistent mild right pulmonary infiltrates/edema and left basilar pleural / parenchymal disease . 3. Lines and tubes are stable. RPTAT: KK .Marco Reed MD, Date Time Electronically viewed and signed by .Marco Reed MD, on 02/06/2017 09:37 .B/
[2017-02-06] MEDS: AZTREONAM 0.5 GM in SOD CHLORIDE 0.9% 50 ML IV SCH ×2 (09:53→20:47)
[2017-02-06] MEDS: ASPIRIN 81 MG TAB PO SCH (09:53)
[2017-02-06] MEDS: COLLAGENASE 30 GM TUBE TOP SCH (09:54)
--- NOTE | 2017-02-06 10:09 | CONS ---
Date/Time of Note Date/Time of Note DATE: 02/06/17 TIME: 10:06 Assessment/Plan Assessment/Plan Additional Assessment/Plan Ventilator settings; AC of 14, tidal volume 500, PEEP of 5, 60% FiO2. Patient currently on propofol at 40 mics per kilo per minute. Assessment recommendations; next 1. Patient admitted for respiratory failure due to pneumonia as well as hypoventilation. 2. Failed extubation trials due to development of significant atelectasis of the right lung due to poor cough reflex with recommendation of mucus however there has been marked overall radiological improvement from today's chest x-ray. 3. Prior history of coronary artery disease status post bypass surgery in the past. 4. Cardiac arrhythmia. Status post pacemaker implantation in the past. Continue current treatment. Patient will need to have a tracheostomy performed. Prognosis is poor. Consultation Date/Type/Reason Admit Date/Time Jan 23, 2017 at 20:03 Type of Consultation: Pulmonary/critical care Referring Provider: ONIEL MORROW MD 24 HR Interval Summary Free Text/Dictation Patient condition remains critical. Still requiring full ventilator support. Patient currently sedated. And does not appear to be in any distress. Exam/Review of Systems Vital Signs Vitals Vital Signs Date Time Temp Pulse Resp B/P Pulse Ox O2 Delivery O2 Flow Rate FiO2 02/06/17 08:00 62 02/06/17 07:30 21 100 75 02/06/17 07:00 132/57 Mechanical Ventilator 02/06/17 04:00 98.9 02/04/17 20:15 15.0 Intake and Output 02/05/17 02/05/17 02/06/17 15:00 23:00 07:00 Intake Total 568.60 ml 677.20 ml 557.20 ml Output Total 410 ml 710 ml 440 ml Balance 158.60 ml -32.80 ml 117.20 ml Exam HEENT exam; supple neck, no JVD. No lymphadenopathy. Midline trachea. No thyromegaly. Orally intubated. Patient bilateral surgical pupils. Chest examination; clear to auscultation. S1-S2 audible, no murmurs. Regular rhythm. There is a well-healed sternal scar. There is a pacemaker in the left chest wall. Abdomen examination; soft, nondistended. No organomegaly. Bowel sounds audible. Extremity exam; no peripheral edema. 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 Results Result Diagram: 02/06/17 0512 02/06/17 0512 Results 24 hrs Laboratory Tests Test 02/05/17 13:25 02/05/17 17:28 02/05/17 20:54 02/06/17 00:56 Bedside Glucose 172 190 182 165 Test 02/06/17 04:49 02/06/17 05:12 02/06/17 07:00 02/06/17 08:28 Bedside Glucose 167 173 White Blood Count 12.0 H Red Blood Count 3.23 L Hemoglobin 9.2 L Hematocrit 29.9 L Mean Corpuscular Volume 92.6 Mean Corpuscular Hemoglobin 28.5 L Mean Corpuscular Hemoglobin Concent 30.8 L Red Cell Distribution Width 16.7 H Platelet Count 148 # Mean Platelet Volume 13.5 H Neutrophils % 86.6 H Lymphocytes % 4.5 L Monocytes % 5.8 Eosinophils % 0.9 Basophils % 0.2 Nucleated Red Blood Cells % 0.0 Neutrophils # 10.4 H Lymphocytes # 0.5 L Monocytes # 0.7 Eosinophils # 0.1 Basophils # 0.0 Nucleated Red Blood Cells # 0.0 Sodium Level 146 H Potassium Level 3.9 Chloride Level 111 H Carbon Dioxide Level 28 Anion Gap 11 Blood Urea Nitrogen 93 H Creatinine 2.10 H Glucose Level 181 Calcium Level 8.2 L Total Bilirubin 0.3 Direct Bilirubin 0.00 Indirect Bilirubin 0.3 Aspartate Amino Transf (AST/SGOT) 18 Alanine Aminotransferase (ALT/SGPT) 58 Alkaline Phosphatase 82 Total Protein 5.8 L Albumin 2.1 L Globulin 3.70 H Albumin/Globulin Ratio 0.56 Blood Gas Specimen Source Blood arterial Arterial Blood Date Drawn 02/06/2017 7:30:51 AM Arterial Blood pH (Temp corrected) 7.462 H Arterial Blood pCO2 (Temp correct) 39.9 Arterial Blood pO2 (Temp corrected) 135.4 H Arterial Blood HCO3 27.9 H Arterial Blood Base Excess 3.8 H Arterial Blood Oxygen Saturation 98.3 Zacarias Test ACCEPTAB Arterial Blood Gas Puncture Site Right Radial Arterial Blood Carboxyhemoglobin 0.2 Arterial Blood Methemoglobin 0.4 Blood Gas A-a O2 Differential 357.0 H Oxyhemoglobin Percent 97.7 Total Hemoglobin 10.5 L Blood Gas Temperature 37.0 Blood Gas Respiration Rate 14.0 Blood Gas Actual Respiration Rate 16 Blood Gas Modality VENT - AC FiO2 75.0 Blood Gas Tidal Volume 500.0 Blood Gas Low PEEP Setting 5.0 Blood Gas Notified Whom JLD Blood Gas Notified Time 02/06/2017 7:50:32 AM Medications Medications Current Medications Acetaminophen (Tylenol Tab) 650 mg Q4H PRN PO PAIN AND OR ELEVATED TEMP; Start 01/24/17 at 11:00 Acetaminophen/ Hydrocodone Bitart ([place] (10/325)) 1 tab Q4H PRN PO PAIN; Start 01/24/17 at 11:00 Zolpidem Tartrate (Ambien) 10 mg HS PRN PO INSOMNIA; Start 01/24/17 at 11:00 Magnesium Hydroxide (Milk Of Mag) 30 ml DAILY PRN PO CONSTIPATION; Start at 11:00 Albuterol (Proventil 0.083% (Neb)) 1.25 mg Q4 PRN HHN SLEEP Last administered on 02/03/17 10:07; Admin Dose 1.25 MG; Start 01/24/17 at 11:00 Diagnostic Test (Pha) (Accu-Chek) 1 ea 02 XX Last administered on 02/04/17 02: 22; Admin Dose 1 EA; Start 01/25/17 at 02:00 Pantoprazole (Protonix Iv) 40 mg DAILY@06 IV Last administered on 02/06/17 05: 49; Admin Dose 40 MG; Start 01/25/17 at 06:00 Miscellaneous Information 1 ea NOTE XX ; Start 01/24/17 at 17:00 Glucose (Glutose) 15 gm Q15M PRN PO DECREASED GLUCOSE; Start 01/24/17 at 17:00 Glucose (Glutose) 22.5 gm Q15M PRN PO DECREASED GLUCOSE; Start 01/24/17 at 17: 00 Dextrose (D50w Syringe) 25 ml Q15M PRN IV DECREASED GLUCOSE; Start 01/24/17 at 17:00 Dextrose (D50w Syringe) 50 ml Q15M PRN IV DECREASED GLUCOSE; Start 01/24/17 at 17:00 Glucagon (Glucagen) 1 mg Q15M PRN IM DECREASED GLUCOSE; Start 01/24/17 at 17:00 Glucose 15 gm 15 gm Q15M PRN BUCCAL DECREASED GLUCOSE; Start 01/24/17 at 17:00 Norepinephrine 16 mg/Dextrose 500 ml @ 1.87 mls/hr TITRATE IV Last administered on 01/26/17 09:18; Admin Dose 9.37 MLS/HR; Start 01/25/17 at 17:30 Aztreonam/Sodium Chloride (Azactam/NS) 50 ml @ 100 mls/hr Q12 IV Last administered on 02/06/17 09:53; Admin Dose 100 MLS/HR; Start 01/25/17 at 21:00 Heparin Sodium (Porcine) (Heparin (5000 Units/0.5 ml)) 5,000 unit Q8 SC Last administered on 02/06/17 05:50; Admin Dose 5,000 UNIT; Start 01/30/17 at 22:00 Alprazolam (Xanax) 1 mg Q4H PRN NGT ANXIETY; Start 01/31/17 at 23:30 Miscellaneous Information (Pending Santyl Order For Wound Care) This patient bowens... PRN PRN XX WOUND CARE; Start 02/01/17 at 16:00 Collagenase (Santyl) 1 applic DAILY TOP Last administered on 02/06/17 09:54; Admin Dose 1 APPLIC; Start 02/02/17 at 09:00 Insulin Glargine 19 unit 19 unit DAILY@08 SC Last administered on 02/06/17 08: 30; Admin Dose 19 UNIT; Start 02/03/17 at 08:00 Vancomycin HCl/ Sodium Chloride (Vancocin/NS) 250 ml @ 83.333 mls/ hr Q36H IVPB Last administered on 02/05/17 04:59; Admin Dose 83.333 MLS/HR; Start at 16:00 Aspirin (Aspirin) 81 mg DAILY PO Last administered on 02/06/17 09:53; Admin Dose 81 MG; Start 02/04/17 at 09:00 Atorvastatin Calcium (Lipitor) 40 mg HS NGT Last administered on 02/05/17 20: 57; Admin Dose 40 MG; Start 02/03/17 at 23:45 Hydralazine HCl 10 mg 10 mg Q3H PRN IV SBP GREATER THAN 160; Start 02/04/17 at 16:30 Propofol (Diprivan) 100 ml @ 2.328 mls/ hr Q12H IV Last administered on 04:10; Admin Dose 4.656 MLS/HR; Start 02/04/17 at 21:00 Insulin Aspart (Novolog Insulin Pen) NOVOLOG *MODERATE* ALGORITHM Q4 SC Last administered on 02/06/17 08:31; Admin Dose 2 UNIT; Start 02/05/17 at 09:00 Carvedilol 6.25 mg 6.25 mg BID PO Last administered on 02/05/17 20:57; Admin Dose 6.25 MG; Start 02/05/17 at 21:00 Levofloxacin/ Dextrose (Levaquin 250 Mg/ D5W 50 ml (Pmx)) 50 ml @ 50 mls/hr Q24H IVPB ; Start 02/06/17 at 15:00 ULISES MCKAY February 06, 2017 10:09
--- NOTE | 2017-02-06 12:15 | PN ---
DATE: PALLIATIVE CARE PROGRESS NOTE SUBJECTIVE: Unfortunately over the weekend, Mr. Winn required reintubation. He is still in the intensive care unit at [facility] with pulmonary edema, new consolidation in his right lung, baseline history of dementia, chronic obstructive pulmonary disease, type 2 diabetes, a rteriosclerotic circulatory vascular disease, and hypertension. The patient's is currently in rehabilitation here at [facility], and has been done see her on at least o ne occasion that I am aware of but possibly much more. He is not significantly improving over in hi s overall general medical condition. The patient remains a FULL CODE. OBJECTIVE: VITAL SIGNS: Blood pressure 132/57, pulse is 71 and regular, respirations of 16, 100% saturation on 75% FIO2. CHEST: Distant breath sounds throughout both lung perea. CORONARY: S1, S2, without S3, S4, murmur, gallop, or rub. Normal rate, normal rhythm. ABDOMEN: Grossly benign. LABORATORY DATA: White blood cell count today 12.0, hemoglobin 9.2, hematocrit of 29.9, MCV of 92.6 , platelet count 148,000. Chemistries: Today's laboratory tests are pending, yesterday serum sodiu m 143, potassium 3.8, chloride 113, bicarbonate 26, BUN of 92, creatinine 2.05. This is compared to laboratory tests which were done February 03. At that time, BUN was 95, creatinine was 2.27. IMAGING STUDIES: Yesterday, February 04, shows a new dense consolidation throughout most of the rig ht lung, moderate right pleural effusion, small left pleural effusion, left basilar atelectasis stella lar to prior study ____ NG tube in satisfactory condition, cardiomegaly, arteriosclerosis, previous median sternotomy, left-sided automatic internal cardiac defibrillator, degenerative changes of the right glomerular humeral joint. ASSESSMENT AND PLAN: I am waiting for a call back from the rehabilitation electromedical equipment technician for perm ission to speak to Mr. Winn's this morning. I just want to make sure that she is psycholog ically capable and physically capable of participating in discussion. To the best of my knowledge, she is the decision maker on his behalf. Will ascertain her understanding of his current medical co ndition and what is acceptable quality of life for her. Physical exam as above. Goals of care will be discussed with the family. He is a FULL CODE. I think the first thing to discuss is a code sit uation. Once again he is FULL CODE. TPS is not indicated at this time. Pain and symptom control w ill be addressed. Ethical issues, surrogate issues, and once again code status will be addressed. POLST form if gentleman survives this hospitalization will be addressed. Dictated By: SAIDA LUCIO MD, LP/SHELLY Conf#: [id number] DID#: [id number]
--- NOTE | 2017-02-06 13:20 | CONS ---
Date/Time of Note Date/Time of Note DATE: 02/06/17 TIME: 13:12 Assessment/Plan Assessment/Plan Chief Complaint/Hosp Course 1. This patient is in the ICU intubated on a ventilator. He does open eyes to verbal stimuli . 2. He has acute renal failure superimposed on CKD , due to diabetic nephropathy . His BUN and serum creatinine are rising , consistent with decreasing renal function . He is developing more edema . Restart diuretics today . 3. Diabetes mellitus , under better control , on Lantus insulin and on moderate sliding scale insulin . 4. Dementia 5. Respiratory failure on ventilator. 6. chronic kidney disease 7. hypertension 8. lower extremity venous Dopplers done shows possible nonocclusive thrombus in R peroneal vein , S C heparin started . Problems: Consultation Date/Type/Reason Admit Date/Time Jan 23, 2017 at 20:03 Initial Consult Date 01/25/17 Type of Consultation: renal Referring Provider: ONIEL MORROW MD 24 HR Interval Summary Free Text/Dictation He is intubated on a ventilator . He does respond to verbal stimuli by opening his eyes . Subjective hx not possible: pt non-verbal Exam/Review of Systems Vital Signs Vitals Vital Signs Date Time Temp Pulse Resp B/P Pulse Ox O2 Delivery O2 Flow Rate FiO2 02/06/17 11:06 67 22 99 50 02/06/17 07:00 132/57 Mechanical Ventilator 02/06/17 04:00 98.9 02/04/17 20:15 15.0 Intake and Output 02/05/17 02/05/17 02/06/17 15:00 23:00 07:00 Intake Total 568.60 ml 677.20 ml 557.20 ml Output Total 410 ml 710 ml 440 ml Balance 158.60 ml -32.80 ml 117.20 ml Exam Constitutional: non-verbal Respiratory: clear to auscultation Cardiovascular: edema, regular rate and rhythm Extremities: edema Results Result Diagram: 02/06/17 0512 02/06/17 0512 Results 24 hrs Laboratory Tests Test 02/05/17 13:25 02/05/17 17:28 02/05/17 20:54 02/06/17 00:56 Bedside Glucose 172 190 182 165 Test 02/06/17 04:49 02/06/17 05:12 02/06/17 07:00 02/06/17 08:28 Bedside Glucose 167 173 White Blood Count 12.0 H Red Blood Count 3.23 L Hemoglobin 9.2 L Hematocrit 29.9 L Mean Corpuscular Volume 92.6 Mean Corpuscular Hemoglobin 28.5 L Mean Corpuscular Hemoglobin Concent 30.8 L Red Cell Distribution Width 16.7 H Platelet Count 148 # Mean Platelet Volume 13.5 H Neutrophils % 86.6 H Lymphocytes % 4.5 L Monocytes % 5.8 Eosinophils % 0.9 Basophils % 0.2 Nucleated Red Blood Cells % 0.0 Neutrophils # 10.4 H Lymphocytes # 0.5 L Monocytes # 0.7 Eosinophils # 0.1 Basophils # 0.0 Nucleated Red Blood Cells # 0.0 Sodium Level 146 H Potassium Level 3.9 Chloride Level 111 H Carbon Dioxide Level 28 Anion Gap 11 Blood Urea Nitrogen 93 H Creatinine 2.10 H Glucose Level 181 Calcium Level 8.2 L Total Bilirubin 0.3 Direct Bilirubin 0.00 Indirect Bilirubin 0.3 Aspartate Amino Transf (AST/SGOT) 18 Alanine Aminotransferase (ALT/SGPT) 58 Alkaline Phosphatase 82 Total Protein 5.8 L Albumin 2.1 L Globulin 3.70 H Albumin/Globulin Ratio 0.56 Blood Gas Specimen Source Blood arterial Arterial Blood Date Drawn 02/06/2017 7:30:51 AM Arterial Blood pH (Temp corrected) 7.462 H Arterial Blood pCO2 (Temp correct) 39.9 Arterial Blood pO2 (Temp corrected) 135.4 H Arterial Blood HCO3 27.9 H Arterial Blood Base Excess 3.8 H Arterial Blood Oxygen Saturation 98.3 Zacarias Test ACCEPTAB Arterial Blood Gas Puncture Site Right Radial Arterial Blood Carboxyhemoglobin 0.2 Arterial Blood Methemoglobin 0.4 Blood Gas A-a O2 Differential 357.0 H Oxyhemoglobin Percent 97.7 Total Hemoglobin 10.5 L Blood Gas Temperature 37.0 Blood Gas Respiration Rate 14.0 Blood Gas Actual Respiration Rate 16 Blood Gas Modality VENT - AC FiO2 75.0 Blood Gas Tidal Volume 500.0 Blood Gas Low PEEP Setting 5.0 Blood Gas Notified Whom JLD Blood Gas Notified Time 02/06/2017 7:50:32 AM Test 02/06/17 12:49 Bedside Glucose 178 Medications Medications Current Medications Acetaminophen (Tylenol Tab) 650 mg Q4H PRN PO PAIN AND OR ELEVATED TEMP; Start 01/24/17 at 11:00 Acetaminophen/ Hydrocodone Bitart ([place] (10/)) 1 tab Q4H PRN PO PAIN; Start 01/24/17 at 11:00 Zolpidem Tartrate (Ambien) 10 mg HS PRN PO INSOMNIA; Start 01/24/17 at 11:00 Magnesium Hydroxide (Milk Of Mag) 30 ml DAILY PRN PO CONSTIPATION; Start at 11:00 Albuterol (Proventil 0.083% (Neb)) 1.25 mg Q4 PRN HHN SLEEP Last administered on 02/03/17 10:07; Admin Dose 1.25 MG; Start 01/24/17 at 11:00 Diagnostic Test (Pha) (Accu-Chek) 1 ea 02 XX Last administered on 02/04/17 02: 22; Admin Dose 1 EA; Start 01/25/17 at 02:00 Pantoprazole (Protonix Iv) 40 mg DAILY@06 IV Last administered on 02/06/17 05: 49; Admin Dose 40 MG; Start 01/25/17 at 06:00 Miscellaneous Information 1 ea NOTE XX ; Start 01/24/17 at 17:00 Glucose (Glutose) 15 gm Q15M PRN PO DECREASED GLUCOSE; Start 01/24/17 at 17:00 Glucose (Glutose) 22.5 gm Q15M PRN PO DECREASED GLUCOSE; Start 01/24/17 at 17: 00 Dextrose (D50w Syringe) 25 ml Q15M PRN IV DECREASED GLUCOSE; Start 01/24/17 at 17:00 Dextrose (D50w Syringe) 50 ml Q15M PRN IV DECREASED GLUCOSE; Start 01/24/17 at 17:00 Glucagon (Glucagen) 1 mg Q15M PRN IM DECREASED GLUCOSE; Start 01/24/17 at 17:00 Glucose 15 gm 15 gm Q15M PRN BUCCAL DECREASED GLUCOSE; Start 01/24/17 at 17:00 Norepinephrine 16 mg/Dextrose 500 ml @ 1.87 mls/hr TITRATE IV Last administered on 01/26/17 09:18; Admin Dose 9.37 MLS/HR; Start 01/25/17 at 17:30 Aztreonam/Sodium Chloride (Azactam/NS) 50 ml @ 100 mls/hr Q12 IV Last administered on 02/06/17 09:53; Admin Dose 100 MLS/HR; Start 01/25/17 at 21:00 Heparin Sodium (Porcine) (Heparin (5000 Units/0.5 ml)) 5,000 unit Q8 SC Last administered on 02/06/17 05:50; Admin Dose 5,000 UNIT; Start 01/30/17 at 22:00 Alprazolam (Xanax) 1 mg Q4H PRN NGT ANXIETY; Start 01/31/17 at 23:30 Miscellaneous Information (Pending Santyl Order For Wound Care) This patient bowens... PRN PRN XX WOUND CARE; Start 02/01/17 at 16:00 Collagenase (Santyl) 1 applic DAILY TOP Last administered on 02/06/17 09:54; Admin Dose 1 APPLIC; Start 02/02/17 at 09:00 Insulin Glargine 19 unit 19 unit DAILY@08 SC Last administered on 02/06/17 08: 30; Admin Dose 19 UNIT; Start 02/03/17 at 08:00 Vancomycin HCl/ Sodium Chloride (Vancocin/NS) 250 ml @ 83.333 mls/ hr Q36H IVPB Last administered on 02/05/17 04:59; Admin Dose 83.333 MLS/HR; Start at 16:00 Aspirin (Aspirin) 81 mg DAILY PO Last administered on 02/06/17 09:53; Admin Dose 81 MG; Start 02/04/17 at 09:00 Atorvastatin Calcium (Lipitor) 40 mg HS NGT Last administered on 02/05/17 20: 57; Admin Dose 40 MG; Start 02/03/17 at 23:45 Hydralazine HCl 10 mg 10 mg Q3H PRN IV SBP GREATER THAN 160; Start 02/04/17 at 16:30 Propofol (Diprivan) 100 ml @ 2.328 mls/ hr Q12H IV Last administered on 04:10; Admin Dose 4.656 MLS/HR; Start 02/04/17 at 21:00 Insulin Aspart (Novolog Insulin Pen) NOVOLOG *MODERATE* ALGORITHM Q4 SC Last administered on 02/06/17 12:51; Admin Dose 2 UNIT; Start 02/05/17 at 09:00 Carvedilol 6.25 mg 6.25 mg BID PO Last administered on 02/05/17 20:57; Admin Dose 6.25 MG; Start 02/05/17 at 21:00 Levofloxacin/ Dextrose (Levaquin 250 Mg/ D5W 50 ml (Pmx)) 50 ml @ 50 mls/hr Q24H IVPB ; Start 02/06/17 at 15:00 ANNA BUSTILLO MD February 06, 2017 13:20
--- NOTE | 2017-02-06 14:35 | CONS ---
Date/Time of Note Date/Time of Note DATE: 02/06/17 TIME: 14:28 Assessment/Plan Assessment/Plan Chief Complaint/Hosp Course Impression: - respiratory failure- requiring intubation and difficulty weaning. did extubated, but reintubated now. pulmonary managing. 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 pt poor candidate for invasive evaluation. no e/o of ongoing ischemia. - presented with dementia with worsening mental status, now intubated. pt alert but unable to wean off vent. - NSTEMI- trop peaked at 10.0, also with h/o of ATN, ALI at time of event. c/w either hypotensive vs hypoxemic event. now resolved. may need risk stratification depending on clinical course. - multi vessel CAD- now with NSTEMI, will recommend await clinic improvement and reassess. - atrial fibrillation- rate controlled - NSVT s/p ICD placement nl fxn last checked 01/2017. no sustained VT - mild to moderate - h/o HTN - h/o DM2 - PANCHO- cr stable/improving but significant uremia Recommendations - cont asa/statin - cont coreg to 6.25mg po bid - hold off on acei until bp stable for sig period of time and renal fxn improve - on bumex to keep even to negative - watch uremia, renal following - no e/o ongoing ischemia. hold off on any invasive evaluation at this time. could reconsider if patient recovers from acute illnesses will follow Problems: Consultation Date/Type/Reason Admit Date/Time Jan 23, 2017 at 20:03 Initial Consult Date 01/25/17 Type of Consultation: cardiology Referring Provider: ONIEL MORROW MD 24 HR Interval Summary Free Text/Dictation remains intubated after reintubation over weekend. pt remains in afib, rates controlled. on propofol, eyes open. does not respond to commands tele reviewe: afib, rate controlled. PVCs, 3 beat NSVT Subjective hx not possible: pt non-verbal, pt critical status Exam/Review of Systems Vital Signs Vitals Vital Signs Date Time Temp Pulse Resp B/P Pulse Ox O2 Delivery O2 Flow Rate FiO2 02/06/17 13:47 65 20 100 40 02/06/17 13:30 119/61 02/06/17 13:00 Mechanical Ventilator 02/06/17 12:00 98.3 02/04/17 20:15 15.0 Intake and Output 02/05/17 02/05/17 02/06/17 15:00 23:00 07:00 Intake Total 568.60 ml 677.20 ml 557.20 ml Output Total 410 ml 710 ml 440 ml Balance 158.60 ml -32.80 ml 117.20 ml Exam Constitutional: alert, No oriented Psych: other (unabel to assess) Head: atraumatic, normocephalic Eyes: nl sclera ENMT: mucosa pink and moist Neck: non-tender, supple, No jvd Respiratory: coarse anterior bs Cardiovascular: irregular rhythm, nl pulses, other (distant hs), No S3, No S4 Gastrointestinal: non-tender, soft Musculoskeletal: nl extremities to inspection Extremities: normal pulses Results Result Diagram: 02/06/1751102/06/17511 Results 24 hrs Laboratory Tests Test 02/05/17 17:28 02/05/17 20:54 02/06/17 00:56 02/06/17 04:49 Bedside Glucose 190 182 165 167 Test 02/06/17 05:12 02/06/17 07:00 02/06/17 08:28 02/06/17 12:49 White Blood Count 12.0 H Red Blood Count 3.23 L Hemoglobin 9.2 L Hematocrit 29.9 L Mean Corpuscular Volume 92.6 Mean Corpuscular Hemoglobin 28.5 L Mean Corpuscular Hemoglobin Concent 30.8 L Red Cell Distribution Width 16.7 H Platelet Count 148 # Mean Platelet Volume 13.5 H Neutrophils % 86.6 H Lymphocytes % 4.5 L Monocytes % 5.8 Eosinophils % 0.9 Basophils % 0.2 Nucleated Red Blood Cells % 0.0 Neutrophils # 10.4 H Lymphocytes # 0.5 L Monocytes # 0.7 Eosinophils # 0.1 Basophils # 0.0 Nucleated Red Blood Cells # 0.0 Sodium Level 146 H Potassium Level 3.9 Chloride Level 111 H Carbon Dioxide Level 28 Anion Gap 11 Blood Urea Nitrogen 93 H Creatinine 2.10 H Glucose Level 181 Calcium Level 8.2 L Total Bilirubin 0.3 Direct Bilirubin 0.00 Indirect Bilirubin 0.3 Aspartate Amino Transf (AST/SGOT) 18 Alanine Aminotransferase (ALT/SGPT) 58 Alkaline Phosphatase 82 Total Protein 5.8 L Albumin 2.1 L Globulin 3.70 H Albumin/Globulin Ratio 0.56 Blood Gas Specimen Source Blood arterial Arterial Blood Date Drawn 02/06/2017 7:30:51 AM Arterial Blood pH (Temp corrected) 7.462 H Arterial Blood pCO2 (Temp correct) 39.9 Arterial Blood pO2 (Temp corrected) 135.4 H Arterial Blood HCO3 27.9 H Arterial Blood Base Excess 3.8 H Arterial Blood Oxygen Saturation 98.3 Zacarias Test ACCEPTAB Arterial Blood Gas Puncture Site Right Radial Arterial Blood Carboxyhemoglobin 0.2 Arterial Blood Methemoglobin 0.4 Blood Gas A-a O2 Differential 357.0 H Oxyhemoglobin Percent 97.7 Total Hemoglobin 10.5 L Blood Gas Temperature 37.0 Blood Gas Respiration Rate 14.0 Blood Gas Actual Respiration Rate 16 Blood Gas Modality VENT - AC FiO2 75.0 Blood Gas Tidal Volume 500.0 Blood Gas Low PEEP Setting 5.0 Blood Gas Notified Whom JLD Blood Gas Notified Time 02/06/2017 7:50:32 AM Bedside Glucose 173 178 Medications Medications Current Medications Acetaminophen (Tylenol Tab) 650 mg Q4H PRN PO PAIN AND OR ELEVATED TEMP; Start 01/24/17 at 11:00 Acetaminophen/ Hydrocodone Bitart ([place] (10/325)) 1 tab Q4H PRN PO PAIN; Start 01/24/17 at 11:00 Zolpidem Tartrate (Ambien) 10 mg HS PRN PO INSOMNIA; Start 01/24/17 at 11:00 Magnesium Hydroxide (Milk Of Mag) 30 ml DAILY PRN PO CONSTIPATION; Start at 11:00 Albuterol (Proventil 0.083% (Neb)) 1.25 mg Q4 PRN HHN SLEEP Last administered on 02/03/17 10:07; Admin Dose 1.25 MG; Start 01/24/17 at 11:00 Diagnostic Test (Pha) (Accu-Chek) 1 ea 02 XX Last administered on 02/04/17 02: 22; Admin Dose 1 EA; Start 01/25/17 at 02:00 Pantoprazole (Protonix Iv) 40 mg DAILY@06 IV Last administered on 02/06/17 05: 49; Admin Dose 40 MG; Start 01/25/17 at 06:00 Miscellaneous Information 1 ea NOTE XX ; Start 01/24/17 at 17:00 Glucose (Glutose) 15 gm Q15M PRN PO DECREASED GLUCOSE; Start 01/24/17 at 17:00 Glucose (Glutose) 22.5 gm Q15M PRN PO DECREASED GLUCOSE; Start 01/24/17 at 17: 00 Dextrose (D50w Syringe) 25 ml Q15M PRN IV DECREASED GLUCOSE; Start 01/24/17 at 17:00 Dextrose (D50w Syringe) 50 ml Q15M PRN IV DECREASED GLUCOSE; Start 01/24/17 at 17:00 Glucagon (Glucagen) 1 mg Q15M PRN IM DECREASED GLUCOSE; Start 01/24/17 at 17:00 Glucose 15 gm 15 gm Q15M PRN BUCCAL DECREASED GLUCOSE; Start 01/24/17 at 17:00 Norepinephrine 16 mg/Dextrose 500 ml @ 1.87 mls/hr TITRATE IV Last administered on 01/26/17 09:18; Admin Dose 9.37 MLS/HR; Start 01/25/17 at 17:30 Aztreonam/Sodium Chloride (Azactam/NS) 50 ml @ 100 mls/hr Q12 IV Last administered on 02/06/17 09:53; Admin Dose 100 MLS/HR; Start 01/25/17 at 21:00 Heparin Sodium (Porcine) (Heparin (5000 Units/0.5 ml)) 5,000 unit Q8 SC Last administered on 02/06/17 14:09; Admin Dose 5,000 UNIT; Start 01/30/17 at 22:00 Alprazolam (Xanax) 1 mg Q4H PRN NGT ANXIETY; Start 01/31/17 at 23:30 Miscellaneous Information (Pending Santyl Order For Wound Care) This patient bowens... PRN PRN XX WOUND CARE; Start 02/01/17 at 16:00 Collagenase (Santyl) 1 applic DAILY TOP Last administered on 02/06/17 09:54; Admin Dose 1 APPLIC; Start 02/02/17 at 09:00 Insulin Glargine 19 unit 19 unit DAILY@08 SC Last administered on 02/06/17 08: 30; Admin Dose 19 UNIT; Start 02/03/17 at 08:00 Vancomycin HCl/ Sodium Chloride (Vancocin/NS) 250 ml @ 83.333 mls/ hr Q36H IVPB Last administered on 02/05/17 04:59; Admin Dose 83.333 MLS/HR; Start at 16:00 Aspirin (Aspirin) 81 mg DAILY PO Last administered on 02/06/17 09:53; Admin Dose 81 MG; Start 02/04/17 at 09:00 Atorvastatin Calcium (Lipitor) 40 mg HS NGT Last administered on 02/05/17 20: 57; Admin Dose 40 MG; Start 02/03/17 at 23:45 Hydralazine HCl 10 mg 10 mg Q3H PRN IV SBP GREATER THAN 160; Start 02/04/17 at 16:30 Propofol (Diprivan) 100 ml @ 2.328 mls/ hr Q12H IV Last administered on 04:10; Admin Dose 4.656 MLS/HR; Start 02/04/17 at 21:00 Insulin Aspart (Novolog Insulin Pen) NOVOLOG *MODERATE* ALGORITHM Q4 SC Last administered on 02/06/17 12:51; Admin Dose 2 UNIT; Start 02/05/17 at 09:00 Carvedilol 6.25 mg 6.25 mg BID PO Last administered on 02/05/17 20:57; Admin Dose 6.25 MG; Start 02/05/17 at 21:00 Levofloxacin/ Dextrose (Levaquin 250 Mg/ D5W 50 ml (Pmx)) 50 ml @ 50 mls/hr Q24H IVPB ; Start 02/06/17 at 15:00 Procedures Procedures cxr images reviewed, mild R effusion LANE VOGEL February 06, 2017 14:35
[2017-02-06] MEDS: LEVOFLOXACIN 250MG/D5W (PMX) 50 ML IVPB SCH (15:36)
[2017-02-06] MEDS: BUMETANIDE 1 MG INJ IV SCH ×2 (15:36→20:47)
[2017-02-06] MEDS: VANCOMYCIN 1.25 GM in SOD CHLORIDE 0.9% 250 ML IVPB SCH (16:49)
[2017-02-06] MEDS ORDERED: LEVOFLOXACIN 250MG/D5W (PMX) 50 ML IVPB SCH (17:00)
[2017-02-06] MEDS: ATORVASTATIN 40 MG TAB NGT SCH (20:46)
[2017-02-07] VITALS (56 sets, daily range): BP systolic 92–161; BP diastolic 25–88; PULSE 58–84; RESP 14–23
[2017-02-07] MEDS: INSULIN ASPART [NOVOLOG] 3 ML PEN SC SCH ×6 (01:00→22:06)
[2017-02-07] MEDS: ALBUTEROL 18 GM INHALER INH SCH ×6 (01:19→19:49)
--- NOTE | 2017-02-07 02:38 | PN ---
DATE: 02/06/2017 SUBJECTIVE: The patient had to be reintubated because of increased atelectasis of the right lung an d increasing hypoxemia. This is felt to be due a poor cough reflex. It is felt by the service counter cashier that no invasive procedure would be indicated at this time because of the patient's poor condition. However, should he survive this episode, he might be a candidate for coronary cineangiogram. The patient was also seen by the switch foreman who felt that the patient needed reintubation and this wa s performed. He was also seen by his gaming floor supervisor who felt that the patient was once again becoming edematous and that diuretics would have to be reinstituted. The patient is reintubated. OBJECTIVE: GENERAL: At this time, he is unresponsive. He does not open his eyes to command. CHEST: Clear to A and P. HEART: Irregular irregularity. ABDOMEN: Bowel sounds are normal. No intraabdominal masses or bruits. Liver, kidneys, spleen are not palpable. LEGS: There is 2+ dorsal pedal edema and 1+ pretibial edema bilaterally. VITAL SIGNS: Blood pressure 108/66, respiratory rate 21, pulse 63. The patient is on mechanical ve ntilator, pulse oximetry 87on an FiO2 of 30. Intake and output 1803/1565. LABORATORY DATA: White blood cell count 12,000; hemoglobin 9.2, hematocrit 29.9%, platelet count is normal. Arterial blood gas: pH 7.462, pCO2 of 39.9, pO2 of 130.4, base excess +3.8. FIO2 of 75. INR is 1.27. Electrolytes: Sodium 145, potassium 3.9, chloride 111, carbon dioxide 28, BUN 93, cr eatinine 2.10, glucose 181, calcium 8.2, uncorrected. Total protein 5.8, albumin 2.8, globulin 3.7. A/G ratio 0.56. Urine shows greater than 50 RBCs, 0 to 2 WBCs per mL. Urine hemoglobin 3+, urine glucose negative, urine total protein is trace. Lanoxin level was 1.1. Urine culture reveals no g rowth after 24 hours. Blood culture reveals no growth after 1 day. IMAGING: Chest x-ray reveals marked improved aeration of the bilateral lungs, particularly on the r ight. Persistent mild right pulmonary infiltrates, edema, and left basilar pleural parenchymal dise ase. Lines and tubes are stable. The patient's condition remains poor and critical and his prognosis remains very guarded. Dictated By: ONIEL BYNUM/SHELLY Conf#: [id number] DID#: [id number]
[2017-02-07] MEDS: PANTOPRAZOLE 40 MG INJ IV SCH (05:26)
[2017-02-07] MEDS: HEPARIN 5,000 UNIT/0.5 ML VIAL SC SCH ×3 (05:26→21:17)
[2017-02-07] MEDS: BUMETANIDE 1 MG INJ IV SCH ×2 (05:26→18:22)
[2017-02-07 07:06] LABS: ADD SCAN DIFF NO
[2017-02-07 07:15] LABS: ABNORMAL IP MESSAGE 1; BASOPHILS % 0.2 % (0.0-2.0); EOSINOPHILS # 0.1 10^3/ul (0.0-0.5); EOSINOPHILS % 1.2 % (0.0-7.0); HEMATOCRIT 31.5 % (42.0-52.0); HEMOGLOBIN 9.6 g/dl (14.0-18.0); LYMPHOCYTES # 0.7 10^3/ul (0.8-2.9); MEAN CORPUSCULAR HEMOGLOBIN 28.2 pg (29.0-33.0); MEAN CORPUSCULAR HGB CONC 30.5 g/dl (32.0-37.0); MEAN CORPUSCULAR VOLUME 92.4 fl (82.0-101.0); MEAN PLATELET VOLUME 13.9 fl (7.4-10.4); MONOCYTE # 0.6 10^3/ul (0.3-0.9); MONOCYTES % 5.5 % (0.0-11.0); NEUTROPHIL # 9.1 10^3/ul (1.6-7.5); NEUTROPHILS % 84.6 % (39.0-77.0); PLATELET COUNT 147 10^3/UL (140-415); RED BLOOD COUNT 3.41 10^6/ul (4.70-6.10); RED CELL DISTRIBUTION WIDTH 16.8 % (11.5-14.5); WHITE BLOOD COUNT 10.8 10^3/ul (4.8-10.8)
[2017-02-07 07:28] LABS: ALBUMIN 2.3 g/dl (3.3-4.9); ALBUMIN/GLOBULIN RATIO 0.58; BILIRUBIN,INDIRECT 0.2 mg/dl (0-1.1); BILIRUBIN,TOTAL 0.2 mg/dl (0.2-1.3); CALCIUM 8.1 mg/dl (8.4-10.2); CREATININE 1.89 mg/dl (0.61-1.24); POTASSIUM 3.9 mmol/L (3.5-5.1); TOTAL PROTEIN 6.2 g/dl (6.1-8.1)
[2017-02-07] MEDS: INSULIN GLARGINE [LANtus] 3 ML PEN SC SCH (08:24)
[2017-02-07] MEDS: ASPIRIN 81 MG TAB PO SCH (09:18)
[2017-02-07] MEDS: AZTREONAM 0.5 GM in SOD CHLORIDE 0.9% 50 ML IV SCH ×2 (09:18→21:16)
--- NOTE | 2017-02-07 09:21 | CONS ---
Date/Time of Note Date/Time of Note DATE: 02/07/17 TIME: 09:17 Assessment/Plan Assessment/Plan Additional Assessment/Plan Ventilator settings; AC of 14, tidal volume 500, PEEP of 5, 30% FiO2. Patient currently on propofol at 10 mics per milligram per minute. Assessment recommendations; 1. Patient admitted for respiratory failure due to pneumonia and CHF. 2. Failed one extubation trial with development of almost complete right lung atelectasis due to poor cough reflex for documentation of secretions, with marked interval improvement after intubation. 3. History of coronary artery disease status post bypass surgery in the past. 4. Acute renal insufficiency, with continually improving serum creatinine. 5. History of cardiac arrhythmia, status post pacemaker implantation in the past. Continue current treatment. Patient's family has made him a DNR. The patient is a very high risk of respiratory failure post extubation on account of poor cough reflex, and will clarify with the family about this possibility before giving the patient a weaning trial from ventilator again. Prognosis remains poor. Consultation Date/Type/Reason Admit Date/Time Jan 23, 2017 at 20:03 Type of Consultation: Pulmonary/critical care Referring Provider: ONIEL MORROW MD 24 HR Interval Summary Free Text/Dictation Patient condition remains critical. Still on full ventilator support. Patient has remained hemodynamically stable. General exam; elderly male, awake currently in no distress orally intubated. Exam/Review of Systems Vital Signs Vitals Vital Signs Date Time Temp Pulse Resp B/P Pulse Ox O2 Delivery O2 Flow Rate FiO2 02/07/17 08:04 70 21 98 30 02/07/17 06:00 116/72 Mechanical Ventilator 02/07/17 04:00 98.3 02/04/17 20:15 15.0 Intake and Output 02/06/17 02/06/17 02/07/17 15:00 23:00 07:00 Intake Total 567.20 ml 927.20 ml 472.61 ml Output Total 355 ml 1145 ml 790 ml Balance 212.20 ml -217.80 ml -317.39 ml Exam HEENT exam is; supple neck, no JVD. No lymphadenopathy. Midline trachea. No thyromegaly. Orally intubated. Patient bilateral surgical pupils. Chest examination; diminished but clear vessel. S1-S2 audible, there is a well- healed sternal scar. Pacemaker left chest wall. Irregular rhythm. Abdomen examination; soft, nondistended. No organomegaly. Bowel sounds audible. Extremity examination; no peripheral edema. Patient has a multiple ecchymosis involving all 4 extremities. Pulses 1+ bilaterally. [employer] examination; patient is awake and follows very simple commands. Results Result Diagram: 02/07/17 0525 02/07/17 0525 Results 24 hrs Laboratory Tests Test 02/06/17 12:49 02/06/17 17:01 02/06/17 20:45 02/07/17 01:05 Bedside Glucose 178 130 132 133 Test 02/07/17 05:06 02/07/17 05:25 02/07/17 08:22 Bedside Glucose 153 148 White Blood Count 10.8 Red Blood Count 3.41 L Hemoglobin 9.6 L Hematocrit 31.5 L Mean Corpuscular Volume 92.4 Mean Corpuscular Hemoglobin 28.2 L Mean Corpuscular Hemoglobin Concent 30.5 L Red Cell Distribution Width 16.8 H Platelet Count 147 Mean Platelet Volume 13.9 H Neutrophils % 84.6 H Lymphocytes % 6.0 L Monocytes % 5.5 Eosinophils % 1.2 Basophils % 0.2 Nucleated Red Blood Cells % 0.0 Neutrophils # 9.1 H Lymphocytes # 0.7 L Monocytes # 0.6 Eosinophils # 0.1 Basophils # 0.0 Nucleated Red Blood Cells # 0.0 Sodium Level 144 Potassium Level 3.9 Chloride Level 112 H Carbon Dioxide Level 28 Anion Gap 8 Blood Urea Nitrogen 90 H Creatinine 1.89 H Glucose Level 153 Calcium Level 8.1 L Total Bilirubin 0.2 Direct Bilirubin 0.00 Indirect Bilirubin 0.2 Aspartate Amino Transf (AST/SGOT) 24 Alanine Aminotransferase (ALT/SGPT) 57 Alkaline Phosphatase 95 Total Protein 6.2 Albumin 2.3 L Globulin 3.90 H Albumin/Globulin Ratio 0.58 Medications Medications Current Medications Acetaminophen (Tylenol Tab) 650 mg Q4H PRN PO PAIN AND OR ELEVATED TEMP; Start 01/24/17 at 11:00 Acetaminophen/ Hydrocodone Bitart ([place] (10/325)) 1 tab Q4H PRN PO PAIN; Start 01/24/17 at 11:00 Zolpidem Tartrate (Ambien) 10 mg HS PRN PO INSOMNIA; Start 01/24/17 at 11:00 Magnesium Hydroxide (Milk Of Mag) 30 ml DAILY PRN PO CONSTIPATION; Start at 11:00 Albuterol (Proventil 0.083% (Neb)) 1.25 mg Q4 PRN HHN SLEEP Last administered on 02/03/17 10:07; Admin Dose 1.25 MG; Start 01/24/17 at 11:00 Diagnostic Test (Pha) (Accu-Chek) 1 ea 02 XX Last administered on 02/04/17 02: 22; Admin Dose 1 EA; Start 01/25/17 at 02:00 Pantoprazole (Protonix Iv) 40 mg DAILY@06 IV Last administered on 02/07/17 05: 26; Admin Dose 40 MG; Start 01/25/17 at 06:00 Miscellaneous Information 1 ea NOTE XX ; Start 01/24/17 at 17:00 Glucose (Glutose) 15 gm Q15M PRN PO DECREASED GLUCOSE; Start 01/24/17 at 17:00 Glucose (Glutose) 22.5 gm Q15M PRN PO DECREASED GLUCOSE; Start 01/24/17 at 17: 00 Dextrose (D50w Syringe) 25 ml Q15M PRN IV DECREASED GLUCOSE; Start 01/24/17 at 17:00 Dextrose (D50w Syringe) 50 ml Q15M PRN IV DECREASED GLUCOSE; Start 01/24/17 at 17:00 Glucagon (Glucagen) 1 mg Q15M PRN IM DECREASED GLUCOSE; Start 01/24/17 at 17:00 Glucose 15 gm 15 gm Q15M PRN BUCCAL DECREASED GLUCOSE; Start 01/24/17 at 17:00 Norepinephrine 16 mg/Dextrose 500 ml @ 1.87 mls/hr TITRATE IV Last administered on 01/26/17 09:18; Admin Dose 9.37 MLS/HR; Start 01/25/17 at 17:30 Aztreonam/Sodium Chloride (Azactam/NS) 50 ml @ 100 mls/hr Q12 IV Last administered on 02/06/17 20:47; Admin Dose 100 MLS/HR; Start 01/25/17 at 21:00 Heparin Sodium (Porcine) (Heparin (5000 Units/0.5 ml)) 5,000 unit Q8 SC Last administered on 02/07/17 05:26; Admin Dose 5,000 UNIT; Start 01/30/17 at 22:00 Alprazolam (Xanax) 1 mg Q4H PRN NGT ANXIETY; Start 01/31/17 at 23:30 Miscellaneous Information (Pending Santyl Order For Wound Care) This patient bowens... PRN PRN XX WOUND CARE; Start 02/01/17 at 16:00 Collagenase (Santyl) 1 applic DAILY TOP Last administered on 02/06/17 09:54; Admin Dose 1 APPLIC; Start 02/02/17 at 09:00 Insulin Glargine 19 unit 19 unit DAILY@08 SC Last administered on 02/07/17 08: 24; Admin Dose 19 UNIT; Start 02/03/17 at 08:00 Vancomycin HCl/ Sodium Chloride (Vancocin/NS) 250 ml @ 83.333 mls/ hr Q36H IVPB Last administered on 02/06/17 16:49; Admin Dose 83.333 MLS/HR; Start 02/03 at 16:00 Aspirin (Aspirin) 81 mg DAILY PO Last administered on 02/06/17 09:53; Admin Dose 81 MG; Start 02/04/17 at 09:00 Atorvastatin Calcium (Lipitor) 40 mg HS NGT Last administered on 02/06/17 20:46 ; Admin Dose 40 MG; Start 02/03/17 at 23:45 Hydralazine HCl 10 mg 10 mg Q3H PRN IV SBP GREATER THAN 160; Start 02/04/17 at 16:30 Propofol (Diprivan) 100 ml @ 2.328 mls/ hr Q12H IV Last administered on 20:48; Admin Dose 4.656 MLS/HR; Start 02/04/17 at 21:00 Insulin Aspart (Novolog Insulin Pen) NOVOLOG *MODERATE* ALGORITHM Q4 SC Last administered on 02/07/17 05:09; Admin Dose 2 UNIT; Start 02/05/17 at 09:00 Carvedilol 6.25 mg 6.25 mg BID PO Last administered on 02/06/17 20:47; Admin Dose 6.25 MG; Start 02/05/17 at 21:00 Levofloxacin/ Dextrose (Levaquin 250 Mg/ D5W 50 ml (Pmx)) 50 ml @ 50 mls/hr Q24H IVPB Last administered on 02/06/17 15:36; Admin Dose 50 MLS/HR; Start 02/06 at 15:00 Miscellaneous Information (*Rx Drug Level Order Reminder*) VANCO TR LEVEL PRIOR... ONCE ONCE XX ; Start 02/08/17 at 03:00; Stop 02/08/17 at 03:01 ULISES MCKAY February 07, 2017 09:20
[2017-02-07] MEDS: COLLAGENASE 30 GM TUBE TOP SCH (09:34)
--- NOTE | 2017-02-07 13:25 | CONS ---
Date/Time of Note Date/Time of Note DATE: 02/07/17 TIME: 13:19 Assessment/Plan Assessment/Plan Chief Complaint/Hosp Course 1. This patient is in the ICU intubated on a ventilator. He does open eyes to verbal stimuli . 2. He has acute renal failure superimposed on CKD . His BUN and serum creatinine are lower today and he is diuresing on diuretics . Continue diuretics and monitor I & O 's and renal function . 3. Diabetes mellitus , under better control , on Lantus insulin and on moderate sliding scale insulin . 4. Dementia 5. Respiratory failure on ventilator. He is now DNR 6. chronic kidney disease due to diabetic nephropathy . 7. hypertension 8. lower extremity venous Dopplers done shows possible nonocclusive thrombus in R peroneal vein , S C heparin started . Problems: Consultation Date/Type/Reason Admit Date/Time Jan 23, 2017 at 20:03 Initial Consult Date 01/25/17 Type of Consultation: renal Referring Provider: ONIEL MORROW MD 24 HR Interval Summary Free Text/Dictation He is intubated on ventilator in the ICU . He opens his eyes to verbal stimuli . Subjective hx not possible: pt non-verbal Exam/Review of Systems Vital Signs Vitals Vital Signs Date Time Temp Pulse Resp B/P Pulse Ox O2 Delivery O2 Flow Rate FiO2 02/07/17 11:30 62 22 92/57 95 Mechanical Ventilator 02/07/17 11:16 30 02/07/17 08:00 98.1 02/04/17 20:15 15.0 Intake and Output 02/06/17 02/06/17 02/07/17 15:00 23:00 07:00 Intake Total 567.20 ml 927.20 ml 472.61 ml Output Total 355 ml 1145 ml 790 ml Balance 212.20 ml -217.80 ml -317.39 ml Exam Constitutional: frail, non-verbal Respiratory: clear to auscultation Cardiovascular: regular rate and rhythm Gastrointestinal: soft Extremities: edema Results Result Diagram: 02/07/17 0525 02/07/17 0525 Results 24 hrs Laboratory Tests Test 02/06/17 17:01 02/06/17 20:45 02/07/17 01:05 02/07/17 05:06 Bedside Glucose 130 132 133 153 Test 02/07/17 05:25 02/07/17 08:22 02/07/17 09:30 White Blood Count 10.8 Red Blood Count 3.41 L Hemoglobin 9.6 L Hematocrit 31.5 L Mean Corpuscular Volume 92.4 Mean Corpuscular Hemoglobin 28.2 L Mean Corpuscular Hemoglobin Concent 30.5 L Red Cell Distribution Width 16.8 H Platelet Count 147 Mean Platelet Volume 13.9 H Neutrophils % 84.6 H Lymphocytes % 6.0 L Monocytes % 5.5 Eosinophils % 1.2 Basophils % 0.2 Nucleated Red Blood Cells % 0.0 Neutrophils # 9.1 H Lymphocytes # 0.7 L Monocytes # 0.6 Eosinophils # 0.1 Basophils # 0.0 Nucleated Red Blood Cells # 0.0 Sodium Level 144 Potassium Level 3.9 Chloride Level 112 H Carbon Dioxide Level 28 Anion Gap 8 Blood Urea Nitrogen 90 H Creatinine 1.89 H Glucose Level 153 Calcium Level 8.1 L Total Bilirubin 0.2 Direct Bilirubin 0.00 Indirect Bilirubin 0.2 Aspartate Amino Transf (AST/SGOT) 24 Alanine Aminotransferase (ALT/SGPT) 57 Alkaline Phosphatase 95 Total Protein 6.2 Albumin 2.3 L Globulin 3.90 H Albumin/Globulin Ratio 0.58 Bedside Glucose 148 143 Medications Medications Current Medications Acetaminophen (Tylenol Tab) 650 mg Q4H PRN PO PAIN AND OR ELEVATED TEMP; Start 01/24/17 at 11:00 Acetaminophen/ Hydrocodone Bitart ([place] (10/325)) 1 tab Q4H PRN PO PAIN; Start 01/24/17 at 11:00 Zolpidem Tartrate (Ambien) 10 mg HS PRN PO INSOMNIA; Start 01/24/17 at 11:00 Magnesium Hydroxide (Milk Of Mag) 30 ml DAILY PRN PO CONSTIPATION; Start at 11:00 Albuterol (Proventil 0.083% (Neb)) 1.25 mg Q4 PRN HHN SLEEP Last administered on 02/03/17 10:07; Admin Dose 1.25 MG; Start 01/24/17 at 11:00 Diagnostic Test (Pha) (Accu-Chek) 1 ea 02 XX Last administered on 02/04/17 02: 22; Admin Dose 1 EA; Start 01/25/17 at 02:00 Pantoprazole (Protonix Iv) 40 mg DAILY@06 IV Last administered on 02/07/17 05: 26; Admin Dose 40 MG; Start 01/25/17 at 06:00 Miscellaneous Information 1 ea NOTE XX ; Start 01/24/17 at 17:00 Glucose (Glutose) 15 gm Q15M PRN PO DECREASED GLUCOSE; Start 01/24/17 at 17:00 Glucose (Glutose) 22.5 gm Q15M PRN PO DECREASED GLUCOSE; Start 01/24/17 at 17: 00 Dextrose (D50w Syringe) 25 ml Q15M PRN IV DECREASED GLUCOSE; Start 01/24/17 at 17:00 Dextrose (D50w Syringe) 50 ml Q15M PRN IV DECREASED GLUCOSE; Start 01/24/17 at 17:00 Glucagon (Glucagen) 1 mg Q15M PRN IM DECREASED GLUCOSE; Start 01/24/17 at 17:00 Glucose 15 gm 15 gm Q15M PRN BUCCAL DECREASED GLUCOSE; Start 01/24/17 at 17:00 Norepinephrine 16 mg/Dextrose 500 ml @ 1.87 mls/hr TITRATE IV Last administered on 01/26/17 09:18; Admin Dose 9.37 MLS/HR; Start 01/25/17 at 17:30 Aztreonam/Sodium Chloride (Azactam/NS) 50 ml @ 100 mls/hr Q12 IV Last administered on 02/07/17 09:18; Admin Dose 100 MLS/HR; Start 01/25/17 at 21:00 Heparin Sodium (Porcine) (Heparin (5000 Units/0.5 ml)) 5,000 unit Q8 SC Last administered on 02/07/17 05:26; Admin Dose 5,000 UNIT; Start 01/30/17 at 22:00 Alprazolam (Xanax) 1 mg Q4H PRN NGT ANXIETY; Start 01/31/17 at 23:30 Miscellaneous Information (Pending Santyl Order For Wound Care) This patient bowens... PRN PRN XX WOUND CARE; Start 02/01/17 at 16:00 Collagenase (Santyl) 1 applic DAILY TOP Last administered on 02/07/17 09:34; Admin Dose 1 APPLIC; Start 02/02/17 at 09:00 Insulin Glargine 19 unit 19 unit DAILY@08 SC Last administered on 02/07/17 08: 24; Admin Dose 19 UNIT; Start 02/03/17 at 08:00 Vancomycin HCl/ Sodium Chloride (Vancocin/NS) 250 ml @ 83.333 mls/ hr Q36H IVPB Last administered on 02/06/17 16:49; Admin Dose 83.333 MLS/HR; Start 02/03 at 16:00 Aspirin (Aspirin) 81 mg DAILY PO Last administered on 02/07/17 09:18; Admin Dose 81 MG; Start 02/04/17 at 09:00 Atorvastatin Calcium (Lipitor) 40 mg HS NGT Last administered on 02/06/17 20:46 ; Admin Dose 40 MG; Start 02/03/17 at 23:45 Hydralazine HCl 10 mg 10 mg Q3H PRN IV SBP GREATER THAN 160; Start 02/04/17 at 16:30 Propofol (Diprivan) 100 ml @ 2.328 mls/ hr Q12H IV Last administered on 20:48; Admin Dose 4.656 MLS/HR; Start 02/04/17 at 21:00 Insulin Aspart (Novolog Insulin Pen) NOVOLOG *MODERATE* ALGORITHM Q4 SC Last administered on 02/07/17 09:32; Admin Dose 2 UNIT; Start 02/05/17 at 09:00 Carvedilol 6.25 mg 6.25 mg BID PO Last administered on 02/07/17 09:18; Admin Dose 6.25 MG; Start 02/05/17 at 21:00 Levofloxacin/ Dextrose (Levaquin 250 Mg/ D5W 50 ml (Pmx)) 50 ml @ 50 mls/hr Q24H IVPB Last administered on 02/06/17 15:36; Admin Dose 50 MLS/HR; Start 02/06 at 15:00 Miscellaneous Information (*Rx Drug Level Order Reminder*) VANCO TR LEVEL PRIOR... ONCE ONCE XX ; Start 02/08/17 at 03:00; Stop 02/08/17 at 03:01 ANNA BUSTILLO MD February 07, 2017 13:25
[2017-02-07] MEDS: PROPOFOL 100 ML IV SCH ×3 (14:14→23:24)
--- NOTE | 2017-02-07 15:17 | PN ---
DATE: 02/07/2017 This is a palliative care progress note. I had a discussion with patient's son and on 02/07/20 17 . We went over his current medical conditions and past medical history. The patient's family ga ve me a detailed account of the gentleman who has been deteriorating over the last couple years' per iod of time, so much so that he is suffering. They made it very clear that they would not want him to continue in this condition and in addition that he would not want to do so if he could express hi s desires. The decision on their part is to definitely change him to DO NOT RESUSCITATE and they wo uld like to have 3 days with him and then extubate. At that time if he is able to breathe on his ow n, they would be happy with that. If not, then he will be treated just comfortably with palliation of care and goals of care would be to make sure he does not suffer at all. Participants were the sarah lakhani's son and . Background information was obtained as per above. They have a clear understa nding of his underlying illness. Their hopes and desires have been an acceptable quality of life an d they would hope that he would be much improved but they are realizing that he will not improve sig nificantly to return to his prehospitalization productive life. Their fears, their strength and [facility] culture preferences have been expressed. IMPRESSION AND GOALS OF CARE: Are to change him to DO NOT RESUSCITATE and a 3-day period of time of treatment. Then the patient is to be extubated irrespective of whether or not he will tolerate ext ubation. If he does not then he will just be treated palliatively with his comfort measures at that time. If he does not struggle then family will have some time with him, which I believe is most re asonable in the short arm. There are no pain management issues at this time. Psychosocial and psyc hological issues have been addressed. There are no ethical reasons of surrogates or patient's famil y members. Code status once again has been changed. No indication for POLST form. Dictated By: SAIDA LUCIO MD, LP/SHELLY Conf#: [id number] DID#: [id number]
--- NOTE | 2017-02-07 15:21 | CONS ---
Date/Time of Note Date/Time of Note DATE: 02/07/17 TIME: 15:19 Assessment/Plan Assessment/Plan Chief Complaint/Hosp Course Impression: - respiratory failure- requiring intubation and difficulty weaning. did extubated, but reintubated now. pulmonary managing. 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 pt poor candidate for invasive evaluation. no e/o of ongoing ischemia. - presented with dementia with worsening mental status, now intubated. pt alert but unable to wean off vent. - NSTEMI- trop peaked at 10.0, also with h/o of ATN, ALI at time of event. c/w either hypotensive vs hypoxemic event. now resolved. may need risk stratification depending on clinical course. - multi vessel CAD- now with NSTEMI, will recommend await clinic improvement and reassess. - atrial fibrillation- rate controlled - NSVT s/p ICD placement nl fxn last checked 01/2017. no sustained VT - mild to moderate - h/o HTN - h/o DM2 - PANCHO- cr stable/improving but significant uremia Recommendations - cont asa/statin - unclear longer term prognosis, ok to hold off anticoag for afib at this time - cont coreg to 6.25mg po bid - hold off on acei until bp stable for sig period of time and renal fxn improve - on bumex to keep even to negative - watch uremia, renal following - no e/o ongoing ischemia. hold off on any invasive evaluation at this time. could reconsider if patient recovers from acute illnesses will follow Problems: Consultation Date/Type/Reason Admit Date/Time Jan 23, 2017 at 20:03 Initial Consult Date 01/25/17 Type of Consultation: cardiology Referring Provider: ONIEL MORROW MD 24 HR Interval Summary Free Text/Dictation no acute events. pt remains intubated, he is alert able to nod head to questions. denies cp, abd pain currently. tele reviewed: afib rates controlled, pvc, no VT Subjective hx not possible: pt non-verbal, pt critical status Exam/Review of Systems Vital Signs Vitals Vital Signs Date Time Temp Pulse Resp B/P Pulse Ox O2 Delivery O2 Flow Rate FiO2 02/07/17 14:30 67 22 148/57 98 Mechanical Ventilator 02/07/17 13:44 30 02/07/17 12:00 98.4 4/29/17 20:15 15.0 Intake and Output 02/06/17 02/06/17 02/07/17 14:59 22:59 06:59 Intake Total 567.20 ml 927.20 ml 517.26 ml Output Total 385 ml 1015 ml 965 ml Balance 182.20 ml -87.80 ml -447.74 ml Exam Constitutional: alert, No oriented Psych: other (unabel to assess) Head: atraumatic, normocephalic Eyes: nl sclera ENMT: mucosa pink and moist Neck: non-tender, supple, No jvd Respiratory: coarse anterior bs Cardiovascular: irregular rhythm, nl pulses, other (distant hs), No S3, No S4 Gastrointestinal: non-tender, soft Musculoskeletal: nl extremities to inspection Extremities: normal pulses Results Result Diagram: 02/07/17 0525 02/07/17 0525 Results 24 hrs Laboratory Tests Test 02/06/17 17:01 02/06/17 20:45 02/07/17 01:05 02/07/17 05:06 Bedside Glucose 130 132 133 153 Test 02/07/17 05:25 02/07/17 08:22 02/07/17 09:30 02/07/17 14:19 White Blood Count 10.8 Red Blood Count 3.41 L Hemoglobin 9.6 L Hematocrit 31.5 L Mean Corpuscular Volume 92.4 Mean Corpuscular Hemoglobin 28.2 L Mean Corpuscular Hemoglobin Concent 30.5 L Red Cell Distribution Width 16.8 H Platelet Count 147 Mean Platelet Volume 13.9 H Neutrophils % 84.6 H Lymphocytes % 6.0 L Monocytes % 5.5 Eosinophils % 1.2 Basophils % 0.2 Nucleated Red Blood Cells % 0.0 Neutrophils # 9.1 H Lymphocytes # 0.7 L Monocytes # 0.6 Eosinophils # 0.1 Basophils # 0.0 Nucleated Red Blood Cells # 0.0 Sodium Level 144 Potassium Level 3.9 Chloride Level 112 H Carbon Dioxide Level 28 Anion Gap 8 Blood Urea Nitrogen 90 H Creatinine 1.89 H Glucose Level 153 Calcium Level 8.1 L Total Bilirubin 0.2 Direct Bilirubin 0.00 Indirect Bilirubin 0.2 Aspartate Amino Transf (AST/SGOT) 24 Alanine Aminotransferase (ALT/SGPT) 57 Alkaline Phosphatase 95 Total Protein 6.2 Albumin 2.3 L Globulin 3.90 H Albumin/Globulin Ratio 0.58 Bedside Glucose 148 143 141 Medications Medications Current Medications Acetaminophen (Tylenol Tab) 650 mg Q4H PRN PO PAIN AND OR ELEVATED TEMP; Start 01/24/17 at 11:00 Acetaminophen/ Hydrocodone Bitart ([place] (10/325)) 1 tab Q4H PRN PO PAIN; Start 01/24/17 at 11:00 Zolpidem Tartrate (Ambien) 10 mg HS PRN PO INSOMNIA; Start 01/24/17 at 11:00 Magnesium Hydroxide (Milk Of Mag) 30 ml DAILY PRN PO CONSTIPATION; Start at 11:00 Albuterol (Proventil 0.083% (Neb)) 1.25 mg Q4 PRN HHN SLEEP Last administered on 02/03/17 10:07; Admin Dose 1.25 MG; Start 01/24/17 at 11:00 Diagnostic Test (Pha) (Accu-Chek) 1 ea 02 XX Last administered on 02/04/17 02: 22; Admin Dose 1 EA; Start 01/25/17 at 02:00 Pantoprazole (Protonix Iv) 40 mg DAILY@06 IV Last administered on 02/07/17 05: 26; Admin Dose 40 MG; Start 01/25/17 at 06:00 Miscellaneous Information 1 ea NOTE XX ; Start 01/24/17 at 17:00 Glucose (Glutose) 15 gm Q15M PRN PO DECREASED GLUCOSE; Start 01/24/17 at 17:00 Glucose (Glutose) 22.5 gm Q15M PRN PO DECREASED GLUCOSE; Start 01/24/17 at 17: 00 Dextrose (D50w Syringe) 25 ml Q15M PRN IV DECREASED GLUCOSE; Start 01/24/17 at 17:00 Dextrose (D50w Syringe) 50 ml Q15M PRN IV DECREASED GLUCOSE; Start 01/24/17 at 17:00 Glucagon (Glucagen) 1 mg Q15M PRN IM DECREASED GLUCOSE; Start 01/24/17 at 17:00 Glucose 15 gm 15 gm Q15M PRN BUCCAL DECREASED GLUCOSE; Start 01/24/17 at 17:00 Norepinephrine 16 mg/Dextrose 500 ml @ 1.87 mls/hr TITRATE IV Last administered on 01/26/17 09:18; Admin Dose 9.37 MLS/HR; Start 01/25/17 at 17:30 Aztreonam/Sodium Chloride (Azactam/NS) 50 ml @ 100 mls/hr Q12 IV Last administered on 02/07/17 09:18; Admin Dose 100 MLS/HR; Start 01/25/17 at 21:00 Heparin Sodium (Porcine) (Heparin (5000 Units/0.5 ml)) 5,000 unit Q8 SC Last administered on 02/07/17 14:25; Admin Dose 5,000 UNIT; Start 01/30/17 at 22:00 Alprazolam (Xanax) 1 mg Q4H PRN NGT ANXIETY; Start 01/31/17 at 23:30 Miscellaneous Information (Pending Santyl Order For Wound Care) This patient bowens... PRN PRN XX WOUND CARE; Start 02/01/17 at 16:00 Collagenase (Santyl) 1 applic DAILY TOP Last administered on 02/07/17 09:34; Admin Dose 1 APPLIC; Start 02/02/17 at 09:00 Insulin Glargine 19 unit 19 unit DAILY@08 SC Last administered on 02/07/17 08: 24; Admin Dose 19 UNIT; Start 02/03/17 at 08:00 Vancomycin HCl/ Sodium Chloride (Vancocin/NS) 250 ml @ 83.333 mls/ hr Q36H IVPB Last administered on 02/06/17 16:49; Admin Dose 83.333 MLS/HR; Start 02/03 at 16:00 Aspirin (Aspirin) 81 mg DAILY PO Last administered on 02/07/17 09:18; Admin Dose 81 MG; Start 02/04/17 at 09:00 Atorvastatin Calcium (Lipitor) 40 mg HS NGT Last administered on 02/06/17 20:46 ; Admin Dose 40 MG; Start 02/03/17 at 23:45 Hydralazine HCl 10 mg 10 mg Q3H PRN IV SBP GREATER THAN 160; Start 02/04/17 at 16:30 Propofol (Diprivan) 100 ml @ 2.328 mls/ hr Q12H IV Last administered on 14:14; Admin Dose 4.656 MLS/HR; Start 02/04/17 at 21:00 Insulin Aspart (Novolog Insulin Pen) NOVOLOG *MODERATE* ALGORITHM Q4 SC Last administered on 02/07/17 14:21; Admin Dose 2 UNIT; Start 02/05/17 at 09:00 Carvedilol 6.25 mg 6.25 mg BID PO Last administered on 02/07/17 09:18; Admin Dose 6.25 MG; Start 02/05/17 at 21:00 Levofloxacin/ Dextrose (Levaquin 250 Mg/ D5W 50 ml (Pmx)) 50 ml @ 50 mls/hr Q24H IVPB Last administered on 02/06/17 15:36; Admin Dose 50 MLS/HR; Start 02/06 at 15:00 Miscellaneous Information (*Rx Drug Level Order Reminder*) VANCO TR LEVEL PRIOR... ONCE ONCE XX ; Start 02/08/17 at 03:00; Stop 02/08/17 at 03:01 Procedures Procedures cxr reports reviewed L[facility] February 07, 2017 15:21
[2017-02-07] MEDS: LEVOFLOXACIN 250MG/D5W (PMX) 50 ML IVPB SCH (15:32)
[2017-02-07] MEDS: ATORVASTATIN 40 MG TAB NGT SCH (21:16)
--- NOTE | 2017-02-07 22:23 | PN ---
DATE: 02/07/2017 SUBJECTIVE: The patient has been re-intubated. He is unresponsive to verbal commands. His code st atus has been changed to DO NOT RESUSCITATE. A discussion with the led to the conclusion that she does not want him to have a tracheostomy. The plan at this time is to keep him intubated for 3 more days, and if he does not respond, to extubate him regardless of how he responds and just let th e disease take its natural course. OBJECTIVE: CHEST: Clear to A and P. HEART: Atrial fibrillation with an irregular irregularity. No murmurs. ABDOMEN: Liver, kidneys, spleen are not palpable. Bowel sounds are normal. The patient has not bowens d a BM in 5 days, and we shall give him a tap water enema. LEGS: 2+ dorsal pedal and pretibial edema bilaterally. VITAL SIGNS: The patient is afebrile. Blood pressure varies from 92/57 to 156/83. Pulse varies fr om 59 to 84 per minute. Respiratory rate varies from 14 to 22 per minute. Pulse oximetry is 75%. INTAKE AND OUTPUT: 2011 input, 2365 output. LABORATORY DATA: White blood cell count 10,800, hemoglobin 9.6 grams percent, hematocrit 31.5%, judi telet count is normal. Electrolytes: Sodium 144, potassium 3.9, chloride 112, carbon dioxide 28, B UN 90, creatinine 1.89, glucose 153, calcium 8.1 uncorrected. Urine culture: No growth after 48 ho urs. Blood culture: No growth after 48 hours x2. IMAGING: Chest x-ray with marked improvement in aeration of the bilateral lungs, particularly on th e right. Persistent ____ right pulmonary infiltration or edema and left basilar or pleural parenchy mal disease. Lines and tubes are stable. PROGNOSIS: Remains poor. CONDITION: Poor and critical. Dictated By: ONIEL BYNUM/SHELLY Conf#: [id number] DID#: [id number]
[2017-02-08] VITALS (49 sets, daily range): BP systolic 78–166; BP diastolic 37–91; PULSE 60–75; RESP 13–22
[2017-02-08] MEDS: INSULIN ASPART [NOVOLOG] 3 ML PEN SC SCH ×6 (01:00→21:00)
[2017-02-08] MEDS: ALBUTEROL 18 GM INHALER INH SCH ×6 (01:42→21:27)
[2017-02-08 03:18] LABS: ADD SCAN DIFF NO
[2017-02-08 03:24] LABS: ABNORMAL IP MESSAGE 1; BASOPHILS % 0.3 % (0.0-2.0); EOSINOPHILS # 0.1 10^3/ul (0.0-0.5); EOSINOPHILS % 1.5 % (0.0-7.0); HEMATOCRIT 29.1 % (42.0-52.0); HEMOGLOBIN 9.2 g/dl (14.0-18.0); LYMPHOCYTES # 0.8 10^3/ul (0.8-2.9); LYMPHOCYTES % 8.2 % (15.0-51.0); MEAN CORPUSCULAR HEMOGLOBIN 29.3 pg (29.0-33.0); MEAN CORPUSCULAR HGB CONC 31.6 g/dl (32.0-37.0); MEAN CORPUSCULAR VOLUME 92.7 fl (82.0-101.0); MEAN PLATELET VOLUME 13.5 fl (7.4-10.4); MONOCYTE # 0.5 10^3/ul (0.3-0.9); MONOCYTES % 5.7 % (0.0-11.0); NEUTROPHIL # 7.8 10^3/ul (1.6-7.5); PLATELET COUNT 161 10^3/UL (140-415); RED BLOOD COUNT 3.14 10^6/ul (4.70-6.10); RED CELL DISTRIBUTION WIDTH 16.8 % (11.5-14.5); WHITE BLOOD COUNT 9.6 10^3/ul (4.8-10.8)
[2017-02-08 03:35] LABS: POTASSIUM 3.7 mmol/L (3.5-5.1)
[2017-02-08 03:38] LABS: CREATININE 2.04 mg/dl (0.61-1.24)
[2017-02-08] MEDS: ACCU-CHEK XX SCH (04:30)
[2017-02-08] MEDS: VANCOMYCIN 1.25 GM in SOD CHLORIDE 0.9% 250 ML IVPB SCH (04:33)
[2017-02-08] MEDS: PANTOPRAZOLE 40 MG INJ IV SCH (05:45)
[2017-02-08] MEDS: HEPARIN 5,000 UNIT/0.5 ML VIAL SC SCH ×3 (05:46→22:10)
[2017-02-08] MEDS: BUMETANIDE 1 MG INJ IV SCH ×2 (05:47→17:58)
--- NOTE | 2017-02-08 08:37 | CONS ---
Date/Time of Note Date/Time of Note DATE: 02/08/17 TIME: 08:34 Assessment/Plan Assessment/Plan Additional Assessment/Plan Ventilator settings; assist control of 14, tidal volume 500, PEEP of 5, 30% FiO2. Patient currently on propofol at 10 mics per kilogram per minute. Assessment recommendations; 1. Patient admitted with pneumonia and pulmonary edema, failed one extubation attempt due to very poor cough reflex to accommodation of secretions in the right mainstem bronchus causing almost complete atelectasis of the right lung, which got markedly improved after intubation. 2. History of cardiac arrhythmia. 3. History of prior CABG surgery. 4. Renal insufficiency. 5. Poor mental status. Continue current treatment. The patient's family wants him to be extubated by tomorrow. Patient is a DNR status now which is an appropriate decision. Prognosis remains poor. Consultation Date/Type/Reason Admit Date/Time Jan 23, 2017 at 20:03 Type of Consultation: Pulmonary/critical care Referring Provider: ONIEL MORROW MD 24 HR Interval Summary Free Text/Dictation Patient condition remains critical, still requiring full ventilator support. Patient however has remained hemodynamically stable not requiring any pressor support. General exam; elderly male, orally intubated, mildly sedated. Currently in no distress. Exam/Review of Systems Vital Signs Vitals Vital Signs Date Time Temp Pulse Resp B/P Pulse Ox O2 Delivery O2 Flow Rate FiO2 02/08/17 07:30 30 02/08/17 07:30 98.1 65 16 131/60 97 Mechanical Ventilator 02/04/17 20:15 15.0 Intake and Output 02/07/17 02/07/17 02/08/17 15:00 23:00 07:00 Intake Total 497.936 ml 596.58 ml 512.62 ml Output Total 530 ml 1195 ml 515 ml Balance -32.064 ml -598.42 ml -2.38 ml Exam HEENT exam; supple neck, no JVD. No lymphadenopathy. Midline trachea. No thyromegaly. Orally intubated. Patient has a multiple carious teeth. Has bilateral surgical pupils. Chest examination; clear to auscultation. There is a well-healed sternal scar. S1-S2 audible, no murmurs. Regular rhythm. There is a pacemaker in the left chest wall. Abdomen examination; soft, nondistended, no organomegaly. Bowel sounds audible. Extremity exam; trace peripheral edema. Patient has a multiple ecchymosis involving all 4 extremities. [employer] examination; patient is mildly sedated. Results Result Diagram: 02/08/17 0305 02/08/17 0305 Results 24 hrs Laboratory Tests Test 02/07/17 09:30 02/07/17 14:19 02/07/17 17:19 02/07/17 21:15 Bedside Glucose 143 141 122 114 Test 02/08/17 00:56 02/08/17 03:05 02/08/17 04:38 Bedside Glucose 110 130 White Blood Count 9.6 Red Blood Count 3.14 L Hemoglobin 9.2 L Hematocrit 29.1 L Mean Corpuscular Volume 92.7 Mean Corpuscular Hemoglobin 29.3 Mean Corpuscular Hemoglobin Concent 31.6 L Red Cell Distribution Width 16.8 H Platelet Count 161 Mean Platelet Volume 13.5 H Neutrophils % 82.0 H Lymphocytes % 8.2 L Monocytes % 5.7 Eosinophils % 1.5 Basophils % 0.3 Nucleated Red Blood Cells % 0.0 Neutrophils # 7.8 H Lymphocytes # 0.8 Monocytes # 0.5 Eosinophils # 0.1 Basophils # 0.0 Nucleated Red Blood Cells # 0.0 Sodium Level 147 H Potassium Level 3.7 Chloride Level 110 Carbon Dioxide Level 29 Anion Gap 12 Blood Urea Nitrogen 91 H Creatinine 2.04 H Glucose Level 123 Calcium Level 8.0 L Vancomycin Level Trough 18.1 Medications Medications Current Medications Acetaminophen (Tylenol Tab) 650 mg Q4H PRN PO PAIN AND OR ELEVATED TEMP; Start 01/24/17 at 11:00 Acetaminophen/ Hydrocodone Bitart ([place] (10/325)) 1 tab Q4H PRN PO PAIN; Start 01/24/17 at 11:00 Zolpidem Tartrate (Ambien) 10 mg HS PRN PO INSOMNIA; Start 01/24/17 at 11:00 Magnesium Hydroxide (Milk Of Mag) 30 ml DAILY PRN PO CONSTIPATION; Start at 11:00 Albuterol (Proventil 0.083% (Neb)) 1.25 mg Q4 PRN HHN SLEEP Last administered on 02/03/17t 10:07; Admin Dose 1.25 MG; Start 01/24/17 at 11:00 Diagnostic Test (Pha) (Accu-Chek) 1 ea 02 XX Last administered on 02/04/17 02: 22; Admin Dose 1 EA; Start 01/25/17 at 02:00 Pantoprazole (Protonix Iv) 40 mg DAILY@06 IV Last administered on 02/08/17 05: 45; Admin Dose 40 MG; Start 01/25/17 at 06:00 Miscellaneous Information 1 ea NOTE XX ; Start 01/24/17 at 17:00 Glucose (Glutose) 15 gm Q15M PRN PO DECREASED GLUCOSE; Start 01/24/17 at 17:00 Glucose (Glutose) 22.5 gm Q15M PRN PO DECREASED GLUCOSE; Start 01/24/17 at 17: 00 Dextrose (D50w Syringe) 25 ml Q15M PRN IV DECREASED GLUCOSE; Start 01/24/17 at 17:00 Dextrose (D50w Syringe) 50 ml Q15M PRN IV DECREASED GLUCOSE; Start 01/24/17 at 17:00 Glucagon (Glucagen) 1 mg Q15M PRN IM DECREASED GLUCOSE; Start 01/24/17 at 17:00 Glucose 15 gm 15 gm Q15M PRN BUCCAL DECREASED GLUCOSE; Start 01/24/17 at 17:00 Norepinephrine 16 mg/Dextrose 500 ml @ 1.87 mls/hr TITRATE IV Last administered on 01/26/17 09:18; Admin Dose 9.37 MLS/HR; Start 01/25/17 at 17:30 Aztreonam/Sodium Chloride (Azactam/NS) 50 ml @ 100 mls/hr Q12 IV Last administered on 02/07/17 21:16; Admin Dose 100 MLS/HR; Start 01/25/17 at 21:00 Heparin Sodium (Porcine) (Heparin (5000 Units/0.5 ml)) 5,000 unit Q8 SC Last administered on 02/08/17 05:46; Admin Dose 5,000 UNIT; Start 01/30/17 at 22:00 Alprazolam (Xanax) 1 mg Q4H PRN NGT ANXIETY; Start 01/31/17 at 23:30 Miscellaneous Information (Pending Santyl Order For Wound Care) This patient bowens... PRN PRN XX WOUND CARE; Start 02/01/17 at 16:00 Collagenase (Santyl) 1 applic DAILY TOP Last administered on 02/07/17 09:34; Admin Dose 1 APPLIC; Start 02/02/17 at 09:00 Insulin Glargine (Lantus) 19 unit DAILY@08 SC Last administered on 02/07/17 08: 24; Admin Dose 19 UNIT; Start 02/03/17 at 08:00 Aspirin (Aspirin) 81 mg DAILY PO Last administered on 02/07/17 09:18; Admin Dose 81 MG; Start 02/04/17 at 09:00 Atorvastatin Calcium (Lipitor) 40 mg HS NGT Last administered on 02/07/17 21:16 ; Admin Dose 40 MG; Start 02/03/17 at 23:45 Hydralazine HCl 10 mg 10 mg Q3H PRN IV SBP GREATER THAN 160; Start 02/04/17 at 16:30 Propofol (Diprivan) 100 ml @ 2.328 mls/ hr Q12H IV Last administered on 23:24; Admin Dose 4.656 MLS/HR; Start 02/04/17 at 21:00 Insulin Aspart (Novolog Insulin Pen) NOVOLOG *MODERATE* ALGORITHM Q4 SC Last administered on 02/07/17 14:21; Admin Dose 2 UNIT; Start 02/05/17 at 09:00 Carvedilol 6.25 mg 6.25 mg BID PO Last administered on 02/07/17 21:16; Admin Dose 6.25 MG; Start 02/05/17 at 21:00 Levofloxacin/ Dextrose 50 ml @ 50 mls/hr Q24H IVPB Last administered on 15:32; Admin Dose 50 MLS/HR; Start 02/06/17 at 15:00 Vancomycin HCl (Vancocin) 250 ml @ 125 mls/hr Q36H IVPB ; Start 02/09/17 at 16: 00 ULISES MCKYA February 08, 2017 08:37
[2017-02-08] MEDS: AZTREONAM 0.5 GM in SOD CHLORIDE 0.9% 50 ML IV SCH ×2 (08:49→20:49)
[2017-02-08] MEDS: ASPIRIN 81 MG TAB PO SCH (08:49)
[2017-02-08] MEDS: INSULIN GLARGINE [LANtus] 3 ML PEN SC SCH (08:49)
[2017-02-08] MEDS: COLLAGENASE 30 GM TUBE TOP SCH (08:53)
--- NOTE | 2017-02-08 09:39 | CONS ---
Date/Time of Note Date/Time of Note DATE: 02/08/17 TIME: 09:37 Assessment/Plan Assessment/Plan Chief Complaint/Hosp Course Impression: - respiratory failure- requiring intubation and difficulty weaning. did extubated, but reintubated now. pulmonary managing. 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 pt poor candidate for invasive evaluation. no e/o of ongoing ischemia. - presented with dementia with worsening mental status, now intubated. pt alert but unable to wean off vent. - NSTEMI- trop peaked at 10.0, also with h/o of ATN, ALI at time of event. c/w either hypotensive vs hypoxemic event. now resolved. may need risk stratification depending on clinical course. - multi vessel CAD- now with NSTEMI, will recommend await clinic improvement and reassess. - atrial fibrillation- rate controlled - NSVT s/p ICD placement nl fxn last checked 01/2017. no sustained VT - mild to moderate - h/o HTN - h/o DM2 - PANCHO- cr stable/improving but significant uremia Recommendations - cont asa/statin - unclear longer term prognosis, ok to hold off anticoag for afib at this time - cont coreg to 6.25mg po bid - on bumex to keep even to negative - uremia/cr stable. - no e/o ongoing ischemia. hold off on any invasive evaluation at this time. could reconsider if patient recovers from acute illnesses will follow Problems: Consultation Date/Type/Reason Admit Date/Time Jan 23, 2017 at 20:03 Initial Consult Date 01/25/17 Type of Consultation: Cardiology Referring Provider: ONIEL MORROW MD 24 HR Interval Summary Free Text/Dictation no acute events. remains intubated/sedated. tele reviewed: afib, rates controlled, PVCs Subjective hx not possible: pt non-verbal, pt critical status Exam/Review of Systems Vital Signs Vitals Vital Signs Date Time Temp Pulse Resp B/P Pulse Ox O2 Delivery O2 Flow Rate FiO2 02/08/17 09:00 67 16 126/72 98 Mechanical Ventilator 02/08/17 07:30 30 02/08/17 07:30 98.1 02/04/17 20:15 15.0 Intake and Output 02/07/17 02/07/17 02/08/17 14:59 22:59 06:59 Intake Total 497.936 ml 551.92 ml 557.28 ml Output Total 530 ml 1045 ml 665 ml Balance -32.064 ml -493.08 ml -107.72 ml Exam onstitutional: alert, No oriented Psych: other (unabel to assess) Head: atraumatic, normocephalic Eyes: nl sclera ENMT: mucosa pink and moist Neck: non-tender, supple, No jvd Respiratory: coarse anterior bs Cardiovascular: irregular rhythm, nl pulses, other (distant hs), No S3, No S4 Gastrointestinal: non-tender, soft Musculoskeletal: nl extremities to inspection Extremities: normal pulses Results Result Diagram: 02/08/17 0305 02/08/17 0305 Results 24 hrs Laboratory Tests Test 02/07/17 14:19 02/07/17 17:19 02/07/17 21:15 02/08/17 00:56 Bedside Glucose 141 122 114 110 Test 02/08/17 03:05 02/08/17 04:38 02/08/17 08:46 White Blood Count 9.6 Red Blood Count 3.14 L Hemoglobin 9.2 L Hematocrit 29.1 L Mean Corpuscular Volume 92.7 Mean Corpuscular Hemoglobin 29.3 Mean Corpuscular Hemoglobin Concent 31.6 L Red Cell Distribution Width 16.8 H Platelet Count 161 Mean Platelet Volume 13.5 H Neutrophils % 82.0 H Lymphocytes % 8.2 L Monocytes % 5.7 Eosinophils % 1.5 Basophils % 0.3 Nucleated Red Blood Cells % 0.0 Neutrophils # 7.8 H Lymphocytes # 0.8 Monocytes # 0.5 Eosinophils # 0.1 Basophils # 0.0 Nucleated Red Blood Cells # 0.0 Sodium Level 147 H Potassium Level 3.7 Chloride Level 110 Carbon Dioxide Level 29 Anion Gap 12 Blood Urea Nitrogen 91 H Creatinine 2.04 H Glucose Level 123 Calcium Level 8.0 L Vancomycin Level Trough 18.1 Bedside Glucose 130 138 Medications Medications Current Medications Acetaminophen (Tylenol Tab) 650 mg Q4H PRN PO PAIN AND OR ELEVATED TEMP; Start 01/24/17 at 11:00 Acetaminophen/ Hydrocodone Bitart ([place] (10/325)) 1 tab Q4H PRN PO PAIN; Start 01/24/17 at 11:00 Zolpidem Tartrate (Ambien) 10 mg HS PRN PO INSOMNIA; Start 01/24/17 at 11:00 Magnesium Hydroxide (Milk Of Mag) 30 ml DAILY PRN PO CONSTIPATION; Start at 11:00 Albuterol (Proventil 0.083% (Neb)) 1.25 mg Q4 PRN HHN SLEEP Last administered on 02/03/17 10:07; Admin Dose 1.25 MG; Start 01/24/17 at 11:00 Diagnostic Test (Pha) (Accu-Chek) 1 ea 02 XX Last administered on 02/04/17 02: 22; Admin Dose 1 EA; Start 01/25/17 at 02:00 Pantoprazole (Protonix Iv) 40 mg DAILY@06 IV Last administered on 02/08/17 05: 45; Admin Dose 40 MG; Start 01/25/17 at 06:00 Miscellaneous Information 1 ea NOTE XX ; Start 01/24/17 at 17:00 Glucose (Glutose) 15 gm Q15M PRN PO DECREASED GLUCOSE; Start 01/24/17 at 17:00 Glucose (Glutose) 22.5 gm Q15M PRN PO DECREASED GLUCOSE; Start 01/24/17 at 17: 00 Dextrose (D50w Syringe) 25 ml Q15M PRN IV DECREASED GLUCOSE; Start 01/24/17 at 17:00 Dextrose (D50w Syringe) 50 ml Q15M PRN IV DECREASED GLUCOSE; Start 01/24/17 at 17:00 Glucagon (Glucagen) 1 mg Q15M PRN IM DECREASED GLUCOSE; Start 01/24/17 at 17:00 Glucose 15 gm 15 gm Q15M PRN BUCCAL DECREASED GLUCOSE; Start 01/24/17 at 17:00 Norepinephrine 16 mg/Dextrose 500 ml @ 1.87 mls/hr TITRATE IV Last administered on 01/26/17 09:18; Admin Dose 9.37 MLS/HR; Start 01/25/17 at 17:30 Aztreonam/Sodium Chloride (Azactam/NS) 50 ml @ 100 mls/hr Q12 IV Last administered on 02/08/17 08:49; Admin Dose 100 MLS/HR; Start 01/25/17 at 21:00 Heparin Sodium (Porcine) (Heparin (5000 Units/0.5 ml)) 5,000 unit Q8 SC Last administered on 02/08/17 05:46; Admin Dose 5,000 UNIT; Start 01/30/17 at 22:00 Alprazolam (Xanax) 1 mg Q4H PRN NGT ANXIETY; Start 01/31/17 at 23:30 Miscellaneous Information (Pending Santyl Order For Wound Care) This patient bowens... PRN PRN XX WOUND CARE; Start 02/01/17 at 16:00 Collagenase (Santyl) 1 applic DAILY TOP Last administered on 02/08/17 08:53; Admin Dose 1 APPLIC; Start 02/02/17 at 09:00 Insulin Glargine (Lantus) 19 unit DAILY@08 SC Last administered on 02/08/17 08: 49; Admin Dose 19 UNIT; Start 02/03/17 at 08:00 Aspirin (Aspirin) 81 mg DAILY PO Last administered on 02/08/17 08:49; Admin Dose 81 MG; Start 02/04/17 at 09:00 Atorvastatin Calcium (Lipitor) 40 mg HS NGT Last administered on 02/07/17 21:16 ; Admin Dose 40 MG; Start 02/03/17 at 23:45 Hydralazine HCl 10 mg 10 mg Q3H PRN IV SBP GREATER THAN 160; Start 02/04/17 at 16:30 Propofol (Diprivan) 100 ml @ 2.328 mls/ hr Q12H IV Last administered on 23:24; Admin Dose 4.656 MLS/HR; Start 02/04/17 at 21:00 Insulin Aspart (Novolog Insulin Pen) NOVOLOG *MODERATE* ALGORITHM Q4 SC Last administered on 02/07/17 14:21; Admin Dose 2 UNIT; Start 02/05/17 at 09:00 Carvedilol 6.25 mg 6.25 mg BID PO Last administered on 02/08/17 08:51; Admin Dose 6.25 MG; Start 02/05/17 at 21:00 Levofloxacin/ Dextrose 50 ml @ 50 mls/hr Q24H IVPB Last administered on 15:32; Admin Dose 50 MLS/HR; Start 02/06/17 at 15:00 Vancomycin HCl (Vancocin) 250 ml @ 125 mls/hr Q36H IVPB ; Start 02/09/17 at 16: [address] VOGEL February 08, 2017 09:39
[2017-02-08] MEDS: PROPOFOL 100 ML IV SCH (14:42)
[2017-02-08] MEDS: LEVOFLOXACIN 250MG/D5W (PMX) 50 ML IVPB SCH (16:09)
--- NOTE | 2017-02-08 17:55 | CONS ---
Date/Time of Note Date/Time of Note DATE: 02/08/17 TIME: 17:50 Assessment/Plan Assessment/Plan Chief Complaint/Hosp Course 1. This patient is in the ICU intubated on a ventilator. He is sedated and unresponsive. 2. He has acute renal failure superimposed on CKD . His BUN and serum creatinine are about the same. He is diuresing on diuretics . Continue diuretics and monitor I & O 's and renal function . I think his prognosis for renal recovery is poor. We will continue current treatment and await further discussions with family regarding ventilator support etc. . 3. Diabetes mellitus , under better control . 4. Dementia 5. Respiratory failure on ventilator. He is now DNR 6. chronic kidney disease due to diabetic nephropathy . 7. hypertension 8. lower extremity venous Dopplers done shows possible nonocclusive thrombus in R peroneal vein , S C heparin started . Problems: Consultation Date/Type/Reason Admit Date/Time Jan 23, 2017 at 20:03 Initial Consult Date 01/25/17 Type of Consultation: renal Referring Provider: ONIEL MORROW MD 24 HR Interval Summary Free Text/Dictation He is in the ICU sedated and intubated on a ventilator. Subjective hx not possible: pt non-verbal Exam/Review of Systems Vital Signs Vitals Vital Signs Date Time Temp Pulse Resp B/P Pulse Ox O2 Delivery O2 Flow Rate FiO2 02/08/17 16:00 66 02/08/17 15:30 16 121/54 98 Mechanical Ventilator 02/08/17 15:15 30 02/08/17 12:00 97.8 02/04/17 20:15 15.0 Intake and Output 02/07/17 02/07/17 02/08/17 15:00 23:00 07:00 Intake Total 497.936 ml 596.58 ml 512.62 ml Output Total 530 ml 1195 ml 515 ml Balance -32.064 ml -598.42 ml -2.38 ml Exam Constitutional: non-verbal Respiratory: clear to auscultation, diminished breath sounds Cardiovascular: edema, irregular rhythm Gastrointestinal: soft Extremities: edema Results Result Diagram: 02/08/17 0305 02/08/17 0305 Results 24 hrs Laboratory Tests Test 02/07/17 21:15 02/08/17 00:56 02/08/17 03:05 02/08/17 04:38 Bedside Glucose 114 110 130 White Blood Count 9.6 Red Blood Count 3.14 L Hemoglobin 9.2 L Hematocrit 29.1 L Mean Corpuscular Volume 92.7 Mean Corpuscular Hemoglobin 29.3 Mean Corpuscular Hemoglobin Concent 31.6 L Red Cell Distribution Width 16.8 H Platelet Count 161 Mean Platelet Volume 13.5 H Neutrophils % 82.0 H Lymphocytes % 8.2 L Monocytes % 5.7 Eosinophils % 1.5 Basophils % 0.3 Nucleated Red Blood Cells % 0.0 Neutrophils # 7.8 H Lymphocytes # 0.8 Monocytes # 0.5 Eosinophils # 0.1 Basophils # 0.0 Nucleated Red Blood Cells # 0.0 Sodium Level 147 H Potassium Level 3.7 Chloride Level 110 Carbon Dioxide Level 29 Anion Gap 12 Blood Urea Nitrogen 91 H Creatinine 2.04 H Glucose Level 123 Calcium Level 8.0 L Vancomycin Level Trough 18.1 Test 02/08/17 08:46 02/08/17 14:36 02/08/17 16:58 Bedside Glucose 138 161 157 Medications Medications Current Medications Acetaminophen (Tylenol Tab) 650 mg Q4H PRN PO PAIN AND OR ELEVATED TEMP; Start 01/24/17 at 11:00 Acetaminophen/ Hydrocodone Bitart ([place] (10)) 1 tab Q4H PRN PO PAIN; Start 01/24/17 at 11:00 Zolpidem Tartrate (Ambien) 10 mg HS PRN PO INSOMNIA; Start 01/24/17 at 11:00 Magnesium Hydroxide (Milk Of Mag) 30 ml DAILY PRN PO CONSTIPATION; Start at 11:00 Albuterol (Proventil 0.083% (Neb)) 1.25 mg Q4 PRN HHN SLEEP Last administered on 02/03/17 10:07; Admin Dose 1.25 MG; Start 01/24/17 at 11:00 Diagnostic Test (Pha) (Accu-Chek) 1 ea 02 XX Last administered on 02/04/17 02: 22; Admin Dose 1 EA; Start 01/25/17 at 02:00 Pantoprazole (Protonix Iv) 40 mg DAILY@06 IV Last administered on 02/08/17 05: 45; Admin Dose 40 MG; Start 01/25/17 at 06:00 Miscellaneous Information 1 ea NOTE XX ; Start 01/24/17 at 17:00 Glucose (Glutose) 15 gm Q15M PRN PO DECREASED GLUCOSE; Start 01/24/17 at 17:00 Glucose (Glutose) 22.5 gm Q15M PRN PO DECREASED GLUCOSE; Start 01/24/17 at 17: 00 Dextrose (D50w Syringe) 25 ml Q15M PRN IV DECREASED GLUCOSE; Start 01/24/17 at 17:00 Dextrose (D50w Syringe) 50 ml Q15M PRN IV DECREASED GLUCOSE; Start 01/24/17 at 17:00 Glucagon (Glucagen) 1 mg Q15M PRN IM DECREASED GLUCOSE; Start 01/24/17 at 17:00 Glucose 15 gm 15 gm Q15M PRN BUCCAL DECREASED GLUCOSE; Start 01/24/17 at 17:00 Norepinephrine 16 mg/Dextrose 500 ml @ 1.87 mls/hr TITRATE IV Last administered on 01/26/17 09:18; Admin Dose 9.37 MLS/HR; Start 01/25/17 at 17:30 Aztreonam/Sodium Chloride (Azactam/NS) 50 ml @ 100 mls/hr Q12 IV Last administered on 02/08/17 08:49; Admin Dose 100 MLS/HR; Start 01/25/17 at 21:00 Heparin Sodium (Porcine) (Heparin (5000 Units/0.5 ml)) 5,000 unit Q8 SC Last administered on 02/08/17 14:41; Admin Dose 5,000 UNIT; Start 01/30/17 at 22:00 Alprazolam (Xanax) 1 mg Q4H PRN NGT ANXIETY; Start 01/31/17 at 23:30 Miscellaneous Information (Pending Santyl Order For Wound Care) This patient bowens... PRN PRN XX WOUND CARE; Start 02/01/17 at 16:00 Collagenase (Santyl) 1 applic DAILY TOP Last administered on 02/08/17 08:53; Admin Dose 1 APPLIC; Start 02/02/17 at 09:00 Insulin Glargine (Lantus) 19 unit DAILY@08 SC Last administered on 02/08/17 08: 49; Admin Dose 19 UNIT; Start 02/03/17 at 08:00 Aspirin (Aspirin) 81 mg DAILY PO Last administered on 02/08/17 08:49; Admin Dose 81 MG; Start 02/04/17 at 09:00 Atorvastatin Calcium (Lipitor) 40 mg HS NGT Last administered on 02/07/17 21:16 ; Admin Dose 40 MG; Start 02/03/17 at 23:45 Hydralazine HCl 10 mg 10 mg Q3H PRN IV SBP GREATER THAN 160; Start 02/04/17 at 16:30 Propofol (Diprivan) 100 ml @ 2.328 mls/ hr Q12H IV Last administered on 14:42; Admin Dose 4.656 MLS/HR; Start 02/04/17 at 21:00 Insulin Aspart (Novolog Insulin Pen) NOVOLOG *MODERATE* ALGORITHM Q4 SC Last administered on 02/08/17 17:01; Admin Dose 2 UNIT; Start 02/05/17 at 09:00 Carvedilol 6.25 mg 6.25 mg BID PO Last administered on 02/08/17 08:51; Admin Dose 6.25 MG; Start 02/05/17 at 21:00 Levofloxacin/ Dextrose 50 ml @ 50 mls/hr Q24H IVPB Last administered on 16:09; Admin Dose 50 MLS/HR; Start 02/06/17 at 15:00 Vancomycin HCl (Vancocin) 250 ml @ 125 mls/hr Q48H IVPB ; Start 02/10/17 at 04: 00 ANNA BUSTILLO MD February 08, 2017 17:55
[2017-02-08] MEDS ORDERED: LACTULOSE 30ML CUP NGT PRN (18:00)
[2017-02-08] MEDS: ATORVASTATIN 40 MG TAB NGT SCH (20:48)
[2017-02-09] VITALS (38 sets, daily range): BP systolic 96–186; BP diastolic 43–117; PULSE 61–81; RESP 14–41
[2017-02-09] MEDS: ALBUTEROL 18 GM INHALER INH SCH ×6 (01:20→21:27)
[2017-02-09] MEDS: INSULIN ASPART [NOVOLOG] 3 ML PEN SC SCH ×6 (02:03→20:24)
[2017-02-09] MEDS: ACCU-CHEK XX SCH (02:03)
--- NOTE | 2017-02-09 03:48 | PN ---
DATE: GENERAL: The patient is intubated. He is not responsive to verbal command. He does not open his e yes. HEART: Irregular, irregularity. CHEST: Clear to A and P. ABDOMEN: Liver, kidneys and spleen are not palpable. Bowel sounds are normal. There are no intraa bdominal masses or bruits. EXTREMITIES: Feet are 2+ dorsal pedal and pretibial edema. VITAL SIGNS: Blood pressure varies from 70/56 to 165/59, pulse varies from 71 to 60, respiratory ra te varies from 19 to 13 per minute, pulse ox remains at 100. INTAKE AND OUTPUT: Intake 1507, output 2240. LABORATORY DATA: White blood cell count 9600, hemoglobin 9.2, hematocrit 29.1%, platelet count is n ormal at 161,000. Electrolytes: Sodium 147, potassium 3.7, chloride 110, carbon dioxide 29, BUN 91 , creatinine 2.04, glucose 123, calcium 8 and corrected. Vancomycin trough 18.1. Urine culture: No growth after 48 hours. Blood culture: No growth after 3 days. The patient's condition remains critical with the prognosis is grave. Family has expressed a desire that patient be extubated in several days and see if he can survive without mechanical ventilation. This program will be carried out. At the present time, his status is DO NOT RESUSCITATE. Dictated By: ONIEL BYNUM/SHELLY Conf#: [id number] DID#: [id number]
[2017-02-09] MEDS: PANTOPRAZOLE 40 MG INJ IV SCH (05:02)
[2017-02-09] MEDS: BUMETANIDE 1 MG INJ IV SCH ×2 (05:02→17:25)
[2017-02-09 06:13] LABS: ADD SCAN DIFF NO
[2017-02-09 06:25] LABS: ABNORMAL IP MESSAGE 1; BASOPHILS % 0.5 % (0.0-2.0); EOSINOPHILS # 0.2 10^3/ul (0.0-0.5); EOSINOPHILS % 1.9 % (0.0-7.0); HEMATOCRIT 31.2 % (42.0-52.0); HEMOGLOBIN 9.7 g/dl (14.0-18.0); LYMPHOCYTES # 0.7 10^3/ul (0.8-2.9); LYMPHOCYTES % 7.7 % (15.0-51.0); MEAN CORPUSCULAR HEMOGLOBIN 28.9 pg (29.0-33.0); MEAN CORPUSCULAR HGB CONC 31.1 g/dl (32.0-37.0); MEAN CORPUSCULAR VOLUME 92.9 fl (82.0-101.0); MEAN PLATELET VOLUME 13.9 fl (7.4-10.4); MONOCYTE # 0.5 10^3/ul (0.3-0.9); MONOCYTES % 5.8 % (0.0-11.0); NEUTROPHIL # 6.9 10^3/ul (1.6-7.5); NEUTROPHILS % 81.5 % (39.0-77.0); PLATELET COUNT 148 10^3/UL (140-415); RED BLOOD COUNT 3.36 10^6/ul (4.70-6.10); RED CELL DISTRIBUTION WIDTH 16.7 % (11.5-14.5); WHITE BLOOD COUNT 8.5 10^3/ul (4.8-10.8)
[2017-02-09] MEDS: HEPARIN 5,000 UNIT/0.5 ML VIAL SC SCH ×3 (06:45→22:39)
[2017-02-09 06:58] LABS: ALBUMIN 2.3 g/dl (3.3-4.9); ALBUMIN/GLOBULIN RATIO 0.6; CALCIUM 8.1 mg/dl (8.4-10.2); CREATININE 2.03 mg/dl (0.61-1.24); POTASSIUM 3.9 mmol/L (3.5-5.1); TOTAL PROTEIN 6.1 g/dl (6.1-8.1)
[2017-02-09] MEDS: INSULIN GLARGINE [LANtus] 3 ML PEN SC SCH (08:45)
[2017-02-09] MEDS: PROPOFOL 100 ML IV SCH ×2 (08:51→20:13)
[2017-02-09] MEDS: ASPIRIN 81 MG TAB PO SCH (08:51)
[2017-02-09] MEDS: COLLAGENASE 30 GM TUBE TOP SCH (08:52)
[2017-02-09] MEDS: AZTREONAM 0.5 GM in SOD CHLORIDE 0.9% 50 ML IV SCH (08:53)
--- NOTE | 2017-02-09 09:34 | CONS ---
Date/Time of Note Date/Time of Note DATE: 02/09/17 TIME: 09:31 Assessment/Plan Assessment/Plan Chief Complaint/Hosp Course 1. This patient is in the ICU intubated on a ventilator. He is coming off sedation and is more responsive . 2. He has acute renal failure superimposed on CKD . His BUN and serum creatinine are about the same. He is diuresing on diuretics . Continue diuretics and monitor I & O 's and renal function . I think his prognosis for renal recovery is poor. We will continue current treatment and await further discussions with family regarding ventilator support etc. . 3. Diabetes mellitus , under better control . 4. Dementia 5. Respiratory failure on ventilator. He is now DNR 6. chronic kidney disease due to diabetic nephropathy . 7. hypertension 8. lower extremity venous Dopplers done shows possible nonocclusive thrombus in R peroneal vein , S C heparin started . Problems: Consultation Date/Type/Reason Admit Date/Time Jan 23, 2017 at 20:03 Initial Consult Date 01/25/17 Type of Consultation: renal Referring Provider: ONIEL MORROW MD 24 HR Interval Summary Free Text/Dictation He is in the ICU , intubated on the ventilator . He is coming off sedation and is responsive . Subjective hx not possible: pt non-verbal Exam/Review of Systems Vital Signs Vitals Vital Signs Date Time Temp Pulse Resp B/P Pulse Ox O2 Delivery O2 Flow Rate FiO2 02/09/17 08:10 66 15 97 30 02/09/17 07:30 97.8 137/44 Mechanical Ventilator Intake and Output 02/08/17 02/08/17 02/09/17 15:00 23:00 07:00 Intake Total 387.248 ml 634.892 ml 528.86 ml Output Total 400 ml 1300 ml 600 ml Balance -12.752 ml -665.108 ml -71.14 ml Exam Constitutional: alert Respiratory: clear to auscultation, diminished breath sounds Cardiovascular: edema, irregular rhythm Gastrointestinal: soft Extremities: edema Results Result Diagram: 02/09/17 0530 02/09/17 0530 Results 24 hrs Laboratory Tests Test 02/08/17 14:36 02/08/17 16:58 02/08/17 20:53 02/09/17 01:59 Bedside Glucose 161 157 179 182 Test 02/09/17 04:58 02/09/17 05:30 02/09/17 08:44 Bedside Glucose 117 162 White Blood Count 8.5 Red Blood Count 3.36 L Hemoglobin 9.7 L Hematocrit 31.2 L Mean Corpuscular Volume 92.9 Mean Corpuscular Hemoglobin 28.9 L Mean Corpuscular Hemoglobin Concent 31.1 L Red Cell Distribution Width 16.7 H Platelet Count 148 Mean Platelet Volume 13.9 H Neutrophils % 81.5 H Lymphocytes % 7.7 L Monocytes % 5.8 Eosinophils % 1.9 Basophils % 0.5 Nucleated Red Blood Cells % 0.0 Neutrophils # 6.9 Lymphocytes # 0.7 L Monocytes # 0.5 Eosinophils # 0.2 Basophils # 0.0 Nucleated Red Blood Cells # 0.0 Sodium Level 144 Potassium Level 3.9 Chloride Level 110 Carbon Dioxide Level 31 Anion Gap 7 L Blood Urea Nitrogen 86 H Creatinine 2.03 H Glucose Level 136 Calcium Level 8.1 L Total Bilirubin 0.0 L Direct Bilirubin 0.00 Indirect Bilirubin 0.0 Aspartate Amino Transf (AST/SGOT) 25 Alanine Aminotransferase (ALT/SGPT) 45 Alkaline Phosphatase 95 Total Protein 6.1 Albumin 2.3 L Globulin 3.80 H Albumin/Globulin Ratio 0.60 Medications Medications Current Medications Acetaminophen (Tylenol Tab) 650 mg Q4H PRN PO PAIN AND OR ELEVATED TEMP; Start 01/24/17 at 11:00 Acetaminophen/ Hydrocodone Bitart ([place] (10/325)) 1 tab Q4H PRN PO PAIN; Start 01/24/17 at 11:00 Zolpidem Tartrate (Ambien) 10 mg HS PRN PO INSOMNIA; Start 01/24/17 at 11:00 Magnesium Hydroxide (Milk Of Mag) 30 ml DAILY PRN PO CONSTIPATION; Start at 11:00 Albuterol (Proventil 0.083% (Neb)) 1.25 mg Q4 PRN HHN SLEEP Last administered on 02/03/17 10:07; Admin Dose 1.25 MG; Start 01/24/17 at 11:00 Diagnostic Test (Pha) (Accu-Chek) 1 ea 02 XX Last administered on 02/09/17 02: 03; Admin Dose 1 EA; Start 01/25/17 at 02:00 Pantoprazole (Protonix Iv) 40 mg DAILY@06 IV Last administered on 02/09/17 05: 02; Admin Dose 40 MG; Start 01/25/17 at 06:00 Miscellaneous Information 1 ea NOTE XX ; Start 01/24/17 at 17:00 Glucose (Glutose) 15 gm Q15M PRN PO DECREASED GLUCOSE; Start 01/24/17 at 17:00 Glucose (Glutose) 22.5 gm Q15M PRN PO DECREASED GLUCOSE; Start 01/24/17 at 17: 00 Dextrose (D50w Syringe) 25 ml Q15M PRN IV DECREASED GLUCOSE; Start 01/24/17 at 17:00 Dextrose (D50w Syringe) 50 ml Q15M PRN IV DECREASED GLUCOSE; Start 01/24/17 at 17:00 Glucagon (Glucagen) 1 mg Q15M PRN IM DECREASED GLUCOSE; Start 01/24/17 at 17:00 Glucose 15 gm 15 gm Q15M PRN BUCCAL DECREASED GLUCOSE; Start 01/24/17 at 17:00 Norepinephrine 16 mg/Dextrose 500 ml @ 1.87 mls/hr TITRATE IV Last administered on 01/26/17 09:18; Admin Dose 9.37 MLS/HR; Start 01/25/17 at 17:30 Aztreonam/Sodium Chloride (Azactam/NS) 50 ml @ 100 mls/hr Q12 IV Last administered on 02/09/17 08:53; Admin Dose 100 MLS/HR; Start 01/25/17 at 21:00 Heparin Sodium (Porcine) (Heparin (5000 Units/0.5 ml)) 5,000 unit Q8 SC Last administered on 02/09/17 06:45; Admin Dose 5,000 UNIT; Start 01/30/17 at 22:00 Alprazolam (Xanax) 1 mg Q4H PRN NGT ANXIETY; Start 01/31/17 at 23:30 Miscellaneous Information (Pending Santyl Order For Wound Care) This patient bowens... PRN PRN XX WOUND CARE; Start 02/01/17 at 16:00 Collagenase (Santyl) 1 applic DAILY TOP Last administered on 02/09/17 08:52; Admin Dose 1 APPLIC; Start 02/02/17 at 09:00 Insulin Glargine (Lantus) 19 unit DAILY@08 SC Last administered on 02/09/17 08: 45; Admin Dose 19 UNIT; Start 02/03/17 at 08:00 Aspirin (Aspirin) 81 mg DAILY PO Last administered on 02/09/17 08:51; Admin Dose 81 MG; Start 02/04/17 at 09:00 Atorvastatin Calcium (Lipitor) 40 mg HS NGT Last administered on 02/08/17 20:48 ; Admin Dose 40 MG; Start 02/03/17 at 23:45 Hydralazine HCl 10 mg 10 mg Q3H PRN IV SBP GREATER THAN 160; Start 02/04/17 at 16:30 Propofol (Diprivan) 100 ml @ 2.328 mls/ hr Q12H IV Last administered on 08:51; Admin Dose 6.984 MLS/HR; Start 02/04/17 at 21:00 Insulin Aspart (Novolog Insulin Pen) NOVOLOG *MODERATE* ALGORITHM Q4 SC Last administered on 02/09/17 08:48; Admin Dose 2 UNIT; Start 02/05/17 at 09:00 Carvedilol 6.25 mg 6.25 mg BID PO Last administered on 02/08/17 20:48; Admin Dose 6.25 MG; Start 02/05/17 at 21:00 Levofloxacin/ Dextrose 50 ml @ 50 mls/hr Q24H IVPB Last administered on 16:09; Admin Dose 50 MLS/HR; Start 02/06/17 at 15:00 Vancomycin HCl (Vancocin) 250 ml @ 125 mls/hr Q48H IVPB ; Start 02/10/17 at 04: 00 Lactulose (Enulose) 20 gm DAILY PRN NGT CONSTIPATION; Start 02/08/17 at 18:00 ANNA BUSTILLO MD February 09, 2017 09:34
--- NOTE | 2017-02-09 10:28 | CONS ---
Date/Time of Note Date/Time of Note DATE: 02/09/17 TIME: 10:23 Assessment/Plan Assessment/Plan Additional Assessment/Plan Ventilator settings; AC of 14, tidal volume 500, PEEP of 5, 30% FiO2. Patient currently on propofol at 15 mics per kilogram per minute. Next Assessment recommendations; 1. Patient admitted for respiratory failure due to pneumonia. Failed extubation trials due to very poor cough reflex with complete atelectasis of the right lung due to mucous plugging. With marked interval radiological improvement after reintubation. 2. History of cardiac arrhythmia. 3. History of coronary artery disease status post CABG surgery in the past. 4. Poor mental status. Next 5. DNR status. Stop sedation. Once the patient is off sedation he will be switched over to CPAP mode. End of the patient meets criteria he will be extubated. Prognosis remains very guarded on account of high likelihood of developing respiratory failure due to poor cough reflex with subsequent development of pneumonia/ atelectasis. Consultation Date/Type/Reason Admit Date/Time Jan 23, 2017 at 20:03 Type of Consultation: Pulmonary/critical care Referring Provider: ONIEL MORROW MD 24 HR Interval Summary Free Text/Dictation Patient condition remains critical. Still requiring full ventilator support. Patient has remained hemodynamically stable. General exam; elderly male, orally intubated, mildly sedated. Currently in no distress. Exam/Review of Systems Vital Signs Vitals Vital Signs Date Time Temp Pulse Resp B/P Pulse Ox O2 Delivery O2 Flow Rate FiO2 02/09/17 09:30 66 18 100 30 02/09/17 07:30 97.8 137/44 Mechanical Ventilator Intake and Output 02/08/17 02/08/17 02/09/17 15:00 23:00 07:00 Intake Total 387.248 ml 634.892 ml 528.86 ml Output Total 400 ml 1300 ml 600 ml Balance -12.752 ml -665.108 ml -71.14 ml Exam HEENT examination; supple neck, orally intubated. Patient has bilateral surgical pupils. No neck masses, no thyromegaly. Chest examination; clear to auscultation. S1-S2 audible, there is a well- healed sternal scar. There is a pacemaker in the chest wall. Abdomen examination; soft, nondistended. No organomegaly. Bowel sounds audible. Extremity examination; no peripheral edema. LAP REGULATOR examination; patient is sedated. Results Result Diagram: 02/09/17 0530 02/09/17 0530 Results 24 hrs Laboratory Tests Test 02/08/17 14:36 02/08/17 16:58 02/08/17 20:53 02/09/17 01:59 Bedside Glucose 161 157 179 182 Test 02/09/17 04:58 02/09/17 05:30 02/09/17 08:44 Bedside Glucose 117 162 White Blood Count 8.5 Red Blood Count 3.36 L Hemoglobin 9.7 L Hematocrit 31.2 L Mean Corpuscular Volume 92.9 Mean Corpuscular Hemoglobin 28.9 L Mean Corpuscular Hemoglobin Concent 31.1 L Red Cell Distribution Width 16.7 H Platelet Count 148 Mean Platelet Volume 13.9 H Neutrophils % 81.5 H Lymphocytes % 7.7 L Monocytes % 5.8 Eosinophils % 1.9 Basophils % 0.5 Nucleated Red Blood Cells % 0.0 Neutrophils # 6.9 Lymphocytes # 0.7 L Monocytes # 0.5 Eosinophils # 0.2 Basophils # 0.0 Nucleated Red Blood Cells # 0.0 Sodium Level 144 Potassium Level 3.9 Chloride Level 110 Carbon Dioxide Level 31 Anion Gap 7 L Blood Urea Nitrogen 86 H Creatinine 2.03 H Glucose Level 136 Calcium Level 8.1 L Total Bilirubin 0.0 L Direct Bilirubin 0.00 Indirect Bilirubin 0.0 Aspartate Amino Transf (AST/SGOT) 25 Alanine Aminotransferase (ALT/SGPT) 45 Alkaline Phosphatase 95 Total Protein 6.1 Albumin 2.3 L Globulin 3.80 H Albumin/Globulin Ratio 0.60 Medications Medications Current Medications Acetaminophen (Tylenol Tab) 650 mg Q4H PRN PO PAIN AND OR ELEVATED TEMP; Start 01/24/17 at 11:00 Acetaminophen/ Hydrocodone Bitart ([place] (10/325)) 1 tab Q4H PRN PO PAIN; Start 01/24/17 at 11:00 Zolpidem Tartrate (Ambien) 10 mg HS PRN PO INSOMNIA; Start 01/24/17 at 11:00 Magnesium Hydroxide (Milk Of Mag) 30 ml DAILY PRN PO CONSTIPATION; Start at 11:00 Albuterol (Proventil 0.083% (Neb)) 1.25 mg Q4 PRN HHN SLEEP Last administered on 02/03/17t 10:07; Admin Dose 1.25 MG; Start 01/24/17 at 11:00 Diagnostic Test (Pha) (Accu-Chek) 1 ea 02 XX Last administered on 02/09/17 02: 03; Admin Dose 1 EA; Start 01/25/17 at 02:00 Pantoprazole (Protonix Iv) 40 mg DAILY@06 IV Last administered on 02/09/17 05: 02; Admin Dose 40 MG; Start 01/25/17 at 06:00 Miscellaneous Information 1 ea NOTE XX ; Start 01/24/17 at 17:00 Glucose (Glutose) 15 gm Q15M PRN PO DECREASED GLUCOSE; Start 01/24/17 at 17:00 Glucose (Glutose) 22.5 gm Q15M PRN PO DECREASED GLUCOSE; Start 01/24/17 at 17: 00 Dextrose (D50w Syringe) 25 ml Q15M PRN IV DECREASED GLUCOSE; Start 01/24/17 at 17:00 Dextrose (D50w Syringe) 50 ml Q15M PRN IV DECREASED GLUCOSE; Start 01/24/17 at 17:00 Glucagon (Glucagen) 1 mg Q15M PRN IM DECREASED GLUCOSE; Start 01/24/17 at 17:00 Glucose 15 gm 15 gm Q15M PRN BUCCAL DECREASED GLUCOSE; Start 01/24/17 at 17:00 Norepinephrine 16 mg/Dextrose 500 ml @ 1.87 mls/hr TITRATE IV Last administered on 01/26/17 09:18; Admin Dose 9.37 MLS/HR; Start 01/25/17 at 17:30 Aztreonam/Sodium Chloride (Azactam/NS) 50 ml @ 100 mls/hr Q12 IV Last administered on 02/09/17 08:53; Admin Dose 100 MLS/HR; Start 01/25/17 at 21:00 Heparin Sodium (Porcine) (Heparin (5000 Units/0.5 ml)) 5,000 unit Q8 SC Last administered on 02/09/17 06:45; Admin Dose 5,000 UNIT; Start 01/30/17 at 22:00 Alprazolam (Xanax) 1 mg Q4H PRN NGT ANXIETY; Start 01/31/17 at 23:30 Miscellaneous Information ([facility]) This patient bowens... PRN PRN XX WOUND CARE; Start 02/01/17 at 16:00 Collagenase (Santyl) 1 applic DAILY TOP Last administered on 02/09/17 08:52; Admin Dose 1 APPLIC; Start 02/02/17 at 09:00 Insulin Glargine (Lantus) 19 unit DAILY@08 SC Last administered on 02/09/17 08: 45; Admin Dose 19 UNIT; Start 02/03/17 at 08:00 Aspirin (Aspirin) 81 mg DAILY PO Last administered on 02/09/17 08:51; Admin Dose 81 MG; Start 02/04/17 at 09:00 Atorvastatin Calcium (Lipitor) 40 mg HS NGT Last administered on 02/08/17 20:48 ; Admin Dose 40 MG; Start 02/03/17 at 23:45 Hydralazine HCl 10 mg 10 mg Q3H PRN IV SBP GREATER THAN 160; Start 02/04/17 at 16:30 Propofol (Diprivan) 100 ml @ 2.328 mls/ hr Q12H IV Last administered on 08:51; Admin Dose 6.984 MLS/HR; Start 02/04/17 at 21:00 Insulin Aspart (Novolog Insulin Pen) NOVOLOG *MODERATE* ALGORITHM Q4 SC Last administered on 02/09/17 08:48; Admin Dose 2 UNIT; Start 02/05/17 at 09:00 Carvedilol 6.25 mg 6.25 mg BID PO Last administered on 02/08/17 20:48; Admin Dose 6.25 MG; Start 02/05/17 at 21:00 Levofloxacin/ Dextrose 50 ml @ 50 mls/hr Q24H IVPB Last administered on 16:09; Admin Dose 50 MLS/HR; Start 02/06/17 at 15:00 Vancomycin HCl (Vancocin) 250 ml @ 125 mls/hr Q48H IVPB ; Start 02/10/17 at 04: 00 Lactulose (Enulose) 20 gm DAILY PRN NGT CONSTIPATION; Start 02/08/17 at 18:00 ULISES MCKAY February 09, 2017 10:28
[2017-02-09] MEDS ORDERED: VANCOMYCIN 1 GM in NS 250 ML IVPB SCH (16:00)
[2017-02-09] MEDS: ATORVASTATIN 40 MG TAB NGT SCH (20:13)
--- NOTE | 2017-02-09 23:55 | CONS ---
Date/Time of Note Date/Time of Note DATE: 02/09/17 TIME: 23:54 Assessment/Plan Assessment/Plan Chief Complaint/Hosp Course Impression: - respiratory failure- requiring intubation and difficulty weaning. did extubated, but reintubated now. pulmonary managing. 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 pt poor candidate for invasive evaluation. no e/o of ongoing ischemia. - presented with dementia with worsening mental status, now intubated. pt alert but unable to wean off vent. - NSTEMI- trop peaked at 10.0, also with h/o of ATN, ALI at time of event. c/w either hypotensive vs hypoxemic event. now resolved. may need risk stratification depending on clinical course. - multi vessel CAD- now with NSTEMI, will recommend await clinic improvement and reassess. - atrial fibrillation- rate controlled - NSVT s/p ICD placement nl fxn last checked 01/2017. no sustained VT - mild to moderate - h/o HTN - h/o DM2 - PANCHO- cr stable/improving but significant uremia Recommendations - cont asa/statin - unclear longer term prognosis, ok to hold off anticoag for afib at this time - cont coreg to 6.25mg po bid - on bumex to keep even to negative - uremia/cr stable. - no e/o ongoing ischemia. hold off on any invasive evaluation at this time. could reconsider if patient recovers from acute illnesses will follow Problems: Consultation Date/Type/Reason Admit Date/Time Jan 23, 2017 at 20:03 Initial Consult Date 01/25/17 Type of Consultation: cardiology Referring Provider: ONIEL MORROW MD 24 HR Interval Summary Free Text/Dictation no acute events. remains intubated/sedated telel reviewed; afib, pvcs, paced beats. Subjective hx not possible: pt non-verbal, pt critical status Exam/Review of Systems Vital Signs Vitals Vital Signs Date Time Temp Pulse Resp B/P Pulse Ox O2 Delivery O2 Flow Rate FiO2 02/09/17 23:33 66 15 99 30 02/09/17 21:00 132/69 Mechanical Ventilator 02/09/17 20:00 98.2 Intake and Output 02/08/17 02/08/17 02/09/17 15:00 23:00 07:00 Intake Total 387.248 ml 634.892 ml 528.86 ml Output Total 400 ml 1300 ml 600 ml Balance -12.752 ml -665.108 ml -71.14 ml Exam Constitutional: alert, No oriented Psych: other (unabel to assess) Head: atraumatic, normocephalic Eyes: nl sclera ENMT: mucosa pink and moist Neck: non-tender, supple, No jvd Respiratory: coarse anterior bs Cardiovascular: irregular rhythm, nl pulses, other (distant hs), No S3, No S4 Gastrointestinal: non-tender, soft Musculoskeletal: nl extremities to inspection Extremities: normal pulses Results Result Diagram: 02/09/17 0530 02/09/17 0530 Results 24 hrs Laboratory Tests Test 02/09/17 01:59 02/09/17 04:58 02/09/17 05:30 02/09/17 08:44 Bedside Glucose 182 117 162 White Blood Count 8.5 Red Blood Count 3.36 L Hemoglobin 9.7 L Hematocrit 31.2 L Mean Corpuscular Volume 92.9 Mean Corpuscular Hemoglobin 28.9 L Mean Corpuscular Hemoglobin Concent 31.1 L Red Cell Distribution Width 16.7 H Platelet Count 148 Mean Platelet Volume 13.9 H Neutrophils % 81.5 H Lymphocytes % 7.7 L Monocytes % 5.8 Eosinophils % 1.9 Basophils % 0.5 Nucleated Red Blood Cells % 0.0 Neutrophils # 6.9 Lymphocytes # 0.7 L Monocytes # 0.5 Eosinophils # 0.2 Basophils # 0.0 Nucleated Red Blood Cells # 0.0 Sodium Level 144 Potassium Level 3.9 Chloride Level 110 Carbon Dioxide Level 31 Anion Gap 7 L Blood Urea Nitrogen 86 H Creatinine 2.03 H Glucose Level 136 Calcium Level 8.1 L Total Bilirubin 0.0 L Direct Bilirubin 0.00 Indirect Bilirubin 0.0 Aspartate Amino Transf (AST/SGOT) 25 Alanine Aminotransferase (ALT/SGPT) 45 Alkaline Phosphatase 95 Total Protein 6.1 Albumin 2.3 L Globulin 3.80 H Albumin/Globulin Ratio 0.60 Test 02/09/17 13:45 02/09/17 17:25 02/09/17 20:23 Bedside Glucose 143 119 124 Medications Medications Current Medications Acetaminophen (Tylenol Tab) 650 mg Q4H PRN PO PAIN AND OR ELEVATED TEMP; Start 01/24/17 at 11:00 Acetaminophen/ Hydrocodone Bitart ([place] ()) 1 tab Q4H PRN PO PAIN; Start 01/24/17 at 11:00 Zolpidem Tartrate (Ambien) 10 mg HS PRN PO INSOMNIA; Start 01/24/17 at 11:00 Magnesium Hydroxide (Milk Of Mag) 30 ml DAILY PRN PO CONSTIPATION; Start at 11:00 Albuterol (Proventil 0.083% (Neb)) 1.25 mg Q4 PRN HHN SLEEP Last administered on 02/03/17 10:07; Admin Dose 1.25 MG; Start 01/24/17 at 11:00 Diagnostic Test (Pha) (Accu-Chek) 1 ea 02 XX Last administered on 02/09/17 02: 03; Admin Dose 1 EA; Start 01/25/17 at 02:00 Pantoprazole (Protonix Iv) 40 mg DAILY@06 IV Last administered on 02/09/17 05: 02; Admin Dose 40 MG; Start 01/25/17 at 06:00 Miscellaneous Information 1 ea NOTE XX ; Start 01/24/17 at 17:00 Glucose (Glutose) 15 gm Q15M PRN PO DECREASED GLUCOSE; Start 01/24/17 at 17:00 Glucose (Glutose) 22.5 gm Q15M PRN PO DECREASED GLUCOSE; Start 01/24/17 at 17: 00 Dextrose (D50w Syringe) 25 ml Q15M PRN IV DECREASED GLUCOSE; Start 01/24/17 at 17:00 Dextrose (D50w Syringe) 50 ml Q15M PRN IV DECREASED GLUCOSE; Start 01/24/17 at 17:00 Glucagon (Glucagen) 1 mg Q15M PRN IM DECREASED GLUCOSE; Start 01/24/17 at 17:00 Glucose 15 gm 15 gm Q15M PRN BUCCAL DECREASED GLUCOSE; Start 01/24/17 at 17:00 Norepinephrine/ Dextrose (Levophed/D5W) 500 ml @ 1.87 mls/hr TITRATE IV Last administered on 01/26/17 09:18; Admin Dose 9.37 MLS/HR; Start 01/25/17 at 17:30 Heparin Sodium (Porcine) (Heparin (5000 Units/0.5 ml)) 5,000 unit Q8 SC Last administered on 02/09/17 22:39; Admin Dose 5,000 UNIT; Start 01/30/17 at 22:00 Alprazolam (Xanax) 1 mg Q4H PRN NGT ANXIETY; Start 01/31/17 at 23:30 Miscellaneous Information (Pending Santyl Order For Wound Care) This patient bowens... PRN PRN XX WOUND CARE; Start 02/01/17 at 16:00 Collagenase (Santyl) 1 applic DAILY TOP Last administered on 02/09/17 08:52; Admin Dose 1 APPLIC; Start 02/02/17 at 09:00 Insulin Glargine (Lantus) 19 unit DAILY@08 SC Last administered on 02/09/17 08: 45; Admin Dose 19 UNIT; Start 02/03/17 at 08:00 Aspirin (Aspirin) 81 mg DAILY PO Last administered on 02/09/17 08:51; Admin Dose 81 MG; Start 02/04/17 at 09:00 Atorvastatin Calcium (Lipitor) 40 mg HS NGT Last administered on 02/09/17 20:13 ; Admin Dose 40 MG; Start 02/03/17 at 23:45 Hydralazine HCl 10 mg 10 mg Q3H PRN IV SBP GREATER THAN 160; Start 02/04/17 at 16:30 Propofol (Diprivan) 100 ml @ 2.328 mls/ hr Q12H IV Last administered on 08:51; Admin Dose 6.984 MLS/HR; Start 02/04/17 at 21:00 Insulin Aspart (Novolog Insulin Pen) NOVOLOG *MODERATE* ALGORITHM Q4 SC Last administered on 02/09/17 13:48; Admin Dose 2 UNIT; Start 02/05/17 at 09:00 Carvedilol 6.25 mg 6.25 mg BID PO Last administered on 02/09/17 20:13; Admin Dose 6.25 MG; Start 02/05/17 at 21:00 Vancomycin HCl (Vancocin) 250 ml @ 125 mls/hr Q48H IVPB ; Start 02/10/17 at 04: 00 Lactulose (Enulose) 20 gm DAILY PRN NGT CONSTIPATION Last administered on 17:20; Admin Dose 20 GM; Start 02/08/17 at 18:[address] VOGEL February 09, 2017 23:55
[2017-02-10] VITALS (37 sets, daily range): BP systolic 104–167; BP diastolic 60–110; PULSE 58–134; RESP 14–32
[2017-02-10] MEDS: PROPOFOL 100 ML IV SCH ×3 (00:11→21:34)
[2017-02-10] MEDS: INSULIN ASPART [NOVOLOG] 3 ML PEN SC SCH ×3 (00:36→08:56)
[2017-02-10] MEDS: ALBUTEROL 18 GM INHALER INH SCH ×3 (00:48→09:07)
[2017-02-10] MEDS: ACCU-CHEK XX SCH (01:59)
--- NOTE | 2017-02-10 02:47 | PN ---
DATE: 02/09/2017 SUBJECTIVE: The patient is unresponsive. He is still intubated as an attempt to extubate him faile d once again. The patient is hemodynamically stable without the assist of vasopressors. OBJECTIVE: HEART: Irregular irregularity with occasional extrasystoles. CHEST: Clear to A and P. ABDOMEN: Liver, kidneys, spleen are not palpable. Bowel sounds are normal. There are no intraabdo madi masses or bruits. LUNGS: Clear to A and P. EXTREMITIES: Legs with 2+ dorsal pedal and pretibial edema, pitting. VITAL SIGNS: Afebrile, blood pressure varies from 96/52 to 186/117, pulse varies from 63 to 81, res piratory rate varies from 14 to 41. INTAKE AND OUTPUT: Intake 1551 and output 2300 mL; however, the patient remains in renal failure de spite having adequate urinary output. LABORATORY DATA: White blood cell count 8500, hemoglobin 9.7, hematocrit 31.2%, platelet count norm al. Electrolytes: Sodium 144, potassium 3.9, chloride 110, carbon dioxide 31, BUN 86, creatinine 2 .03, calcium 8.1 uncorrected. Vancomycin trough 18.1. ASSESSMENT AND PLAN: The patient remains in critical condition. Prognosis is grave. The patient m ay eventually have to be extubated and see if he can survive without respiratory support, which is v cherelle doubtful. This will be discussed with his family once again. Dictated By: ONIEL BYNUM/SHELLY Conf#: [id number] DID#: [id number]
[2017-02-10] MEDS ORDERED: VANCOMYCIN 1 GM in NS 250 ML IVPB SCH (04:00)
[2017-02-10] MEDS: BUMETANIDE 1 MG INJ IV SCH (05:19)
[2017-02-10] MEDS: PANTOPRAZOLE 40 MG INJ IV SCH (05:19)
[2017-02-10] MEDS: HEPARIN 5,000 UNIT/0.5 ML VIAL SC SCH (05:28)
[2017-02-10 06:33] LABS: ADD SCAN DIFF NO
[2017-02-10 06:46] LABS: ABNORMAL IP MESSAGE 1; BASOPHILS % 0.3 % (0.0-2.0); EOSINOPHILS # 0.2 10^3/ul (0.0-0.5); EOSINOPHILS % 1.7 % (0.0-7.0); HEMATOCRIT 29.4 % (42.0-52.0); HEMOGLOBIN 9.1 g/dl (14.0-18.0); LYMPHOCYTES # 0.7 10^3/ul (0.8-2.9); LYMPHOCYTES % 7.8 % (15.0-51.0); MEAN CORPUSCULAR HEMOGLOBIN 28.9 pg (29.0-33.0); MEAN CORPUSCULAR VOLUME 93.3 fl (82.0-101.0); MEAN PLATELET VOLUME 13.8 fl (7.4-10.4); MONOCYTE # 0.5 10^3/ul (0.3-0.9); MONOCYTES % 5.1 % (0.0-11.0); NEUTROPHIL # 7.4 10^3/ul (1.6-7.5); PLATELET COUNT 142 10^3/UL (140-415); RED BLOOD COUNT 3.15 10^6/ul (4.70-6.10); RED CELL DISTRIBUTION WIDTH 16.7 % (11.5-14.5); WHITE BLOOD COUNT 8.9 10^3/ul (4.8-10.8)
[2017-02-10 07:42] LABS: ALBUMIN 2.2 g/dl (3.3-4.9); ALBUMIN/GLOBULIN RATIO 0.57; BILIRUBIN,INDIRECT 0.2 mg/dl (0-1.1); BILIRUBIN,TOTAL 0.2 mg/dl (0.2-1.3); CALCIUM 8.2 mg/dl (8.4-10.2); CREATININE 2.11 mg/dl (0.61-1.24); POTASSIUM 3.8 mmol/L (3.5-5.1)
--- NOTE | 2017-02-10 08:52 | CONS ---
Date/Time of Note Date/Time of Note DATE: 02/10/17 TIME: 08:47 Assessment/Plan Assessment/Plan Chief Complaint/Hosp Course 1. This patient is in the ICU intubated on a ventilator. He is on sedation and is unresponsive . 2. He has acute renal failure superimposed on CKD . His BUN and serum creatinine are about the same. He is diuresing on diuretics . Continue diuretics and monitor I & O 's and renal function . I think his prognosis for renal recovery is poor. We will continue current treatment and await further discussions with family regarding ventilator support etc. . 3. Diabetes mellitus , under better control . 4. Dementia 5. Respiratory failure on ventilator. He is now DNR 6. chronic kidney disease due to diabetic nephropathy . 7. hypertension 8. lower extremity venous Dopplers done shows possible nonocclusive thrombus in R peroneal vein , S C heparin started . Problems: Consultation Date/Type/Reason Admit Date/Time Jan 23, 2017 at 20:03 Initial Consult Date 01/25/17 Type of Consultation: renal Referring Provider: ONIEL MORROW MD 24 HR Interval Summary Free Text/Dictation He is in the ICU sedated , intubated on a ventilator . Subjective hx not possible: pt non-verbal Exam/Review of Systems Vital Signs Vitals Vital Signs Date Time Temp Pulse Resp B/P Pulse Ox O2 Delivery O2 Flow Rate FiO2 02/10/17 07:24 73 17 98 30 02/10/17 06:00 126/60 Mechanical Ventilator 02/10/17 04:00 98.3 Intake and Output 02/09/17 02/09/17 02/10/17 15:00 23:00 07:00 Intake Total 264.920 ml 524.90 ml 772.968 ml Output Total 120 ml 760 ml 310 ml Balance 144.920 ml -235.10 ml 462.968 ml Exam Constitutional: non-verbal Respiratory: clear to auscultation, diminished breath sounds Cardiovascular: edema, irregular rhythm Gastrointestinal: soft Extremities: edema Results Result Diagram: 02/10/17 0510 02/10/17 0510 Results 24 hrs Laboratory Tests Test 02/09/17 13:45 02/09/17 17:25 02/09/17 20:23 02/10/17 00:06 Bedside Glucose 143 119 124 100 Test 02/10/17 05:10 02/10/17 05:22 White Blood Count 8.9 Red Blood Count 3.15 L Hemoglobin 9.1 L Hematocrit 29.4 L Mean Corpuscular Volume 93.3 Mean Corpuscular Hemoglobin 28.9 L Mean Corpuscular Hemoglobin Concent 31.0 L Red Cell Distribution Width 16.7 H Platelet Count 142 Mean Platelet Volume 13.8 H Neutrophils % 83.0 H Lymphocytes % 7.8 L Monocytes % 5.1 Eosinophils % 1.7 Basophils % 0.3 Nucleated Red Blood Cells % 0.0 Neutrophils # 7.4 Lymphocytes # 0.7 L Monocytes # 0.5 Eosinophils # 0.2 Basophils # 0.0 Nucleated Red Blood Cells # 0.0 Sodium Level 145 H Potassium Level 3.8 Chloride Level 110 Carbon Dioxide Level 31 Anion Gap 8 Blood Urea Nitrogen 85 H Creatinine 2.11 H Glucose Level 105 Calcium Level 8.2 L Total Bilirubin 0.2 Direct Bilirubin 0.00 Indirect Bilirubin 0.2 Aspartate Amino Transf (AST/SGOT) 20 Alanine Aminotransferase (ALT/SGPT) 41 Alkaline Phosphatase 81 Total Protein 6.0 L Albumin 2.2 L Globulin 3.80 H Albumin/Globulin Ratio 0.57 Bedside Glucose 116 Medications Medications Current Medications Acetaminophen (Tylenol Tab) 650 mg Q4H PRN PO PAIN AND OR ELEVATED TEMP; Start 01/24/17 at 11:00 Acetaminophen/ Hydrocodone Bitart ([place] (10/325)) 1 tab Q4H PRN PO PAIN; Start 01/24/17 at 11:00 Zolpidem Tartrate (Ambien) 10 mg HS PRN PO INSOMNIA; Start 01/24/17 at 11:00 Magnesium Hydroxide (Milk Of Mag) 30 ml DAILY PRN PO CONSTIPATION; Start at 11:00 Albuterol (Proventil 0.083% (Neb)) 1.25 mg Q4 PRN HHN SLEEP Last administered on 02/03/17 10:07; Admin Dose 1.25 MG; Start 01/24/17 at 11:00 Diagnostic Test (Pha) (Accu-Chek) 1 ea 02 XX Last administered on 02/09/17 02: 03; Admin Dose 1 EA; Start 01/25/17 at 02:00 Pantoprazole (Protonix Iv) 40 mg DAILY@06 IV Last administered on 02/10/17 05: 19; Admin Dose 40 MG; Start 01/25/17 at 06:00 Miscellaneous Information 1 ea NOTE XX ; Start 01/24/17 at 17:00 Glucose (Glutose) 15 gm Q15M PRN PO DECREASED GLUCOSE; Start 01/24/17 at 17:00 Glucose (Glutose) 22.5 gm Q15M PRN PO DECREASED GLUCOSE; Start 01/24/17 at 17: 00 Dextrose (D50w Syringe) 25 ml Q15M PRN IV DECREASED GLUCOSE; Start 01/24/17 at 17:00 Dextrose (D50w Syringe) 50 ml Q15M PRN IV DECREASED GLUCOSE; Start 01/24/17 at 17:00 Glucagon (Glucagen) 1 mg Q15M PRN IM DECREASED GLUCOSE; Start 01/24/17 at 17:00 Glucose 15 gm 15 gm Q15M PRN BUCCAL DECREASED GLUCOSE; Start 01/24/17 at 17:00 Norepinephrine/ Dextrose (Levophed/D5W) 500 ml @ 1.87 mls/hr TITRATE IV Last administered on 01/26/17 09:18; Admin Dose 9.37 MLS/HR; Start 01/25/17 at 17:30 Heparin Sodium (Porcine) (Heparin (5000 Units/0.5 ml)) 5,000 unit Q8 SC Last administered on 02/10/17 05:28; Admin Dose 5,000 UNIT; Start 01/30/17 at 22:00 Alprazolam (Xanax) 1 mg Q4H PRN NGT ANXIETY; Start 01/31/17 at 23:30 Miscellaneous Information (Pending Santyl Order For Wound Care) This patient bowens... PRN PRN XX WOUND CARE; Start 02/01/17 at 16:00 Collagenase (Santyl) 1 applic DAILY TOP Last administered on 02/09/17 08:52; Admin Dose 1 APPLIC; Start 02/02/17 at 09:00 Insulin Glargine (Lantus) 19 unit DAILY@08 SC Last administered on 02/09/17 08: 45; Admin Dose 19 UNIT; Start 02/03/17 at 08:00 Aspirin (Aspirin) 81 mg DAILY PO Last administered on 02/09/17 08:51; Admin Dose 81 MG; Start 02/04/17 at 09:00 Atorvastatin Calcium (Lipitor) 40 mg HS NGT Last administered on 02/09/17 20:13 ; Admin Dose 40 MG; Start 02/03/17 at 23:45 Hydralazine HCl 10 mg 10 mg Q3H PRN IV SBP GREATER THAN 160; Start 02/04/17 at 16:30 Propofol (Diprivan) 100 ml @ 2.328 mls/ hr Q12H IV Last administered on 00:11; Admin Dose 9.312 MLS/HR; Start 02/04/17 at 21:00 Insulin Aspart (Novolog Insulin Pen) NOVOLOG *MODERATE* ALGORITHM Q4 SC Last administered on 02/09/17 13:48; Admin Dose 2 UNIT; Start 02/05/17 at 09:00 Carvedilol 6.25 mg 6.25 mg BID PO Last administered on 02/09/17 20:13; Admin Dose 6.25 MG; Start 02/05/17 at 21:00 Vancomycin HCl (Vancocin) 250 ml @ 125 mls/hr Q48H IVPB Last administered on 03:49; Admin Dose 125 MLS/HR; Start 02/10/17 at 04:00 Lactulose (Enulose) 20 gm DAILY PRN NGT CONSTIPATION Last administered on 17:20; Admin Dose 20 GM; Start 02/08/17 at 18:00 ANNA BUSTILLO MD February 10, 2017 08:52
[2017-02-10] MEDS: ASPIRIN 81 MG TAB PO SCH (08:57)
[2017-02-10] MEDS: COLLAGENASE 30 GM TUBE TOP SCH (08:57)
[2017-02-10] MEDS: INSULIN GLARGINE [LANtus] 3 ML PEN SC SCH (09:00)
--- NOTE | 2017-02-10 10:12 | CONS ---
Date/Time of Note Date/Time of Note DATE: 02/10/17 TIME: 10:09 Assessment/Plan Assessment/Plan Additional Assessment/Plan Ventilator settings; AC of 14, tidal volume 500, PEEP of 5, 30% FiO2. Assessment recommendations; 1. Patient admitted for respiratory failure due to very poor cough reflex causing pneumonia as well as severe hypoventilation. 2. Failed expiration trials with developmental for complete atelectasis of the right lung due to buildup of mucus in the right mainstem bronchus with marked interval improvement after patient was reintubated. 3. History of coronary artery disease status post CABG surgery as well as cardiac arrhythmia status post pacemaker placement. 4. Poor mental status. 5. Renal insufficiency. 6. Chronic atrial fibrillation. Continue current treatment. Patient's has decided for possible terminal extubation sometime this afternoon. Prognosis is dismal. Consultation Date/Type/Reason Admit Date/Time Jan 23, 2017 at 20:03 Type of Consultation: Pulmonary/critical care Referring Provider: ONIEL MORROW MD 24 HR Interval Summary Free Text/Dictation Patient condition remains critical. Still on full ventilator support. Next General exam; elderly male, orally intubated, sedated, currently in no distress. Exam/Review of Systems Vital Signs Vitals Vital Signs Date Time Temp Pulse Resp B/P Pulse Ox O2 Delivery O2 Flow Rate FiO2 02/10/17 09:04 69 16 97 30 02/10/17 06:00 126/60 Mechanical Ventilator 02/10/17 04:00 98.3 Intake and Output 02/09/17 02/09/17 02/10/17 15:00 23:00 07:00 Intake Total 264.920 ml 524.90 ml 772.968 ml Output Total 120 ml 760 ml 310 ml Balance 144.920 ml -235.10 ml 462.968 ml Exam HEENT exam is; supple neck, no JVD. No lymphadenopathy. Midline trachea. No thyromegaly. Patient is orally intubated. Has bilateral surgical pupils. Dentition is fair. Chest examination; clear to auscultation. S1-S2 audible, irregular rhythm. There is a well-healed sternal scar. There is a pacemaker in the left chest wall. Abdomen examination; soft, nondistended. No organomegaly. Bowel is audible. Extremity examination; no peripheral edema. There are multiple ecchymosis involving all 4 extremities. OPTIMIZATION MANAGER examination; patient is sedated. Results Result Diagram: 02/10/17 0510 02/10/17 0510 Results 24 hrs Laboratory Tests Test 02/09/17 13:45 02/09/17 17:25 02/09/17 20:23 02/10/17 00:06 Bedside Glucose 143 119 124 100 Test 02/10/17 05:10 02/10/17 05:22 02/10/17 08:54 White Blood Count 8.9 Red Blood Count 3.15 L Hemoglobin 9.1 L Hematocrit 29.4 L Mean Corpuscular Volume 93.3 Mean Corpuscular Hemoglobin 28.9 L Mean Corpuscular Hemoglobin Concent 31.0 L Red Cell Distribution Width 16.7 H Platelet Count 142 Mean Platelet Volume 13.8 H Neutrophils % 83.0 H Lymphocytes % 7.8 L Monocytes % 5.1 Eosinophils % 1.7 Basophils % 0.3 Nucleated Red Blood Cells % 0.0 Neutrophils # 7.4 Lymphocytes # 0.7 L Monocytes # 0.5 Eosinophils # 0.2 Basophils # 0.0 Nucleated Red Blood Cells # 0.0 Sodium Level 145 H Potassium Level 3.8 Chloride Level 110 Carbon Dioxide Level 31 Anion Gap 8 Blood Urea Nitrogen 85 H Creatinine 2.11 H Glucose Level 105 Calcium Level 8.2 L Total Bilirubin 0.2 Direct Bilirubin 0.00 Indirect Bilirubin 0.2 Aspartate Amino Transf (AST/SGOT) 20 Alanine Aminotransferase (ALT/SGPT) 41 Alkaline Phosphatase 81 Total Protein 6.0 L Albumin 2.2 L Globulin 3.80 H Albumin/Globulin Ratio 0.57 Bedside Glucose 116 119 Medications Medications Current Medications Acetaminophen (Tylenol Tab) 650 mg Q4H PRN PO PAIN AND OR ELEVATED TEMP; Start 01/24/17 at 11:00 Acetaminophen/ Hydrocodone Bitart ([place] (10/325)) 1 tab Q4H PRN PO PAIN; Start 01/24/17 at 11:00 Zolpidem Tartrate (Ambien) 10 mg HS PRN PO INSOMNIA; Start 01/24/17 at 11:00 Magnesium Hydroxide (Milk Of Mag) 30 ml DAILY PRN PO CONSTIPATION; Start at 11:00 Albuterol (Proventil 0.083% (Neb)) 1.25 mg Q4 PRN HHN SLEEP Last administered on 02/03/17t 10:07; Admin Dose 1.25 MG; Start 01/24/17 at 11:00 Diagnostic Test (Pha) (Accu-Chek) 1 ea 02 XX Last administered on 02/09/17 02: 03; Admin Dose 1 EA; Start 01/25/17 at 02:00 Pantoprazole (Protonix Iv) 40 mg DAILY@06 IV Last administered on 02/10/17 05: 19; Admin Dose 40 MG; Start 01/25/17 at 06:00 Miscellaneous Information 1 ea NOTE XX ; Start 01/24/17 at 17:00 Glucose (Glutose) 15 gm Q15M PRN PO DECREASED GLUCOSE; Start 01/24/17 at 17:00 Glucose (Glutose) 22.5 gm Q15M PRN PO DECREASED GLUCOSE; Start 01/24/17 at 17: 00 Dextrose (D50w Syringe) 25 ml Q15M PRN IV DECREASED GLUCOSE; Start 01/24/17 at 17:00 Dextrose (D50w Syringe) 50 ml Q15M PRN IV DECREASED GLUCOSE; Start 01/24/17 at 17:00 Glucagon (Glucagen) 1 mg Q15M PRN IM DECREASED GLUCOSE; Start 01/24/17 at 17:00 Glucose 15 gm 15 gm Q15M PRN BUCCAL DECREASED GLUCOSE; Start 01/24/17 at 17:00 Norepinephrine/ Dextrose (Levophed/D5W) 500 ml @ 1.87 mls/hr TITRATE IV Last administered on 01/26/17 09:18; Admin Dose 9.37 MLS/HR; Start 01/25/17 at 17:30 Heparin Sodium (Porcine) (Heparin (5000 Units/0.5 ml)) 5,000 unit Q8 SC Last administered on 02/10/17 05:28; Admin Dose 5,000 UNIT; Start 01/30/17 at 22:00 Alprazolam (Xanax) 1 mg Q4H PRN NGT ANXIETY; Start 01/31/17 at 23:30 Miscellaneous Information (Pending Santyl Order For Wound Care) This patient bowens... PRN PRN XX WOUND CARE; Start 02/01/17 at 16:00 Collagenase (Santyl) 1 applic DAILY TOP Last administered on 02/10/17 08:57; Admin Dose 1 APPLIC; Start 02/02/17 at 09:00 Insulin Glargine (Lantus) 19 unit DAILY@08 SC Last administered on 02/10/17 09: 00; Admin Dose 19 UNIT; Start 02/03/17 at 08:00 Aspirin (Aspirin) 81 mg DAILY PO Last administered on 02/10/17 08:57; Admin Dose 81 MG; Start 02/04/17 at 09:00 Atorvastatin Calcium (Lipitor) 40 mg HS NGT Last administered on 02/09/17 20:13 ; Admin Dose 40 MG; Start 02/03/17 at 23:45 Hydralazine HCl 10 mg 10 mg Q3H PRN IV SBP GREATER THAN 160; Start 02/04/17 at 16:30 Propofol (Diprivan) 100 ml @ 2.328 mls/ hr Q12H IV Last administered on 00:11; Admin Dose 9.312 MLS/HR; Start 02/04/17 at 21:00 Insulin Aspart (Novolog Insulin Pen) NOVOLOG *MODERATE* ALGORITHM Q4 SC Last administered on 02/09/17 13:48; Admin Dose 2 UNIT; Start 02/05/17 at 09:00 Carvedilol 6.25 mg 6.25 mg BID PO Last administered on 02/10/17 08:56; Admin Dose 6.25 MG; Start 02/05/17 at 21:00 Vancomycin HCl (Vancocin) 250 ml @ 125 mls/hr Q48H IVPB Last administered on 03:49; Admin Dose 125 MLS/HR; Start 02/10/17 at 04:00 Lactulose (Enulose) 20 gm DAILY PRN NGT CONSTIPATION Last administered on 17:20; Admin Dose 20 GM; Start 02/08/17 at 18:00 ULISES MCKAY February 10, 2017 10:12
--- NOTE | 2017-02-10 10:33 | PN ---
DATE: 02/10/2017 SUBJECTIVE: There has been no change in Mr. Winn's overall clinical condition. He remains intu bated, baseline dementia and respiratory failure. When he has a sedation vacation, he is not respon ding to any simple commands, but he does become agitated. The plan is to extubate Mr. Winn toda y per family's request. I have had a conversation with his this morning and have confirmed the fact that he is to be extubated later today in the afternoon when the family members all arrive and spend time with him. Mrs. Winn was very tearful but she was at peace with the fact that he wou ld not suffer any longer. Goals of care has been discussed with patient's and she wants him ju st to be comfortable. Estimated prognosis patient may breathe on his own after being extubated for some unknown period of time. Family members have been made aware of that. Recommendation at this p oint are to proceed with the family's wishes to extubate today. No further aggressive intervention. I will change his level of care to include de-escalation of any medications that are not contribut ing to his quality of life. I have spoken to the nursing staff. We will just add p.r.n. orders of m orphine and Ativan as necessary. There are no psychosocial or spiritual issues. We are supporting family members. Ethical legal issues have been discussed with family members in the past. He is a DO NOT RESUSCITATE also at this point. There is no need for POLST form. Goals of care, once again, is to extubate patient today compassionately and follow his clinical findings. Dictated By: SAIDA LUCIO MD, LP/SHELLY Conf#: [id number] DID#: [id number]
[2017-02-11] VITALS (8 sets, daily range): BP systolic 84–196; BP diastolic 45–106; PULSE 0–91; RESP 15–35
[2017-02-11] MEDS: LORAZEPAM 2 MG INJ IV PRN ×2 (00:40→01:40)
[2017-02-11] MEDS: morphine 2 MG INJ IV PRN ×3 (00:41→04:16)
--- NOTE | 2017-02-11 05:12 | PN ---
DATE: 02/10/2017 OBJECTIVE: GENERAL: The patient remains intubated and unresponsive. LUNGS: Chest is clear to A and P. HEART: He is in atrial fibrillation with an irregular irregularity. ABDOMEN: Soft. Liver, kidneys, spleen are not palpable. Bowel sounds are normal. There are no in traabdominal masses or bruits. EXTREMITIES: The patient has 2+ dorsal pedal and pretibial edema bilaterally. VITAL SIGNS: He is afebrile. Blood pressure is 167/71, pulse varies from 58 to 74, respiratory rat e varies from 14 to 32. Intake and output: Intake 1562, output 1190. LABORATORY DATA: White blood cell count 8900, hemoglobin 9.1 gram-percent, hematocrit 29.4%, platel et count is normal. Electrolytes: Sodium 145, potassium 3.8, chloride 110, carbon dioxide 31, BUN 85, creatinine 2.11, glucose 105, calcium 8.2, uncorrected. PLAN: It has been discussed with the patient's family to have terminal extubation and the seem s to agree to this. This will be considered since the patient appears to have made no progress, his condition is grave and his prognosis is poor. Dictated By: ONIEL BYNUM/SHELLY Conf#: [id number] DID#: [id number]
--- NOTE | 2017-02-14 03:57 | DES ---
DATE OF ADMISSION: 01/23/2017 DATE OF : 02/11/2017 PRINCIPAL DIAGNOSES: 1. Pneumonia. 2. Renal failure. 3. Respiratory failure. SECONDARY DIAGNOSES: 1. Diabetes mellitus. 2. Dementia. 3. Chronic kidney disease. 4. Hypertension. 5. Possible nonocclusive thrombus in the right peroneal vein. 6. Arteriosclerotic cardiovascular disease. 7. History of coronary artery bypass surgery. OPERATIONS AND PROCEDURES: The patient was seen in consultation by Dr. Lindo for renal failure . Dr. Lindo felt that this was acute renal failure, superimposed on chronic renal failure; how ever, he was not oliguric. The patient was given ____ and fluids, and he began to put out urine; ho wever, his BUN and creatinine remained elevated, and he remained in acute renal failure superimposed on chronic renal failure. He was seen in respiratory consultation. He was intubated immediately u judson entering the hospital because of respiratory failure. Several attempts at extubation failed, an d the patient had to be reintubated because he could not maintain adequate ventilation spontaneously . He was seen in pulmonary consultation, and it was felt that he had respiratory failure due to pne umonia. He had a history of cardiac arrhythmia status post pacemaker status post coronary artery by pass surgery, renal insufficiency and failure, copious secretions requiring frequent and deep pharyn geal suctioning as well as endotracheal intubation. He was seen in cardiac consultation, and the ca rdiologist felt that the patient probably had a non-ST elevation myocardial infarction. His troponi n I levels peaked at 10; however, because of his severely critical condition, interventional cardiol ogy was felt to be contraindicated. The plate mill hand advised continued aspirin and statin drugs, Co reg 6.[address] place him on Bumex, and felt that we could perform no invasive cardiac procedure s unless the patient improved significantly to be extubated. He was seen by Dr. Guzman on 017. Dr. Guzman felt that the patient's status of FULL CODE was inappropriate and that it should be changed to DO NOT RESUSCITATE. He discussed this with the patient's , and they both agreed. His status was changed to DO NOT RESUSCITATE. Dr. Guzman saw the patient again on 02/10/2017, an d Dr. Guzman felt that terminal extubation was indicated because of repeated episodes of endotrach eal intubation with failure and need for reintubation. The family agreed. The patient was extubate d on 02/11/2017, and he failed and shortly thereafter as was expected. While he was in the [facility] pital, blood culture was negative. Sputum culture revealed Staphylococcus aureus and Karli albica ns. Urine culture revealed enterococcus. Blood culture and sensitivity were normal. After treatme nt, repeat urine culture was negative, and the blood culture remained negative. The patient was jazzy ated with vancomycin and Levaquin. He was also given Bumex for congestive heart failure and Coreg f or hypertension. He was also given Lasix from his congestive heart failure and Lantus insulin plus NovoLog insulin for his elevated blood sugar. Admission chest x-ray revealed mild left basilar atel ectasis, mild cardiomegaly, atherosclerosis. Brain CAT scan revealed no acute intracranial hemorrha ge, transcortical infarction, or mass effect. There was mild generalized cerebral volume loss. Rad al ultrasound revealed stable fullness in the right renal collecting system without nirmal hydronephr osis. There was increased renal parenchymal echogenicity suggestive of medical renal disease. He h as simple bilateral renal cysts measuring up to 1.4 cm on the left and 5.5 cm on the right. Renal u ltrasound revealed no hydronephrosis. Extremity venous study revealed no deep vein thrombosis in th e left lower extremity, possible nonocclusive thrombosis of the right peroneal vein was found. Ches t x-ray on 02/06/2017 revealed marked improvement aeration in the bilateral lungs, particularly on t he right. There was persistent mild right pulmonary infiltrate and edema and left basilar pleural p arenchymal disease. The patient was extubated early in the morning on 02/11/2017, and he short ly thereafter of respiratory failure. COMPLICATIONS: The patient of respiratory failure after terminal extubation. POST-HOSPITAL INSTRUCTIONS: The patient removed to the [facility]. CONDITION ON DISCHARGE: . Dictated By: ONIEL BYNUM/SHELLY Conf#: [id number] DID#: [id number]
== END 2017-02-11 05:18 | disposition expired | DRG 870 ==
LOC: E/R 16:15 → MS4 20:03 → ICU 01-24 12:18
PROC: 5A1955Z Respiratory Ventilation, Greater than 96 Consecutive Hours (ICD-10-PCS; principal; 2017-01-24)
PROC: 0BH17EZ Insertion of Endotracheal Airway into Trachea, Via Natural or Artificial Opening (ICD-10-PCS; 2017-01-24)
PROC: 0BH17EZ Insertion of Endotracheal Airway into Trachea, Via Natural or Artificial Opening (ICD-10-PCS; 2017-02-04)
PROC: 5A1955Z Respiratory Ventilation, Greater than 96 Consecutive Hours (ICD-10-PCS; 2017-02-04)
DX: A41.9 Sepsis, unspecified organism (principal); J96.01 Acute respiratory failure with hypoxia; J18.9 Pneumonia, unspecified organism; I21.4 Non-ST elevation (NSTEMI) myocardial infarction; R57.9 Shock, unspecified; N17.9 Acute kidney failure, unspecified; E87.2 Acidosis; I50.9 Heart failure, unspecified; I82.491 Acute embolism and thrombosis of other specified deep vein of right lower extremity; J98.11 Atelectasis; I48.91 Unspecified atrial fibrillation; E86.0 Dehydration; F03.90 Unspecified dementia, unspecified severity, without behavioral disturbance, psychotic disturbance, mood disturbance, and anxiety; I12.9 Hypertensive chronic kidney disease with stage 1 through stage 4 chronic kidney disease, or unspecified chronic kidney disease; N18.9 Chronic kidney disease, unspecified; I25.10 Atherosclerotic heart disease of native coronary artery without angina pectoris; E78.5 Hyperlipidemia, unspecified; E11.22 Type 2 diabetes mellitus with diabetic chronic kidney disease; Z66 Do not resuscitate; E11.21 Type 2 diabetes mellitus with diabetic nephropathy; Z96.643 Presence of artificial hip joint, bilateral; E11.51 Type 2 diabetes mellitus with diabetic peripheral angiopathy without gangrene; I25.5 Ischemic cardiomyopathy; Z95.810 Presence of automatic (implantable) cardiac defibrillator; Z95.1 Presence of aortocoronary bypass graft
CPT/HCPCS: 31500; 36415; 36600; 70450; 71010; 76775; 80048; 80053; 80061; 80076; 80162; 80202; 81001; 81003; 82043; 82550; 82553; 82570; 82803; 82962; 83036; 83605; 83735; 83880; 84100; 84155; 84165; 84300; 84443; 84484; 85025; 85610; 85730; 87040; 87070; 87081; 87086; 87102; 89220; 93005; 93306; 93970; 94002; 94003; 94640; 94664; 94770; 96374; J1940; C9113; J1644; J1650; J1815; J1956; J2060; J2270; J3010; J3370; J3475; J7030; J7040; J7042; J7050; J7060